=== PATIENT | male | born 1970 | race Caucasian/White ===

== ENCOUNTER 2023-04-04 11:04 | Outpatient (OUT) | payer MEDICARE, MEDICAID, SELFPAY ==
--- NOTE | 2023-04-04 11:05 | VEIN_ITS ---
Patient: SAVANNAH HOWE Exam Date: 04/04/2023 : 1970 Gender:M Ordering : DR MONIKA HOUSER M.D. Admission #: [id number] Family : Order #: [id number] CLICK HERE TO VIEW EXAM RADIOLOGY REPORT PROCEDURE: [facility] - OFFICE VISIT FOLLOW UP COMPARISON: None. PROGRESS NOTES: The patient reports no new issues, and slight improvement in leg symptoms. There has been interval reduction in varicosities. The patient has followed our recommendations to walk 20-30 minutes once or twice per day since the procedure. Physical exam demonstrates slight decrease in varicosities of the left leg. Persistent varicosities are identified along the legs bilaterally. Review of the ultrasound performed the same day demonstrates occlusive thrombus extending throughout the treated vein, see separate report, consistent with a successful ablation. No thrombus extending into or beyond the saphenofemoral junction. The patient expressed a desire to proceed with treatment of remaining incompetent varicosities. The patient was informed that treatment was a process and would require several procedures/sessions. IMPRESSION: 1. Successful ablation of the left great saphenous vein 2. Persistent varicose veins and bilateral lower extremity symptoms PLAN: 1. Endovenous laser ablation of right small saphenous vein. Nurse notes, history and physical were reviewed and confirmed, see attached forms. The nurse was present throughout the physical exam and consultation Dictated by: Geo Cavanaugh M.D. on 04/05/2023 at 08:47 Approved by: Geo Cavanaugh M.D. on 04/05/2023 at 08:51
--- NOTE | 2023-04-04 11:06 | VEIN_ITS ---
Patient: SAVANNAH HWOE Exam Date: 04/04/2023 : 1970 Gender:M Ordering : DR MONIKA HOUSER M.D. Admission #: [id number] Family : Order #: [id number] CLICK HERE TO VIEW EXAM RADIOLOGY REPORT PROCEDURE: VC EXT VENOUS LT LIMITED COMPARISON: None. INDICATIONS: Phlebitis of superficial veins of lt lower extremity I80.02 TECHNIQUE: Lower extremity cantu scale and Duplex Doppler evaluation of the deep venous system from the inguinal ligament through the calf veins. FINDINGS: REGION: Left lower extremity. THROMBI: Negative for DVT. Heat induced thrombus visualized 3.0 cm from the SFJ. The heat induced thrombus extends from groin to mid thigh, is patent at distal thigh, and is thrombosed again from prox calf to distal calf. COMPRESSIBILITY: Non-compressible segments. FLOW: Areas of no flow. OTHER: CONCLUSION: 1. Successful post ablation occlusion of left great saphenous vein. Dictated by: Geo Cavanaugh M.D. on 04/05/2023 at 08:27 Approved by: Geo Cavanaugh M.D. on 04/05/2023 at 08:47
== END 2023-04-04 11:05 ==
LOC: VC 11:04
PROVIDERS: PCP Radiology Diagnostic Radiology; Visit Provider Radiology Diagnostic Radiology
DX: I80.02 Phlebitis and thrombophlebitis of superficial vessels of left lower extremity (principal); I83.93 Asymptomatic varicose veins of bilateral lower extremities
CPT/HCPCS: 93971; G0463

== ENCOUNTER 2023-04-16 09:45 | Outpatient (OUT) | payer MEDICARE, MEDICAID, SELFPAY ==
--- NOTE | 2023-04-16 10:36 | VEIN_ITS ---
[address] [address] Patient Name: SAVANNAH HOWE MRN: [id number] date: 1970 Sex: M Assigned Patient Location: Current Patient Location: Accession/Order Number: [id number] Exam Date: 04/16/2023 09:50 Report Date: 04/16/2023 11:03 At the request of: MONIKA HOUSER Procedure: VC Endovenous Ablation 1VeinRT EXAMINATION: VC Endovenous Ablation 1VeinRT HISTORY: Pain due to varicose veins of bilateral legs I83.813 The risks and benefits of the procedure had been previously discussed, and were rediscussed at length. Informed written consent was obtained. Sukh Adams RN and Helen Beatty RDMS, RVT assisted. Time out procedure was performed. The right lower extremity was prepared and draped in the usual sterile fashion to allow knee flexion in the sterile field. Duplex ultrasound probe was draped in a sterile cover, sterile transmission gel was used. Venous mapping was performed with the areas of dilation and large tributaries marked. The total length was 43 cm from the entry at level of popliteal fossa to 3-6 cm below the saphenofemoral junction for closure of thigh extension. The diameter of the greater saphenous vein ranged from 11 mm. A 30 gauge needle and 1% buffered lidocaine was used to anesthetize the entry site. A 4 mm incision was made with a scalpel and the saphenous vein was entered percutaneously under direct ultrasound guidance with a micropuncture set, a single stick was successful in gaining access. A micro-guide wire was inserted and the needle removed. A micro-set including a dilator was inserted over the microwire and the needle and dilator were removed. A guide wire was inserted through the micro-set and guided through the saphenous vein to the saphenofemoral junction. The dilator was removed and an introducer sheath was inserted over the wire until the end of the sheath entered the saphenofemoral junction. The dilator and wire were removed and the 600 micron fiber was introduced and placed and positioned so that it extended beyond the sheath and was 3 cm distal to the saphenofemoral femoral junction. Final position of the fiber was determined by ultrasound guidance and duplex imaging. Tumescent anesthetic was delivered by ultrasound guidance. 150 cc of fluid was delivered along the entire course of the saphenous vein. The solution consisted of 1000 cc of normal saline with 40 mL of 1% lidocaine and 20 mL of sodium bicarbonate. A final positioning check was made. The energy source was turned on by means of the foot pedal and the fiber and sheath were withdrawn. The total number of Joules delivered was 1693. The laser was active for 212seconds under continuous pulse, average laser use of 8 J. Laser start time 10:40 AM, 04/16/2023. Laser stop time 10:44 AM, 04/16/2023. A duplex ultrasound revealed compressibility and flow at the saphenofemoral junction immediately after the procedure. Hemostasis at the access site was achieved. The skin incision of the saphenous vein was closed with a 4 x 4. A compression stocking was applied. Postop instructions were given. A follow up appointment was recommended and scheduled. The patient tolerated the procedure well. Electronically authenticated by: SALONI CARDENAS Date: 04/16/2023 11:03
== END 2023-04-16 09:46 ==
LOC: VC 09:45
PROVIDERS: PCP Radiology Diagnostic Radiology; Visit Provider Radiology Diagnostic Radiology
DX: I83.813 Varicose veins of bilateral lower extremities with pain (principal)
CPT/HCPCS: 36478

== ENCOUNTER 2023-04-24 10:33 | Outpatient (OUT) | payer MEDICARE, MEDICAID, SELFPAY ==
--- NOTE | 2023-04-24 | VEIN_ITS ---
Patient: SAVANNAH HOWE Exam Date: 04/24/2023 : 1970 Gender:M Ordering : DR MONIKA HOUSER M.D. Admission #: [id number] Family : Order #: [id number] CLICK HERE TO VIEW EXAM RADIOLOGY REPORT PROCEDURE: VC EXT VENOUS RT LMTD COMPARISON: None. INDICATIONS: Phlebitis of superficial veins of rt lower extremity I80.01 TECHNIQUE: Lower extremity cantu scale and Duplex Doppler evaluation of the deep and superficial venous system from the inguinal ligament through the calf veins. FINDINGS: REGION: Right lower extremity. THROMBI: Positive for DVT. Partial chronic thrombus in FV, pop vein, and gastroc vein. Heat induced thrombus in SSV thigh extension 6 cm from groin and extends to distal lower leg. COMPRESSIBILITY: Non-compressible segments. FLOW: Areas of no flow. OTHER: CONCLUSION: 1. Successful post ablation occlusion of right small saphenous vein. 2. 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 Dictated by: Geo Cavanaugh M.D. on 04/24/2023 at 11:49 Approved by: Geo Cavanaugh M.D. on 04/24/2023 at 11:54
--- NOTE | 2023-04-24 | VEIN_ITS ---
Patient: SAVANNAH HOWE Exam Date: 04/24/2023 : 1970 Gender:M Ordering : DR MONIKA HOUSER M.D. Admission #: [id number] Family : Order #: [id number] CLICK HERE TO VIEW EXAM RADIOLOGY REPORT PROCEDURE: [facility] EST [facility] VEIN CENTER - OFFICE VISIT FOLLOW UP COMPARISON: [facility], 04/04/2023. PROGRESS NOTES: The patient reports mild tenderness within posterior right thigh, but overall improvement in right leg symptoms. There has been interval reduction in varicosities. The patient has followed our recommendations to walk 20-30 minutes once or twice per day since the procedure. Physical exam demonstrates decrease in varicosities of the right leg. Mild postprocedural bruising as expected. Persistent varicosities are identified along the right leg. Review of the ultrasound performed the same day demonstrates occlusive thrombus extending throughout the treated vein, see separate report, consistent with a successful ablation. No thrombus extending into or beyond the saphenofemoral junction. Areas of chronic deep vein thrombus are again noted and do not appear to have changed. The patient expressed a desire to proceed with treatment of remaining incompetent veins. The patient was informed that treatment was a process and would require several procedures/sessions. VEIN/[facility] EST TD IMPRESSION: 1. Successful ablation of the right small saphenous vein 2. Persistent incompetent superficial veins and bilateral lower extremity symptoms PLAN: 1. Endovenous laser ablation of left small saphenous vein. 2. 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 3. Microfoam chemical ablation of incompetent branch saphenous varicosities bilaterally. Nurse notes, history and physical were reviewed and confirmed, see attached forms. The nurse was present throughout the physical exam and consultation Dictated by: Geo Cavanaugh M.D. on 04/24/2023 at 11:54 Approved by: Geo Cavanaugh M.D. on 04/24/2023 at 12:00
== END 2023-04-24 10:34 ==
LOC: VC 10:34
PROVIDERS: PCP Radiology Diagnostic Radiology; Visit Provider Radiology Diagnostic Radiology
DX: I80.01 Phlebitis and thrombophlebitis of superficial vessels of right lower extremity (principal)
CPT/HCPCS: 93971; G0463

== ENCOUNTER 2023-05-08 08:36 | Outpatient (OUT) | payer MEDICARE, MEDICAID, SELFPAY ==
--- NOTE | 2023-05-08 | VEIN_ITS ---
[address] [address] Patient Name: SAVANNAH HOWE MRN: [id number] date: 1970 Sex: M Assigned Patient Location: Current Patient Location: Accession/Order Number: [id number] Exam Date: 05/08/2023 08:35 Report Date: 05/08/2023 13:38 At the request of: MONIKA HOUSER Procedure: VC Endovenous Ablation 1VeinLT EXAMINATION: VC Endovenous Ablation 1VeinLT HISTORY: Pain due to varicose veins of bilateral legs I83.813 The risks and benefits of the procedure had been previously discussed, and were rediscussed at length. Informed written consent was obtained. Cleo Treviño RN and Leanna Sánchez RDMS assisted. Time out procedure was performed. The left lower extremity was prepared and draped in the usual sterile fashion to allow knee flexion in the sterile field. Duplex ultrasound probe was draped in a sterile cover, sterile transmission gel was used. Venous mapping was performed with the areas of dilation and large tributaries marked. The total length was 45 cm from the entry 3 cm above the medial malleolus to 3 cm below the saphenofemoral popliteal junction. The diameter of the greater saphenous vein ranged from 5.4 mm. A 30 gauge needle and 1% buffered lidocaine was used to anesthetize the entry site. A 4 mm incision was made with a scalpel and the saphenous vein was entered percutaneously under direct ultrasound guidance with a micropuncture set, a single stick was successful in gaining access. A micro-guide wire was inserted and the needle removed. A micro-set including a dilator was inserted over the microwire and the needle and dilator were removed. A guide wire was inserted through the micro-set and guided through the saphenous vein to the saphenofemoral junction. The dilator was removed and an introducer sheath was inserted over the wire until the end of the sheath entered the saphenofemoral junction. The dilator and wire were removed and the 600 micron fiber was introduced and placed and positioned so that it extended beyond the sheath and was 3 cm distal to the saphenofemoral femoral junction. Final position of the fiber was determined by ultrasound guidance and duplex imaging. Tumescent anesthetic was delivered by ultrasound guidance. 150 cc of fluid was delivered along the entire course of the saphenous vein. The solution consisted of 1000 cc of normal saline with 40 mL of 1% lidocaine and 20 mL of sodium bicarbonate. A final positioning check was made. The energy source was turned on by means of the foot pedal and the fiber and sheath were withdrawn. The total number of Joules delivered was 2478. The laser was active for 310seconds under continuous pulse, average laser use of 8 J. Laser start time 9:33 AM, 05/08/2023. Laser stop time 9:39 AM, 05/08/2023. A duplex ultrasound revealed compressibility and flow at the saphenofemoral junction immediately after the procedure. Hemostasis at the access site was achieved. The skin incision of the saphenous vein was closed with a 4 x 4. A compression stocking was applied. Postop instructions were given. A follow up appointment was recommended and scheduled. The patient tolerated the procedure well. Electronically authenticated by: SALONI CARDENAS Date: 05/08/2023 13:38
[2023-05-08] MEDS: LIDOCAINE HCL 10 ML, SODIUM BICARBONATE 1 MEQ INJ (10:10)
[2023-05-08] MEDS: 0.9 % SODIUM CHLORIDE 500 ML, LIDOCAINE HCL 20 ML, SODIUM BICARBONATE 10 MEQ INJ (10:10)
== END 2023-05-08 08:37 | disposition home or self-care (01) ==
LOC: VC 08:36
PROVIDERS: PCP Radiology Diagnostic Radiology; Visit Provider Radiology Diagnostic Radiology
DX: I83.813 Varicose veins of bilateral lower extremities with pain (principal); I80.02 Phlebitis and thrombophlebitis of superficial vessels of left lower extremity
CPT/HCPCS: 36478

== ENCOUNTER 2023-05-14 09:12 | Outpatient (OUT) | payer MEDICARE, MEDICAID, SELFPAY ==
--- NOTE | 2023-05-14 | VEIN_ITS ---
Patient: SAVANNAH HOWE Exam Date: 05/14/2023 : 1970 Gender:M Ordering : DR MONIKA HOUSER M.D. Admission #: [id number] Family : Order #: [id number] CLICK HERE TO VIEW EXAM RADIOLOGY REPORT PROCEDURE: [facility] EST [facility]IN C[facility] - OFFICE VISIT FOLLOW UP [facility] PROGRESS NOTES: The patient reports improvement in leg symptoms. There has been interval reduction in varicosities. The patient has followed our recommendations to walk 20-30 minutes once or twice per day since the procedure. Physical exam demonstrates decrease in varicosities of the left leg. Persistent varicosities, edema, and wounds are identified along the left leg. Review of the ultrasound performed the same day demonstrates occlusive thrombus extending throughout the treated vein, see separate report, consistent with a successful ablation. No thrombus extending into or beyond the saphenofemoral junction. The patient expressed a desire to proceed with treatment of right lower extremity instrumentation specialist veins followed by microfoam chemical ablation of incompetent branch saphenous varicosities. The patient was informed that treatment was a process and would require several procedures/sessions. VEIN/[facility] EST LMTD IMPRESSION: 1. Successful ablation of the left small saphenous vein 2. Persistent incompetent varicose veins, right lower extremity instrumentation specialist veins and bilateral lower extremity symptoms PLAN: Endovenous laser ablation of right calf instrumentation specialist veins. Nurse notes, history and physical were reviewed and confirmed, see attached forms. The nurse was present throughout the physical exam and consultation Dictated by: Geo Cavanaugh M.D. on 05/14/2023 at 10:28 Approved by: Geo Cavanaugh M.D. on 05/14/2023 at 10:31
--- NOTE | 2023-05-14 | VEIN_ITS ---
Patient: SAVANNAH HOWE Exam Date: 05/14/2023 : 1970 Gender:M Ordering : DR MONIKA HOUSER M.D. Admission #: [id number] Family : Order #: [id number] CLICK HERE TO VIEW EXAM RADIOLOGY REPORT PROCEDURE: VC EXT VENOUS LT LIMITED COMPARISON: VC EXT VENOUS LT LIMITED, 04/04/2023. INDICATIONS: Phlebitis of superficial vein of the lt lower extremity I80.02 TECHNIQUE: Lower extremity cantu scale and Duplex Doppler evaluation of the deep venous system from the inguinal ligament through the calf veins. FINDINGS: REGION: Left lower extremity. THROMBI: Negative for DVT. Heat induced thrombus visualized in thigh extension SSV. Thrombus arises at mid SSV and extends through distal calf. COMPRESSIBILITY: Non-compressible segments. FLOW: Areas of no flow. OTHER: CONCLUSION: 1. Successful post ablation occlusion of left small saphenous vein. Dictated by: Geo Cavanaugh M.D. on 05/14/2023 at 10:27 Approved by: Geo Cavanaugh M.D. on 05/14/2023 at 10:28
== END 2023-05-14 09:13 | disposition home or self-care (01) ==
LOC: VC 09:12
PROVIDERS: PCP Radiology Diagnostic Radiology; Visit Provider Radiology Diagnostic Radiology
DX: I80.02 Phlebitis and thrombophlebitis of superficial vessels of left lower extremity (principal)
CPT/HCPCS: 93971; G0463

== ENCOUNTER 2023-05-24 10:00 | Outpatient (OUT) | payer MEDICARE, MEDICAID, SELFPAY ==
--- NOTE | 2023-05-24 10:02 | VEIN_ITS ---
[address] [address] Patient Name: SAVANNAH HOWE MRN: [id number] date: 1970 Sex: M Assigned Patient Location: Current Patient Location: Accession/Order Number: [id number] Exam Date: 05/24/2023 10:10 Report Date: 05/24/2023 11:08 At the request of: MONIKA HOUSER Procedure: VC Endovenous Perf Ablation RT EXAMINATION: VC Endovenous Perf Ablation RT COMPARISON: INDICATIONS: Pain due to varicose veins of bilateral legs I83.813 OPERATIVE REPORT: Diagnosis: Superficial venous reflux, incompetent perforating veins Procedure: Endovenous laser ablation of the right studio manager(s) Procedure: The patient was positioned supine on the table and the leg was prepped and draped to allow for visualization during venous access. A sterile cover was draped over a 16 mhz ultrasound probe. Venous mapping was performed prior to the procedure noting location and size of vessel(s). Attending Urologist vein 1: Distal medial right lower leg, 5 cm above the medial malleolus. The diameter of the vein ranged from 9 mm's below the muscular fascia to 10 mm's at the entry point. Using a 30 gauge needle the entry site was anesthetized with 1 cc of 1% buffered lidocaine. Access was gained percutaneously, with a 21-gauge needle, into the studio manager vein under ultrasound guidance. The needle was advanced into the desired position and the pre-measured 400-micron fiber was then inserted into the needle and locked in place. The position of the fiber was imaged with ultrasound guidance. The fiber tip was visualized to be 25 mm from the deep vessel. An anesthetic solution of 7 cc 1% buffered lidocaine was delivered along the course of the vein under ultrasound guidance using a syringe. A final positioning check of the laser fiber tip was performed. The laser was activated by means of a foot-pedal and the fiber and needle were withdrawn together in accordance to the desired joules per treatment area/spot weld. 5 areas/spot welds were performed, and the total number of joules delivered was 313. The total time of energy delivery was 39 seconds. A duplex ultrasound revealed compressibility and flow of the deep system immediately after the procedure. Hemostasis of the access site was achieved and dressed. Attending Urologist vein 2: Medial mid to distal right lower leg. The diameter of the vein ranged from 5 mm's below the muscular fascia to 6 mm's at the entry point. Using a 30 gauge needle the entry site was anesthetized with 1 cc of 1% buffered lidocaine. Access was gained percutaneously, with a 21-gauge needle, into the studio manager vein under ultrasound guidance. The needle was advanced into the desired position and the pre-measured 400-micron fiber was then inserted into the needle and locked in place. The position of the fiber was imaged with ultrasound guidance. The fiber tip was visualized to be 20 mm from the deep vessel. An anesthetic solution of 8cc 1% buffered lidocaine was delivered along the course of the vein under ultrasound guidance using a syringe. A final positioning check of the laser fiber tip was performed. The laser was activated by means of a foot-pedal and the fiber and needle were withdrawn together in accordance to the desired joules per treatment area/spot weld. 3 areas/spot welds were performed, and the total number of joules delivered was 192. The total time of energy delivery was 8 seconds. A duplex ultrasound revealed compressibility and flow of the deep system immediately after the procedure. Hemostasis of the access site was achieved and dressed. A 20-30 mm compression stocking over coban was placed on the treated leg. Post-Op instructions were given, and a follow-up appointment was made. CONCLUSION: 1. Technically successful endovenous laser ablation of 2 separate right leg incompetent studio manager veins Electronically authenticated by: MONIKA HOUSER Date: 05/24/2023 11:08
[2023-05-24] MEDS: LIDOCAINE HCL 20 ML, SODIUM BICARBONATE 2 MEQ INJ (10:30)
== END 2023-05-24 10:01 | disposition home or self-care (01) ==
LOC: VC 10:01
PROVIDERS: PCP Radiology Diagnostic Radiology; Visit Provider Radiology Diagnostic Radiology
DX: I83.813 Varicose veins of bilateral lower extremities with pain (principal)
CPT/HCPCS: 36478

== ENCOUNTER 2023-06-12 09:17 | Outpatient (OUT) | payer MEDICARE, MEDICAID, SELFPAY ==
--- NOTE | 2023-06-12 | VEIN_ITS ---
Patient: SAVANNAH HOWE Exam Date: 06/12/2023 : 1970 Gender:M Ordering : DR MONIKA HOUSER M.D. Admission #: [id number] Family : Order #: [id number] CLICK HERE TO VIEW EXAM RADIOLOGY REPORT PROCEDURE: [facility] EST LMTD VEIN CENTER - OFFICE VISIT FOLLOW UP COMPARISON: [facility], 05/14/2023. PROGRESS NOTES: The patient reports improvement in leg symptoms. There has been interval reduction in varicosities. The patient has followed our recommendations to walk 20-30 minutes once or twice per day since the procedure. Physical exam demonstrates decrease in varicosities of the leg. Persistent varicosities are identified along the legs bilaterally. Review of the ultrasound performed the same day demonstrates occlusive thrombus extending throughout the treated vein(s), see separate report, consistent with a successful ablation. No thrombus extending into or beyond the saphenofemoral junction. The patient expressed a desire to proceed with treatment of dilated and incompetent branch saphenous varicosities. The patient was informed that treatment was a process and would require several procedures[facility]sessions[facility]: 1. Successful ablation of the treated lower right leg human services supervisor vein(s). 2. Persistent branch saphenous varicosities and mild bilateral lower extremity symptoms. PLAN: Microfoam chemical ablation of incompetent branch saphenous varicosities starting with left leg. Nurse notes, history and physical were reviewed and confirmed, see attached forms. The nurse was present throughout the physical exam and consultation Dictated by: Geo Cavanaugh M.D. on 06/12/2023 at 10:26 Approved by: Geo Cavanaugh M.D. on 06/12/2023 at 10:28
--- NOTE | 2023-06-12 | VEIN_ITS ---
Patient: SAVANNAH HOWE Exam Date: 06/12/2023 : 1970 Gender:M Ordering : DR MONIKA HOUSER M.D. Admission #: [id number] Family : Order #: [id number] CLICK HERE TO VIEW EXAM RADIOLOGY REPORT PROCEDURE: VC EXT VENOUS RT LMTD COMPARISON: [facility] EXT VENOUS RT LMTD, 04/24/2023. INDICATIONS: Phlebitis of superficial veins of rt lower extremity I80.01 TECHNIQUE: Lower extremity cantu scale and Duplex Doppler evaluation of the deep venous system from the inguinal ligament through the calf veins. FINDINGS: REGION: Right lower extremity. THROMBI: Positive for DVT. Chronic partial thrombus in popliteal fossa. Heat induced partial thrombus in two distal medial perforators 9.0 mm form PTV. COMPRESSIBILITY: Non-compressible & partially compressible segments. FLOW: Areas of no flow. OTHER: CONCLUSION: 1. Partial/near complete occlusion of treated distal right lower extremity hair or beauty salon manager veins. Dictated by: Geo Cavanaugh M.D. on 06/12/2023 at 10:15 Approved by: Geo Cavanaugh M.D. on 06/12/2023 at 10:26
== END 2023-06-12 09:18 | disposition home or self-care (01) ==
LOC: VC 09:17
PROVIDERS: PCP Radiology Diagnostic Radiology; Visit Provider Radiology Diagnostic Radiology
DX: I80.01 Phlebitis and thrombophlebitis of superficial vessels of right lower extremity (principal); I83.813 Varicose veins of bilateral lower extremities with pain
CPT/HCPCS: 93971; G0463

== ENCOUNTER 2023-06-20 08:15 | Outpatient (OUT) | payer MEDICARE, MEDICAID, SELFPAY ==
--- NOTE | 2023-06-20 08:17 | VEIN_ITS ---
[address] [address] Patient Name: SAVANNAH HOWE MRN: [id number] date: 1970 Sex: M Assigned Patient Location: Current Patient Location: Accession/Order Number: [id number] Exam Date: 06/20/2023 08:25 Report Date: 06/20/2023 09:59 At the request of: MONIKA HOUSER Procedure: VC INJ Foam Sclerosant WUS CHECKER IN PROCEDURE: VC INJ Foam Sclerosant WUS CHECKER IN HISTORY: Pain due to varicose veins of bilateral legs I83.813 Pre-operative Diagnosis: CEAP class [C6 venous insufficiency with pain, tenderness, edema and incompetent branch saphenous vein(s), chronic venous insufficiency left leg secondary to venous incompetence Post-operative Diagnosis: CEAP class C6 venous insufficiency with pain, tenderness, edema and incompetent branch saphenous vein(s), chronic venous insufficiency left leg secondary to venous incompetence Procedure Performed: 1. Ultrasound-guided microfoam chemical ablation with Varithenaregistered 2. Intraoperative ultrasound guidance Physician: Geo Cavanaugh M.D. Anesthesia: None Indications for Procedure: 52 year old male. Symptoms including lower extremity dilated bulging veins, throbbing, heaviness, itching for many years despite conservative medical therapy including medical compression stockings, exercise and analgesics. Prior procedures include endovenous laser ablation. Multiple incompetent varicosities of the left leg. Duplex scan showed reflux and enlarged diameters up to 6 mm. The patient underwent informed consent including management options where the complications of infection, bleeding, pain, and skin injury were discussed. Particular attention was spent discussing thrombus extension and deep vein thrombosis as well as the possibility of pulmonary embolus and treatment with oral or injectable blood thinners. Procedure: The patient walked to the procedure room. All applicable staff donned appropriate apparel. A procedure timeout was performed to confirm correct patient, correct extremity, correct procedure, and correct room set-up including presence of all applicable supplies, devices, and drugs. A duplex ultrasound, performed by myself confirmed the location and incompetence of branch saphenous varicosities and their course was marked on the skin together with the dilated tributaries. The extent of treatment of the vein and the associated varicosities was determined through ultrasound mapping. The skin was prepped and then punctured with a butterfly needle and advanced under ultrasound guidance. The Varithenaregistered canister was activated and the canister was primed and purged as required in the instructions for use. Varithenaregistered was drawn into a sterile syringe. Varithenaregistered was slowly administered at 0.5-1.0 cc/second with close observation by ultrasound of its course in the vessels. Total volume utilized was: 15 mL (8 mL within an incompetent 6 mm varicosity of the distal medial lower leg; 7 mL within an incompetent 5 mm varicosity of the posterior distal lower leg). Following administration of Varithenaregistered the leg was elevated and the patient was asked to repeatedly dorsiflex the ankle to limit flow of Varithenaregistered into perforating veins. Once appropriate spasm had been confirmed in the treated veins, the vascular catheter was removed from the leg and light pressure was applied over the puncture site for hemostasis. The common femoral and deep superficial veins were then evaluated for flow and compressibility prior to dressing placement. The lower extremity was kept elevated at 45 degrees above the horizontal and cording material was applied over the saphenous segments and tributaries to allow for eccentric compression over the target vessels including the targeted saphenous vein(s). A multilayer dressing was applied consisting of foam pads, coban and thigh-high 20-30 mm Hg compression elastic support hose were placed on the patient. The leg was lowered only after compression had been applied and the patient was immediately ambulatory. The patient ambulated 10 minutes under supervision and was without apparent concerns at time of release. Post-care instructions include advising patient to keep post-treatment bandages in place and dry for 48 hours, avoid extended periods of inactivity, avoid heavy exercise for one week, wear compression stockings on the treated leg continuously for two weeks, to walk daily for 10 minutes over the next month. The patient was instructed to take an anti-inflammatory medicine as needed and to follow up for color duplex scan of the Saphenous veins, the treated branch saphenous varicosities, the adjacent deep veins, and additional treatment within 7 days. PERSONNEL: Sukh Adams RN Electronically authenticated by: GEO CAVANAUGH Date: 06/20/2023 09:59
== END 2023-06-20 08:16 | disposition home or self-care (01) ==
LOC: VC 08:15
PROVIDERS: PCP Radiology Diagnostic Radiology; Visit Provider Radiology Diagnostic Radiology
DX: I83.813 Varicose veins of bilateral lower extremities with pain (principal)
CPT/HCPCS: 36466

== ENCOUNTER 2023-06-27 08:06 | Outpatient (OUT) | payer MEDICARE, MEDICAID, SELFPAY ==
--- NOTE | 2023-06-27 08:07 | VEIN_ITS ---
Patient: SAVANNAH HOWE Exam Date: 06/27/2023 : 1970 Gender:M Ordering : DR MONIKA HOUSER M.D. Admission #: [id number] Family : Order #: [id number] CLICK HERE TO VIEW EXAM RADIOLOGY REPORT PROCEDURE: [facility] - OFFICE VISIT FOLLOW UP COMPARISON: [facility], 06/12/2023. PROGRESS NOTES: The patient reports improvement in leg symptoms. There has been interval reduction in varicosities. The patient has followed our recommendations to walk 20-30 minutes once or twice per day since the procedure. Physical exam demonstrates decrease in varicosities of the leg. Persistent varicosities are identified along the legs bilaterally. Review of the ultrasound performed the same day demonstrates occlusive thrombus extending throughout the treated vein(s), see separate report, consistent with a successful ablation. No thrombus extending into or beyond the saphenofemoral junction. The patient expressed a desire to proceed with treatment of remaining incompetent varicosities. The patient was informed that treatment was a process and would require several procedures/sessions. [facility]: 1. Successful ablation of the left leg incompetent branch saphenous vein(s). 2. Persistent incompetent varicose veins and lower extremity symptoms. PLAN: 1. Microfoam chemical ablation of right leg dilated branch saphenous varicosities. Nurse notes, history and physical were reviewed and confirmed, see attached forms. The nurse was present throughout the physical exam and consultation Dictated by: Geo Cavanaugh M.D. on 06/27/2023 at 11:12 Approved by: Geo Cavanaugh M.D. on 06/27/2023 at 11:14
--- NOTE | 2023-06-27 08:08 | VEIN_ITS ---
Patient: SAVANNAH HOWE Exam Date: 06/27/2023 : 1970 Gender:M Ordering : DR MONIKA HOUSER M.D. Admission #: [id number] Family : Order #: [id number] CLICK HERE TO VIEW EXAM RADIOLOGY REPORT PROCEDURE: VC EXT VENOUS LT LIMITED COMPARISON: VC EXT VENOUS LT LIMITED, 05/14/2023. INDICATIONS: I80.02 Phlebitis of superficial veins of lt lower extremity TECHNIQUE: Lower extremity cantu scale and Duplex Doppler evaluation of the deep venous system from the inguinal ligament through the calf veins. FINDINGS: REGION: Left lower extremity. THROMBI: Negative for DVT. Varithena induced thrombus visualized at dist/med calf and dist/post calf. COMPRESSIBILITY: Non-compressible segments. FLOW: Areas of no flow. OTHER: Multiple varicose veins remain CONCLUSION: 1. Successful post ablation occlusion of left leg treated branch saphenous varicosities. Dictated by: Geo Cavanaugh M.D. on 06/27/2023 at 11:10 Approved by: Geo Cavanaugh M.D. on 06/27/2023 at 11:11
== END 2023-06-27 08:07 | disposition home or self-care (01) ==
LOC: VC 08:06
PROVIDERS: PCP Radiology Diagnostic Radiology; Visit Provider Radiology Diagnostic Radiology
DX: I80.02 Phlebitis and thrombophlebitis of superficial vessels of left lower extremity (principal)
CPT/HCPCS: 93971; G0463

== ENCOUNTER 2023-07-04 10:15 | Outpatient (OUT) | payer MEDICARE, MEDICAID, SELFPAY ==
--- NOTE | 2023-07-04 | VEIN_ITS ---
[address] [address] Patient Name: SAVANNAH HOWE MRN: [id number] date: 1970 Sex: M Assigned Patient Location: Current Patient Location: Accession/Order Number: [id number] Exam Date: 07/04/2023 10:50 Report Date: 07/04/2023 12:01 At the request of: MONIKA HOUSER Procedure: VC INJ Foam Sclerosant WUS TRUCK DRIVING PROCEDURE: VC INJ Foam Sclerosant WUS TRUCK DRIVING HISTORY: Pain due to varicose veins of bilateral legs I83.813 Pre-operative Diagnosis: CEAP class C6 venous insufficiency with pain, tenderness, edema and incompetent branch saphenous vein(s), chronic venous insufficiency right leg secondary to venous incompetence Post-operative Diagnosis: CEAP class C6 venous insufficiency with pain, tenderness, edema and incompetent branch saphenous vein(s), chronic venous insufficiency right leg secondary to venous incompetence Procedure Performed: 1. Ultrasound-guided microfoam chemical ablation with Varithenaregistered 2. Intraoperative ultrasound guidance Physician: Geo Cavanaugh M.D. Anesthesia: None Indications for Procedure: 52 year old male. Symptoms including lower extremity pain, swelling, cramping, dilated bulging veins, reoccurring wounds for many years despite conservative medical therapy including medical compression stockings, exercise and analgesics. Prior procedures include endovenous laser ablation and Microfoam chemical ablation. Multiple incompetent varicosities of the right leg. Duplex scan showed reflux and enlarged diameters up to 8 mm. The patient underwent informed consent including management options where the complications of infection, bleeding, pain, and skin injury were discussed. Particular attention was spent discussing thrombus extension and deep vein thrombosis as well as the possibility of pulmonary embolus and treatment with oral or injectable blood thinners. Procedure: The patient walked to the procedure room. All applicable staff donned appropriate apparel. A procedure timeout was performed to confirm correct patient, correct extremity, correct procedure, and correct room set-up including presence of all applicable supplies, devices, and drugs. A duplex ultrasound, performed by myself confirmed the location and incompetence of branch saphenous varicosities and their course was marked on the skin together with the dilated tributaries. The extent of treatment of the vein and the associated varicosities was determined through ultrasound mapping. The skin was prepped and then punctured with a butterfly needle and advanced under ultrasound guidance. The Varithenaregistered canister was activated and the canister was primed and purged as required in the instructions for use. Varithenaregistered was drawn into a sterile syringe. Varithenaregistered was slowly administered at 0.5-1.0 cc/second with close observation by ultrasound of its course in the vessels. Total volume utilized was: 15 mL (10 mL into an 8 mm incompetent varicosity within the medial lower leg; 5 mL into a 4 mm varicosity of the mid lateral lower right leg). Following administration of Varithenaregistered the leg was elevated and the patient was asked to repeatedly dorsiflex the ankle to limit flow of Varithenaregistered into perforating veins. Once appropriate spasm had been confirmed in the treated veins, the vascular catheter was removed from the leg and light pressure was applied over the puncture site for hemostasis. The common femoral and deep superficial veins were then evaluated for flow and compressibility prior to dressing placement. The lower extremity was kept elevated at 45 degrees above the horizontal and cording material was applied over the saphenous segments and tributaries to allow for eccentric compression over the target vessels including the targeted saphenous vein(s). A multilayer dressing was applied consisting of foam pads, coban and thigh-high 20-30 mm Hg compression elastic support hose were placed on the patient. The leg was lowered only after compression had been applied and the patient was immediately ambulatory. The patient ambulated 10 minutes under supervision and was without apparent concerns at time of release. Post-care instructions include advising patient to keep post-treatment bandages in place and dry for 48 hours, avoid extended periods of inactivity, avoid heavy exercise for one week, wear compression stockings on the treated leg continuously for two weeks, to walk daily for 10 minutes over the next month. The patient was instructed to take an anti-inflammatory medicine as needed and to follow up for color duplex scan of the Saphenous veins, the treated branch saphenous varicosities, the adjacent deep veins, and additional treatment within 7 days. PERSONNEL: Sukh Adams RN Electronically authenticated by: GEO CAVANAUGH Date: 07/04/2023 12:01
== END 2023-07-04 10:16 | disposition home or self-care (01) ==
LOC: VC 10:15
PROVIDERS: PCP Radiology Diagnostic Radiology; Visit Provider Radiology Diagnostic Radiology
DX: I83.813 Varicose veins of bilateral lower extremities with pain (principal)
CPT/HCPCS: 36466

== ENCOUNTER 2023-07-17 10:59 | Outpatient (OUT) | payer MEDICARE, MEDICAID, SELFPAY ==
--- NOTE | 2023-07-17 | VEIN_ITS ---
Patient: SAVANNAH HOWE Exam Date: 07/17/2023 : 1970 Gender:M Ordering : DR CHRIS LY M.D. Admission #: [id number] Family : Order #: [id number] CLICK HERE TO VIEW EXAM RADIOLOGY REPORT PROCEDURE: [facility] - OFFICE VISIT FOLLOW UP COMPARISON: [facility], 06/27/2023. [facility], 06/12/2023. PROGRESS NOTES: The patient reports no problems following micro foam chemical ablation of right leg incompetent varicose veins. The patient did not require oral analgesics. The patient did wear his compression stockings. Physical exam demonstrates scattered thrombosed varicose veins. Multiple patent varicose veins remain on both legs. There is significant decrease in subcutaneous swelling of the right leg with continued healing of an active venous stasis or ulceration on the right medial ankle. Review of the ultrasound performed the same day demonstrates nonocclusive thrombus extending throughout the treated right leg varicose veins. No deep vein thrombus. The patient expressed a desire to proceed with treatment of incompetent varicose veins foam chemical ablation. VEIN/ [facility] IMPRESSION: 1. Partial occlusion of treated right leg varicose veins. 2. Persistent extensive incompetent right leg varicose veins. PLAN: Micro foam chemical ablation right leg incompetent dilated varicose veins Nurse notes, history and physical were reviewed and confirmed, see attached forms. The nurse was present throughout the physical exam and consultation Dictated by: Chris Ly MD on 07/17/2023 at 12:01 Approved by: Chris Ly MD on 07/17/2023 at 12:05
--- NOTE | 2023-07-17 | VEIN_ITS ---
Patient: SAVANNAH HOWE Exam Date: 07/17/2023 : 1970 Gender:M Ordering : DR CHRIS LY M.D. Admission #: [id number] Family : Order #: [id number] CLICK HERE TO VIEW EXAM RADIOLOGY REPORT PROCEDURE: VC EXT VENOUS RT LMTD COMPARISON: VC EXT VENOUS RT [facility], 06/12/2023. VC EXT VENOUS RT [facility], 04/24/2023. INDICATIONS: Phlebitis of superficial veins of rt lower extremity I80.01 TECHNIQUE: Lower extremity cantu scale and Duplex Doppler evaluation of the deep venous system from the inguinal ligament through the calf veins. FINDINGS: REGION: Right lower extremity. THROMBI: Positive for DVT. Chronic partial thrombus in CFV, FV, and popliteal veins. Chemically induced partial thrombus in varicosity distal medial lower leg. COMPRESSIBILITY: Partial compressibility. FLOW: Decrease in flow OTHER: Multiple patent varicose veins remain. Lateral mid lower leg varicosity measures 4.8 mm. Distal medial lower leg varicose vein measures 7.4 mm. CONCLUSION: Partial nonocclusive thrombus in treated varicose veins. Incompetent varicose veins remain measuring up to 7.4 mm Dictated by: Chris Ly MD on 07/17/2023 at 11:39 Approved by: Chris Ly MD on 07/17/2023 at 11:41
== END 2023-07-17 11:00 | disposition home or self-care (01) ==
LOC: VC 10:59
PROVIDERS: PCP Radiology Diagnostic Radiology; Visit Provider Radiology Diagnostic Radiology
DX: I80.01 Phlebitis and thrombophlebitis of superficial vessels of right lower extremity (principal)
CPT/HCPCS: 93971; G0463

== ENCOUNTER 2023-07-25 10:42 | Outpatient (OUT) | payer MEDICARE, MEDICAID, SELFPAY ==
--- NOTE | 2023-07-25 10:55 | VEIN_ITS ---
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 Ultrasound-guided microfoam chemical ablation with Varithenaregistered 2. Intraoperative ultrasound guidance Physician: eGo Cavanaugh M.D. Anesthesia: None Indications for Procedure: 52 year old male. Symptoms including lower extremity pain, dilated veins, and extensive skin staining and lower extremity wounds for many years despite conservative medical therapy including medical compression stockings, exercise and analgesics. Prior procedures include endovenous laser ablation and microfoam chemical ablation. Multiple incompetent varicosities of the right leg. Duplex scan showed reflux and enlarged diameters up to 8 mm. The patient underwent informed consent including management options where the complications of infection, bleeding, pain, and skin injury were discussed. Particular attention was spent discussing thrombus extension and deep vein thrombosis as well as the possibility of pulmonary embolus and treatment with oral or injectable blood thinners. Procedure: The patient walked to the procedure room. All applicable staff donned appropriate apparel. A procedure timeout was performed to confirm correct patient, correct extremity, correct procedure, and correct room set-up including presence of all applicable supplies, devices, and drugs. A duplex ultrasound, performed by myself confirmed the location and incompetence of branch saphenous varicosities and their course was marked on the skin together with the dilated tributaries. The extent of treatment of the vein and the associated varicosities was determined through ultrasound mapping. The skin was prepped and then punctured with a butterfly needle and advanced under ultrasound guidance. The Varithenaregistered canister was activated and the canister was primed and purged as required in the instructions for use. Varithenaregistered was drawn into a sterile syringe. Varithenaregistered was slowly administered at 0.5-1.0 cc/second with close observation by ultrasound of its course in the vessels. Total volume utilized was: 15 mL into an 8 mm branch saphenous varicosity within the distal medial lower right leg. Following administration of Varithenaregistered the leg was elevated and the patient was asked to repeatedly dorsiflex the ankle to limit flow of Varithenaregistered into perforating veins. Once appropriate spasm had been confirmed in the treated veins, the vascular catheter was removed from the leg and light pressure was applied over the puncture site for hemostasis. The common femoral and deep superficial veins were then evaluated for flow and compressibility prior to dressing placement. The lower extremity was kept elevated at 45 degrees above the horizontal and cording material was applied over the saphenous segments and tributaries to allow for eccentric compression over the target vessels including the targeted saphenous vein(s). A multilayer dressing was applied consisting of foam pads, coban and thigh-high 20-30 mm Hg compression elastic support hose were placed on the patient. The leg was lowered only after compression had been applied and the patient was immediately ambulatory. The patient ambulated 10 minutes under supervision and was without apparent concerns at time of release. Post-care instructions include advising patient to keep post-treatment bandages in place and dry for 48 hours, avoid extended periods of inactivity, avoid heavy exercise for one week, wear compression stockings on the treated leg continuously for two weeks, to walk daily for 10 minutes over the next month. The patient was instructed to take an anti-inflammatory medicine as needed and to follow up for color duplex scan of the Saphenous veins, the treated branch saphenous varicosities, the adjacent deep veins, and additional treatment within 7 days. PERSONNEL: Cleo Treviño RN Electronically authenticated by: GEO CAVANAUGH Date: 07/25/2023 12:04
== END 2023-07-25 10:43 | disposition home or self-care (01) ==
LOC: VC 10:42
PROVIDERS: PCP Radiology Diagnostic Radiology; Visit Provider Radiology Diagnostic Radiology
DX: I83.813 Varicose veins of bilateral lower extremities with pain (principal)
CPT/HCPCS: 36466

== ENCOUNTER 2023-07-31 14:21 | Outpatient (OUT) | payer MEDICARE, MEDICAID, SELFPAY ==
--- NOTE | 2023-07-31 14:26 | VEIN_ITS ---
Patient: SAVANNAH HOWE Exam Date: 07/31/2023 : 1970 Gender:M Ordering : DR CHRIS LY M.D. Admission #: [id number] Family : Order #: [id number] CLICK HERE TO VIEW EXAM RADIOLOGY REPORT PROCEDURE: VC EXT VENOUS RT LMTD COMPARISON: VC EXT VENOUS RT [facility], 07/17/2023. VC EXT VENOUS RT [facility], 06/12/2023. INDICATIONS: I80.01 Phlebitis of superficial veins of rt lower extremity TECHNIQUE: Lower extremity cantu scale and Duplex Doppler evaluation of the deep venous system from the inguinal ligament through the calf veins. FINDINGS: REGION: Right lower extremity. THROMBI: Positive for DVT. Chronic partial thrombus in CFV, FV, and Popliteal vein. Chemically induced thrombus in segment of varicose vein from mid to distal lower leg. COMPRESSIBILITY: Non-compressible segments. FLOW: Absent flow corresponding to thrombus OTHER: Multiple varicose veins remain measuring up to 7 mm. CONCLUSION: Post ablation occlusion of treated right leg incompetent varicose veins with multiple residual incompetent varicose veins remaining up to 7 mm in diameter Dictated by: Chris yL MD on 07/31/2023 at 14:47 Approved by: Chris Ly MD on 07/31/2023 at 14:49
--- NOTE | 2023-07-31 14:26 | VEIN_ITS ---
Patient: SAVANNAH HOWE Exam Date: 07/31/2023 : 1970 Gender:M Ordering : DR CHRIS LY M.D. Admission #: [id number] Family : Order #: [id number] CLICK HERE TO VIEW EXAM RADIOLOGY REPORT PROCEDURE: [facility] - OFFICE VISIT FOLLOW UP COMPARISON: [facility], 07/17/2023. [facility], 06/27/2023. PROGRESS NOTES: The patient reports marked decrease in his initial presenting symptoms. No problems following micro foam chemical ablation of right leg incompetent varicose veins. The patient has worn his compression stockings. There has been interval reduction in varicosities. The patient has followed our recommendations to walk 20-30 minutes once or twice per day since the procedure. Physical exam demonstrates multiple thrombosed varicose veins on palpation. There is marked decrease in subcutaneous edema and skin thickening of the left leg below the knee. Near complete resolution of the active venous stasis ulceration along the medial right ankle. No new active ulceration. Review of the ultrasound performed the same day demonstrates occlusive thrombus extending throughout the treated right leg incompetent varicose veins. No deep vein thrombus. The patient expressed a desire to proceed with treatment of incompetent left leg varicose veins. VEIN/ [facility] IMPRESSION: 1. Successful ablation of treated incompetent right leg varicose veins 2. Persistent bilateral incompetent varicose veins. PLAN: Micro foam chemical ablation left leg incompetent varicose veins Nurse notes, history and physical were reviewed and confirmed, see attached forms. The nurse was present throughout the physical exam and consultation Dictated by: Chris Ly MD on 07/31/2023 at 14:53 Approved by: Chris Ly MD on 07/31/2023 at 14:55
== END 2023-07-31 14:22 | disposition home or self-care (01) ==
LOC: VC 14:21
PROVIDERS: PCP Radiology Diagnostic Radiology; Visit Provider Radiology Diagnostic Radiology
DX: I80.01 Phlebitis and thrombophlebitis of superficial vessels of right lower extremity (principal)
CPT/HCPCS: 93971; G0463

== ENCOUNTER 2023-08-16 12:38 | Outpatient (OUT) | payer MEDICARE, MEDICAID, SELFPAY ==
--- NOTE | 2023-08-16 12:39 | VEIN_ITS ---
[address] [address] Patient Name: SAVANNAH HOWE MRN: [id number] date: 1970 Sex: M Assigned Patient Location: Current Patient Location: Accession/Order Number: [id number] Exam Date: 08/16/2023 12:41 Report Date: 08/16/2023 13:43 At the request of: MONIKA HOUSER Procedure: VC INJ Foam Sclerosant WUS LANDSCAPE MANAGEMENT TECHNICIAN PROCEDURE: VC INJ Foam Sclerosant WUS LANDSCAPE MANAGEMENT TECHNICIAN HISTORY: Pain due to varicose veins of bilateral legs I83.813 Pre-operative Diagnosis: CEAP class C6 venous insufficiency with pain, tenderness, edema and incompetent branch saphenous vein(s), chronic venous insufficiency left leg secondary to venous incompetence Post-operative Diagnosis: CEAP class C6 venous insufficiency with pain, tenderness, edema and incompetent branch saphenous vein(s), chronic venous insufficiency left leg secondary to venous incompetence Procedure Performed: 1. Ultrasound-guided microfoam chemical ablation with Varithenaregistered 2. Intraoperative ultrasound guidance Physician: Geo Cavanaugh M.D. Anesthesia: None Indications for Procedure: 52 year old male. Symptoms including bilateral lower extremity pain, swelling, wounds, skin discoloration, bulging veins for many years despite conservative medical therapy including medical compression stockings, exercise and analgesics. Prior procedures include endovenous laser ablation and Microfoam chemical ablation. Multiple incompetent varicosities of the left leg. Duplex scan showed reflux and enlarged diameters up to 4 mm. The patient underwent informed consent including management options where the complications of infection, bleeding, pain, and skin injury were discussed. Particular attention was spent discussing thrombus extension and deep vein thrombosis as well as the possibility of pulmonary embolus and treatment with oral or injectable blood thinners. Procedure: The patient walked to the procedure room. All applicable staff donned appropriate apparel. A procedure timeout was performed to confirm correct patient, correct extremity, correct procedure, and correct room set-up including presence of all applicable supplies, devices, and drugs. A duplex ultrasound, performed by myself confirmed the location and incompetence of branch saphenous varicosities and their course was marked on the skin together with the dilated tributaries. The extent of treatment of the vein and the associated varicosities was determined through ultrasound mapping. The skin was prepped and then punctured with a butterfly needle and advanced under ultrasound guidance. The Varithenaregistered canister was activated and the canister was primed and purged as required in the instructions for use. Varithenaregistered was drawn into a sterile syringe. Varithenaregistered was slowly administered at 0.5-1.0 cc/second with close observation by ultrasound of its course in the vessels. Total volume utilized was: 15 mL (7 mL into a 4 mm varicosity of the anterior mid lower leg; 8 mL intravenous 4 mm varicosity of the anterior proximal lower leg). Following administration of Varithenaregistered the leg was elevated and the patient was asked to repeatedly dorsiflex the ankle to limit flow of Varithenaregistered into perforating veins. Once appropriate spasm had been confirmed in the treated veins, the vascular catheter was removed from the leg and light pressure was applied over the puncture site for hemostasis. The common femoral and deep superficial veins were then evaluated for flow and compressibility prior to dressing placement. The lower extremity was kept elevated at 45 degrees above the horizontal and cording material was applied over the saphenous segments and tributaries to allow for eccentric compression over the target vessels including the targeted saphenous vein(s). A multilayer dressing was applied consisting of foam pads, coban and thigh-high 20-30 mm Hg compression elastic support hose were placed on the patient. The leg was lowered only after compression had been applied and the patient was immediately ambulatory. The patient ambulated 10 minutes under supervision and was without apparent concerns at time of release. Post-care instructions include advising patient to keep post-treatment bandages in place and dry for 48 hours, avoid extended periods of inactivity, avoid heavy exercise for one week, wear compression stockings on the treated leg continuously for two weeks, to walk daily for 10 minutes over the next month. The patient was instructed to take an anti-inflammatory medicine as needed and to follow up for color duplex scan of the Saphenous veins, the treated branch saphenous varicosities, the adjacent deep veins, and additional treatment within 7 days. PERSONNEL: Sukh Adams RN Electronically authenticated by: GEO CAVANAUGH Date: 08/16/2023 13:43
== END 2023-08-16 12:39 | disposition home or self-care (01) ==
LOC: VC 12:38
PROVIDERS: PCP Radiology Diagnostic Radiology; Visit Provider Radiology Diagnostic Radiology
DX: I83.813 Varicose veins of bilateral lower extremities with pain (principal)
CPT/HCPCS: 36466

== ENCOUNTER 2023-08-23 08:58 | Outpatient (OUT) | payer MEDICARE, MEDICAID, SELFPAY ==
--- NOTE | 2023-08-23 09:00 | VEIN_ITS ---
Patient: SAVANNAH HOWE Exam Date: 08/23/2023 : 1970 Gender:M Ordering : DR CHRIS LY M.D. Admission #: [id number] Family : Order #: [id number] CLICK HERE TO VIEW EXAM RADIOLOGY REPORT PROCEDURE: [facility] EST [facility] - OFFICE VISIT FOLLOW UP COMPARISON: FACILITY EST [facility], 07/31/2023. FACILITY EST [facility]D, 07/17/2023. PROGRESS NOTES: The patient reports no significant problems following micro foam chemical ablation of left leg incompetent varicose veins. The patient has worn his compression stocking. The patient did not require oral analgesics. The patient has tried to exercise. Physical exam demonstrates multiple thrombosed varicose veins. Significant improvement from his initial presenting symptoms with mild persistent skin thickening subcutaneous edema and additional patent varicose veins. No areas of erythema or warmth to suggest cellulitis or thrombophlebitis. No active ulceration Review of the ultrasound performed the same day demonstrates occlusive thrombus extending throughout the treated left leg incompetent varicose veins. Multiple bilateral incompetent varicose veins remain. A 5 mm incompetent perforating vein is observed, we will attempt very thin a closure of associated varicose veins, if unsuccessful, we will consider intravenous laser ablation of the perforating vein The patient expressed a desire to proceed with treatment of right leg incompetent varicose veins. VEIN/ Facility EST LMTD IMPRESSION: 1. Successful ablation of left leg incompetent varicose veins 2. Persistent incompetent left leg 5 mm perforating vein and bilateral incompetent varicose veins. PLAN: Micro foam chemical ablation right leg incompetent varicose veins Nurse notes, history and physical were reviewed and confirmed, see attached forms. The nurse was present throughout the physical exam and consultation Dictated by: Chris Ly MD on 08/23/2023 at 09:24 Approved by: Chris Ly MD on 08/23/2023 at 09:26
--- NOTE | 2023-08-23 09:00 | VEIN_ITS ---
Patient: SAVANNAH HOWE Exam Date: 08/23/2023 : 1970 Gender:M Ordering : DR CHRIS LY M.D. Admission #: [id number] Family : Order #: [id number] CLICK HERE TO VIEW EXAM RADIOLOGY REPORT PROCEDURE: VC EXT VENOUS LT LIMITED COMPARISON: VC EXT VENOUS LT LIMITED, 06/27/2023. VC EXT VENOUS LT LIMITED, 05/14/2023. INDICATIONS: Phlebitis and thrombophlebitis of left lower [id number] TECHNIQUE: Lower extremity cantu scale and Duplex Doppler evaluation of the deep venous system from the inguinal ligament through the calf veins. FINDINGS: REGION: Left lower extremity. THROMBI: Negative for DVT. Thrombus identified in treated varicose veins COMPRESSIBILITY: Noncompressible segments corresponding to thrombus FLOW: Absent flow corresponding to thrombus OTHER: Patent varicose vein visualized on the mid medial lower leg measures 7.7 mm with 0.7s of reflux. Patent varicose vein visualized mid lateral lower leg measures 3.4 mm with 1.0s of reflux. CONCLUSION: Post ablation occlusion of treated varicose veins. Residual patent incompetent varicose veins measuring up to 7.7 mm and incompetent perforating vein measuring 5 mm Dictated by: Chris Ly MD on 08/23/2023 at 09:26 Approved by: Chris Ly MD on 08/23/2023 at 09:27
== END 2023-08-23 08:59 | disposition home or self-care (01) ==
LOC: VC 08:58
PROVIDERS: PCP Radiology Diagnostic Radiology; Visit Provider Radiology Diagnostic Radiology
DX: I80.02 Phlebitis and thrombophlebitis of superficial vessels of left lower extremity (principal)
CPT/HCPCS: 93971; G0463

== ENCOUNTER 2023-09-17 08:18 | Outpatient (OUT) | payer MEDICARE, MEDICAID, SELFPAY ==
--- NOTE | 2023-09-17 08:19 | VEIN_ITS ---
[address] [address] Patient Name: SAVANNAH HOWE MRN: [id number] date: 1970 Sex: M Assigned Patient Location: Current Patient Location: Accession/Order Number: [id number] Exam Date: 09/17/2023 08:19 Report Date: 09/17/2023 09:23 At the request of: MONIKA HOUSER Procedure: VC INJ Foam Sclerosant WUS VISION CARE ASSOCIATE PROCEDURE: VC INJ Foam Sclerosant WUS VISION CARE ASSOCIATE HISTORY: I83.813 Painful varicose veins of bilat lower extremities Pre-operative Diagnosis: CEAP class C6 venous insufficiency with pain, tenderness, edema and incompetent branch saphenous vein(s), chronic venous insufficiency right leg secondary to venous incompetence Post-operative Diagnosis: CEAP class C6 venous insufficiency with pain, tenderness, edema and incompetent branch saphenous vein(s), chronic venous insufficiency right leg secondary to venous incompetence Procedure Performed: 1. Ultrasound-guided microfoam chemical ablation with Varithenaregistered 2. Intraoperative ultrasound guidance Physician: Geo Cavanaugh M.D. Anesthesia: None Indications for Procedure: 52 year old male. Symptoms including lower extremity pain, swelling, dilated bulging veins, and ulcers for many years despite conservative medical therapy including medical compression stockings, exercise and analgesics. Prior procedures include endovenous laser ablation and microfoam chemical ablation. Multiple incompetent varicosities of the right leg. Duplex scan showed reflux and enlarged diameters up to 6 mm. The patient underwent informed consent including management options where the complications of infection, bleeding, pain, and skin injury were discussed. Particular attention was spent discussing thrombus extension and deep vein thrombosis as well as the possibility of pulmonary embolus and treatment with oral or injectable blood thinners. Procedure: The patient walked to the procedure room. All applicable staff donned appropriate apparel. A procedure timeout was performed to confirm correct patient, correct extremity, correct procedure, and correct room set-up including presence of all applicable supplies, devices, and drugs. A duplex ultrasound, performed by myself confirmed the location and incompetence of branch saphenous varicosities and their course was marked on the skin together with the dilated tributaries. The extent of treatment of the vein and the associated varicosities was determined through ultrasound mapping. The skin was prepped and then punctured with a butterfly needle and advanced under ultrasound guidance. The Varithenaregistered canister was activated and the canister was primed and purged as required in the instructions for use. Varithenaregistered was drawn into a sterile syringe. Varithenaregistered was slowly administered at 0.5-1.0 cc/second with close observation by ultrasound of its course in the vessels. Total volume utilized was: 15 mL (5 mL intravenous 5 mm varicosity of the distal medial lower leg; 10 mL intravenous 6 mm varicosity anterior distal lower leg). Following administration of Varithenaregistered the leg was elevated and the patient was asked to repeatedly dorsiflex the ankle to limit flow of Varithenaregistered into perforating veins. Once appropriate spasm had been confirmed in the treated veins, the vascular catheter was removed from the leg and light pressure was applied over the puncture site for hemostasis. The common femoral and deep superficial veins were then evaluated for flow and compressibility prior to dressing placement. The lower extremity was kept elevated at 45 degrees above the horizontal and cording material was applied over the saphenous segments and tributaries to allow for eccentric compression over the target vessels including the targeted saphenous vein(s). A multilayer dressing was applied consisting of foam pads, coban and thigh-high 20-30 mm Hg compression elastic support hose were placed on the patient. The leg was lowered only after compression had been applied and the patient was immediately ambulatory. The patient ambulated 10 minutes under supervision and was without apparent concerns at time of release. Post-care instructions include advising patient to keep post-treatment bandages in place and dry for 48 hours, avoid extended periods of inactivity, avoid heavy exercise for one week, wear compression stockings on the treated leg continuously for two weeks, to walk daily for 10 minutes over the next month. The patient was instructed to take an anti-inflammatory medicine as needed and to follow up for color duplex scan of the Saphenous veins, the treated branch saphenous varicosities, the adjacent deep veins, and additional treatment within 7 days. PERSONNEL: Sukh Adams RN Electronically authenticated by: GEO CAVANAUGH Date: 09/17/2023 09:23
== END 2023-09-17 08:19 | disposition home or self-care (01) ==
LOC: VC 08:18
PROVIDERS: PCP Radiology Diagnostic Radiology; Visit Provider Radiology Diagnostic Radiology
DX: I83.813 Varicose veins of bilateral lower extremities with pain (principal)
CPT/HCPCS: 36466

== ENCOUNTER 2023-09-25 10:03 | Outpatient (OUT) | payer MEDICARE, MEDICAID, SELFPAY ==
--- NOTE | 2023-09-25 10:19 | VEIN_ITS ---
Patient Name: SAVANNAH HOWE MR#: [id number] : 1970 Exam Date: 09/25/2023 Ordering Doctor: DR MONIKA HOUSER M.D. RADIOLOGY REPORT PROCEDURE: [facility] - [facility] PROGRESS NOTES: The patient reports improvement in leg symptoms. There has been interval reduction in varicosities. The patient has followed our recommendations to walk 20-30 minutes once or twice per day since the procedure. Physical exam demonstrates decrease in varicosities of the leg. Persistent varicosities are identified along the legs bilaterally. Review of the ultrasound performed the same day demonstrates occlusive thrombus extending throughout the treated vein(s), see separate report, consistent with a successful ablation. No thrombus extending into or beyond the saphenofemoral junction. The patient expressed a desire to proceed with treatment of remaining bilateral lower extremity varicosities. The patient was informed that treatment was a process and would require several procedures/sessions. VEIN/[facility] EST TD IMPRESSION: 1. Successful ablation of the right leg treated branch saphenous vein(s). 2. Persistent bilateral lower extremity varicose veins and lower extremity symptoms. PLAN: Microfoam chemical ablation of right leg branch saphenous varicosities. Nurse notes, history and physical were reviewed and confirmed, see attached forms. The nurse was present throughout the physical exam and consultation Dictated by: Geo Cavanaugh M.D. on 09/25/2023 at 11:03 Approved by: Geo Cavanaugh M.D. on 09/25/2023 at 11:04
--- NOTE | 2023-09-25 10:19 | VEIN_ITS ---
Patient Name: SAVANNAH HOWE MR#: [id number] : 1970 Exam Date: 09/25/2023 Ordering Doctor: DR MONIKA HOUSER M.D. RADIOLOGY REPORT PROCEDURE: VC EXT VENOUS RT LMTD COMPARISON: VC EXT VENOUS RT LMTD, 07/31/2023. INDICATIONS: I80.01 Phlebitis of superficial veins of rt lower extremity TECHNIQUE: Lower extremity cantu scale and Duplex Doppler evaluation of the deep venous system from the inguinal ligament through the calf veins. FINDINGS: REGION: Right lower extremity. THROMBI: Negative for DVT. Varithena induced thrombus visualized at dist/med calf and dist/ant calf. COMPRESSIBILITY: Non-compressible segments corresponding to thrombus FLOW: Areas of no flow corresponding to thrombus OTHER: CONCLUSION: 1. Successful post ablation occlusion of treated right leg branch saphenous varicosities. Dictated by: Geo Cavanaugh M.D. on 09/25/2023 at 11:02 Approved by: Geo Cavanaugh M.D. on 09/25/2023 at 11:03
== END 2023-09-25 10:04 | disposition home or self-care (01) ==
LOC: VC 10:03
PROVIDERS: PCP Radiology Diagnostic Radiology; Visit Provider Radiology Diagnostic Radiology
DX: I80.01 Phlebitis and thrombophlebitis of superficial vessels of right lower extremity (principal)
CPT/HCPCS: 93971; G0463

== ENCOUNTER 2023-10-09 09:48 | Outpatient (OUT) | payer MEDICARE, MEDICAID, SELFPAY ==
--- NOTE | 2023-10-09 09:51 | VEIN_ITS ---
[address] [address] Patient Name: SAVANNAH HOWE MRN: [id number] date: 1970 Sex: M Assigned Patient Location: Current Patient Location: Accession/Order Number: [id number] Exam Date: 10/09/2023 09:51 Report Date: 10/09/2023 12:54 At the request of: MONIKA HOUSER Procedure: VC INJ Foam Sclerosant WUS SPORTS THERAPIST PROCEDURE: VC INJ Foam Sclerosant WUS SPORTS THERAPIST COMPARISON: None. HISTORY: Pain due to varicose veins of bilateral legs I83.813 Pre-operative Diagnosis: CEAP class C6 venous insufficiency with pain, tenderness, edema and incompetent left varicose and saphenous vein(s), chronic venous insufficiency left leg secondary to venous incompetence Post-operative Diagnosis: CEAP class C6 venous insufficiency with pain, tenderness, edema and incompetent left varicose and saphenous vein(s), chronic venous insufficiency left leg secondary to venous incompetenceProcedure Performed: 1. Ultrasound-guided microfoam chemical ablation with Varithenaregistered 2. Intraoperative ultrasound guidance Anesthesia: None Indications for Procedure: 52-year-old male who presents with a long history of lower extremity pain swelling, resulting in multiple venous stasis ulcerations. The patient failed conservative medical therapy including medical compression stockings, exercise and analgesics. Prior procedures include . Multiple incompetent varicosities of the left leg. Duplex scan showed reflux and enlarged diameters up to 5 mm. The patient underwent informed consent including management options where the complications of infection, bleeding, pain, and skin injury were discussed. Particular attention was spent discussing thrombus extension and deep vein thrombosis as well as the possibility of pulmonary embolus and treatment with oral or injectable blood thinners. Procedure: The patient walked to the procedure room. All applicable staff donned appropriate apparel. A procedure timeout was performed to confirm correct patient, correct extremity, correct procedure, and correct room set-up including presence of all applicable supplies, devices, and drugs. A duplex ultrasound, performed by myself confirmed the location and incompetence of branch saphenous varicosities and their course was marked on the skin together with the dilated tributaries. The extent of treatment of the vein and the associated varicosities was determined through ultrasound mapping. The skin was prepped and then punctured with a butterfly needle and advanced under ultrasound guidance. The Varithenaregistered canister was activated and the canister was primed and purged as required in the instructions for use. Varithenaregistered was drawn into a sterile syringe. The following injections were made: 5 cc injected into a 5 mm varicose vein left proximal medial lower leg 2 cc injected into a 3 mm varicose vein left lateral ankle 2 cc injected into a 3 mm varicose vein left medial ankle 6 cc injected into a 5 mm varicose vein mid lateral left lower leg Varithenaregistered was slowly administered at 0.5-1.0 cc/second with close observation by ultrasound of its course in the vessels. Total volume utilized was: 15 cc. Following administration of Varithenaregistered the leg was elevated and the patient was asked to repeatedly dorsiflex the ankle to limit flow of Varithenaregistered into perforating veins. Once appropriate spasm had been confirmed in the treated veins, the vascular catheter was removed from the leg and light pressure was applied over the puncture site for hemostasis. The common femoral and deep superficial veins were then evaluated for flow and compressibility prior to dressing placement. The lower extremity was kept elevated at 45 degrees above the horizontal and cording material was applied over the saphenous segments and tributaries to allow for eccentric compression over the target vessels including the targeted saphenous vein(s). A multilayer dressing was applied consisting of foam pads, coban and thigh-high 20-30 mm Hg compression elastic support hose were placed on the patient. The leg was lowered only after compression had been applied and the patient was immediately ambulatory. The patient ambulated 10 minutes under supervision and was without apparent concerns at time of release. Post-care instructions include advising patient to keep post-treatment bandages in place and dry for 48 hours, avoid extended periods of inactivity, avoid heavy exercise for one week, wear compression stockings on the treated leg continuously for two weeks, to walk daily for 10 minutes over the next month. The patient was instructed to take an anti-inflammatory medicine as needed and to follow up for color duplex scan of the Saphenous veins, the treated branch saphenous varicosities, the adjacent deep veins, and additional treatment within 7 days. PERSONNEL: Sukh Adams RN Electronically authenticated by: MONIKA HOUSER Date: 10/09/2023 12:54
== END 2023-10-09 09:49 | disposition home or self-care (01) ==
LOC: VC 09:49
PROVIDERS: PCP Radiology Diagnostic Radiology; Visit Provider Radiology Diagnostic Radiology
DX: I83.813 Varicose veins of bilateral lower extremities with pain (principal)
CPT/HCPCS: 36466

== ENCOUNTER 2023-10-16 08:12 | Outpatient (OUT) | payer MEDICARE, MEDICAID, SELFPAY ==
--- NOTE | 2023-10-16 08:14 | VEIN_ITS ---
Patient Name: SAVANNAH HOWE MR#: [id number] : 1970 Exam Date: 10/16/2023 Ordering Doctor: DR MONIKA HOUSER M.D. RADIOLOGY REPORT PROCEDURE: [facility] - [facility] VISIT FOLLOW [facility] PROGRESS NOTES: The patient reports improvement in leg symptoms. There has been interval reduction in varicosities. The patient has followed our recommendations to walk 20-30 minutes once or twice per day since the procedure. Physical exam demonstrates decrease in varicosities of the leg. No remaining varicosities within the left leg. Review of the ultrasound performed the same day demonstrates occlusive thrombus extending throughout the treated vein(s), see separate report, consistent with a successful ablation. No thrombus extending into or beyond the saphenofemoral junction. The patient expressed a desire to proceed with treatment of remaining incompetent branch saphenous varicosities of the right leg. The patient was informed that treatment was a process and would require several procedures[facility]sessions[facility]: 1. Successful ablation of the remaining left leg branch saphenous vein(s). 2. Persistent right leg varicose veins and lower extremity symptoms. PLAN: Microfoam chemical ablation of right leg branch saphenous varicosities. Nurse notes, history and physical were reviewed and confirmed, see attached forms. The nurse was present throughout the physical exam and consultation Dictated by: Geo Cavanaugh M.D. on 10/16/2023 at 10:18 Approved by: Geo Cavanaugh M.D. on 10/16/2023 at 10:19
--- NOTE | 2023-10-16 08:14 | VEIN_ITS ---
Patient Name: SAVANNAH HOWE MR#: [id number] : 1970 Exam Date: 10/16/2023 Ordering Doctor: DR MONIKA HOUSER M.D. RADIOLOGY REPORT PROCEDURE: VC EXT VENOUS LT LIMITED COMPARISON: VC EXT VENOUS LT LIMITED, 08/23/2023. INDICATIONS: Phlebitis of superficial veins of lt lower extremity I80.02 TECHNIQUE: Lower extremity cantu scale and Duplex Doppler evaluation of the deep venous system from the inguinal ligament through the calf veins. FINDINGS: REGION: Left lower extremity. THROMBI: Negative for DVT. Varithena induced thrombus visualized at medial ankle, lateral ankle, prox/med calf, and mid/lat calf. COMPRESSIBILITY: Non-compressible segments corresponding to thrombus FLOW: Areas of no flow corresponding to thrombus OTHER: No patent varicose veins remain. CONCLUSION: 1. Successful post ablation occlusion of treated left leg branch saphenous varicosities. Dictated by: Geo Cavanaugh M.D. on 10/16/2023 at 10:17 Approved by: Geo Cavanaugh M.D. on 10/16/2023 at 10:18
== END 2023-10-16 08:13 | disposition home or self-care (01) ==
LOC: VC 08:12
PROVIDERS: PCP Radiology Diagnostic Radiology; Visit Provider Radiology Diagnostic Radiology
DX: I80.02 Phlebitis and thrombophlebitis of superficial vessels of left lower extremity (principal)
CPT/HCPCS: 93971; G0463

== ENCOUNTER 2023-11-08 12:15 | Outpatient (OUT) | payer MEDICARE, MEDICAID, SELFPAY ==
--- OUTSIDE RECORDS SUMMARY | 2023-11-08 12:18 | XMS_ITS | CCD ---
Demographics Address [address] [place], [place] [id number] Preferred Language en Marital Status Episcopal Affiliation Unknown Race White Ethnic Group Not or Lati no Author Name Unknown Address [address] [place] [address] [facility] Care Team Providers Care Computer Hardware Technician Name Role Phone VILMA CARABALLO Unavailable Unavailable DAMON YOST Unavailable Unavailable VILMA CARABALLO Unavailable Unavailable FRANK WARD Unavailable Unavailable VILMA CARABALLO Unavailable Unavailable FRANK WARD Unavailable Unavailable AURA HERNANDEZ Unavailable UnavailAura Crawford Primary Care Physician Meghan Alarcon Unavailable Unavailable Serenity Lakhani Unavailable Unavailable CORRINA, DR MONIKA Rodriguez Consulting Unavailable CORRINA, DR MONIKA Rodriguez Admitting Unavailable CORRINA, DR MONIKA Rodriguez Attending Unavailable DEEP DE SOUZA Attending Unavailable DEEP DE SOUZA Admitting Unavailable CORRINA, DR MONIKA Rodriguez Consulting Unavailable RONALD, DR SALONI Chavira Consulting Unavailable DEEP DE SOUZA Consulting Unavailable Ernie Daly Attending Unavailable Wilber Sinclair Attending Unavailable Meghan Hernández Referring Unavailable Meghan Hernández Attending Unavailable Meghan Hernández Admitting Unavailable Aura Hernandez Referring Unavailable Aura Hernandez Attending Unavailable Aura Hernandez Admitting Unavailable Aura Hernandez Attending Unavailable Aura Hernandez Admitting Unavailable Medications Current Medications Medication Drug Class(es) Dates Sig (Normalized) Sig (Original) acetaminophen 325 mg / oxyCODONE hydrochloride 5 mg oral tablet (1 source) Opioid Agonist Start: 03-05-2022 End: 03-08-2022 Percocet 325 mg-5 mg Tab 1 tab(s), Oral, q6hr as needed for pain for 3 day(s), 12 tab(s), Refill(s) 0, [id number], 198, cm, 03/05/22 8:56:00 EDT, Height/Length Dosing, 136, kg, 03/05/22 8:56:00 EDT, Weight Dosing Start Date: 03/05/22 Stop Date: 03/08/22 Status: Ordered allopurinol 300 mg oral tablet (13 sources) Xanthine Oxidase Inhibitor Start: 01-02-2019 take 1 tablet by mouth once daily allopurinol 300 mg Tab 300 mg = 1 tab(s), Oral, Daily, Refills(s) 0, Gout pain Start Date: 01/02/19 Status: Ordered carvedilol 25 mg oral tablet (13 sources) alpha-Adrenergic Cosme, beta-Adrenergic Cosme Start: 01-29-2018 take 1 tablet by mouth twice daily carvedilol 25 mg Tab 25 mg = 1 tab(s), Oral, BID, # 180 tab(s), Refills(s) 0, High blood pressure Start Date: 01/29/18 Status: Ordered cephalexin 500 mg oral capsule (2 sources) Cephalosporin Antibacterial Start: 02-17-2023 End: 02-24-2023 take 1 capsule by mouth four times daily cephalexin 500 mg Cap 500 mg = 1 cap(s), Oral, QID, X 7 day(s), # 28 cap(s), Refills(s) 0, Pharmacy: [facility] #[id number], 198, cm, 02/17/23 7:52:00 EDT, Height/Length Dosing, 136, kg, 02/17/23 7:52:00 EDT, Weight Dosing Start Date: 02/17/23 Stop Date: 02/24/23 Status: Ordered Start: 02-17-2023 End: 02-24-2023 take 1 capsule by mouth every six hours Keflex 500 mg Cap 500 mg = 1 cap(s), Oral, q6hr, X 7 day(s), # 28 cap(s), Refills(s) 0, Pharmacy: [facility] #[id number], 198, cm, 02/17/23 7:52:00 EDT, Height/Length Dosing, 136, kg, 02/17/23 7:52:00 EDT, Weight Dosing Start Date: 02/17/23 Stop Date: 02/24/23 Status: Ordered colchicine 0.6 mg oral tablet (13 sources) Start: 01-02-2019 take 1 tablet by mouth once daily colchicine 0.6 mg Tab 0.6 mg = 1 tab(s), Oral, Daily, Refills(s) 0, Gout pain Start Date: 01/02/19 Status: Ordered diclofenac sodium 0.01 mg/mg topical gel (6 sources) Nonsteroidal Anti-inflammatory Drug Start: 08-12-2022 Voltaren Gel 1% Gel 1 nacho, Topical, QID for pain, 100 gram, Refill(s) 0, [facility] #[id number], 198, cm, 08/12/22 9:37:00 EDT, Height/Length Dosing, 140, kg, 08/12/22 9:37:00 EDT, Weight Dosing Start Date: 08/12/22 Status: Ordered furosemide 40 mg oral tablet (13 sources) Loop Diuretic Start: 01-02-2019 take 1 tablet by mouth once daily furosemide 40 mg Tab 40 mg = 1 tab(s), Oral, Daily, Refills(s) 0, diuretic/water pill Start Date: 01/02/19 Status: Ordered gabapentin 300 mg oral capsule (13 sources) Anti-epileptic Agent Start: 01-02-2019 take 1 capsule by mouth twice daily gabapentin 300 mg Cap 300 mg = 1 cap(s), Oral, BID, Refills(s) 0, Pain Start Date: 01/02/19 Status: Ordered lidocaine 0.05 mg/mg medicated patch (6 sources) Antiarrhythmic, Amide Local Anesthetic Start: 08-12-2022 lidocaine Top 5% film Patch 1 patch(es), Topical, Daily, 7 patch(es), Refill(s) 0, apply 12 hours on and 12 hours off daily, [facility] #[id number], 198, cm, 08/12/22 9:37:00 EDT, Height/Length Dosing, 140, kg, 08/12/22 9:37:00 EDT, Weight Dosing Start Date: 08/12/22 Status: Ordered methocarbamol 500 mg oral tablet (2 sources) Muscle Relaxant Start: 06-03-2023 End: 06-13-2023 take 2 tablets by mouth four times daily Robaxin 500 mg Tab 1,000 mg = 2 tab(s), Oral, QID, X 10 day(s), # 80 tab(s), Refills(s) 0, Pharmacy: [facility]/pharmacy #[id number], 198, , 02/17/23 7:52:00 EDT, Height/Length Dosing, 136.5, kg, 06/03/23 13:31:00 EDT, Weight Dosing Start Date: 06/03/23 Stop Date: 06/13/23 Status: Ordered Mupirocin (2 sources) RNA Synthetase Inhibitor Antibacterial Start: 08-01-2020 mupirocin Top 2% Oint 1 nacho, Topical, TID, 15 gram, Refill(s) 0 Start Date: 08/01/20 Status: Ordered traMADol hydrochloride 50 mg oral tablet (1 source) Opioid Agonist Start: 06-03-2023 End: 06-06-2023 take 1 tablet by mouth every six hours as needed for pain traMADOL 50 mg Tab 50 mg = 1 tab(s), Oral, q6hr, PRN for pain, X 3 day(s), # 18 tab(s), Refills(s) 0, Pharmacy: [facility]/pharmacy #[id number], 198, , 02/17/23 7:52:00 EDT, Height/Length Dosing, 136.5, kg, 06/03/23 13:31:00 EDT, Weight Dosing Start Date: 06/03/23 Stop Date: 06/06/23 Status: Ordered warfarin sodium 5 mg oral tablet (20 sources) Vitamin K Antagonist Start: 01-02-2019 warfarin 5 mg Tab 2.5 mg = 0.5 tab(s), Oral, MonWeFrSaSu, Refills(s) 0, Blood Thinner Start Date: 01/02/19 Status: Ordered Start: 08-04-2017 Coumadin 5 mg Tab 5 mg = 1 tab(s), Oral, TueThu, Refills(s) 0, Blood Thinner Start Date: 08/04/17 Status: Ordered Completed/Discontinued Medications Medication Drug Class(es) Dates Sig (Normalized) Sig (Original) potassium chloride 10 meq extended release oral capsule (13 sources) Start: 11-17-2019 take 1 capsule by mouth once daily potassium chloride 10 mEq Cap-ER 10 mEq = 1 cap(s), Oral, Daily, Refills(s) 0, Other (see comment) Start Date: 11/17/19 Status: Ordered Start: 11-17-2019 take 1 capsule by mo [facility] once daily potassium chloride 10 mEq Cap-ER 10 mEq = 1 cap(s), Oral, Daily, Refills(s) 0, Other (see comment) Start Date: 11/17/19 Status: Ordered Problems Active Problems Problem Classification Problem Date Documented Da te Episodic/Chronic Abdominal hernia (13 sources) Umbilical hernia 01-02-2019 Episodic Chronic ulcer of skin (2 sources) Chronic ulcer of skin of lower leg; Translations: [Non-pressure chronic ulcer of unspecified part of right lower leg with unspecified severity] Onset: 03-19-2022 Chronic Disorders of lipid metabolism (13 sources) Hyperlipidemia 08-13-2015 Chronic Essential hypertension (13 sources) Hypertensive disorder 08-13-2015 Chronic Gout and other crystal arthropathies (13 sources) Gout 07-14-2017 Chronic Other diseases of veins and lymphatics (13 sources) Venous insufficiency of leg 10-31-2020 Episodic Other non-traumatic joint disorders (13 sources) Toe joint rigid 11-17-2019 Episodic Paralysis (13 sources) Cerebral palsy 09-05-2020 Chronic Peripheral and visceral atherosclerosis (1 source) Pain at rest of right lower limb co-occurrent and due to atherosclerosis; Translations: [Atherosclerosis of [place] arteries of extremities with rest pain, right leg] Onset: 03-19-2022 Chronic Phlebitis; thrombophlebitis and thromboembolism (15 sources) Acute embolism and thrombosis of unspecified vein; Translations: [Deep venous thrombosis] Onset: 02-03-2018 08-13-2015 Episodic Spondylosis; intervertebral disc disorders; other back problems (2 sources) Low back pain; Translations: [Low back pain, unspecified] Onset: 08-12-2022 Episodic Unclassified (13 sources) Healed venous leg ulcer 10-31-2020 Varicose veins of lower extremity (6 sources) Varicose ulcer of lower extremity; Translations: [Varicose veins of right lower extremity with ulcer of unspecified site] Onset: 03-19-2022 Episodic Past or Other Problems Problem Classification Problem Date Documented Da te Episodic/Chronic Unclassified (2 sources) Exposure to 2019 novel coronavirus; Translations: [Contact with and (suspected) exposure to COVID19] Results Test Name Value Interpretation Reference Range Facility POCT PT/INRon 09-27-2023 POCT INR 4.0 High .7-1.2 [facility] Comment on above: Performed By: #### 2 [id number] #### [facility] [address] [place] [address] POCT PT 38.9 second(s) High 8.0-15.0 [facility] Comment on above: Performed By: #### 2 [id number] #### [facility] [address] [place] [address] POCT PT/INRon 09-17-2023 POCT INR 4.0 High .7-1.2 [facility] Comment on above: Performed By: #### 2 [id number] #### [facility] [address] [place] [address] POCT PT 41.8 second(s) High 8.0-15.0 [facility] Comment on above: Performed By: #### 2 [id number] #### [facility] [address] [place] [address] POCT PT/INRon 09-06-2023 POCT INR 1.5 High .7-1.2 [facility] Comment on above: Performed By: #### 2 [id number] #### [facility] [address] [place] [address] POCT PT 17.1 second(s) High 8.0-15.0 [facility] Comment on above: Performed By: #### 2 [id number] #### [facility] [address] [place] [address] POCT PT/INRon 08-16-2023 POCT INR 4.1 High .7-1.2 [facility] Comment on above: Performed By: #### 2 [id number] #### [facility] [address] [place] [address] POCT PT 42.9 second(s) High 8.0-15.0 [facility] Comment on above: Performed By: #### 2 [id number] #### [facility] [address] [place] [address] POCT PT/INRon 06-28-2023 POCT INR 2.5 High .7-1.2 [facility] Comment on above: Performed By: #### 2 [id number] #### [facility] [address] [place] [address] POCT PT 27.5 second(s) High 8.0-15.0 [facility] Comment on above: Performed By: #### 2 [id number] #### [facility] [address] [place] [address] POCT INR Error Invalid Interpretation Code .7-1.2 [facility] Comment on above: Performed By: #### 2 [id number] #### [facility] [address] [place] [address] POCT PT Strip Error Invalid Interpretation Code 8.0-15.0 [facility] Comment on above: Performed By: #### 2 [id number] #### [facility] [address] [place] [address] XR Pelvis 1 or 2 Viewson XR Pelvis 1 or 2 Views Exam Date/Time: 06/10/2023 08:34 EDT Reason for Exam: acute right-sided low back pain without sciatica M54.50 Report IMPRESSION: MILD HIP OSTEOARTHROSIS, MORE PROMINENTLY ON THE LEFT. EXAM: XR Pelvis 1 or 2 Views DATE: 06/10/2023 CLINICAL HISTORY: acute right-sided low back pain without sciatica M54.50. COMPARISON: CT abdomen and pelvis 02/20/2019. TECHNIQUE: An AP radiograph of the pelvis was obtained. FINDINGS: Mild osteoarthritic changes are present both hip joints, more prominently on the left. There is no displaced fracture, dislocation, pelvic diastases, evidence of avascular necrosis, or other findings of concern identified. Ordering Provider: Aura Hernandez FINAL REPORT Dictated: 06/11/2023 3:37 pm Mike Carlos MD Signed (Electronic Signature): 06/11/2023 3:37 pm Signed by: Mike Carlos MD Transcribed by: CARLA Technologist: DIAMOND FINISHING SUPERVISOR Technical Comments Radiation Dose: Ka,r in mGy = na DAP = na [facility] XR Spine Lumbosacral Minimum 4 Viewson 06-11-2023 XR Spine Lumbosacral Minimum 4 Views Exam Date/Time: 06/10/2023 08:33 EDT Reason for Exam: acute right-sided low back pain without sciatica M54.50 Report IMPRESSION: MILD LUMBAR SPONDYLOSIS, SIMILAR TO PRIOR STUDIES. EXAM: XR Spine Lumbosacral Minimum 4 Views DATE: 06/10/2023 CLINICAL HISTORY: acute right-sided low back pain without sciatica M54.50. COMPARISON: CT abdomen and pelvis 02/20/2019 and lumbosacral spine radiographs 10/02/2018. TECHNIQUE: AP, lateral, oblique, coned down AP and lateral views of the lumbar spine were obtained. FINDINGS: Mild to moderate hypertrophic facet changes are present, worsening inferiorly and more prominently on the right. There is no compression, fracture, significant disc space narrowing, subluxation, worrisome bone destruction, or other significant changes identified. The sacroiliac joints are unremarkable. Ordering Provider: Aura Hernandez FINAL REPORT Dictated: 06/11/2023 3:33 pm Mike Carlos MD Signed (Electronic Signature): 06/11/2023 3:33 pm Signed by: Mike Carlos MD Transcribed by: CARLA Technologist: DREW Technical Comments Radiation Dose: Ka,r in mGy = na DAP = na [facility] Consent for Treatmenton Consent for Treatment [id number]:127 [facility] Physician Orderon 06-10-2023 Physician Order [id number]#[id number]:127 [facility] Consent for Treatmenton 05-06 Consent for Treatment [id number]:127 [facility] Discharge Instructionson Discharge Instructions [id number]:127 Normal [facility] ED Clinical Summaryon 2022 ED Clinical Summary (Inserted Image. [place] ble to display) [address] [address] ED Clinical Summary Person Information Name: TAI CLARK [place] Age: 52 Years : 1970 Sex: Male Language: Somali PCP: Aura Hernandez MD Marital Status: Phone: [phone] MRN: Visit Id: Visit Reason: Back pain; LOWER RIGHT BACK PAIN Speciality: Acuity: 4 Enc Type: Emergency Med Service: Emergency Arrival: 06/03/2023 13:21:59 Discharge: 06/03/2023 13:52:33 LOS: 000 00:31 Checkin: 06/03/2023 13:21:59 Checkout: 06/03/2023 13:52:33 Dispo Type: Home (Routine DC) EVENTS: Event Name Event Status Request Date/Time Start Date/Time Complete Date/Time Arrive Complete 06/03/2023 13:21:59 06/03/2023 13:21:59 06/03/2023 13:21:59 Document Home Meds Request 06/03/2023 13:21:59 Triage Complete 06/03/2023 13:21:59 06/03/2023 13:31:34 06/03/2023 13:31:34 Bed Assign Complete 06/03/2023 13:28:20 06/03/2023 13:28:20 06/03/2023 13:28:20 Dr Exam Complete 06/03/2023 13:28:20 06/03/2023 13:31:39 06/03/2023 13:31:39 RN Exam Complete 06/03/2023 13:28:20 06/03/2023 13:52:05 06/03/2023 13:52:05 Registration Complete 06/03/2023 13:31:39 06/03/2023 13:36:56 06/03/2023 13:36:56 Dr Exam Complete 06/03/2023 13:34:23 06/03/2023 13:34:23 06/03/2023 13:34:23 Reg Complete Request 06/03/2023 13:36:56 Discharge Complete 06/03/2023 13:45:11 06/03/2023 13:52:38 06/03/2023 13:52:38 Transfer Complete 06/03/2023 13:52:38 06/03/2023 13:52:38 06/03/2023 13:52:38 ADDRESS: [address] [facility] [id number] PHYS DOC NOTES: MEDICAL INFORMATION: Prescriptions Given: New Medications [id number], [address] [place], [place] [id number], [phone] methocarbamol (Robaxin 500 mg Tab) 2 Tablets By Mouth 4 times a day for 10 Days. Refills: 0. tramadol (traMADOL 50 mg Tab) 1 Tablets By Mouth every 6 hours as needed for pain for 3 Days. Refills: 0. Medications to Continue with No Changes Other Medications allopurinol (allopurinol 300 mg Tab) 1 Tablets By Mouth every day. carvedilol (carvedilol 25 mg Tab) 1 Tablets By Mouth 2 times a day. colchicine (colchicine 0.6 mg Tab) 1 Tablets By Mouth every day. diclofenac topical (Voltaren Gel 1% Gel) 1 Application Topical 4 times a day as needed for pain. Refills: 0. furosemide (furosemide 40 mg Tab) 1 Tablets By Mouth every day. gabapentin (gabapentin 300 mg Cap) 1 Capsules By Mouth 2 times a day. lidocaine topical (lidocaine Top 5% film Patch) 1 Patches Topical every day. apply 12 hours on and 12 hours off daily. Refills: 0. potassium chloride (potassium chloride 10 mEq Cap-ER) 1 Capsules By Mouth every day. warfarin (Coumadin 5 mg Tab) 1 Tablets By Mouth Saturday & . warfarin (warfarin 5 mg Tab) 0.5 Tablets By Mouth Saturday & Saturday. PATIENT EDUCATION INFORMATION: Instructions: Acute Pain, Adult; Back Exercises, [id number]-[id number]; Sciatica Rehab-SportsMed Follow up: With: Address: When: Aura Hernandez [address] [place] [address] Business (1) In 3 days 06/06/2023 Comments: Follow-up with your primary care provider in 3 to 5 days. If symptoms worsen, do not improve, or new symptoms arise please report back to emergency department for further evaluation. DIAGNOSIS: Low back pain with right-sided sciatica Normal [facility] ED Note-Physicianon 06-03-20 ED Note-Physician Basic Information Time Seen: Omar Infante PA-C 06/03/2023 13:31 Chief Complaint right lower back pain x1 month History of Present Illness 52-year-old male reports to the emergency department with chief complaint of lower right back pain. States has been going on for about a month now. Denies any injury or trauma to this area, but wanted to get checked out. Reports that it does radiate down into his right leg at times. Denies any bowel or bladder problems. States otherwise has been doing good. Denies any stretching. Reports he is on his feet all day for work, so cannot really get any relief from it. Denies any bowel or bladder defects. Review of Systems A 10 point review of systems is negative except as noted above. Medical and Surgical History: Reviewed and noted Social history: Lives at home Family History: Reviewed. Tobacco: Denies Physical Exam General: The patient appears well and in no apparent distress. Patient is resting comfortably in chair. Afebrile Skin: Warm, dry, no pallor noted. Head: Normocephalic, atraumatic Neck: No JVD Eye: PERRLA, EOMI ENT: Moist mucus membranes Cardiovascular: Regular rate normal peripheral perfusion. Pedal pulses +2 bilaterally Respiratory: No respiratory distress no accessory muscle use no obvious audible wheezing Chest Wall: no deformity Musculoskeletal: normal ROM, no deformity, no swelling. Patient has no midline spinal tenderness on exam. Positive right-sided SI joint tenderness, does reach a great patient symptoms. GI: No obvious distention soft nontender nondistended no guarding rebounding or rigidity Neurological: A&O moves all extremities equal strength and symmetry. Full sensations Psychiatric: Cooperative and appropriate Medical Decision Making MEDICAL DECISION MAKING Number and Complexity of Problems Differential Diagnosis: [] [facility] Data External documents reviewed: [] My EKG interpretation: [] My CT interpretation: [] My X-ray interpretation: [] My Ultrasound interpretation: [] Decision rules/scores evaluated: [] Discussed with: [] Treatment and Disposition ED Course: 52-year-old male reports emergency department with chief complaint of lower right back pain. States has been going on for about a month. Reports has been taking Tylenol without any relief. States that he has no bowel or bladder defects. Denies any injury with this. Denies any saddle anesthesias. No warning signs for cauda equina syndrome. Based on patient's symptoms, as well as reproducible lower right-sided SI joint tenderness, this does sound like low back pain with right-sided sciatica. I discussed that based on his symptoms we will give him some tramadol for breakthrough pain, as well as muscle racks to help with symptoms. I discussed back exercises to perform at home. Discussed follow-up with PCP. Follow-up with your primary care provider in 3 to 5 days. If symptoms worsen, do not improve, or new symptoms arise please report back to emergency department for further evaluation. The patient was understanding and agreeable to plan moving forward. Shared decision making: [] Code status: [] Assessment/Plan Low back pain with right-sided sciatica (M54.41: Lumbago with sciatica, right side) Orders: methocarbamol, 1,000 mg = 2 tab(s), Oral, QID, X 10 day(s), # 80 tab(s), Refills(s) 0, Pharmacy: [facility]/pharmacy #[id number], 198, cm, 02/17/23 7:52:00 EDT, Height/Length Dosing, 136.5, kg, 06/03/23 13:31:00 EDT, Weight Dosing tramadol, 50 mg = 1 tab(s), Oral, q6hr, PRN for pain, X 3 day(s), # 18 tab(s), Refills(s) 0, Pharmacy: [facility]/pharmacy #[id number], 198, cm, 02/17/23 7:52:00 EDT, Height/Length Dosing, 136.5, kg, 06/03/23 13:31:00 EDT, Weight Dosing Disposition Plan Patient Discharge Condition Stable Discharge Disposition To home Discharge Prescription List Prescriptions Robaxin 500 mg Tab, 1000 mg= 2 tab(s), Oral, QID traMADOL 50 mg Tab, 50 mg= 1 tab(s), Oral, q6hr, PRN Follow-up With When Contact Information Aura Hernandez In 3 days 06/06/2023 EDT [address] [place] [address] Business (1) Additional Instructions: Follow-up with your primary care provider in 3 to 5 days. If symptoms worsen, do not improve, or new symptoms arise please report back to emergency department for further evaluation. Patient Education Acute Pain, Adult Back Exercises, Gnbl-yk-Mrhc Sciatica Rehab-SportsMed Attestation Patient seen and evaluated by the physician medical practice assistant. Attending physician was present in the emergency department and supervised care. This visit was performed by both the physician and an APC. I performed all aspects of the MDM as documented. This report was transcribed using voice recognition software. Every effort was made to ensure accuracy, however, inadvertently computerized lining brusher mistakes may be present. Appropriate healthcare PPE was used in evaluating this patient. The patient was placed in a mask. The heal (more content not included)... Normal [facility] Comment on above: Result Comment: Elec tronically Signed By: Omar Infante PA-C\.br\Date and Time Signed: 06/03/23 14:08 EDT\.br\Electronically Co-Signed By: Wilber Sinclair M.D.\.br\Date and Time Co-Signed: 06/03/23 16:24 EDT ED Patient Education Noteon 06-03-2023 ED Patient Education Note Orthopedics Acute Pain, Adult Acute pain is a type of sudden pain that may last for just a few days or for as long as six months. It is often related to an illness, injury, or medical procedure. Acute pain may be mild, moderate, or severe. Pain can make it hard for you to do your normal, daily activities. It can cause anxiety and lead to other problems if it is left untreated. Treatment depends on the cause and severity of your pain. Acute pain usually goes away once your injury has healed or you are no longer ill. Follow these instructions at home: Medicines ? Take lmqs-ssh-hxqifjs and prescription medicines only as told by your health care provider. ? Take the lowest dose of medicine for the shortest amount of time needed to relieve the pain. ? If you are taking prescription pain medicine: ? Do not stop taking the medicine suddenly. Talk to your health care provider about how and when to discontinue prescription medicine. ? Do not take more pills than told by your health care provider even if your pain is severe. ? Do not take other urry-ino-elzemzw pain medicines in addition to prescription pain medicine unless told by your health care provider. ? Ask your health care provider if the medicine requires you to avoid driving or using heavy machinery. ? Ask your health care provider if the medicine can cause constipation. You may need to take these actions to prevent or treat constipation: ? Drink enough fluid to keep your urine pale yellow. ? Eat foods that are high in fiber, such as beans, whole grains, and fresh fruits and vegetables. ? Take tcnb-ycr-wsrkwli or prescription medicines. ? Limit foods that are high in fat and processed sugars, such as fried or sweet foods. Managing pain, stiffness, and swelling If directed, put ice on the affected area. To do this: ? Put ice in a plastic bag. ? Place a towel between your skin and the bag. ? Leave the ice on for 20 minutes, 2?3 times a day. If directed, apply heat to the affected area as often as told by your health care provider. Use the heat source that your health care provider recommends, such as a moist heat pack or a heating pad. ? Place a towel between your skin and the heat source. ? Leave the heat on for 20?30 minutes. ? Remove the heat if your skin turns bright red. This is especially important if you are unable to feel pain, heat, or cold. You may have a greater risk of getting burned. Activity ? Rest as told by your health care provider. ? Return to your normal activities as told by your health care provider. Ask your health care provider what activities are safe for you. General instructions ? Check your pain level as told by your health care provider. ? Ask your health care provider if other strategies such as distraction, relaxation, or physical therapies can help your pain. ? Keep all follow-up visits as told by your health care provider. This is important. Contact a health care provider if: ? Your pain is not controlled by medicine. ? Your pain does not improve or gets worse. ? You have side effects from pain medicines, such as vomiting or confusion. Get help right away if you: ? Have severe pain. ? Have trouble breathing. ? Lose consciousness. ? Have chest pain or pressure that lasts for more than a few minutes, or if you have other symptoms along with chest pain, including if you: ? Have pain or discomfort in one or both arms, your back, neck, jaw, or stomach. ? Have shortness of breath. ? Break out in a cold sweat. ? Feel nauseous. ? Become light-headed. These symptoms may represent a serious problem that is an emergency. Do not wait to see if the symptoms will go away. Get medical help right away. Call your local emergency services (911 in the [place] Do not drive yourself to the hospital. Summary ? Acute pain may be mild, moderate, or severe. It usually goes away once your injury has healed or you are no longer ill. ? Take zvqd-jgs-lgluxdb and prescription medicines only as told by your health care provider. ? Ask your health care provider if the medicine prescribed to you can cause constipation. ? Contact a health care provider if your pain is not controlled by medicine. This information is not intended to replace advice given to you by your health care provider. Make sure you discuss any questions you have with your health care provider. Document Revised: 03/07/2020 Document Reviewed: 03/07/2020 [employer] Patient Education ? 2022 [place]. Back Exercises These exercises help to make your trunk and back strong. They also help to keep the lower back flexible. Doing these exercises can help to prevent or lessen pain in your lower back. ? If you have back pain, try to do these exercises 2?3 times each day or as told by your doctor. ? As you get better, do the exercises once each day. Repeat the exercises more (more content not included)... Normal [facility] ED Patient Summaryon 023 ED Patient Summary (Inserted Image. Ju[place] ble to display) [address] [address] Patient Discharge Instructions Person Information Name: TAI CLARK Age: 52 Years Arrival Date: 06/03/2023 13:21:59 Discharge Diagnosis: Low back pain with right-sided sciatica Primary Care Physician: Aura Hernandez MD Provider Information Primary Provider: Wilber Sinclair M.D. Advanced Hedge Fund Manager:None The exam and treatment you received in the Emergency Department were for an urgent problem and are not intended as complete care. It is important that you follow up with a doctor, nurse practitioner, or physician?s medical practice assistant for ongoing care. If your symptoms become worse or you do not improve as expected and you are unable to reach your usual health care provider, you should return to the Emergency Department. We are available 24 hours a day. TAI CLARK has been given the following list of patient education materials, prescriptions and follow-up instructions: Follow-up Instructions: With: Address: When: Aura Hernandez [address] [place] [id number] [employer] In 3 days 06/06/2023 Comments: Follow-up with your primary care provider in 3 to 5 days. If symptoms worsen, do not improve, or new symptoms arise please report back to emergency department for further evaluation. In the event that this physician does not participate in your insurance network, please consult with your insurance company to find a nearby participating provider. Patient Education Materials: Acute Pain, Adult; Back Exercises, Olyc-ml-Fnzv; Sciatica Rehab-SportsMed A MESSAGE TO ALL PATIENTS REGARDING OPIOIDS PRESCRIPTION OPIOIDS: WHAT YOU NEED TO KNOW Prescription opioids can be used to help relieve zfvaybne-na-vqonav pain and are often prescribed following a surgery or injury, or for certain health conditions. These medications can be an important part of the treatment but also come with serious risks. It is important to work with your healthcare provider to make sure you are getting the safest, most effective care. WHAT ARE THE RISKS AND SIDE EFFECTS OF OPIOID USE? Prescription opioids carry serious risks of addiction and overdose, especially with prolonged use. An opioid overdose, often marked by slowed breathing, can cause sudden . The use of prescription opioids can have a number of side effects as well, even when taken as directed: ? Tolerance?meaning you might need to take more of the medication for the same pain relief ? Physical dependence?meaning you have symptoms of withdrawal when a medication is stopped ? Increased sensitivity to pain ? Constipation ? Nausea, vomiting, and dry mouth ? Sleepiness and dizziness ? Confusion ? Depression ? Low levels of testosterone that can result in lower sex drive, energy, and strength ? Itching and sweating RISKS ARE GREATER WITH: ? History of drug misuse, substance use disorder, or overdose ? Mental health conditions (such as depression or anxiety) ? Sleep apnea ? Older age (65 years and older) ? Avoid alcohol while taking prescription opioids. Also, unless specifically advised by your health care provider, medications to avoid include: ? Benzodiazepines (such as Xanax or Valium) ? Muscle relaxants (such as Soma or Flexeril) ? Hypnotics (such as Ambien or Lunesta) ? Other prescription opioids KNOW YOUR OPTIONS Talk to your health care provider about ways to manage your pain that don?t involve prescription opioids. Some of these options may actually work better and have fewer risks and side effects. Options may include: ? Pain relievers such as acetaminophen, ibuprofen, and naproxen ? Some medication that are also used for depression or seizures ? Physical therapy and exercise ? Cognitive behavioral therapy, a psychological, goal-directed approach, in which patients learn how to modify physical, behavioral, and emotional triggers of pain and stress. IF YOU ARE PRESCRIBED OPIOIDS FOR PAIN: ? Never take opioids in greater amounts or more often than prescribed. ? Follow up with your primary health care provider. o Work together to create a plan on how to manage your pain. o Talk about ways to help manage your pain that don?t involve prescription opioids. o Talk about any and all concerns and side effects. ? Help prevent misuse and abuse o Never sell or share prescription opioids. o Never use another person?s prescription opioids. ? Store prescription opioids in a secure place and out of reach of others (this may include visitors, children, friends, and family). ? Safely dispose of unused prescription opioids: Find your community drug take-back program or your pharmacy mail-back program, or flush them down the toilet, following guidance from the Food and Drug Administration (www.fda.gov/Drugs/Resource sForYou). ? Visit www.cdc.gov/drugover (more content not included)... Normal [facility] POCT PT/INRon 05-17-2023 POCT INR 2.9 High .7-1.2 [facility] Comment on above: Performed By: #### 2 [id number] ####[facility] [address] [place] [address] POCT PT 31.4 second(s) High 8.0-15.0 [facility] Comment on above: Performed By: #### 2 [id number] ####[facility] [address] [place] [address] POCT PT/INRon 04-19-2023 POCT INR 2.7 High .7-1.2 [facility] Comment on above: Performed By: #### 2 [id number] #### [facility] [address] [place] [address] POCT PT 29.2 second(s) High 8.0-15.0 [facility] Comment on above: Performed By: #### 2 [id number] #### [facility] [address] [place] [address] VC ENDOVENOUS ABL 1ST V LTon 03-29-2023 VC ENDOVENOUS ABL 1ST V LT Patient: TAI CLARK Exam Date: 03/29/2023 : 1970 Gender:M Ordering : DR MONIKA HOUSER M.D. Admission #: [id number] Family : Order #: [id number] CLICK HERE TO VIEW EXAM RADIOLOGY REPORT PROCEDURE: VEIN CENTER ENDOVENOUS ABLATION FIRST VEIN LEFT GREAT SAPHENOUS VEIN COMPARISON: None. INDICATIONS: Pain co-occurrent and due to varicose veins of bilateral legs OPERATIVE REPORT: The risks and benefits of the procedure had been previously discussed, and were rediscussed at length. Informed written consent was obtained by me and Sukh Adams assisted. Time out procedure was performed. The left lower extremity was prepared and draped in the usual sterile fashion to allow knee flexion in the sterile field. Duplex ultrasound probe was draped in a sterile cover, sterile transmission gel was used. Venous mapping was performed with the areas of dilation and large tributaries marked. The wire could not be advanced beyond the level the knee, and the vein was treated in 2 separate segments: Segment 1: The total length was 15 cm from the entry distal calf to just below the level of the knee. The diameter of the greater saphenous vein ranged from 5-8 mm. A 30 gauge needle and 1% buffered lidocaine was used to anesthetize the entry site. A 4 mm incision was made with a scalpel and the saphenous vein was entered percutaneously under direct ultrasound guidance with a micropuncture set, a single stick was successful in gaining access. A micro-guide wire was inserted and the needle removed. A micro-set including a dilator was inserted over the microwire and the needle and dilator were removed. A 0.018 guide wire was inserted through the micro-set and threaded through the saphenous vein. The dilator was removed and an introducer sheath was inserted over the wire. The dilator and wire were removed and the 600 micron fiber was introduced and placed and positioned so that it extended beyond the sheath. Final position of the fiber was determined by ultrasound guidance and duplex imaging. Tumescent anesthetic was delivered by ultrasound guidance. 150 cc of fluid was delivered along the entire course of the saphenous vein. The solution consisted of 500 cc of normal saline with 20mL of 1% lidocaine and 10 mL of sodium bicarbonate. A final positioning check was made. The energy source was turned on by means of the foot pedal and the fiber and sheath were withdrawn. The total number of Joules delivered was 1172. The laser was active for 146 seconds under continuous pulse, average laser use of 8 J. Additional energy was deposited due to large incompetent perforating veins as well as the patient being on anticoagulation. Laser start time 9:13 a.m. March 29, 2023. Laser stop time 9:15 a.m. March 29, 2023. Segment 2: The total length was 19 cm from the entry distal calf to just below the level of the knee. The diameter of the greater saphenous vein ranged from 6-12 mm. A 30 gauge needle and 1% buffered lidocaine was used to anesthetize the entry site. A 4 mm incision was made with a scalpel and the saphenous vein was entered percutaneously under direct ultrasound guidance with a micropuncture set, a single stick was successful in gaining access. A micro-guide wire was inserted and the needle removed. A micro-set including a dilator was inserted over the microwire and the needle and dilator were removed. A 0.018 guide wire was inserted through the micro-set and threaded through the saphenous vein to the saphenofemoral junction. The dilator was removed and an introducer sheath was inserted over the wire until the end of the sheath entered the saphenofemoral junction. The dilator and wire were removed and the 600 micron fiber was introduced and placed and positioned so that it extended beyond the sheath and was 3 cm peripheral to the saphenofemoral femoral junction. Final position of the fiber was determined by ultrasound guidance and duplex imaging. Tumescent anesthetic was delivered by ultrasound guidance. 175 cc of fluid was delivered along the entire course of the saphenous vein. The solution consisted of 500 cc of normal saline with 20mL of 1% lidocaine and 10 mL of sodium bicarbonate. A final positioning check was made. The energy source was turned on by means of the foot pedal and the fiber and sheath were withdrawn. The total number of Joules delivered was 1483. The laser was active for 186 seconds under continuous pulse, average laser use of 8 J. Additional energy was deposited secondary to the patient being on anticoagulation Laser start time 9:30 a.m. March 29, 2023. Laser stop time 9:33 a.m. March 29, 2023. A duplex ultrasound revealed compressibility and flow at the saphenofemoral junction immediately after the procedure. Hemostasis at the access sites was achieved. The skin incision of the saphenous vein was closed with a 4 x 4. A com (more content not included)... Normal [facility] POCT PT/INRon 03-26-2023 POCT INR 1.8 High .7-1.2 [facility] Comment on above: Performed By: #### 2 [id number] #### [facility] [address] [place] [address] POCT PT 20.1 second(s) High 8.0-15.0 [facility] Comment on above: Performed By: #### 2 [id number] #### [facility] [address] [place] [address] Progress Note-Physicianon Progress Note-Physician Patient: TAI CLARK Age: 52 years Sex: Male : 1970 Associated Diagnoses: None Author: Meghan Yang Patient is seen today for their interval coumadin assessment in the Coumadin Clinic. He is on Coumadin for DVT. He has a pmhx of DVT, gout, HTN, HPL,Cerebral palsy, right leg venous ulcer now status post right small saphenous vein EVLT His pcp is Dr. Hernandez. Tolerating Coumadin well, no change in diet or medications. Denies any melena, hematochezia, hematuria, gingival bleeding, hematoma's or prolonged epistaxis. We discussed the patient's coumadin therapy today. --Indication: dvt --Current coumadin pill being used: as above --Current dose of coumadin: as above --Side effects / complications of coumadin: Denies any problems with the use of coumadin -- denies any gum bleeds, nose bleeds, easy bruising, or other sequelae of coumadin toxicity. --Medication changes since last visit: none --OTC meds / herbal meds used since the last visit: none --Any change in diet since last visits, including vitamin-K rich foods: none --Compliance: no missed doses We also reviewed the patient's risk factors for bleeding using the Outpatient Bleeding Risk Index: 1. 65yo or older: no 2. Hx of GI tract bleeding: no 3. Hx of stroke: no 4. Serious co-morbid conditions (recent OR, anemia with Hct <30%, CRI with SCr > 1.5, DM): no Score = 0 /4 Risk (low = 0, mod = 1-2, high = 3-4): Health Status Allergies: Allergic Reactions (Selected) No Known Allergies, Allergies (1) Active Reaction No Known Allergies None Documented Current medications: (Selected) Prescriptions Prescribed Voltaren Gel 1% Gel: 1 nacho, Topical, QID for pain, 100 gram, Refill(s) 0, [employer] #[id number], 198, cm, 08/12/22 9:37:00 EDT, Height/Length Dosing, 140, kg, 08/12/22 9:37:00 EDT, Weight Dosing lidocaine Top 5% film Patch: 1 patch(es), Topical, Daily, 7 patch(es), Refill(s) 0, apply 12 hours on and 12 hours off daily, [employer] #[id number], 198, cm, 08/12/22 9:37:00 EDT, Height/Length Dosing, 140, kg, 08/12/22 9:37:00 EDT, Weight Dosing Documented Medications Documented Coumadin 5 mg Tab: 5 mg = 1 tab(s), Oral, TueThu, Refills(s) 0, Blood Thinner allopurinol 300 mg Tab: 300 mg = 1 tab(s), Oral, Daily, Refills(s) 0, Gout pain carvedilol 25 mg Tab: 25 mg = 1 tab(s), Oral, BID, # 180 tab(s), Refills(s) 0, High blood pressure colchicine 0.6 mg Tab: 0.6 mg = 1 tab(s), Oral, Daily, Refills(s) 0, Gout pain furosemide 40 mg Tab: 40 mg = 1 tab(s), Oral, Daily, Refills(s) 0, diuretic/water pill gabapentin 300 mg Cap: 300 mg = 1 cap(s), Oral, BID, Refills(s) 0, Pain potassium chloride 10 mEq Cap-ER: 10 mEq = 1 cap(s), Oral, Daily, Refills(s) 0, Other (see comment) warfarin 5 mg Tab: 2.5 mg = 0.5 tab(s), Oral, MonWeFrSaSu, Refills(s) 0, Blood Thinner, Home Medications (10) Active allopurinol 300 mg Tab 300 mg = 1 tab(s), Oral, Daily carvedilol 25 mg Tab 25 mg = 1 tab(s), Oral, BID colchicine 0.6 mg Tab 0.6 mg = 1 tab(s), Oral, Daily Coumadin 5 mg Tab 5 mg = 1 tab(s), Oral, TueThu furosemide 40 mg Tab 40 mg = 1 tab(s), Oral, Daily gabapentin 300 mg Cap 300 mg = 1 cap(s), Oral, BID lidocaine Top 5% film Patch 1 patch(es), Topical, Daily potassium chloride 10 mEq Cap-ER 10 mEq = 1 cap(s), Oral, Daily Voltaren Gel 1% Gel 1 nacho, PRN, Topical, QID warfarin 5 mg Tab 2.5 mg = 0.5 tab(s), Oral, MonWeFrSaSu , No qualifying data available Problem list: All Problems Cerebral palsy / SNOMED CT [id number] / Confirmed Healed venous ulcer of lower extremity / SNOMED CT 0826822859 / Confirmed Hallux rigidus of right foot / SNOMED CT 321127196 / Confirmed Umbilical hernia / SNOMED CT 0705457149 / Confirmed Venous insufficiency of right leg / SNOMED CT 618089437 / Confirmed Resolved: DVT - Deep vein thrombosis / SNOMED CT 6509506186 Resolved: Gout / SNOMED CT 484383376 Resolved: HTN (hypertension) / SNOMED CT [id number] Resolved: Hyperlipidemia / SNOMED CT 14233772, Active Problems (5) Cerebral palsy Hallux rigidus of right foot Healed venous ulcer of lower extremity Umbilical hernia Venous insufficiency of right leg Objective No qualifying data available General: Alert and oriented, No acute distress. Eye: Pupils are equal, round and reactive to light. HENT: Normocephalic. Respiratory: Lungs are clear to auscultation. Cardiovascular: Normal rate, Regular rhythm. Gastrointestinal: Soft, Non-tender, Non-distended, Normal bowel sounds. Musculoskeletal Normal range of motion. Normal strength. Integumentary: Warm, Dry. Neurologic: Alert, Oriented, Normal sensory, Normal motor function. Psychiatric: Cooperative, Appropriate mood & affect. Impression and Plan Patient is seen today for their interval coumadin assessment in the Coumadin Clinic. He is on Coumadin for DVT. He has a pmhx of (more content not included)... Normal [facility] Comment on above: Result Comment: Elec tronically Signed By: Meghan Yang\.mina\Date and Time Signed: 03/26/23 10:24 EDT VC COMP CONSULTATIONon 03-18 VC COMP CONSULTATION Patient: DANUTA CLARK [facility] Exam Date: 03/18/2023 : 1970 Gender:M Ordering : DR DEEP DE SOUZA D.P.M. Admission #: [id number] Family : [facility] Order #: [id number] CLICK HERE TO VIEW EXAM RADIOLOGY REPORT PROCEDURE: VC VEIN CENTER CONSULTATION VEIN CENTER - OFFICE VISIT INITIAL COMPARISON: None. PROGRESS NOTES: [age] year old male who presents with a 30 year history of dilated bulging veins, discolored veins, leg pain, swelling, cramping, lower extremity edema and discoloration, skin ulcers. The patient's right leg symptoms are worse than the left. There has been a progression of symptoms over time. This increases with prolonged standing. The patient describes an improvement with rest and elevation. The patient denies any signs and symptoms to suggest arterial ischemia. The patient describes a family history of varicose veins on paternal side. The patient has drinking and smoking history of : Occasional alcohol consumption. No tobacco use. Patient has a past medical history significant for prior deep vein thrombosis (several times). See separate history and physical for medication list. Prior venous ablation of right great saphenous vein. Current use of compression stockings. After review of nurse notes, history and physical exam I discussed at length the pathophysiology of venous hypertension and possible treatments, therapies and strategies available. We discussed at length the importance of elevating the lower extremities above the level of the heart, increased physical activity and compression stocking use. Ultrasound venous reflux study performed today was discussed at length with the patient. The report demonstrates dilated, incompetent left great saphenous vein, bilateral small saphenous veins, numerous dilated and incompetent branch saphenous varicosities, and dilated incompetent dispatch machine runner veins within the distal lower extremity bilaterally deep to patient's active skin ulcers. PHYSICAL EXAM: The right leg demonstrates multiple varicosities, a few scattered spider veins, distal lower extremity/ankle ulceration, moderate edema, marked skin discoloration. The left leg demonstrates numerous prominent varicosities, a few scattered spider veins, distal lower extremity/ankle ulceration, moderate edema, marked skin discoloration. Both thighs, legs and feet were symmetrically warm to the touch. Good posterior tibial and dorsalis pedis pulses were present bilaterally. IMPRESSION: 1. Prominent bilateral lower extremity venous insufficiency with bilateral lower extremity ulceration and marked skin staining. 2. Bilateral lower extremity varicose veins 3. Moderate bilateral lower extremity subcutaneous edema 4. No flow significant arterial disease 5. CEAP: C6, EC, AP, MN PLAN: 1. Continued use of compression stockings 2. Elevated legs and increased physical activity symptomatic relief 3. Endovenous laser ablation of left great saphenous vein, right small saphenous, and left small saphenous vein. Bilateral lower extremity microfoam chemical ablation. Nurse notes, history and physical were reviewed and confirmed, see attached forms. The nurse was present throughout the physical exam and consultation Dictated by: Saloni Cavanaugh M.D. on 03/18/2023 at 11:54 Approved by: Saloni Cavanaugh M.D. on 03/18/2023 at 12:04 Normal [facility] VC VENOUS REFLUX ABRAN LMTon 0 03-18-2023 VC VENOUS REFLUX ABRAN LMT Patient: TAI CLARK Exam Date: 03/18/2023 : 1970 Gender:M Ordering : DR DEEP DE SOUZA D.P.M. Admission #: [id number] Family : [facility] C Order #: [id number] CLICK HERE TO VIEW EXAM RADIOLOGY REPORT PROCEDURE: VEIN CENTER ULTRASOUND VENOUS REFLUX BILATERAL LIMTED COMPARISON: None. INDICATIONS: Pain co-occurrent and due to varicose veins of bilateral legs I83.813 TECHNIQUE: Duplex imaging of the lower extremity to assess the deep and superficial venous system for the presence of deep or superficial venous incompetence and to document the location and severity of disease. The study includes evaluation of the great saphenous vein (GSV), anterior accessory saphenous vein (AASV) and small saphenous vein (SSV). Patient scanned in reverse Trendelenburg and standing. FINDINGS: RIGHT LOWER EXTREMITY: Saphenofemoral Junction Reflux: Yes 8.4mm sec GSV: Diam (mm) Reflux/ Time (sec) Proximal Thigh N/A Mid Thigh N/A Distal Thigh N/A Prox Calf N/A Mid Calf N/A Saphenopopliteal Junction Reflux: 5.5mm Yes 1.2 SSV: Proximal Calf 5.4 Yes 0.9 Mid Calf 5.0 Yes 0.6 AASV: Proximal Thigh 5.1 No Mid Thigh 3.6 Yes 0.5 Distal Thigh Thrombi: Chronic thrombus visualized in the pop vein Compressibility: Partial compression of Pop V, with chronic DVT thrombus visualized within. Otherwise normal. Flow: Normal Preforator: Area of wound dist/med calf 4.6mm with 1.7s reflux. Dist/med calf 3.0mm with 0s reflux. Mid/med calf 3.4mm with 0s reflux. Prox calf 4.2mm with 0s. Tech Note: Incompetent SPJ and SSV. GSV has had a previous ablation and measures 2.2 cm from the SFJ. SSV is tortuous immeadiately off of SPJ. Patent varicose dist/med calf 9.5mm with 1.1s reflux. Patent varicose vein mid/med calf 5.4mm with 1.3s reflux. Patent varicose vein prox/med calf 5.1mm with 0.9s reflux. LEFT LOWER EXTREMITY: Saphenofemoral Junction Reflux: Yes 11.5 mm 1.2 sec GSV: Diam (mm) Reflux/Time (sec) Proximal Thigh 7.9 Yes 1.2 Mid Thigh 7.8 Yes 1.0 Distal Thigh 6.3 Yes 1.6 Prox Calf 8.5 Yes 2.0 Mid Calf 6.0 Yes 0.6 Saphenopopliteal Junction Relux: 3.4 mm Yes 1.5 SSV: Proximal Calf 6.8 Yes 1.7 Mid Calf 6.1 Yes 0.8 AASV: Proximal Thigh 4.6 No Mid Thigh 4.7 Yes 1.6 Distal Thigh Thrombi: No acute or chronic thrombus visualized Compressibility: Normal Flow: Normal Set Designer: Dist/med calf 4.6mm with 1.3s reflux. Dist/med calf 2.8mm with 0s reflux. 0.6s reflux. Mid/med calf 4.1mm with 1.2s reflux. Tech Note: Incompetent SFJ, GSV, SPJ, and SSV. Patent varicose vein mid/med calf 4.8mm with 1.0s reflux. Patent varicose vein prox/med calf 4.0mm with 0.9s reflux. Patent varicose vein mid/post calf 5.1mm with 1.2s reflux. CONCLUSION: 1. Dilated, incompetent right small saphenous vein, left great and small saphenous veins. 2. Prior ablation of right great saphenous vein. 3. Bilateral, incompetent dispatch machine runner veins within the distal calf. 4. 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 5. Consultation for endovenous ablation is recommended. Dictated by: Saloni Cavanaugh M.D. on 03/18/2023 at 10:55 Approved by: Saloni Cavanaugh M.D. on 03/18/2023 at 11:54 Normal [facility] Coding Summary.on 02-19-2023 Coding Summary. CD:[id number] Ww+PGhl YWQ+CL0OXCQyN62zqZHepM9gS0S MTElOSywgQVBQTElOSyIgbmFtZT 1kaXNjZXJu IC8+YJ9hSOTyJbeegDFhb0W3jOF 5B79zee6eVGzixQO6PJAeBgCxws xun8adsEw0JVwxCbfwAoVr MNPzqX09ZDX7pT30Rg01bCBikGZ nh3ifwDu7GsBvTEAlENR9fAemEU qce8CgJHGcB31bvIPju3N6 NPHkzYtlmLKbHjZasLN1aL1qROj nhkgzm0ddfqupCav8rp32cLSam6 X4qKF6P7AhteZ5BYGakQLl HaxlcMDTiC4jpdjee4pvlpxvEoI jTSTrIQx4CTv7LCFprWmjCgGbHP 87VUC5MLEpoyZgJ7OgLYSa yLlmOaX3x4J9Tl5DC8SEPscdV0R NTUFSWTwvdGQ+RL62yu55K2FrRm jxElm4OSGdOQR4vSW7sH8o ZSJjCOzub6M7pFZ6I6HucdMujf1 ul9xjOCDdUJqfU26syXDej3T3LN EmtQL3IITlqMgcKzKkcB69 Oyc+ICAfgHppb1JgRspyj8dke6k skBz2EjkeEHIhwdCueLkpHWF6e8 BcRn0lIILorHY6yOG8yT6b VqDaFrR4VGwyX992IgDwgTZpIou dQ80tC9WmyOZ+DOZiUxg1EPBllG bbAJ3kT1ShWPUzrroloMIj qNrzKW6yZHDipdmrFALaiX7lQXD rY4q3QsQhWsI6MJopU1PdMJBnin btPu67kK8sKvObRtP9TPjg H3PzffA3SXEctMOfLBkbWMQ2X85 wo8W6WEWzTGVuMBY7yKG9gH7zbW lnbjogbGVmdDsgdmVydGlj EXkfLJflE399FMUncQwtItJqNBw uZyBEYXRlOiAgMDQvMTgvMjAyMz wvdGQ+ICBsPMA7fJlgOKVj hYFbYChdVn9hwVnqgArsBM2pIRA ypfztFVHhsO0tBTEmhIFgtVhtZV 2tQMZgmlnqa623MhIuFXR2 QNQceZGdV0DisM0jPbAmTOYeZIF pQ2AeiCSgEMipF638QBejEaB9FY YvuhDzF3VyTNHfkCaiYtL7 h7Q5Lv3Uu5UgqpozB3ZacIOsJjI hVmugALb1V7ZvSzunmUE+PC90YW RrIW20ZTv9DNX2qZalSBwr PGYsR7AsnD8jHxDwFHUhWCYyYug +PHRhYmxlIHdpZHRoPScxMDAlJy DrvTyzWC5sYj2uTOIpQQHq dXgqjUIiGlLcm7ksMSYbYQsjCI7 smVlqI4LbrGT6ZTEig1z4Re84R6 9mF0WawFT+AOPhwBC2rJO7 lC1vImRvWjG3VNviM484JbImeFH vIlmik3wvs6gdmZq6NcV7ZLPbvk OxpWuaRIT1v4PsXt49I20t IHdpZHRoPSIxNSUiIHZhbGlnbj0 yeV6vZc4+LQGtmUC0vSO6kG5xUv VeUkJ7ZUpyZ567AxYiiNDg Fkqzi3naq2bldWc7IiByVJTavlA biIbiLKT1v7ShJk49T0IshPlgk0 TcXad0nl03qRTqe9K0tCV7 W9VmHWBouofjvUTduQnrXX9pERL ilfkbBVHhdW8yRTZbC3d3EiYiOy T4MJpjV0RguvH5BQZwmUMk KGZycUWYkL2kufedp0dtgwxaWhH aMDCqHEd3PPg3FIAamKunClBhZV T0QwL6JAG1xZHdsB0jjWyk egdznL4iPim+SFX5dFDthGINDA5 lOjwvdGQ+BPUlCNJ4lUpzUVxaAZ TgqR5vGCVzP0z8CeXcUzM8 OEkdK9RkteK2LOZrpUFuXAVcvYD VsV2cdkyjt2hqviktTyJrKGGyBK m2FYq4JZJaxIjmUxVwCYT9 RtK4GCZ8mTXbrY9cxBflwyjusQ2 wOyc+XopcyQzcTRJ7DKn8H0ZgVw n1KSJslXtmGF4mdHMbTWep Ee2yqIxhhWrkDI0lIQAggkihn54 5SfQub1liAUBoqRRsZCooANK9Z0 6yu6W2MOSmCRUhAMR3wXN7 vT1kvNzybhoxpHZdsSwilaNmpYi bSYmvBNykR070SIBsmGmaCfPfEY l5Q0SiWxa3VEMllDjhKG5j nRCsKKmkKu5qhRdhyMrjGV0lUJK gjjjxx607QcUbj3peLENsiSXtVP huMKM2C86oa2Q8AGCeZFWt CGA9sQF2eW0zwZaznormuPEupRs lmsKvaZmyCLpyIWreA358DUZzwQ bsMlJgpFd1L3JxVhx2GGAw xYqbPR2djEVsHPhlXq6ksVtutMr lIF2xALTviozgm569RsCaj7scAP YpbAMjFYkqEVX7D29xe0Z3 NBChSABlXYS2yBF7jF7duWkxhxf gbGVmdDsgdmVydGljYWwtYWxpZ2 46IHRvcDsnPlBhdGllbnQg ZSirHPs2D8GfFpeiuNG+FT10WZL oES21nGTqbJMvi4jrwDu4CyXoYI AcJEB4oVmkCMrni0UvDRFw D46zyRKfd6U9ZHDpoCyyhSHdEeK bkXY0hB7sLKxdsbled9vwjmyyRr dan6eviq32dX49E15oYDri HAFrXYSwVZKjNINsyPebvf4efW5 wIi8+CFNotTG9iOZ2hZ0mRHQyMx L9MPzsQ918FfRroVFnThgq q6wgp7cfqDz4AhE3MCOtmtOxzXz nUSC7i2MwUl79S23kQVuiUJKmII VaCGSfKTTyiFesan8sqR8n Ii8+DBLbnFQ2mQQ8hX9wDfLqIkM 1OLfzD684PaWwpYZgGiysV15hU9 JvdXA+GRPxNni4VMLbdVji BX0uhOEfVJnnJl5aWRE0HlQsBnK fVOetA8FmUUFqllnccmwhlST4DO BvERBeqK02Ap9mpQgkFQDx hBWOuQ5uwwrti0pcyhwkEqAaTUF hEBd2FZm0UHHruVdoSvWeLPQ3Zx Z7FTJ3nKWngY3hdBrfdfks yO9wI5JfXEBhhwanOg86sK1vEoJ bEeI0SKzoOfa+D8VMD0NlESvZT4 NWUEITOD13VH82xPJcy8K1 zBL3I9ZbWGVeuhedmsjboFZ2MAY aKMAqzJ77xQHeRSadGd7zk8W4d3 59LMXjBKZofH69Ce3nuIyr ZNQruVNMyC2qaoxka7dgnacvMaC hIPWwMSu4EMy4APRujFvkRxSoMG O2VjL8CVM0cVNalC2tkOfb yldcfZ3pLnd+CKKaHLymFXx5Tyz vdGQ+KKWqORK8tCsuABumULRyjS 4tHEBmF2n8LxMbPuN2CMdm Y8YdROEsuppnTx77cZ8mKzXnDhY 6XEwvB6YnhpJ3NNMxfZAmDSiuXO U5F91cb3V1KKJmGVArFGN6 mAB2nG2ogXflndjwrUKihIubmcZ swBwcWGyhHLqfF827FGVrcIeyTn YoRFfaDGHhCR44HM42qWTy o7S9lBV2X1OzGOJbouvlbjhcdDC 7MBZiFCYfdY82zHXeGWktRq4ju7 D9b899XOAsVCHxcB49Ub0n uElaDMZguYEDlX2smwjdz1mhodi uXuYuSIAtFDt1UOj6HKVnfGofRy PdJQJ2WmC4WBO7bRXlnB1f iBxvdhhnvK6mNfr+TWFsZTwvdGQ +SMLyDTI3pQjzZGsuNUWerU7vLC GaM9w9QvBvMdY6BNwvL1Fs CVQyckwrWb73lV5pAfWbNxA3QRa vT0TzinF5NSHinHHlUZhkIJE5U8 0xr4Y6VXXvKRQxOZY0oTU3 tI6bfNoheaeivSAsaUwbuwAblCq sFPctSTytD392GZNrmUnrZoChEE UvCC3ejPhvqAO+AC33bt20 U2PhHdpgChp9ZFQoTXW5wAU9cO3 uGLCpKFnoo3V3rHS2A3StemOqwb 4vn0vfAXIpBRseQ11foSEb v6P8TPMxgWD7HNNbkIdyLvAxjH8 3Oyc+HJAjaHidf1CbRegcu2tbs6 hclMz0HcKkFIGrmiFjnLah DZG9z2HyPq11C35jUJyhKZWjTFT yCAPdPGEwmXhjtx7ucC0fLu3+PG IioEM4lWA7eB9oJmYxTiL9 MKvxO664OtGzuJWtVtoet4yyw9d mtGu8XgTwICNhnnSimAvsQUU4z9 FwId70C1IpdVtgp5IzSwl1 bo27xPHva0J4uEO6P5NuMYJomcd kvHUjiMnlUY6aLHYycurjPQGdhZ 5hJEAsR5s4LyQkJdQ0CZrw G1TdqsP0ZGVfpMTdGIMmjWZBfS9 rqfeod1dkdzwfUjSkMJJeTRv9RY d7CHEmeCwfJnHtVAH2SzS7 GED8mIYkeA9bkYhmngjzlE2cQmz +TZd8f6uxpJZbBO1glUR8BV91YV 81jJImc5W4zSC9W8FkGFTj myvahqubtWY5ZQSyYTHcjT73Oe5 toExoPf8aTRLaBYB1TNXpbYApR6 NvtD5xKbToSFEtFXKbU5Rq aHJxQVftG723HFhuEnH4TSBockR dS6WpGYBkiBxbTpD8g2L5Qy3DQG 40GR99WT46oVRke3F6oIA5 T6ZxWOIjibkoedxfmCC1FJKpSFL ebE33Gk4klHltOz7jPQLlABY3KD LblBPyF4MlhD7tFoLdABDi WKUtI7JbdMFaRJitX863JJpgZfS 7MCWtlaIoQ6ElYKElrHqlTqS6u2 Z2Lo0IPd72TR42WV32gLZm p0A9hZV6Z2HdRAOglrnycvzrfRD 6TNHmMHHceV71Jb1coNryTk1bVY KhJYC2CXIgsYKkN1OfoV9c YoHpYPPwYSBvM5XkzZZsYQsiC37 6JTmgKgL9YWOwzlUuW1ZpRDXwrR hjNoL1j7D2Xx6OXNdrjle9 B7RlDvhhbRC+SU60STKhOQ99nRL rpNSub0xksBv8WfCiDJPlEOA5xN ktWZzjn1FnZREoE60lpFHd v4I2LHNx (more content not included)... Normal [facility] Consent for Treatmenton 02-02 Consent for Treatment [id number]:127 Normal [facility] Discharge Instructionson Discharge Instructions [id number]:127 Normal [facility] ED Clinical Summaryon 2022 ED Clinical Summary (Inserted Image. Juana ble to display) [place] [id number] ED Clinical Summary Person Information Name: TAI CLARK Arabella/[facility] Age: 52 Years : 1970 Sex: Male Language: Somali PCP: David JONES, Aura Hernandez Marital Status: Phone: [phone] MRN: Visit Id: Visit Reason: Leg ulcer; ULCERS ON EACH LEG Speciality: Acuity: 3 Enc Type: Emergency Med Service: Emergency Arrival: 02/17/2023 07:43:14 Discharge: 02/17/2023 08:36:13 LOS: 000 00:53 Checkin: 02/17/2023 07:43:14 Checkout: 02/17/2023 08:36:13 Dispo Type: Home (Routine DC) EVENTS: Event Name Event Status Request Date/Time Start Date/Time Complete Date/Time Arrive Complete 02/17/2023 07:43:14 02/17/2023 07:43:14 02/17/2023 07:43:14 Document Home Meds Request 02/17/2023 07:43:14 Triage Complete 02/17/2023 07:43:14 02/17/2023 07:52:49 02/17/2023 07:52:49 Bed Assign Complete 02/17/2023 07:46:51 02/17/2023 07:46:51 02/17/2023 07:46:51 Dr Exam Complete 02/17/2023 07:46:51 02/17/2023 07:47:49 02/17/2023 07:47:49 RN Exam Complete 02/17/2023 07:46:51 02/17/2023 08:03:00 02/17/2023 08:03:00 Registration Complete 02/17/2023 07:47:49 02/17/2023 07:54:36 02/17/2023 07:54:36 Reg Complete Request 02/17/2023 07:54:36 Dr Exam Complete 02/17/2023 07:57:36 02/17/2023 07:57:36 02/17/2023 07:57:36 Registration Complete 02/17/2023 07:57:36 02/17/2023 08:22:21 02/17/2023 08:22:21 Discharge Complete 02/17/2023 08:19:16 02/17/2023 08:36:23 02/17/2023 08:36:23 Transfer Complete 02/17/2023 08:36:23 02/17/2023 08:36:23 02/17/2023 08:36:23 ADDRESS: [facility] [address] [facility] [id number] PHYS DOC NOTES: MEDICAL INFORMATION: Prescriptions Given: New Medications [facility] #[id number], [address] [place] [address], [place] [id number], [phone] cephalexin (Keflex 500 mg Cap) 1 Capsules By Mouth every 6 hours for 7 Days. Refills: 0. Medications to Continue with No Changes Other Medications allopurinol (allopurinol 300 mg Tab) 1 Tablets By Mouth every day. carvedilol (carvedilol 25 mg Tab) 1 Tablets By Mouth 2 times a day. colchicine (colchicine 0.6 mg Tab) 1 Tablets By Mouth every day. diclofenac topical (Voltaren Gel 1% Gel) 1 Application Topical 4 times a day as needed for pain. Refills: 0. furosemide (furosemide 40 mg Tab) 1 Tablets By Mouth every day. gabapentin (gabapentin 300 mg Cap) 1 Capsules By Mouth 2 times a day. lidocaine topical (lidocaine Top 5% film Patch) 1 Patches Topical every day. apply 12 hours on and 12 hours off daily. Refills: 0. potassium chloride (potassium chloride 10 mEq Cap-ER) 1 Capsules By Mouth every day. warfarin (Coumadin 5 mg Tab) 1 Tablets By Mouth Saturday & . warfarin (warfarin 5 mg Tab) 0.5 Tablets By Mouth Saturday & Saturday. PATIENT EDUCATION INFORMATION: Instructions: Venous Ulcer Follow up: With: Address: When: [facility]- [phone] In 3 days 02/20/2023 With: Address: When: Aura Hernandez [address] [place] [address] [employer] (1) In 3 days DIAGNOSIS: 1:Chronic venous hypertension (idiopathic) with ulcer of bilateral lower extremity Normal [facility] ED Note-Physicianon 02-18-20 ED Note-Physician Basic Information Time Seen: Ernie Daly DO 02/17/2023 07:47 Chief Complaint c/o open ulcers on B/L inner side of ankles for about 2 weeks. denies fever/chills History of Present Illness 52-year-old male with history of cerebral palsy presents to the ED with complaints of wounds to bilateral ankles. Patient states that he noticed the wounds a few days ago and is now having burning in bilateral feet and ankles. Patient reports history of venous stasis and has previously been seen in the wound clinic but not recently. He denies any fevers or chills. No injury or trauma. Patient has history of DVT and is currently on Coumadin and has his INR checked regularly. Review of Systems All organ systems are reviewed. Pertinent positive and negative findings as mentioned in the HPI. Physical Exam Vitals & Measurements T: 36.6 ?C(Oral) HR: 84(Peripheral) RR: 16 BP: 153/103 SpO2: 95% HT: 198 cm WT: 136 kg BMI: 34.69 GENERAL APPEARANCE: Well developed, well nourished, alert and cooperative, and appears to be in no acute distress. HEAD: normocephalic, atraumatic EYES: PERRL, EOMI. Vision is grossly intact. EARS: External auditory canals clear, hearing grossly intact. NOSE: No nasal discharge. THROAT: Oral cavity and pharynx normal. Oral mucosa moist. MUSCULOSKELETAL: ROM intact spine and extremities. No joint erythema or tenderness. Chronic appearing discoloration of bilateral medial ankles with superficial wounds over bilateral medial ankles. There is some mild erythema over the left medial malleolus which blanches, could be consistent with cellulitis. No purulence. Area is minimally tender. BACK: Examination of the spine reveals normal gait and posture NEUROLOGICAL: CN grossly intact. Strength and sensation symmetric and intact throughout. SKIN: Skin normal color, texture and turgor with no lesions or eruptions. Assessment/Plan 1. Venous stasis ulcer of ankle (I83.003: Varicose veins of unspecified lower extremity with ulcer of ankle) Non-pressure chronic ulcer of unspecified ankle with unspecified severity (L97.309: Non-pressure chronic ulcer of unspecified ankle with unspecified severity) Orders: cephalexin, 500 mg = 1 cap(s), Oral, q6hr, X 7 day(s), # 28 cap(s), Refills(s) 0, Pharmacy: [facility] #[id number], 198, cm, 02/17/23 7:52:00 EDT, Height/Length Dosing, 136, kg, 02/17/23 7:52:00 EDT, Weight Dosing cephalexin, 500 mg = 1 cap(s), Oral, QID, X 7 day(s), # 28 cap(s), Refills(s) 0, Pharmacy: [facility]/pharmacy #[id number], 198, cm, 02/17/23 7:52:00 EDT, Height/Length Dosing, 136, kg, 02/17/23 7:52:00 EDT, Weight Dosing Patient is afebrile vital signs are stable, no acute distress. Patient has chronic discoloration of bilateral lower extremities consistent with venous stasis. Patient does have wounds over bilateral medial ankles, there is a small amount of cellulitis to the left ankle which blanches, could be consistent with an early cellulitis. No fluctuance or induration. No purulence. Will treat with Keflex and discharged home with instructions to follow the wound clinic. Patient is to return to the ED with any new or worsening symptoms. Patient voices understanding and is agreeable to plan. Disposition Plan Patient Discharge Condition Improved, stable Discharge Disposition to home Discharge Prescription List Prescriptions cephalexin 500 mg Cap, 500 mg= 1 cap(s), Oral, QID Keflex 500 mg Cap, 500 mg= 1 cap(s), Oral, q6hr Follow-up With When Contact [facility]: [place]- [phone] In 3 days 02/20/2023 EDT Additional Instructions: Aura Zamarripaby In [address] [place] [address]- Business (1) Additional Instructions: Patient Education Venous Ulcer Attestation Patient was treated and evaluated by the Physician Car Unloader Helper. The attending physician was in the Emergency Department at all times and supervised care. The case was discussed with the attending physician and diagnostics were reviewed as needed. Problem List/Past Medical History Ongoing Cerebral palsy Healed venous ulcer of lower extremity Venous insufficiency of right leg Historical DVT - Deep vein thrombosis Gout HTN (hypertension) Hyperlipidemia Procedure/Surgical History Endovenous laser ablation of varicose vein of lower limb (09/26/2020), Cheilectomy (11/26/2019), Repair of umbilical hernia (01/13/2019), Endovenous laser ablation of varicose vein. Medications Inpatient No active inpatient medications Home allopurinol 300 mg Tab, 300 mg= 1 tab(s), Oral, Daily carvedilol 25 mg Tab, 25 mg= 1 tab(s), Oral, BID cephalexin 500 mg Cap, 500 mg= 1 cap(s), Oral, QID colchicine 0.6 mg Tab, 0.6 mg= 1 tab(s), Oral, Daily Coumadin 5 mg Tab, 5 mg= 1 tab(s), Oral, TueThu furosemide 40 mg Tab, 40 mg= 1 tab(s), Oral, Daily gabapentin 300 mg Cap, 300 mg= 1 cap(s), Oral, BID Keflex 500 mg Cap, 500 mg= 1 cap(s), Oral, q6hr lidocaine Top 5% film Patch, 1 patch(es), Topical, Daily (more content not included)... Normal [facility] Comment on above: Result Comment: Elec tronically Signed By: Jessica Cronin PA-C\.br\Date and Time Signed: 02/17/23 12:27 EDT\.br\Electronically Co-Signed By: Ernie Daly DO.br\Date and Time Co-Signed: 02/17/23 16:12 EDT ED Patient Education Noteon 02-17-2023 ED Patient Education Note Dermatology Venous Ulcer A venous ulcer is a shallow sore on your lower leg that is caused by poor circulation in your veins. This condition used to be called stasis ulcer. Venous ulcer is the most common type of lower leg ulcer. You may have venous ulcers on one leg or on both legs. The area where this condition most commonly develops is around the ankles. A venous ulcer may last for a long time (chronic ulcer) or it may return repeatedly (recurrent ulcer). What are the causes? A venous ulcer may be caused by any condition that causes poor blood flow in your legs. Veins have valves that help return blood to the heart. If these valves do not work properly: ? Blood can flow backward and pool in the lower legs. ? Blood can then leak out of your veins, which can irritate your skin. ? Irritation can cause a break in the skin, which becomes a venous ulcer. What increases the risk? You are more likely to develop this condition if you: ? Are 65 years of age or older. ? Are female. ? Are overweight. ? Are not active. ? Have had a leg ulcer in the past. ? Have varicose veins. ? Have clots in your lower leg veins (deep vein thrombosis). ? Have inflammation of your leg veins (phlebitis). ? Have recently had a . ? Use products that contain nicotine or tobacco. What are the signs or symptoms? The main symptom of this condition is an open sore near your ankle. Other symptoms may include: ? Swelling. ? Thickening of the skin. ? Fluid leaking from the ulcer. ? Bleeding. ? Itching. ? Pain and swelling that gets worse when you stand up and feels better when you raise your leg. ? Blotchy skin. ? Darkening of the skin. How is this diagnosed? Your health care provider may suspect a venous ulcer based on your medical history and your risk factors. He or she may: ? Do a physical exam. ? Do other tests, such as: ? Measuring blood pressure in your arms and legs. ? Using sound waves (ultrasound) to measure blood flow in your leg veins. How is this treated? This condition may be treated by: ? Keeping your leg raised (elevated). ? Wearing a type of bandage or stocking to compress the veins of your leg (compression therapy). ? Taking medicines to improve blood flow. ? Taking antibiotic medicines to treat infection. ? Cleaning your ulcer and removing any tissue from the wound (debridement). ? Placing various types of medicated bandages (dressings) or medicated wraps on your ulcer. ? Surgery to close the wound using a piece of skin taken from another area of your body (graft). This is only done for wounds that are deep or hard to heal. You may need to try several different types of treatment to get your venous ulcer to heal. Healing may take a long time. Follow these instructions at home: Medicines ? Take or apply zqmj-luq-uxmizaz and prescription medicines only as told by your health care provider. ? If you were prescribed an antibiotic medicine, take it as told by your health care provider. Do not stop using the antibiotic even if you start to feel better. ? Ask your health care provider if you should take aspirin before long trips. Wound care ? Follow instructions from your health care provider about how to take care of your wound. Make sure you: ? Wash your hands with soap and water before and after you change your bandage (dressing). If soap and water are not available, use hand compressor service technician. ? Change your dressing as told by your health care provider. ? If you had a skin graft, leave stitches (sutures) in place. These may need to stay in place for 2 weeks or longer. ? Ask when you should remove your dressing. If your dressing is dry and sticks to your leg when you try to remove it, moisten or wet the dressing with saline solution or water so that the dressing can be removed without harming your skin or wound tissue. ? When you are able to remove your dressing, check your wound every day for signs of infection. Have a caregiver do this for you if you are not able to do it yourself. Check for: ? More redness, swelling, or pain. ? More fluid or blood. ? Warmth. ? Pus or a bad smell. Activity ? Avoid sitting for a long time without moving. Get up to take short walks every 1?2 hours. This is important to improve blood flow in your legs. Ask for help if you feel weak or unsteady. ? Ask your health care provider what level of activity is safe for you. ? Rest with your legs raised (elevated) during the day. If possible, elevate your legs above the level of your heart for 30 minutes, 3?4 times a day, or as told by your health care provider. ? Do not sit with your legs crossed. General instructions ? Wear elastic stockings, compression stockings, or support hose as told by your health care provider. ? Raise the foot of your bed as told by your health care provider. ? Do not use any products that contain nicotine or t (more content not included)... Normal [facility] ED Patient Summaryon 023 ED Patient Summary (Inserted Image. Juana ble to display) [address] [address] Patient Discharge Instructions Person Information Name: TAI CLARK Age: 52 Years Arrival Date: 02/17/2023 07:43:14 Discharge Diagnosis: 1:Chronic venous hypertension (idiopathic) with ulcer of bilateral lower extremity Primary Care Physician: Aura Hernandez MD Provider Information Primary Provider: Ernie Daly DO Advanced Hedge Fund Manager:Jessica Cronin PA-C The exam and treatment you received in the Emergency Department were for an urgent problem and are not intended as complete care. It is important that you follow up with a doctor, nurse practitioner, or physician?s medical practice assistant for ongoing care. If your symptoms become worse or you do not improve as expected and you are unable to reach your usual health care provider, you should return to the Emergency Department. We are available 24 hours a day. TAI CLARK has been given the following list of patient education materials, prescriptions and follow-up instructions: Follow-up Instructions: With: Address: When: [facility]: [facility]- [phone] In 3 days 02/20/2023 With: Address: When: Aura Hernandez [address] [place] [address] [facility] (1) In 3 days In the event that this physician does not participate in your insurance network, please consult with your insurance company to find a nearby participating provider. Patient Education Materials: Venous Ulcer A MESSAGE TO ALL PATIENTS REGARDING OPIOIDS PRESCRIPTION OPIOIDS: WHAT YOU NEED TO KNOW Prescription opioids can be used to help relieve [id number] pain and are often prescribed following a surgery or injury, or for certain health conditions. These medications can be an important part of the treatment but also come with serious risks. It is important to work with your healthcare provider to make sure you are getting the safest, most effective care. WHAT ARE THE RISKS AND SIDE EFFECTS OF OPIOID USE? Prescription opioids carry serious risks of addiction and overdose, especially with prolonged use. An opioid overdose, often marked by slowed breathing, can cause sudden . The use of prescription opioids can have a number of side effects as well, even when taken as directed: ? Tolerance?meaning you might need to take more of the medication for the same pain relief ? Physical dependence?meaning you have symptoms of withdrawal when a medication is stopped ? Increased sensitivity to pain ? Constipation ? Nausea, vomiting, and dry mouth ? Sleepiness and dizziness ? Confusion ? Depression ? Low levels of testosterone that can result in lower sex drive, energy, and strength ? Itching and sweating RISKS ARE GREATER WITH: ? History of drug misuse, substance use disorder, or overdose ? Mental health conditions (such as depression or anxiety) ? Sleep apnea ? Older age (65 years and older) ? Avoid alcohol while taking prescription opioids. Also, unless specifically advised by your health care provider, medications to avoid include: ? Benzodiazepines (such as Xanax or Valium) ? Muscle relaxants (such as Soma or Flexeril) ? Hypnotics (such as Ambien or Lunesta) ? Other prescription opioids KNOW YOUR OPTIONS Talk to your health care provider about ways to manage your pain that don?t involve prescription opioids. Some of these options may actually work better and have fewer risks and side effects. Options may include: ? Pain relievers such as acetaminophen, ibuprofen, and naproxen ? Some medication that are also used for depression or seizures ? Physical therapy and exercise ? Cognitive behavioral therapy, a psychological, goal-directed approach, in which patients learn how to modify physical, behavioral, and emotional triggers of pain and stress. IF YOU ARE PRESCRIBED OPIOIDS FOR PAIN: ? Never take opioids in greater amounts or more often than prescribed. ? Follow up with your primary health care provider. o Work together to create a plan on how to manage your pain. o Talk about ways to help manage your pain that don?t involve prescription opioids. o Talk about any and all concerns and side effects. ? Help prevent misuse and abuse o Never sell or share prescription opioids. o Never use another person?s prescription opioids. ? Store prescription opioids in a secure place and out of reach of others (this may include visitors, children, friends, and family). ? Safely dispose of unused prescription opioids: Find your community drug take-back program or your pharmacy mail-back program, or flush them down the toilet, following guidance from the Food and Drug Administration (www.fda.gov/Drugs/Resource sForYou). ? Visit www.cdc.gov/drugoverdose to learn about the risks of opioids abuse and overdose. ? If you believe you may be struggling with addict (more content not included)... Normal [facility] Prescriptions/Work Noteson 0 02-17-2023 Prescriptions/Work Notes [id number]#[id number]:127 Normal [facility] POCT PT/INRon 01-18-2023 POCT INR 2.6 High .7-1.2 [facility] Comment on above: Performed By: #### 2 [id number] #### [facility] [address] [place] [address] POCT PT 28.3 second(s) High 8.0-15.0 [facility] Comment on above: Performed By: #### 2 [id number] #### [facility] [address] [place] [address] Coding Summary.on 01-01-2023 Coding Summary. CD:[id number] Gh0bWw+ PGhlYWQ+NN1ZUONpV20biPEsnJ1 XO2nQKS1QWCZJJSYWXJ5RDD5vmJ I0LIhdB5LefoKj XwcmdUXcLU49VYj0IZA1cNxnUHm jdS1eqCJgQ8z4AnOqSK05kY57YP usXBVhPsX1GvAqocubwEVn I5flWuMjbGNxXiq+PHRhYmxlIHd kVMObPTwuEYTrShPfpNynNH5pYi 9yZGVyLWNvbGxhcHNlOiBj q2umLBEaLBhxFV0wpKiiG9HpqHX 0ELZkc3t6Zq28jIS+SNRdDHZ2jQ zrLJobr808CeUrv2ibKNM4 wUKrZPfgYXH2G83nf5J9NFWwSPY vAMV6pAA3uC9lqYppjatbZ9AnwH ZmXrO1TRW6wRHqnP2ieJid dipuuX6eAvr+O35WKL9NIJKSRL2 VWvb6Q4AnPfvyeLT+QZ21SYSvER 89nOSbmCGij4awkVi8XhVk DXRaTHB6pFvdBYkua8TuFWXpY97 iqGNym0X4MPIgzZyjwOIxAoRvtL F4wZ1pHGwmezvxw8mxgjwh Tfssb9ngmm90kK59M61gSNyhWXO jFCC9TECcZVTppGdrph6ynA7pWd 8+ILbra7nry3ertRr7BmSu PRXiglCjrJhxTWY3v2OwJm48G5S mmZvme6XpWfh3to97pLEyl7D8bD Y4GJbdQKIkaK1jPPrlBkF5 YQCrBjPleX28aZRbKIiiRd8ksWx hsZocSQ4hXEPzxyuhVFWgsK4cCC ThxHOprBcwFU7jWDUwrcok d279OrAoVGG0NIUbiMDwW1MflD4 oCjYeZGAyKUVbU4TsoLBrEIefM5 65XNhgNyD8FRPoqpEpO0Tz ZIMhcVzpBiR9z7L5Fv3Eo8Muioe cUVX3GJysETFdQpW2ZcBqXfO3B5 BsHjx3MMFxlOtjGM6uY4Bq BKWwssyavwwysPR2MSItBFQkvP5 8kMSpCAfeDt7tb6X1d204JYLpBD WndK49Sh4whTefHDVruGEG sR5lloqni5nppkjaWmGjFTDwIEn 4IHs4HDUyxNnbJmQcPQT8IaN9SR V9fJFmeY2nnDtqsxjkdC7w Oyc+N73khT0tNVF3RLN4lztdKER qngWgVA69AO66S5UzFdollZVuvD U+WARzonKclYutKH7vXmCo s9rzn5IwKVyoW2SaRVBsEMpbAkx 0LPNjSEZ1fOP2sH1pXJKqIRolo5 D1cXP2Z3PtrmKxtn8vh0zg LQSyWFnnJ75bmUVpi4L9GKRkkSS 5LQZylQycWgJzrP34Myb+PGNvbG ibi8WiWvqhe2efm5tsgEh2 ZeIsJXTbleYvwEjdMXS1u4RaWe8 2M11fZZooZZJcCPJuGVMzDJMmvZ xkvu9auO0nPa2+PGNvbCB3 lUM1tC6sEAQeRlY4CRfsI223EuH roPTeLyoec8xzr3shkHk9KcNePU DqiuRtjDvdJOI9i1HlBq02 T26lHOdsSNDbQMUuANAlCCPmgCl ppx4piZ7kTj3+WF5gn0eomd30zO 48dHI+ZQStOSM5eObiMWns AGEvqB7wPGnfZiD3FEDrJeHcnN4 0tJNwXGjbCl6rsSgidTvnUM8eOT Ygoofrf758FgAuk2gzKHFf cCSsOJypUVR2C13ia4Y6NSDcEFO fNQX5sZJ7hC9yrRczruukhARedB khxdFoxPgwPImjZWptL163 IHRvcDsnPlBhdGllbnQgTmFtZTo 5D2WnNhv2PJKrtYctAE2abVHoHI pwMl5xfFsctWrmJO5lEHWi zrvwg394LkBgq4fpFZQirPPeRVx cNRB5D18dc5U6MALfYDBxWTP8uO C7zL3duExopteitTIhrWco eoDsoXjhIWnxCTftS222RYIciHn cDkOofoUlDLIcwEC3CL38KF57hV Ezr9V5lBK7Q7VeKSOxczzf ddbikTN6XDHvCNLmnN41Tq2clNu sSs4mPHDfKZZ9YZRyxGBtT4RhzQ 8aNlYmFTZoCMGtO0TuvQQp GGlbC059COrmGkV4MFVuobTsL7D rZPKspUpoEhJ1a2O9Tk6GT1E1IR 78SD53zQBvw4T9vOW9Q8Wj XPLdpqlandvrrPD5OUKxOLVjnF5 1Pb6sePosOx8aXGWlUGB9SNVhvB NuB2UziY6yHqFiUXSqYWNe A7ZawIXaPOtmE187DPifNhN8TIR feaJwX9BzIMMucKogFaZ7w8R0Mf 9LYCb7CX37FH72pVVdw0V8 wKL5X0XxATYhcuvelyclkDI5JOP xOAIbhU76Pl4ciCvdMa8eHWYaBS O7QYRjpKZdP6RngA3rGhYg NWAwOTLgH5WfrROuGWscA930MTt pKdX6WOQfjsEpT3RlYFKyoIgqUb N2e0S8Th9YEVZnYK18IYS7 aHS8RK67DH92N5GbZwcfpJClrOA +PHRhYmxlIHdpZHRoPScxMDAlJy LeoDkwGY1zJv2mUWUsNJXu pAjonFVpLuCkm1xtJCScCAcsNG3 fxXgwQ2CtiUD8WBBav6e9Ey04W5 2wP1DdhSN+OMSnwMN6dAA6 xR2hZsWfYxM4VGicL054MbAruNA lVredz2yoc1wfkPx0IdR5TTMtkk UekSwwFYV6l0NaLc27K55i IHdpZHRoPSIxNSUiIHZhbGlnbj0 ynG6gBx8+FXOkaFG8lJO9mO9hNm IhGbL1HSmcL455RjGcrDCb Gzvvu2wsz1vvwKp4JpPyWDBaotL vrDjzUPZ4c9EkDp53Z8JeeJjdw3 UsMpc9hs32pXKkq8I4fMF8 K8ZrIMWmhgyhhSLuwLapJL3sGLO gefagDKYduS0kURSaL6s4PuZwDz P8DXteZ6UoodF1EHZeuGUi JDddYOQ0L25bh0Z4XIZxGCPuPDH 9fJH3kB8beYtcgkiqgRPmtLlcvi BrpXnfWUtvOAdaT962RSJm pYsbGJJljT7vGIXcpKYyuOsbNL3 xTZKoxppsBhwOZWGTJJIWP9GOEU ggSjwvdGQ+AIKbVCD1eNlo UVjhHLRdoJ3bBWMwB3d1EwYtNvN 8NPthY4BiZXAekedkRz99rK2pIn BkOaE1NKcdN3NpvfQ1ZCCc eTHdYPyuCCA4B82at9P7MDSjYIH gOMA0uPK8iM4mePhgehdwnFGnbR jketSteLrfVIytZRfwK043 QYQnaPxzEeNwWlK2NvG7SnK5X2C oYor6WHZhrUovNL8ewMWqPQtjMm 5boQytcXdmGU8wZDQcrmyh OIOxjU1mREYqzADqaCceSE7wGAK ubjymy277UfOvSYF3AQXokGXnI7 ZrmK7vCzQoIZAhSWJaU5Wo qWMrSRuuS191XMpeWbO5WAFrfaR qK9TkTTEsuStlRkC4t0K4Sj70TP BZZWFyczwvdGQ+PHRkIHN0 aAfuPSvuFVRyjO0kJVXsF1p1NeW jDcU6EIkdV9GoDSJbkvrrZx99kW 7aOcXaEqV6PThgT5HoyeZ6 IOOyqDAdNMhuVWJ4Y40yj3F5SGU iKWEfIHF0bXN3uQ9koHanvqkpwF VmdDsgdmVydGljYWwtYWxp J913IGIzwYnkLu3onJS2O5DcDvz 1ABPxnBxnMW5zoYBeFUihOz4leJ iniAsfLE9aPZVfbcjbBDKw eD9aUGHurIGkqEopOL2lBXVzlvx uy588RrVuGIC6RMJdsFPeT3BmtJ 7bTzZhJPQlFOPmI8SrwHPs JQteV530EEteDxO3IQLhvrAoU0L uUPYmcWqtGyX6d8O0Er9WAMJ1rg Mskzw6K1ChVxirvJS+PC90 OJOlQF11aXXsiHGfu1npeBs1NcX eRPBgUAS4aJjyLLcwk4DrYBXmY2 2ahXVqc9A4KEOfbKcgxYQt AwHmcIQ7eZ9qEDkgfzaux8rvdpo iYscxw3qetx61hC94Z26kKHokRX JlTOJuXHClAYKibDypbt0m sK7yVr5+KTVvbAG0aNE3aX5yDdI cBqS4KLwvK277JhOvbVLjMgwiz6 lrg0aboDd1QaXxUNQjqzLt zTdjDPC3q4ObSz74R25nPEenORG cZIPwYNRyVFWcsIypfv8xoC2cUw 8+DR4ej5gdlg87nT41kST+ VYGdUKK6dVdjDKwkNDFfoS5jQJc kAwR0EGSmOmIgpU51bHTwHYdmGx 3eaTugnXfvEX5eYVEfkxsv l381DzYvi4siEINrjGGwVPybFUM 3H35cw6P4IUGbCZAiQOJ5sBC0pC 1hbGlnbjogbGVmdDsgdmVy mEvpDXpfBGfqJ589XUUsyRayTlI hhHYyZ1nuszCOSW4wWykqsLM+PH FjEWQ0vAoeUOpeXMDppR9b REKxB9p2XkVeUiR7MOedW1EznhY 9KQYnhWQiEXKokCZReO7grfhfu4 jstetbPaIySBXgBYc0QOh7 WOGzdPcqRhBcEYX9DeA2ETP6wHX rxI1jpXtrbvblaN2kAbk+RklOOj wvdGQ+KYMuLGN6tLmfRIom VHSigY8kMOTcS8b0CtBdEbY5JHd iU2HxudU6USResDCbTFZvoATOyI 7egrqlp1dpmlvuCkXmXUFh IPe9TKs1ILXmtLwmAeZdMQQ5UzD 7YJM5lYVnpL0llOioweocmZ4zJh c+TVJOOjwvdGQ+PHRkIHN0 jMdxQBdrTCWwpQ7kHTHvW8e4DwW uBhK1PLdkA5WfueS4XIXfkULyZP YkxSAKcI6fxoxvg6axbmfo AsKvFHZsRYc6EYo0ERQdwTsiNiW zXXI9XlM7APB4qYOrsX3wpOsfnm onaU6oYxz+VRS3OBC6PC02 NH19S1RiJzqjzGNmxWP+PHRhYmx lIHdpZHRoPScxMDAlJyBzdHlsZT 9qEr2xODDoJFQrdEghqLNt OiBj (more content not included)... Normal [facility] Consent for Treatmenton 12-06 Consent for Treatment [id number]#[id number]:127 Normal [facility] POCT PT/INRon 12-28-2022 POCT INR 1.9 High .7-1.2 [facility] Comment on above: Performed By: #### 2 [id number] #### [facility] [address] [place] [address] POCT PT 20.7 second(s) High 8.0-15.0 [facility] Comment on above: Performed By: #### 2 [id number] #### [facility] [address] [place] [address] Coding Summary.on 10-26-2022 Coding Summary. CD:[id number] Gh0bWw+ PGhlYWQ+KH5ZYHFoB53hsWUzoJ5 MR3hCJD0DKUVUOGUINM6BTM3xlJ O9WHvnT7NnvlXd MwhljNWtYP02BWq9MTO2zCuaWZi wwL1woPZbH7y6PaCiUG79bT32WL flWGNbRiW0XgCmdrddgVUv H3upYjTwjBIkObm+PHRhYmxlIHd xRXIySRgdUBFtQyKudHfcSI1qCh 9yZGVyLWNvbGxhcHNlOiBj s0usPTAkFFggNH9qhVfrJ4GxfUM 9YITjc8o9Md14hON+NRCcNXF8vY vqMZykd325YpNda1ntFOO5 fOZnMKmpXVP5P06ss0O0DYLsBOE nKWJ5cKK1iR8hdMnbkofxV8RsvQ YpXqO2ARU9nGUyrL9njAsr pvjbvE8bAml+C46KAN2PVLDVKQ5 VVjl2G6XjPucnsAV+TA94HDUpPF 05gSXovFLyp5homXq6IsYg YGCbDJS5gGlzMQovv6EnOVIcA03 vzAYex7G9ZCXjjAbolIFgWwKgpN Q4uV9hBIhxlpnzy0sznnih Mllmj6mxdo06vN21E16nLXhrHFN bYPA2LKZgIAXjlHgnuv9moW8cSc 8+BWuan1mdk7infYq8NnFj BGIjqyQxsFarDXR7d1FqZb35H4L djDebc8EgMrw3gy34fJUnq9X9xL N9TIjoZHWsnV2rYPjdTeA1 IYKtLgXrjM94pCGuPMlaXp1puPs yvNvgQQ9iHYYgmcwhEOHpzP8bBW DcpPPczQinUR2tUUVhwbqg k282MaYkUVK6NHDdeBNnL4JnpA1 gRoTkYFUhXAGsY4HzqRKrFQodA0 89NGyqVnP8LCQtmmXgD9Wr VJDwsEgbDiF2g5M1Oa2Pf9Wxyna lUUW7CGonFVMbJmYvNmFdLbY9Y9 VgGot2WCBzcYjoKT1xX6Zh OJNqgyduilyytSP5USIfUYIkqU8 5hCOhMNkxQs4eq8F2t291YXTtUL WcgM47Kc8dmLndPLXrwXNO uE6vfmjou0nubhjoIzTzPGVcBIp 6LGd2YFFnbYkjGvEySIR0ApM0MU U8pELaeH4xvJyksypyjK5r Oyc+I69jeV9dVMC2MVJ4jlwnTOQ tynOvSP69RG95Q9SiIurktYFiqH U+UEGjwfGdbYzqTI3lFqGz e0wqh5EaLPdsR1RkDHNuSQirEbp 4ARKgFGZ6eQN5sR5hNYJxOWabw9 E9cXH8Z0GblvMalb4pu1ge WOIqOPhwO94swDSug4G7JXJbgZB 2UUYevGjvHkXvvI50Ruq+PGNvbG kgi6InKvlxj2vss4fkeFy0 JoCaKNLlfrBxcLlvPUF1t1TaUg0 3O45uIDsfCDLfPJQbBNPoGVFuxL xhiv3mxB5aTh0+PGNvbCB3 lOD6uD0xWESvZkI3QImrN792AjQ cuVKdWkfod7oaz6rxqTc9BoIfLU HuwsBikYuxUUX7n4UePr35 D66yJEctNEVfLPBmDOUxQZFgaRz ehg1hdS2aGf9+YW0ur6ypcb94cT 48dHI+SQDzUDL7wIucVHus JNYlcR7oMSfcZuV2CISiWgZhqQ9 7gDMxNZxcHo3lkKeggJraTN2iYE Oahjghw492IjEer7gyZNRd uYJyYPyaVUE0T25ol7D6CPYwYJW dKBW4uOF1wX3baOqcrfityPRrtE vstdIveOxpADkoIUmgO015 IHRvcDsnPlBhdGllbnQgTmFtZTo 2Y4HkApv4IHEdiKxfUZ2cqQDhET hvXj8qeWkdcLbyLY5yQHIs zczkl183CnTid6llFYOafLShPJf tPCI6L82fj6Q7CCJqIDWuONF3dO L5vB1slZrdnuwodCYxkTlr fyIbxJquWAegMDdmT357AQMwxCz vPsYdtqTdJLFczIM9PC55WG06qW Fwt6Q0sTG5H5BgWBKbzvup evkszLZ6IHDxPMRmtR95Ay4wbJo kOa5zGAYmLIL5TKBfnKSjP1IclK 9nNcDkNTHhZQWeO2OtvLDk WLbhA952OYdlKzW0NRTgilBeK1X xZVDmaMxwAyR5n2D4Pp1AU0Z9UW 75YT84dZFwn8C3xEC3K8Lx NLFixqhwdsvwjGM9PWPyBQJnqD2 0Se2wpUwxLj1jGORjODW4GYGnpO RxW4EltU5hFzBaVHJmPTLp Y9RffNCtBKtxB677YGwhMbH2EDL vkvSwS7MpUQBstXyzSvM4k2V5Az 0LZUc9CK91PL94mMQir5I2 pSA4U7WrQUEtgrpntutzvRI9LOK iVLZaxZ86Yf0doUvyGi1bVGDkUR I4BUUmnUTeU9QkcW0jLjOw FQDhMFYmV5BkpMHbIXxbR398TFx zYwW0EFDcpcJyA9ApJSOdgKzvUm H7x7F6Uy1XVPRwYW92XUQ9 yKA0BV20LG72U0DxJcaeeMWijYW +PHRhYmxlIHdpZHRoPScxMDAlJy JwcBevOJ6aSq8uBZPtYISx fDhpxQCgJoUbd9ttPJOjYDjpAZ5 jzVjaI8DbxMC5QCObi4s3Gz18W7 2aS2ZngRD+IUGggTB4iMM6 iR5eNrLvOeU7KDhxJ203EtYjlNW iMttto2cbc2gdySo6KsS7GCJtxh FjbVutDLK8z9FrLp35Z27a IHdpZHRoPSIxNSUiIHZhbGlnbj0 grT8bIh6+ELIloYQ6vCI9tQ7uYi YdVcJ9ROvdC293NzGqbZEq Enfyr1zfg0gmmFu5JfKhKMHdorP ymCxjUQP5n1LjFh59Q3LyzBzid2 UbJfl4zc91sPOun1D0hQJ4 S3PcRAVesgmvlNQppYguDQ4vUPR usdmaVVUgwG1yWNAdR6u1SyLtYe R7EKsxE2XvgpZ5OXGbgASu JYrzYZX0A79yi2Z9EURgAACpPFS 6bHZ2dX4kiZlfzbjuuBHsnQpzqz CvxXniPLmyCHukF804DSFa zRqsANRwgR3vHYQelMBgbFoaQT3 sTJXjcrxxEwnTJPJJDUTHB4ESRY ggSjwvdGQ+FKChZPK2wVsz EUnxTDBauB0lWTQpS3q2ZcNsFpC 0POtzG5McWLLyzndvMj01iS4jTb XwHaW7LPuqK8UnfpI1HMKy aMVwDYfqSEM8P84fm0R4HZAyQRG gRGC1tZG2uN6hrUzeqekpfSTjnP wehjWlhDjfJDbmMRjaB674 QUWmpRkbTeZmEhB8VnH4PrO3E7M sWni5WLJzkMayZM6dcVYdEKgyOb 1ttJrgjWciCK3jJZFjbvdr TWJooY5vRKNsiIKqnYioAO3sBZF jggxdu652UrHvWVO1XEGsgGOhC4 TwrZ6uVnDmJEExUVNcC3Cu oSHqLPqwZ322BUfiWlM2LYQoenV kY2VzOQTpuZzcKoO6n3W2Yc53RC BZZWFyczwvdGQ+PHRkIHN0 fDctCVbjKCMxiK5wDTBwB2p2JhD vJdO3XHxsF9BaTWAaeulpMb55aR 9aXuLrUeQ1XIfqT6GxgyY5 CAKheDXyUGqqBXG3P44tw6W1BIB bQIKlFJY8mLQ8zO7cgImlgmkebO VmdDsgdmVydGljYWwtYWxp Y155LPHjvItjZc9tfTD4T2HaAqk 5ZTHmrNyyTA9hwLKsTRcxRa8wmT tjtVjxKQ9bUUJhbvgpEVYj rX1sEWAocFKfgCkxKP1vQUDndkq in931XeIaNVZ8DCEegAQfR1VdwR 0zLsDxSAFaIXXcQ2TgqZRy XUptN033LCsvUaP8JEPscyOgX0H rOQWjxSmiFpG9v0V6Kb7SoPMmUK DpGY86MS82ND77T8MaJrec dGFibGU+PHRhYmxlIHdpZHRoPSc aIUUcYeHeyPczBF3zBm9wXTEvHY FwsRvkfPMfLrZvb3caGRUp EYakKS6vxYnlM8XxqEU4TZKjn5s 6Ce17E87cF5LygLE+QYEowRM0uF W5mJ5xJfZuQdX0IUmqJ205 AdJxeALdMnfui4anf6vxfXz1LiU hCLFnrrTktAniOZQ8t2JiPs01W4 9sIHdpZHRoPSIyMCUiIHZh gPofew9pdW2nBb7+TVBlkHX3gTD 0tV6xYgRkVuQ8SRpkD946TuUrvU TxErsoR06kD3KggIV+PHRy Iev6LMVavFgvHD2mzNLkCVmaEh4 mMOA4XoPbBcAlGIbtR6QvDRPdnd tectdtcIV9WJLbBCSfdC38 Bq9rvUvuVv1kOJNlXWX5XSLauNT nS9SbrJ5dIoNkLTKiEUTaT4BalA IjCSsrG633QCxnGkY8QVRx ffMcV1GjDHKkkDofHfH3o6A9Xd9 XcNygaHYrIG6eBzYgTHu4A9GqLe m6MNEttAtmUB2rfCOcYFik Bq7khErzsPncXM7tLTGtdkqcn24 8UmBfl1pjYPIrxUJoCPcwCLZ1D7 0yc2H5WRGpJWTrWPT6wYL2 hC2hfVblmvenyRUkgKzjhvMoxNk wOCbfEEqmH306UKFhzWfwXiTIBk w0L3QjSuf1RDWnnFhlHK9k wLRaASlxPg4rqXsflEmyIE1zZHR yiggrq088XiEzu8kdUAEusSKqNB neJNT5T72lg6L6IJSnRGEv LKF9gLV6lB0uaLbwmtjiiCDdcOw zbqErsAzmSSieJBolX588WUJydH wsTb1XUli4K4DvRta0WQQn hVrrLW8seFUaAGqgTf6qsFsilBz bMR6yYFImbolwr431QpCzy9fbQG JljKLoNRnmSHH0Q22jw7U8 YLPbEMYxNWF8oDK1qU1xkFfmaxd gbGVmdDsgdmVydGljYWwtYWxpZ2 46IHRvcDsnPlBheWVyOjwv dGQ+YG27dp92Z3VeZptxCpx2DBU rHMZ6pQT4jM1mHAUbDFjfg6C7eG M9X9ZyxiByiw3ue6qoQCFd ZTog (more content not included)... Normal [facility] US LE Venous Duplex Righton 10-25-2022 US LE Venous Duplex Right Exam Date/Time: 10/23/2022 19:17 EST Reason for Exam: M79.89, I87.2 Report IMPRESSION: NONOCCLUSIVE DEEP VEIN THROMBOSIS, RIGHT COMMON FEMORAL, PROFUNDA FEMORAL, RIGHT SUPERFICIAL FEMORAL, AND POPLITEAL VEINS. NONOCCLUSIVE SUPERFICIAL VEIN THROMBOSIS, GREATER SAPHENOUS VEIN AT LEVEL OF KNEE. CLINICAL HISTORY: M79.89, I87.2 Findings: Partial compression, right common femoral vein, profunda femoral vein, and proximal right superficial femoral vein, popliteal vein with color flow identified. Noncompression, greater saphenous vein, at level of knee. Right peroneal vein not visualized. Compression demonstrated right posterior tibial vein. Contralateral left common femoral vein patent with color flow and Doppler. FINAL REPORT Dictated: 10/25/2022 11:01 am tSorm Stewart MD Signed (Electronic Signature): 10/25/2022 11:01 am Signed by: Storm Stewart MD Transcribed by: CARLA Technologist: EFRAIN [facility] Consent for Treatmenton 10-05 Consent for Treatment [id number]#1.00CD:127 [facility] Physician Orderon 10-23-2022 Physician Order [id number]#1.00CD:127 [facility] Physician Order [id number]#1.00CD:127 Normal [facility] COAGULATIONOrdered By: Patricio Hickey on 07-25-2022 Fibrin D-dimer FEU (PPP) [Mass/Vol] ng/mL FEU Low 215 - 500 ng/mL FEU [facility] Auto Coag Referrals Officeon 2 Referrals Office [id number]#1.00CD:127 Normal [facility] MICRO OTHER TESTSOrdered By: Patricio Hickey on 03-23-2022 Rapid COV Int NEG Ctl Pass (03/23/22 2:50 PM) Normal [facility] Man Sero Rapid COV Int POS Ctl Pass (03/23/22 2:50 PM) Normal [facility] Man Sero SARS-CoV+SARS-CoV-2 (COVID-19) Ag IA.rapid Ql (Resp) Not Detected (03/23/22 2:50 PM) Normal Not Detected [facility] Man Sero COAGULATIONOrdered By: Miri Jin on 03-05-2022 aPTT Coag (PPP) [Time] 61.4 s High 25.1 - 36.5 second(s) [facility] Auto Coag INR Coag (PPP) [Relative time] 3.2 {INR} Invalid Interpretation Code [facility] Auto Coag PT Coag (PPP) [Time] 38.1 s High 10.2 - 12.9 second(s) [facility] Auto Coag Reference Laboratory Testing Ordered By: [facility] [employer] on 11-18-2021 SARS-CoV-2 (COVID-19) RNA BILL+probe Ql (Resp) Not detected Invalid Interpretation Code Not Detected [facility] SendOutsSS Comment on above: Result Comment: This nucleic acid amplification test was developed and its performance characteristics determined by [employer]. Nucleic acid amplification tests include RT-PCR and TMA. This test has not been FDA cleared or approved. This test has been authorized by FDA under an Emergency Use Authorization (EUA). This test is only authorized for the duration of time the declaration that circumstances exist justifying the authorization of the emergency use of in vitro diagnostic tests for detection of SARS-CoV-2 virus and/or diagnosis of COVID-19 infection under section 564(b)(1) of the Act, 21 U.S.C. 360bbb-3(b) (1), unless the authorization is terminated or revoked sooner. When diagnostic testing is negative, the possibility of a false negative result should be considered in the context of a patient's recent exposures and the presence of clinical signs and symptoms consistent with COVID-19. An individual without symptoms of COVID-19 and who is not shedding SARS-CoV-2 virus would expect to have a negative (not detected) result in this assay. Performed at: [address] [id number] PhD Anjum Porter 02-10-2018 CNOV Office Visit (VASSFT) -------TAI CLARK ([id number]) 1970 [facility] Department02/10/18 3:00 PM FRANK WARD During your visit today, we recorded the following information about you: Pulse Respiration Blood pressure 89/minute 16/minute 151/96Dapiero Ward MD 02/11/2018 10:39 AM [facility] Department of Cardiovascular MedicineOUTPATIENT VISIT DATE February 10, 2018OUTPATIENT VISIT TYPEESTABLALLEGHANY HEALTHPRIMARY CARE PHYSICIAN:MARY JANE Yoo [place] [address]Pioxg: [phone]: [phone] PHYSICIANPeMARY JANE Long [place] [address]RQWWT COMPLAINT:No chief complaint on file.HISTORY OF PRESENT ILLNESS:Tai Clark was referred for consultation by Dr. Caraballo. Opinions andrecommendations in this consultation will be transmitted back to the referringphysician by Epic notes or via mail.Mr. Clark is a 47 year old male PMH multiple lower extremity venous thromboticevents, who is seen today for follow up evaluation of right leg venous ulcer,stasis changes of the legs and chronic edema of the legs.He states the right leg ulcer has healed with compression therapy.Underwent DUS, this was positive for thrombus within the bilateral femoral,popliteal veins and partial thrombus in the greater saphenous veins. Thebilateral saphenous veins measured up to 10mm with over 2 sec of reflux. TheSSV were over 6mm with over 1 sec of reflux.He has had upto 6 separate venous thrombotic events, first over twenty yearsago. He states the highest these have gone are upto the level of the groins. Heremains on coumadin, with plans to remain on it indefinitely.Recent ulceration on the right leg has been present for over the past month.Being managed with unaboot compression. Had been wearing compression stockingfor the previous 6 months.Workup with hypercoagulable panel has been negative however he notes that hisgrandmother had venous thrombotic events. Denies history of pulmonary emboli.Nonsmoker.PAST MEDICAL HISTORYDiagnosis Date- Cerebral palsy (HCC)- DVT (deep venous thrombosis) (HCC)- Gout- Hypertension- Phlebitis and thrombophlebitis of unspecified site- VENOUS STASIS OF LOWER EXTRMITIES 03/23/2009No past surgical history on file.SOCIAL HISTORYSocial HistorySubstance Use Topics- Smoking status: Never Smoker- Smokeless tobacco: Never Used- Alcohol use NoNo family history on file.ALLERGIES:ALLERGIESNo Known AllergiesMEDICATIONS:carved ilol (COREG) 25 mg tablet Take 25 mg by mouth twice daily.warfarin (COUMADIN) 5 mg tablet Take 1 tablet by mouth once daily.allopurinol (ZYLOPRIM) 100 mg tablet TK 1 T PO DREVIEW OF SYSTEMS:GENERAL: no acute distressAll other ROS: negativeI personally interviewed, confirmed and edited the above information asobtained by others.PHYSICAL EXAMINATION:BP 151/96 (BP Site: Right Arm, BP Position: Sitting, BP Cuff Size: Large Adult) Pulse 89 Resp 16 SpO2 95%General appearance: well nourished, alert and cooperative individual, in noacute distress.Neck: no JVDLower Extremities: wearing compressionCARDIOVASCULAR MEDICINE TESTING:I have personally reviewed the DUS .IMPRESSION/PLAN:Mr. Clark is a 47 year old male with history of multiple thrombotic events,post thrombotic syndrome, venous ulceration, venous insufficiency.Risks and benefits of EVLT to treat superficial venous insufficiency discussedwith risks including but not limited to risk of superficial nerve injury anddeep vein thrombosis.He wished to discuss further with his significant other and call back on how hewould like to proceed.Prescribed compression stockings in interim.Flavio Wilson Provider: AURA HERNANDEZ [[id number]]Allergies As of Date: 02/10/2018(No Known Allergies)Date Reviewed: 02/10/2018Reviewed by: Frank Ward - Fully AssessedPrimary Visit Diagnosis: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] Other Visit Diagnoses:Personal history of DVT (deep vein thrombosis) [Z86.718] Venous (peripheral) insufficiency [I87.2] Varicose veins of right lower extremity with other complications [I83.891]Prescriptions as of 02/10/2018 Sig: CARVEDILOL 25 MG TABLET Take 25 mg by mouth twice omkar* WARFARIN 5 MG TABLET Take 1 tablet by mouth once d* ALLOPURINOL 100 MG TABLET TK 1 T PO DProblem List As Of Date 02/10/2018 Noted Resolved VENOUS STASIS OF LOWER EXTRMITIES [I87.2] INVALID FOR* Embolism and thrombosis (HCC) [I74.9] INVALID FOR* ELEV BL PRES W/O HYPERTN [R03.0] INVALID FOR* Recurrent deep vein thrombosis (DVT) (HCC) [I82*INVALID FOR*Disposition: Return if symptoms worsen or fail to improve.Follow-up and Disposition History RecordedEncounter Number: [id number] Status:Closed by FRANK WARD MD on 02/11/18 Normal [facility] PROGRESSon 02-10-2018 PROGRESS HNO ID: [id number] thor: Frank Yepez: (none)Author Type: PhysicianType: Progress NotesFiled: 02/11/2018 10:39 AMNote Text:[facility] InstituteRobj[facility] Department of Cardiovascular MedicineOUTPATIENT VISIT DATE February 10, 2018OUTPATIENT VISIT TYPEESTABLISHEDPRIMARY CARE PHYSICIAN:Aura Hernandez MD[address] [place] [address]Gdfah: [phone]: [phone] PHYSICIANPeLong MD[address] [place] [address]GBICM COMPLAINT:No chief complaint on file.HISTORY OF PRESENT ILLNESS:Tai Clark was referred for consultation by Dr. Caraballo. Opinionsand recommendations in this consultation will be transmitted back to thereferring physician by [facility] notes or via mail.Mr. Clark is a 47 year old male PMH multiple lower extremity venousthrombotic events, who is seen today for follow up evaluation of right legvenous ulcer, stasis changes of the legs and chronic edema of the legs.He states the right leg ulcer has healed with compression therapy.Underwent DUS, this was positive for thrombus within the bilateralfemoral, popliteal veins and partial thrombus in the greater saphenousveins. The bilateral saphenous veins measured up to 10mm with over 2 secof reflux. The SSV were over 6mm with over 1 sec of reflux.He has had upto 6 separate venous thrombotic events, first over twentyyears ago. He states the highest these have gone are upto the level of thegroins. He remains on coumadin, with plans to remain on it indefinitely.Recent ulceration on the right leg has been present for over the pastmonth. Being managed with unaboot compression. Had been wearingcompression stocking for the previous 6 months.Workup with hypercoagulable panel has been negative however he notes thathis grandmother had venous thrombotic events. Denies history of pulmonaryemboli.Nonsmoker.P AST MEDICAL HISTORYDiagnosis Date- Cerebral palsy (HCC)- DVT (deep venous thrombosis) (HCC)- Gout- Hypertension- Phlebitis and thrombophlebitis of unspecified site- VENOUS STASIS OF LOWER EXTRMITIES 03/23/2009No past surgical history on file.SOCIAL HISTORYSocial HistorySubstance Use Topics- Smoking status: Never Smoker- Smokeless tobacco: Never Used- Alcohol use NoNo family history on file.ALLERGIES:ALLERGIESNo Known AllergiesMEDICATIONS:carved ilol (COREG) 25 mg tablet Take 25 mg by mouth twice daily.warfarin (COUMADIN) 5 mg tablet Take 1 tablet by mouth once daily.allopurinol (ZYLOPRIM) 100 mg tablet TK 1 T PO DREVIEW OF SYSTEMS:GENERAL: no acute distressAll other ROS: negativeI personally interviewed, confirmed and edited the above information asobtained by others.PHYSICAL EXAMINATION:BP 151/96 (BP Site: Right Arm, BP Position: Sitting, BP Cuff Size: LargeAdult) Pulse 89 Resp 16 SpO2 95%General appearance: well nourished, alert and cooperative individual, inno acute distress.Neck: no JVDLower Extremities: wearing compressionCARDIOVASCULAR MEDICINE TESTING:I have personally reviewed the DUS .IMPRESSION/PLAN:Mr. Clark is a 47 year old male with history of multiple thromboticevents, post thrombotic syndrome, venous ulceration, venous insufficiency.Risks and benefits of EVLT to treat superficial venous insufficiencydiscussed with risks including but not limited to risk of superficialnerve injury and deep vein thrombosis.He wished to discuss further with his significant other and call back onhow he would like to proceed.Prescribed compression stockings in interim.Frank Ward MD Normal [facility] US-US LE Venous Duplex Insuf ficiency Bilat IMPORTon 02-05-2018 US-US LE Venous Duplex Insufficiency Bilat IMPORT Images were obtained outside of [facility] [id number] Normal [facility] CNOVon 02-03-2018 CNOV Office Visit (VASSFT) -------AMBERTAI ([id number]) 1970 MDate Time Provider Department02/03/18 2:30 PM FRANK WARD During your visit today, we recorded the following information about you: Pulse Respiration Blood pressure Weight 85/minute 16/minute 160/106 147.4 kgFrank Ward MD 02/03/2018 3:12 PM [facility] Department of Cardiovascular MedicineOUTPATIENT VISIT DATE February 03, 2018OUTPATIENT VISIT TYPENEWPRIMARY CARE PHYSICIAN:Aura Hernandez MD[address] [place] [address]Hwkdp: [phone]: [phone] PHYSICIANVilma Caraballo DO ([facility])[address] [place] [address]UUMDW COMPLAINT:No chief complaint on file.HISTORY OF PRESENT ILLNESS:Tai Clark was referred for consultation by Dr. Caraballo. Opinions andrecommendations in this consultation will be transmitted back to the referringphysician by Epic notes or via mail.Mr. Clark is a 47 year old male PMH multiple lower extremity venous thromboticevents, who is seen today for evaluation of right leg nonhealing venous ulcer,stasis changes of the legs and chronic edema of the legs.He has had upto 6 separate venous thrombotic events, first over twenty yearsago. He states the highest these have gone are upto the level of the groins. Heremains on coumadin, with plans to remain on it indefinitely.Recent ulceration on the right leg has been present for the past month. Beingmanaged with unaboot compression. Had been wearing compression stocking for theprevious 6 months.Workup with hypercoagulable panel has been negative however he notes that hisgrandmother had venous thrombotic events. Denies history of pulmonary emboli.Nonsmoker.PAST MEDICAL HISTORYDiagnosis Date- Cerebral palsy (HCC)- DVT (deep venous thrombosis) (HCC)- Gout- Hypertension- Phlebitis and thrombophlebitis of unspecified site- VENOUS STASIS OF LOWER EXTRMITIES 03/23/2009No past surgical history on file.SOCIAL HISTORYSocial HistorySubstance Use Topics- Smoking status: Never Smoker- Smokeless tobacco: Never Used- Alcohol use NoNo family history on file.ALLERGIES:ALLERGIESNo Known AllergiesMEDICATIONS:warfar in (COUMADIN) 5 mg tablet Take 1 tablet by mouth once daily.allopurinol (ZYLOPRIM) 100 mg tablet TK 1 T PO Dcarvedilol (COREG) 25 mg tablet Take 25 mg by mouth twice daily.REVIEW OF SYSTEMS:GENERAL: no acute distressAll other ROS: negativeI personally interviewed, confirmed and edited the above information asobtained by others.PHYSICAL EXAMINATION:BP 160/106 (BP Site: Right Arm, BP Position: Sitting, BP Cuff Size: LargeAdult) Pulse 85 Resp 16 Wt (!) 147.4 kg (325 lb) SpO2 96% BMI 37.8kg/n6Zzelexy appearance: well nourished, alert and cooperative individual, in noacute distress.Neck: no bruitsPulmonary: Lungs clear to auscultation bilaterally.Coronary: regular rate and regular rhythmAbdomen: obeseLower Extremities: doppler signals in bilateral PT, DPToes pink ANDlt;2 sec cap refillEdema in bilateral ankles; right leg wrapped with dressingLeft leg with chronic stasis changesScattered reticular veins in the bilateral legsCARDIOVASCULAR MEDICINE TESTING:There were no tests performed for review.IMPRESSION/PLAN:Mr. Clark is a 47 year old male with post thrombotic syndrome in setting ofmultiple lower extremity venous thrombotic events.DUS venous insufficiency. Continue compression therapy. Elevate legs when atrest. Coumadin.Follow up with test results.Flavio Wilson Provider: VILMA CARABALLO [[id number]]Allergies As of Date: 02/03/2018(No Known Allergies)Date Reviewed: 02/03/2018Reviewed by: Frank Ward - Fully AssessedPrimary Visit Diagnosis: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] Other Visit Diagnoses:Venous ulcer (HCC) [I83.009, L97.909] Edema leg [R60.0]Order(s):US VENOUS INCOMPETENCY [facility] [[id number]] Order #: [id number] FUTUREPrescriptions as of 02/03/2018 Sig: WARFARIN 5 MG TABLET Take 1 tablet by mouth once d* ALLOPURINOL 100 MG TABLET TK 1 T PO D CARVEDILOL 25 MG TABLET Take 25 mg by mouth twice omkar*Medication notes this encounter CARVEDILOL 25 MG TABLET >> Maryana Angulo RN 02/03/2018 2:36 PM >> MARYANA ANGULO RN SatFeb 03, 2018 2:36 PM Received from: External PharmacyProblem List As Of Date 02/03/2018 Noted Resolved VENOUS STASIS OF LOWER EXTRMITIES [I87.2] INVALID FOR* Embolism and thrombosis (HCC) [I74.9] INVALID FOR* ELEV BL PRES W/O HYPERTN [R03.0] INVALID FOR* Recurrent deep vein thrombosis (DVT) (HCC) [I82*INVALID FOR*Medications Discontinued During This Encounter atorvastatin (LIPITOR) 20 mg tablet 3 05/24/2017 02/03/2018 Class: Historical Med Sig: TK 1 T PO D Disc: Reason for discontinue is not on file. hydroCHLOROthiazide (HYDRODIURIL, ES* 3 07/11/2017 02/03/2018 Class: Historical Med Sig: TK 1 T PO QD Disc: Reason for discontinue is not on file. Lisinopril 30 mg tablet 3 07/11/2017 02/03/2018 Class: Historical Med Sig: TK 1 T PO QD Disc: Reason for discontinue is not on file. potassium chloride ER (K-DUR, KLOR-C* 5 05/24/2017 02/03/2018 Class: Historical Med Sig: TK 1 T PO D Disc: Reason for discontinue is not on file. XARELTO 20 mg tablet 3 05/24/2017 02/03/2018 Class: Historical Med Sig: TK 1 T PO QD WF Disc: Reason for discontinue is not on file.Disposition: Return in about 2 weeks (around 02/17/2018).Follow-up and Disposition History RecordedEncounter Number: [id number] Status:Closed by FRANK WARD MD on 02/03/18 [facility] PROGRESSon 02-03-2018 PROGRESS HNO ID: [id number] thor: Frank Yepez: (none)Author Type: PhysicianType: Progress NotesFiled: 02/03/2018 3:12 PMNote Text:[facility] InstituteWorth and [facility]formerly [facility] Department of Cardiovascular MedicineOUTPATIENT VISIT DATE February 03, 2018OUTPATIENT VISIT TYPENEWPRIMARY CARE PHYSICIAN:Aura Hernandez MD[address] [place] [address]Tzsng: [phone]: [phone] PHYSICIANVilma Caraballo DO (Randy)[address] [place], [place] [address] [address]IGERS COMPLAINT:No chief complaint on file.HISTORY OF PRESENT ILLNESS:Tai Clark was referred for consultation by Dr. Caraballo. Opinionsand recommendations in this consultation will be transmitted back to thereferring physician by [facility] notes or via mail.Mr. Clark is a 47 year old male PMH multiple lower extremity venousthrombotic events, who is seen today for evaluation of right legnonhealing venous ulcer, stasis changes of the legs and chronic edema ofthe legs.He has had upto 6 separate venous thrombotic events, first over twentyyears ago. He states the highest these have gone are upto the level of thegroins. He remains on coumadin, with plans to remain on it indefinitely.Recent ulceration on the right leg has been present for the past month.Being managed with unaboot compression. Had been wearing compressionstocking for the previous 6 months.Workup with hypercoagulable panel has been negative however he notes thathis grandmother had venous thrombotic events. Denies history of pulmonaryemboli.Nonsmoker.P AST MEDICAL HISTORYDiagnosis Date- Cerebral palsy (HCC)- DVT (deep venous thrombosis) (HCC)- Gout- Hypertension- Phlebitis and thrombophlebitis of unspecified site- VENOUS STASIS OF LOWER EXTRMITIES 03/23/2009No past surgical history on file.SOCIAL HISTORYSocial HistorySubstance Use Topics- Smoking status: Never Smoker- Smokeless tobacco: Never Used- Alcohol use NoNo family history on file.ALLERGIES:ALLERGIESNo Known AllergiesMEDICATIONS:warfar in (COUMADIN) 5 mg tablet Take 1 tablet by mouth once daily.allopurinol (ZYLOPRIM) 100 mg tablet TK 1 T PO Dcarvedilol (COREG) 25 mg tablet Take 25 mg by mouth twice daily.REVIEW OF SYSTEMS:GENERAL: no acute distressAll other ROS: negativeI personally interviewed, confirmed and edited the above information asobtained by others.PHYSICAL EXAMINATION:BP 160/106 (BP Site: Right Arm, BP Position: Sitting, BP Cuff Size: LargeAdult) Pulse 85 Resp 16 Wt (!) 147.4 kg (325 lb) SpO2 96% BMI37.8 kg/h2Qiynjiv appearance: well nourished, alert and cooperative individual, inno acute distress.Neck: no bruitsPulmonary: Lungs clear to auscultation bilaterally.Coronary: regular rate and regular rhythmAbdomen: obeseLower Extremities: doppler signals in bilateral PT, DPToes pink <2 sec cap refillEdema in bilateral ankles; right leg wrapped with dressingLeft leg with chronic stasis changesScattered reticular veins in the bilateral legsCARDIOVASCULAR MEDICINE TESTING:There were no tests performed for review.IMPRESSION/PLAN:Mr. Clark is a 47 year old male with post thrombotic syndrome in settingof multiple lower extremity venous thrombotic events.DUS venous insufficiency. Continue compression therapy. Elevate legs whenat rest. Coumadin.Follow up with test results.Frank Ward MD Normal [facility] Antithrombin Assayon 017 Antithrombin Assay 114 % Normal 84-138 [facility] Comment on above: Performed By: #### P RCFUN, AT3ASY, HOMCYS, B2GPGM, CARDIO ####[facility]CDor[address] [place] [phone] B2 GPI IgG and IgMon 017 Beta2 Glycoprot IgG <9 Normal <20 [facility] Comment on above: Result Comment: < 20 SGU Thojkqps39-37 SGU Low Positive> 80 SGU High PositiveThese results were obtained with the Applitools QUANTA Lite B2 GPI IgG JOVITA. B2 GPI IgG values obtained with different manufacturers' assay methods may not be used interchangeably. The magnitude of the reported IgG levels cannot be correlated to an endpoint titer. Performed By: #### P RCFUN, AT3ASY, HOMCYS, B2GPGM, CARDIO ####[facility] [place] [phone] Performed By: #### L UPUSP ####[place] [address] [address] [phone] Beta2 Glycoprot IgM <9 Normal <20 [facility] Comment on above: Result Comment: < 20 SMU Hbyykbkg78-03 SMU Low Positive> 80 SMU High PositiveThese results were obtained with the UUSEEva QUANTA Lite B2 GPI IgM JOVITA. B2 GPI IgM values obtained with different manufacturers' assay methods may not be used interchangeably. The magnitude of the reported IgM levels cannot be correlated to an endpoint titer. Performed By: #### P RCFUN, AT3ASY, HOMCYS, B2GPGM, CARDIO ####[facility] AveCDubois, [place] [phone] Performed By: #### L UPUSP ####[place] [address] [place] [phone] [facility] 07-25-2017 [facility] Letter TextToll Free : [phone] [facility] [address] [place], [place] [address]Djrxh: [phone]: [facility] [address] Thomsonis[place], [place] [address]Muvuo: [phone]: [facility] [place], [place] [address]Faugq: [phone]: Fidencio Bhandari M.D., Bridger Marley M.D.Troy Mcfadden M.D.Vilma Caraballo D.O..Sol Savage M.D. FACROSaju A. Rajan, M.D.Date: July 25, 2017Re: Tai Daniels WHOM IT MAY CONCERN:He was seen in our office today.Sincerely,Shoaib Garcia(signed electronically to expedite mailing) Normal [facility] CNOVSPon 07-25-2017 OVS Visit (SP) Office (HEMASA) -------TAI CLARK ([id number]) 1970 MDate Time Provider Department07/25/17 3:15 PM VILMA CARABALLO During your visit today, we recorded the following information about you: Temperature Pulse Respiration Blood pressure 97.9 degrees 102/minute 18/minute 141/91 Weight Height 137.5 kg 1.975 David Caraballo DO 07/26/2017 11:34 PM SignedPATIENT NAME: Tai Hubbard: [id number] PHYSICIAN: KEREN Jarquin [place]enn[place] [facility] [address]HQUGGJY CARE PHYSICIAN: VIRI Jarquin PHYSICIANS:CHIEF COMPLAINT: Embolism and thrombosis (hcc) (primary encounter diagnosis)Essential (primary) hypertensionRecurrent deep vein thrombosis (dvt) (hcc)ASSESSMENT/PLAN:(I74.9 ) Embolism and thrombosis (HCC) (primary encounter diagnosis)(I10) Essential (primary) hypertension(I82.409) Recurrent deep vein thrombosis (DVT) (HCC)Multiple recurrent DVT. Will require lifelong anticoagulation. There is moredata to support coumadin and patient has problems financially with xarelto.Change to coumadin and [place] cou[facility] clinic will follow.For chronic lower extremity pain, he will be referred to Dr. Sylvia Marroquin to see if any procedural approach to venous insufficiency is potential.Will also send hypercoag workup as below.Visit (SP) Office on 07/25/17-FACTOR V LEIDEN/PCR-LUPUS ANTICOAG PL-PROTEIN C FUNCT-PROTEIN C FUNCT-ANTITHROMBIN III-B 2 GPI IGG ANDamp; IGM-PROTHROMBIN GENE HEU-NZOA-WSBAZRYUBXI AB-HOMOCYSTEINE SERUM-CONSULT TO VASCULAR SURGERY-ANTICOAG/COUMADIN CLINIC PHARM-warfarin (COUMADIN) 5 mg tablet Return in about 6 months (around 01/22/2018), or change from xarelto tocoumadin. f/u in 6 months. labs today., for coumadin clinic referral.vascular surgery [facility] in [place] referral. page Dr. Yost. . HISTORY OF PRESENT ILLNESS: This is a 46 year old maleHistory of congenital left arm atrophyHypertension, gout, hypertension, cholesterolemia, venous thromboembolism.Medications include allopurinol atorvastatin hydrochlorothiazide potassiumlisinopril Xarelto. He is a nonsmoker.Presented to the emergency department on June 22 with a right lower extremityulcer with redness, he returned on 07/01/17 with increasing edema of the rightlower extremity.He has recurrent venous thromboembolism, total of 6 and his lifetime.First DVT at the age of 22. Clot was in his right groin. This was after a mildthigh injury. He was on coumadin for 6 months to a year.Second blood clot in 2004. In L leg. This was unprovoked. He was put oncoumadin again for a period.Third blood clot 2009. In groin unsure what side.4th in 2014 after refrigerator fell on his leg. He was on coumadin and thenchanged to xarelto, this stopped after he couldn't afford the medication anylonger. Stopped blood thinnner again in summer 2016, developed recurrent RLEDVT in June 2017.He has a history of cellulitis of the right lower extremity which occurredafter his DVT. He gets swelling after work only.He was told his grandmother from his fathers side had blood clots. His parentsdidn't have clots but young. No clots in aunts or uncles to the best ofhis knowledge.July 25, 2017He works [employer] at [place] on [address]. He stands all day. He wearsbilateral compression stockings now most of the time.Vitals: BP 141/91 Pulse 102 Temp (Src) 97.9 (Oral) Resp 18 Ht 6'5.75ANDquot;[verified by 2 MAs with shoes on[ (1.98m) Wt 303 lb 3.2 oz(137.5kg) BMI 35.26 kg/(m2). Body surface area is 2.75 meters squared. REVIEW OF SYSTEMS PHYSICAL EXAM ECOG PS: 0 NEGATIVES POSITIVES NEGATIVES POSITIVESGEN: fevers, sweats, chills. Overall feels well. GEN: Well appearing, alert,in no acute distress, appears stated ageSKIN: lesions, rash, itching. SKIN: Normal color, texture, turgor, no rashesor lesionsHEENT: significant headaches, changes in hearing, changes in vision, nosebleeds. ENT: No scleral icterus. NECK: Supple, no thyromegaly, no JVD.: dysuria, frequency or incontinence. LYMPH: No cervical, supraclavicular,axillary, inguinal adenopathy.RESP: dyspnea, cough, wheezing. LUNG: Clear to auscultation, no wheezing ralesor rhonchiCARD: chest pain, leg swelling, palpitations. HEART: Regular. No murmurs,gallop, or rubs. No ectopy.GI: abdominal pain, nausea, vomiting, diarrhea, constipation, melena,hematochezia. ABDM: Soft. Non-tender. Non-distended. Bowel sounds normal.No masses. No hepatosplenomegaly.HEME: prolonged bleeding, bruising, adenopathy. EXT: No clubbing, cyanosisSlight edema in BLLE, wearing cleopatra hose. Chronic venous stasis changes RLE.Mostly healed ulceration. No erythyema or drainage, Dry scab overlying 5cmarea.MUSC: joint pain or swelling. Born with LUE injury that has left contraction. Still with RLE pain after standing long time. MUSC: No joint swelling,deformity, or tenderness.NEURO: syncope, seizures, peripheral numbness or tingling. BACK: Notenderness to palpation. No flank tenderness.MEDICATIONS:allo purinol (ZYLOPRIM) 100 mg tablet TK 1 T PO Datorvastatin (LIPITOR) 20 mg tablet TK 1 T PO DhydroCHLOROthiazide (HYDRODIURIL, ESIDRIX) 25 mg tablet TK 1 T PO QDLisinopril 30 mg tablet TK 1 T PO QDpotassium chloride ER (K-DUR, KLOR-CON) 20 mEq tablet TK 1 T PO DXARELTO 20 mg tablet TK 1 T PO QD WFwarfarin (COUMADIN) 5 mg tablet Take 1 tablet by mouth once daily.ALLERGIES: ALLERGIESNo Known AllergiesPAST MEDICAL HISTORYDiagnosis Date- Cerebral palsy (HCC)- Gout- Hypertension- Phlebitis and thrombophlebitis of unspecified site- VENOUS STASIS OF LOWER EXTRMITIES 03/23/2009No past surgical history on file.No family history on file.SOCIAL HISTORY:Social HistorySubstance Use Topics- Smoking status: Never Smoker- Smokeless tobacco: Never Used- Alcohol use NoCOUNSELING:I discussed with Tai the natural history, treated course, and prognosis ofEmbolism and thrombosis (hcc) (primary encounter diagnosis)Essential (primary) hypertensionRecurrent deep vein thrombosis (dvt) (hcc); my impression as well as therationale, logistics, risks, benefits, and alternatives to the managementoptions noted above; and my recommendations listed below. The patient Danae verbalized understanding and agreed with these recommendations and plan.I answered all questions satisfactorily..Angelo Caraballo D.O.Medical OncologistSkagit Valley Hospital Cancer [place], [place]Referring Provider: DAMON YOST [[id number]]Allergies As of Date: 07/25/2017(No Known Allergies)Date Reviewed: 07/25/2017Reviewed by: Mayda Justin for Visit: Consult [173] Cmt: Dr blanco for DVTPrimary Visit Diagnosis:Embolism and thrombosis (HCC) [I74.9] Other Visit Diagnoses:Essential (primary) hypertension [I10] Recurrent deep vein thrombosis (DVT) (HCC) [I82.409]Order(s):CONSULT TO VASCULAR SURGERY [9042] Order #: [id number]: 1 FACTOR V LEIDEN/PCR [SQFVLEID] Order #: [id number] FUTURE LUPUS ANTICOAG PL [SQLUPUSP] Order #: [id number] FUTURE PROTEIN C FUNCT [SQPRCFUN] Order #: [id number] FUTURE PROTEIN C FUNCT [SQPRCFUN] Order #: [id number] FUTURE ANTITHROMBIN III [BTUB8LOD] Order #: [id number] FUTURE B 2 GPI IGG AND IGM [YPT0HACT] Order #: [id number] FUTURE PROTHROMBIN GENE PCR [SQPTGENE] Order #: [id number] FUTURE ANTI-CARDIOLIPIN AB [SQCARDIO] Order #: [id number] FUTURE HOMOCYSTEINE SERUM [SQHOMCYS] Order #: [id number] FUTURE warfarin (COUMADIN) 5 mg tabletTake 1 tablet by mouth once daily.Disp: 30 tabletRfl: 0 ANTICOAG/COUMADIN CLINIC PHARM [[id number]] Order #: [id number]: 1Disposition: Return in about 6 months (around 01/22/2018), or change from xarelto to coumadin. f/u in 6 months. labs today., for coumadin clinic referral. [facility] [place] [facility]. page Dr. Yost. .Follow-up and Disposition History RecordedPrescriptions as of 07/25/2017 Sig: ALLOPURINOL 100 MG TABLET TK 1 T PO D ATORVASTATIN 20 MG TABLET TK 1 T PO D HYDROCHLOROTHIAZIDE 25 MG TAB* TK 1 T PO QD LISINOPRIL 30 MG TABLET TK 1 T PO QD POTASSIUM CHLORIDE ER 20 MEQ * TK 1 T PO D XARELTO 20 MG TABLET TK 1 T PO QD WF WARFARIN 5 MG TABLET Take 1 tablet by mouth once d*Problem List As Of Date 07/25/2017 Noted Resolved VENOUS STASIS OF LOWER EXTRMITIES [I87.2] INVALID FOR* Embolism and thrombosis (HCC) [I74.9] INVALID FOR* ELEV BL PRES W/O HYPERTN [R03.0] INVALID FOR*Encounter Status:Closed by VILMA CARABALLO DO on 07/26/17 [facility] 07-25-2017 [facility] -------TAI CLARK ([id number]) 1970 [facility] Time Provider Department07/25/17 HEATHER (PHARMACIST)LEE During your visit today, we recorded the following information about you:SHERYL KRUGER 07/25/2017 3:31 PM SignedReferral for anticoagulation services does not seem to be filled out on usualform. Will route to LPNs to get correct referralSakina Santiago LPN, SPANNER OPERATOR 07/25/2017 3:48 [address]ignedDr[address] Caraballo,Please complete order # [id number] under outpatient orders. All 8 steps must becompleted with the F2 treviño.Once the order is completed in its entirety, when the encounter is closed- itwill route to our office for processing.Please call our office at [phone] with any questions.Thank you,Sakina Santiago LPN, Pharmacy Anticoagulation ClinicCharlogan Santiago LPN, SPANNER OPERATOR 07/25/2017 4:02 PM SignedPatient Update ? Vilma Shawn Caraballo ?You 7 minutes ago (3:54 PM)??? Please cancel. ?This was supposed to be referral for Coumadin clinic [facility]. ?My apologies. ?The orders and Epic are not ever veryclear for things like this. (Routing comment)Allergies As of Date: 07/25/2017(No Known Allergies)Date Reviewed: 07/25/2017Reviewed by: Mayda Monzon - Fully AssessedReason for Visit: Patient Update [1234]Prescriptions as of 07/25/2017 Sig: WARFARIN 5 MG TABLET Take 1 tablet by mouth once d* ALLOPURINOL 100 MG TABLET TK 1 T PO D ATORVASTATIN 20 MG TABLET TK 1 T PO D HYDROCHLOROTHIAZIDE 25 MG TAB* TK 1 T PO QD LISINOPRIL 30 MG TABLET TK 1 T PO QD POTASSIUM CHLORIDE ER 20 MEQ * TK 1 T PO D XARELTO 20 MG TABLET TK 1 T PO QD WFProblem List As Of Date 07/25/2017 Noted Resolved VENOUS STASIS OF LOWER EXTRMITIES [I87.2] INVALID FOR* Embolism and thrombosis (HCC) [I74.9] INVALID FOR* ELEV BL PRES W/O HYPERTN [R03.0] INVALID FOR* Status:Closed by HEATHER (PHARMACIST)LEE on 07/25/17 Normal [facility] Cardiolipin Antibodyon 07-25 IgG Cardiolipin Ab. <9 Normal 0-9 [facility] Comment on above: Result Comment: <10 GPL [id number] GPL Equivocal>40 GPL PositiveThe following results were obtained with the Applitools QUANTA Lite MARIO IgG III JOVITA. Cardiolipin IgG values obtained with the different manufacturers' assay methods may not be used interchangeably. The magnitude of the reported IgG levels cannot be correlated to an endpoint titer. Performed By: #### P RCFUN, AT3ASY, HOMCYS, B2GPGM, CARDIO ####[place] [address] [place], [place] [phone] Performed By: #### L UPUSP ####[address] [place] [phone] IgM Cardiolipin Ab. <9 Normal 0-11 [facility] Comment on above: Result Comment: <12 MPL Xfipnuav00-83 MPL Equivocal>40 MPL PositiveThe following results were obtained with the App[employer]ools QUANTA Lite MARIO IgM III JOVITA. Cardiolipin IgM values obtained with different manufacturers' assay methods may not be used interchangeably. The magnitude of the reported IgM levels cannot be correlated to an endpoint titer. Performed By: #### P RCFUN, AT3ASY, HOMCYS, B2GPGM, CARDIO ####[address] [phone] Performed By: #### L UPUSP ####[address] [phone] Factor V Leiden PCRon 2016 FV Leiden Report (NOTE) Normal [facility] Comment on above: Result Comment: Perf [facility] Pathologist: Hong Maldonado M.D.Interpretation:Factor V Leiden Mutation Result: NORMALInterpretation: The patient is negative for the Factor V Leiden, theArginine 506/Glutamine 506 genetic polymorphism. The Factor V Leidenassay may fail to detect less than 5% of individuals with activatedprotein C resistance who do not have the Arginine 506/Glutamine 506point mutation.This may be detected by ordering the functional assayfor Activated Protein C Resistance. Other causes of thromboembolicdisease are not ruled out by a normal Factor V Leiden result.Method: This assay was performed by polymerase chain reaction andfluorescence monitoring using hybridization probes. Performed By: #### F VLEI ####[place] [address] [place], [place] [phone] Homocysteine, Serumon 2016 Homocysteine, Serum 16.2 umol/L High 7.4-15.7 [facility] Comment on above: Performed By: #### P RCFUN, AT3ASY, HOMCYS, B2GPGM, CARDIO ####[address] [phone] Lupus Anticoag Panelon 07-25 aPTT 32.7 s High 23.0-32.4 [facility] Comment on above: Result Comment: Unfr actionated Heparin Therapeutic Ranges:Standard Heparin Nomogram: 53 to 78 seconds (anti-Xa level of 0.3 to 0.7 U/ml)Low Dose/ACS Nomogram: 49 to 67 seconds (anti-Xa level of 0.2 to 0.5 U/ml)Stroke Treatment Nomogram: 49 to 67 seconds (anti-Xa level of 0.2 to 0.5 U/ml)Note: The APTT therapeutic range has been determined for the current lot of laboratory APTT reagent in use throughout the [facility]. Performed By: #### L UPUSP ####[address] [phone] aPTT 43.6 s High 24.4-33.4 [facility] Comment on above: Performed By: #### L UPUSP ####[address] [phone] aPTT This test is credite d due to interference with anti Xa inhibitor drug. Normal <37.3 [facility] Comment on above: Performed By: #### L UPUSP ####[address] [phone] DRVVT 1:1 Mix This test is credite d due to interference with anti Xa inhibitor drug. Normal 32.7-46.7 [facility] Comment on above: Performed By: #### L UPUSP ####[address] [place], [place] [phone] DRVVT Confirm Ratio This test is credite d due to interference with anti Xa inhibitor drug. Normal <1.21 [facility] Comment on above: Performed By: #### L UPUSP ####[address] [phone] DRVVT Screen This test is credite d due to interference with anti Xa inhibitor drug. Normal 32.7-46.7 [facility] Comment on above: Performed By: #### L UPUSP ####[address] [phone] Hex Phase Confirm This test is credite d due to interference with anti Xa inhibitor drug. Normal 45.1-64.1 [facility] Comment on above: Performed By: #### L UPUSP ####[place] [phone] Hex Phase Delta This test is credite d due to interference with anti Xa inhibitor drug. Normal <9.0 [facility] Comment on above: Performed By: #### L UPUSP ####[address] [phone] Hex Phase Screen This test is credite d due to interference with anti Xa inhibitor drug. Normal 48.9-70.2 [facility] Comment on above: Performed By: #### L UPUSP ####[address] [phone] IgA Cardiolipin Ab. <9 Normal 0-11 [facility] Comment on above: Result Comment: <12 APL [id number] APL Equivocal>40 APL PositiveThe following results were obtained with an [employer] QUANTA Lite MARIO IgA III JOVITA. Cardiolipin IgA values obtained with different manufacturers' assay methods may not be used interchangeably. The magnitude of the reported IgA levels cannot be correclated to an endpoint titer. Performed By: #### L UPUSP ####[address] [phone] Performed By: #### P RCFUN, AT3ASY, HOMCYS, B2GPGM, CARDIO ####[address] [place], [place] [phone] INR Coag RelTime (Bld) 1.2 {INR} Normal 0.9-1.3 [facility] Comment on above: Result Comment: Ashley min K Antagonist (VKA) Therapeutic Range: INR 2 to 3 (Target INR of 2.5)Note: For patients treated with VKA drugs, such as warfarin, the [place] 2012 Guideline recommends a therapeutic INR range of 2 to 3 (target INR of 2.5). This recommendation includes high-risk patients with antiphospholipid syndrome with previous arterial or venous thromboembolism, current-generation mechanical or bioprosthetic aortic heart valve replacement.Note: Patients with mechanical aortic valve replacement and additional risk factors for thromboembolic events (atrial fibrillation, previous thromboembolism, LV dysfunction, hypercoagulable conditions) or an older generation mechanical AVR (i.e., ball in-Cage) or any mechanical MVR should have a INR therapeutic range of 2.5 to 3.5 (target INR of 3).Dirk GH, et al. Chest 2012, 141:7S-47SNishimura RA, et al. [facility] 2017, 70: 252-289 Performed By: #### L [facility] ####[facility] [place], [place] [phone] Interpretation (NOTE) Normal [facility] Comment on above: Result Comment: Perf orming Pathologist: Heather HarrisaInterpretation:Abnormal - see comment below.SIGNIFICANT FINDINGS:Anti-Xa drug effect Laboratory testing was performed to evaluate the presence of alupus anticoagulant and anti-phospholipid antibodies. The APTT valuewas prolonged with a normal PT/INR. A normal thrombin time (TT)makes a heparin and/or direct thrombin inhibitor effect unlikely.The anti-Xa level was >1.0 U/ml and cannot be neutralized.LUPUS ANTICOAGULANT STUDIES: The patient is currently receivingRivaroxaban. The factor Xa inhibitor drugs interfere with certainclotting-based tests in coagulation assays. Incubated APTT mixingstudy, STACLOT, DRVVT and platelet neutralization cannot be performedin this specimen. A lupus anticoagulant cannot be excluded at thistime. Suggest repeating the lupus anticoagulant evaluation when thepatient is no longer receiving a factor Xa inhibitor drug.ANTIPHOSPHOLIPID ANTIBODY STUDIES: The IgG, IgM and IgAanticardiolipin antibody titers were all negative. Both the IgG andIgM Beta-2 Glycoprotein I antibody titers were negative. The criteria for the diagnosis of a Lupus Anticoagulant, asdetailed by the Subcommittee on Lupus Anticoagulants andAnti-Phospholipid Antibodies of the Scientific and StandardizationCommittee of the International Society on Thrombosis and Haemostasis(ISTH), are the following: (1) A prolonged phospholipid-dependentclotting test (screening test); (2) Evidence for an inhibitor (1:1mix of patient:normal plasma); (3) Evidence that the inhibitor isphospholipid dependent and (4) Exclusion of specific inhibitors (ie,fVIII inhibitors, direct thrombin inhibitors, or heparin). Thromb.Haemost. 74:1185 (1994). Performed By: #### L UPUSP ####[facility] [address] [place], [place] [phone] PNP This test is credite d due to interference with anti Xa inhibitor drug. Critically abnormal Negative [facility] Comment on above: Performed By: #### L UPUSP ####[address] [phone] PT Sec 12.4 sec Normal 9.7-13.0 [facility] Comment on above: Performed By: #### L UPUSP ####[address] [place], [place] [phone] Thrombin Time 16.8 sec Normal <18.6 [facility] Comment on above: Performed By: #### L UPUSP ####[address] [phone] PROGRESSon 07-25-2017 PROGRESS HNO ID: [id number] thor: Vilam Lux: (none)Author Type: PhysicianType: Progress NotesFiled: 07/26/2017 11:34 PMNote Text:PATIENT NAME: Tai SrivastavaN: [id number] PHYSICIAN: KEREN Jarquin [facility] [address]PVNEHHK CARE PHYSICIAN: VIRI Jarquin PHYSICIANS:CHIEF COMPLAINT: Embolism and thrombosis (hcc) (primary encounterdiagnosis)Essentia l (primary) hypertensionRecurrent deep vein thrombosis (dvt) (hcc)ASSESSMENT/PLAN:(I74.9 ) Embolism and thrombosis (HCC) (primary encounter diagnosis)(I10) Essential (primary) hypertension(I82.409) Recurrent deep vein thrombosis (DVT) (HCC)Multiple recurrent DVT. Will require lifelong anticoagulation. There ismore data to support coumadin and patient has problems financially withxarelto. Change to coumadin and [place] [facility] will follow.For chronic lower extremity pain, he will be referred to Dr. Sylvia Marroquin to see if any procedural approach to venous insufficiency ispotential.Will also send hypercoag workup as below.Visit (SP) Office on 07/25/17-FACTOR V LEIDEN/PCR-LUPUS ANTICOAG PL-PROTEIN C FUNCT-PROTEIN C FUNCT-ANTITHROMBIN III-B 2 GPI IGG AND IGM-PROTHROMBIN GENE [id number] AB-HOMOCYSTEINE SERUM-CONSULT TO VASCULAR SURGERY-ANTICOAG/COUMADIN CLINIC PHARM-warfarin (COUMADIN) 5 mg tablet Return in about 6 months (around 01/22/2018), or change from xarelto tocoumadin. f/u in 6 months. labs today., for coumadin clinic referral.vascular surgery sylvia in [place] referral. page Dr. Yost. . HISTORY OF PRESENT ILLNESS: This is a 46 year old maleHistory of congenital left arm atrophyHypertension, gout, hypertension, cholesterolemia, venous thromboembolism.Medications include allopurinol atorvastatin hydrochlorothiazide potassiumlisinopril Xarelto. He is a nonsmoker.Presented to the emergency department on June 22 with a right lowerextremity ulcer with redness, he returned on 07/01/17 with increasing edemaof the right lower extremity.He has recurrent venous thromboembolism, total of 6 and his lifetime.First DVT at the age of 22. Clot was in his right groin. This was after amild thigh injury. He was on coumadin for 6 months to a year.Second blood clot in 2004. In L leg. This was unprovoked. He was put oncoumadin again for a period.Third blood clot 2009. In groin unsure what side.4th in 2014 after refrigerator fell on his leg. He was on coumadin andthen changed to xarelto, this stopped after he couldn't afford themedication any longer. Stopped blood thinnner again in summer 2016,developed recurrent RLE DVT in June 2017.He has a history of cellulitis of the right lower extremity which occurredafter his DVT. He gets swelling after work only.He was told his grandmother from his fathers side had blood clots. Hisparents didn't have clots but young. No clots in aunts or uncles tothe best of his knowledge.July 25, 2017He works [employer] at [place] on [address]. He stands all day. He wearsbilateral compression stockings now most of the time.Vitals: BP 141/91 Pulse 102 Temp (Src) 97.9 (Oral) Resp 18 Ht 6'5.75 [verified by 2 MAs with shoes on[ (1.98m) Wt 303 lb 3.2 oz(137.5kg) BMI 35.26 kg/(m2). Body surface area is 2.75 meters squared. REVIEW OF SYSTEMS PHYSICAL EXAM ECOG PS: 0 NEGATIVES POSITIVES NEGATIVES POSITIVESGEN: fevers, sweats, chills. Overall feels well. GEN: Well appearing,alert, in no acute distress, appears stated ageSKIN: lesions, rash, itching. SKIN: Normal color, texture, turgor, norashes or lesionsHEENT: significant headaches, changes in hearing, changes in vision, nosebleeds. ENT: No scleral icterus. NECK: Supple, no thyromegaly, no JVD.: dysuria, frequency or incontinence. LYMPH: No cervical,supraclavicular, axillary, inguinal adenopathy.RESP: dyspnea, cough, wheezing. LUNG: Clear to auscultation, no wheezingrales or rhonchiCARD: chest pain, leg swelling, palpitations. HEART: Regular. Nomurmurs, gallop, or rubs. No ectopy.GI: abdominal pain, nausea, vomiting, diarrhea, constipation, melena,hematochezia. ABDM: Soft. Non-tender. Non-distended. Bowel soundsnormal. No masses. No hepatosplenomegaly.HEME: prolonged bleeding, bruising, adenopathy. EXT: No clubbing,cyanosis Slight edema in BLLE, wearing cleopatra hose. Chronic venous stasischanges RLE. Mostly healed ulceration. No erythyema or drainage, Dryscab overlying 5cm area.MUSC: joint pain or swelling. Born with LUE injury that has leftcontraction. Still with RLE pain after standing long time. MUSC: Nojoint swelling, deformity, or tenderness.NEURO: syncope, seizures, peripheral numbness or tingling. BACK: Notenderness to palpation. No flank tenderness.MEDICATIONS:allo purinol (ZYLOPRIM) 100 mg tablet TK 1 T PO Datorvastatin (LIPITOR) 20 mg tablet TK 1 T PO DhydroCHLOROthiazide (HYDRODIURIL, ESIDRIX) 25 mg tablet TK 1 T PO QDLisinopril 30 mg tablet TK 1 T PO QDpotassium chloride ER (K-DUR, KLOR-CON) 20 mEq tablet TK 1 T PO DXARELTO 20 mg tablet TK 1 T PO QD WFwarfarin (COUMADIN) 5 mg tablet Take 1 tablet by mouth once daily.ALLERGIES: ALLERGIESNo Known AllergiesPAST MEDICAL HISTORYDiagnosis Date- Cerebral palsy (HCC)- Gout- Hypertension- Phlebitis and thrombophlebitis of unspecified site- VENOUS STASIS OF LOWER EXTRMITIES 03/23/2009No past surgical history on file.No family history on file.SOCIAL HISTORY:Social HistorySubstance Use Topics- Smoking status: Never Smoker- Smokeless tobacco: Never Used- Alcohol use NoCOUNSELING:I discussed with Tai the natural history, treated course, and prognosisof Embolism and thrombosis (hcc) (primary encounter diagnosis)Essential (primary) hypertensionRecurrent deep vein thrombosis (dvt) (hcc); my impression as well as therationale, logistics, risks, benefits, and alternatives to the managementoptions noted above; and my recommendations listed below. The patientJosemark Amber verbalized understanding and agreed with theserecommendations and plan. I answered all questions satisfactorily..Angelo Caraballo D.O.Medical OncologistDepartment of [facility] Affairs [facility] Protein C Functionalon 07-25 Protein C Functional 146 % Normal 76-[address] Comment on above: Performed By: #### P RCFUN, AT3ASY, HOMCYS, B2GPGM, CARDIO ####[facility] [place], [place] [phone] Prothrombin Gene PCRon 07-25 PT Gene Report (NOTE) Normal [facility] Comment on above: Result Comment: [facility] Pathologist: Heather HarrisaInterpretation:PT Gene Mutation Result: NORMALPT Gene Mutation Interpretation: The DNA sample is negative for [id number] point mutation in the 3' untranslated region of theprothrombin gene.This is not associated with an increased risk ofvenous thrombosis.Venous thrombosis is a multifactorial disorder, andother causes of venous thrombosis are not excluded.PT Gene Mutation Method: This assay was performed by polymerase chainreaction and fluorescence monitoring using hybridization probes. Performed By: #### P TGEN ####[facility] [place], [place] [phone] Vital Signs Date Time Vital Sign Value Performing Clinician Cary beavers 06-03-2023 13:29-0400 Body temperature 98.06 [degF] [facility] 06-03-2023 13:29-0400 Diastolic blood pressure 87 mm[Hg] [facility] 06-03-2023 13:29-0400 Heart rate 74 /min [facility] 06-03-2023 13:29-0400 Respiratory rate 20 /min [facility] 06-03-2023 13:29-0400 SaO2% (BldA) [Mass fraction] 96 % [facility] 06-03-2023 13:29-0400 Systolic blood pressure 152 mm[Hg] [facility] 02-17-2023 07:47-0400 Body temperature 97.88 [degF] Ernie Daly [facility] 02-17-2023 07:47-0400 Diastolic blood pressure 103 mm[Hg] Ernie Addy [facility] 02-17-2023 07:47-0400 Heart rate 84 /min Ernie Addy [facility] 02-17-2023 07:47-0400 Respiratory rate 16 /min Ernie Addy [facility] 02-17-2023 07:47-0400 SaO2% (BldA) [Mass fraction] 95 % Ernie Addy [facility] 02-17-2023 07:47-0400 Systolic blood pressure 153 mm[Hg] Ernie Addy [facility] 08-12-2022 09:27-0400 Body temperature 98.78 [degF] Ernie Addy [facility] 08-12-2022 09:27-0400 Diastolic blood pressure 101 mm[Hg] Ernie Addy [facility] 08-12-2022 09:27-0400 Heart rate 81 /min Ernie Addy [facility] 08-12-2022 09:27-0400 Respiratory rate 18 /min Ernie Addy [facility] 08-12-2022 09:27-0400 SaO2% (BldA) [Mass fraction] 95 % Ernie Addy [facility] 08-12-2022 09:27-0400 Systolic blood pressure 179 mm[Hg] Ernie Addy [facility] 03-19-2022 09:03-0400 Blood Pressure Location Teena Cervantes [facility] 03-19-2022 09:03-0400 Diastolic blood pressure 79 mm[Hg] Teena Cervantes [facility] 03-19-2022 09:03-0400 Heart rate 73 /min Teena Cervantes [facility] 03-19-2022 09:03-0400 Respiratory rate 16 /min Teena Cervantes [facility] 03-19-2022 09:03-0400 SaO2% (BldA) [Mass fraction] 95 % Teena Cervantes [facility] 03-19-2022 09:03-0400 Systolic blood pressure 122 mm[Hg] Teena Cervantes [facility] 03-05-2022 08:52-0400 Body temperature 98.06 [degF] Aashish Moe [facility] 03-05-2022 08:52-0400 Diastolic blood pressure 96 mm[Hg] Aashish Moe [facility] 03-05-2022 08:52-0400 Heart rate 81 /min Aashish Moe [facility] 03-05-2022 08:52-0400 Respiratory rate 18 /min Aashish Moe [facility] 03-05-2022 08:52-0400 SaO2% (BldA) [Mass fraction] 96 % Aashish Moe [facility] 03-05-2022 08:52-0400 Systolic blood pressure 182 mm[Hg] Aashish Moe [facility] Encounters Encounter Date Encounter Type Care Provider Facility Start: 06-10-2023 End: 06-11-2023 ambulatory Aura Hernandez Facility:[facility] Start: 06-10-2023 End: 06-10-2023 Patient encounter procedure Aura Hernandez [facility] Start: 06-03-2023 End: 06-03-2023 Emergency department patient visit Wilber Sinclair Facility:[facility] Start: 06-03-2023 End: 06-03-2023 [facility] Start: 03-29-2023 End: 03-30-[address] MONIKA HOUSER Facility: Start: 03-18-2023 End: 03-19-2023 ambulatory DEEP DE SOUZA Facility: Start: 02-17-2023 End: 02-17-2023 Emergency department patient visit Ernie Daly Facility:[facility] Start: 02-17-2023 End: 02-17-2023 Emergency department patient visit Ernie Daly [facility] Start: 11-16-2022 ambulatory Meghan Hernández Facility: [facility] Start: 10-23-2022 End: 10-24-2022 ambulatory Aura Hernandez Facility:[facility] Start: 10-23-2022 End: 10-23-2022 Patient encounter procedure Aura Hernandez [facility] Start: 08-22-2022 End: 08-22-2022 Patient encounter procedure Deep De Souza [facility] Start: 08-22-2022 ambulatory Facility:1 [id number] Start: 08-12-2022 End: 08-12-2022 Emergency department patient visit Ernie Daly [facility] Start: 07-25-2022 End: 07-25-2022 Patient encounter procedure Aura Hernandez [facility] Start: 06-25-2022 End: 06-25-2022 Lab Drop off Deep [facility] Start: 03-30-2022 End: 05-15-2022 Pre-admission assessment Teena Cervantes [facility] Start: 03-23-2022 End: 06-21-2022 Recurring RICHARD J RICKIE [facility] Start: 03-19-2022 End: 03-19-2022 Patient encounter procedure Teena Cervantes [facility] Start: 03-05-2022 End: 03-05-2022 Emergency department patient visit Aashish Moe [facility] Start: 11-17-2021 End: 02-16-2022 Patient encounter procedure Aura Hernandez [facility] Start: 02-10-2018 End: 02-12-2018 Ambulatory FRANK ALEKSANDRACANDELARIA [facility] Start: 02-03-2018 End: 02-06-2018 Ambulatory FRANK ALEKSANDRACANDELARIA [facility] Start: 07-25-2017 End: 07-29-2017 Ambulatory VILMA CARABALLO [facility] Procedures Date Procedure Procedure Detail Performing Clinician Start: 09-26-2020 Endovenous laser abl ation of varicose vein of lower limb Aura Hernandez Comment on above: Right Lower leg with sclerotherapy Right Lower leg with sclerotherapy Start: 11-26-2019 Cheilectomy Aura bustamante Comment on above: Cheilectomy, right g reat toe Removal of gouty tophaceous deposits, right great toe Cheilectomy, right g reat toe Removal of gouty tophaceous deposits, right great toe Start: 01-26-2019 Anesthesia consultation Start: 01-13-2019 Repair of umbilical hernia Aura Hernandez Endovenous laser abl ation of varicose vein Aura Hernandez Payers Date Payer Category Payer Unknown [id number] [id number] 1972 Unknown [id number] 2.16.84 [id number] 1972 Unknown [id number] 2.16.84 [id number] 1972 Unknown [id number] 2.16.8 [id number] 1972 Unknown [id number] 2.16.8 [id number] 1972 Unknown [id number] 2.16.8 [id number] 1972 Unknown [id number] 2.16.8 [id number] 1972 Unknown [id number] 2.16.8 [id number] 1957 Medicaid [id number] 1957 Medicare [id number] Medicaid Social History Date Type Detail Facility Start: 10-31-2020 Tobacco smoking status Never s moked tobacco (finding) [facility] Sex Assigned At Male [facility] Functional Status Date Assessment Result Facility 06-03-2023 Functional Status N/A [facility] 02-17-2023 Functional Status N/A [facility] 08-12-2022 Functional Status N/A [facility] Clinical Notes 11-18-2021 to 06-03-2023 Note Date & Type Note Facility 06-03-2023 Hospital Discharg e instructions Patient Education 06/03/2023 13:52:39 Acute Pain, Adult Acute Pain, Adult Acute pain is a type of sudden pain that may last for just a few days or for as long as six months. It is often related to an illness, injury, or medical procedure. Acute pain may be mild, moderate, or severe. Pain can make it hard for you to do your normal, daily activities. It can cause anxiety and lead to other problems if it is left untreated. Treatment depends on the cause and severity of your pain. Acute pain usually goes away once your injury has healed or you are no longer ill. Follow these instructions at home: Medicines Take bfzl-fog-xvcvapk and prescription medicines only as told by your health care provider. Take the lowest dose of medicine for the shortest amount of time needed to relieve the pain. If you are taking prescription pain medicine: ?Do not stop taking the medicine suddenly. Talk to your health care provider about how and when to discontinue prescription medicine. ?Do not take more pills than told by your health care provider even if your pain is severe. ?Do not take other plnn-nsv-alfxkot pain medicines in addition to prescription pain medicine unless told by your health care provider. ?Ask your health care provider if the medicine requires you to avoid driving or using heavy machinery. ?Ask your health care provider if the medicine can cause constipation. You may need to take these actions to prevent or treat constipation: ?Drink enough fluid to keep your urine pale yellow. ?Eat foods that are high in fiber, such as beans, whole grains, and fresh fruits and vegetables. ?Take uprr-rmc-amesyag or prescription medicines. ?Limit foods that are high in fat and processed sugars, such as fried or sweet foods. Managing pain, stiffness, and swelling If directed, put ice on the affected area. To do this: Put ice in a plastic bag. Place a towel between your skin and the bag. Leave the ice on for 20 minutes, 2 3 times a day. If directed, apply heat to the affected area as often as told by your health care provider. Use the heat source that your health care provider recommends, such as a moist heat pack or a heating pad. Place a towel between your skin and the heat source. Leave the heat on for 20 30 minutes. Remove the heat if your skin turns bright red. This is especially important if you are unable to feel pain, heat, or cold. You may have a greater risk of getting burned. Activity Rest as told by your health care provider. Return to your normal activities as told by your health care provider. Ask your health care provider what activities are safe for you. General instructions Check your pain level as told by your health care provider. Ask your health care provider if other strategies such as distraction, relaxation, or physical therapies can help your pain. Keep all follow-up visits as told by your health care provider. This is important. Contact a health care provider if: Your pain is not controlled by medicine. Your pain does not improve or gets worse. You have side effects from pain medicines, such as vomiting or confusion. Get help right away if you: Have severe pain. Have trouble breathing. Lose consciousness. Have chest pain or pressure that lasts for more than a few minutes, or if you have other symptoms along with chest pain, including if you: ?Have pain or discomfort in one or both arms, your back, neck, jaw, or stomach. ?Have shortness of breath. ?Break out in a cold sweat. ?Feel nauseous. ?Become light-headed. These symptoms may represent a serious problem that is an emergency. Do not wait to see if the symptoms will go away. Get medical help right away. Call your local emergency services (911 in the [place] Do not drive yourself to the hospital. Summary Acute pain may be mild, moderate, or severe. It usually goes away once your injury has healed or you are no longer ill. Take zcrp-uhf-ikqtgkl and prescription medicines only as told by your health care provider. Ask your health care provider if the medicine prescribed to you can cause constipation. Contact a health care provider if your pain is not controlled by medicine. This information is not intended to replace advice given to you by your health care provider. Make sure you discuss any questions you have with your health care provider. Document Revised: 03/07/2020 Document Reviewed: 03/07/2020 [employer] Patient Education 2022 [employer]. 06/03/2023 13:52:39 Back Exercises, Tvyq-jo-Xpkv Back Exercises These exercises help to make your trunk and back strong. They also help to keep the lower back flexible. Doing these exercises can help to prevent or lessen pain in your lower back. If you have back pain, try to do these exercises 2 3 times each day or as told by your doctor. As you get better, do the exercises once each day. Repeat the exercises more often as told by your doctor. To stop back pain from coming back, do the exercises once each day, or as told by your doctor. Do exercises exactly as told by your doctor. Stop right away if you feel sudden pain or your pain gets worse. Exercises Single knee to chest Do these steps 3 5 times in a row for each le.Lie on your back on a firm bed or the floor with your legs stretched out. 2.Bring one knee to your chest. 3.Grab your knee or thigh with both hands and hold it in place. 4.Pull on your knee until you feel a gentle stretch in your lower back or butt. 5.Keep doing the stretch for 10 30 seconds. 6.Slowly let go of your leg and straighten it. Pelvic tilt Do these steps 5 10 times in a row: 1.Lie on your back on a firm bed or the floor with your legs stretched out. 2.Bend your knees so they point up to the ceiling. Your feet should be flat on the floor. 3.Tighten your lower belly (abdomen) muscles to press your lower back against the floor. This will make your tailbone point up to the ceiling instead of pointing down to your feet or the floor. 4.Stay in this position for 5 10 seconds while you gently tighten your muscles and breathe evenly. Cat cow Do these steps until your lower back bends more easily: 1.Get on your hands and knees on a firm bed or the floor. Keep your hands under your shoulders, and keep your knees under your hips. You may put padding under your knees. 2.Let your head hang down toward your chest. Tighten (contract) the muscles in your belly. Point your tailbone toward the floor so your lower back becomes rounded like the back of a cat. 3.Stay in this position for 5 seconds. 4.Slowly lift your head. Let the muscles of your belly relax. Point your tailbone up toward the ceiling so your back forms a sagging arch like the back of a cow. 5.Stay in this position for 5 seconds. Press-ups Do these steps 5 10 times in a row: 1.Lie on your belly (face-down) on a firm bed or the floor. 2.Place your hands near your head, about shoulder-width apart. 3.While you keep your back relaxed and keep your hips on the floor, slowly straighten your arms to raise the top half of your body and lift your shoulders. Do not use your back muscles. You may change where you place your hands to make yourself more comfortable. 4.Stay in this position for 5 seconds. Keep your back relaxed. 5.Slowly return to lying flat on the floor. Bridges Do these steps 10 times in a row: 1.Lie on your back on a firm bed or the floor. 2.Bend your knees so they point up to the ceiling. Your feet should be flat on the floor. Your arms should be flat at your sides, next to your body. 3.Tighten your butt muscles and lift your butt off the floor until your waist is almost as high as your knees. If you do not feel the muscles working in your butt and the back of your thighs, slide your feet 1 2 inches (2.5 5 cm) farther away from your butt. 4.Stay in this position for 3 5 seconds. 5.Slowly lower your butt to the floor, and let your butt muscles relax. If this exercise is too easy, try doing it with your arms crossed over your chest. Belly crunches Do these steps 5 10 times in a row: 1.Lie on your back on a firm bed or the floor with your legs stretched out. 2.Bend your knees so they point up to the ceiling. Your feet should be flat on the floor. 3.Cross your arms over your chest. 4.Tip your chin a little bit toward your chest, but do not bend your neck. 5.Tighten your belly muscles and slowly raise your chest just enough to lift your shoulder blades a tiny bit off the floor. Avoid raising your body higher than that because it can put too much stress on your lower back. 6.Slowly lower your chest and your head to the floor. Back lifts Do these steps 5 10 times in a row: 1.Lie on your belly (face-down) with your arms at your sides, and rest your forehead on the floor. 2.Tighten the muscles in your legs and your butt. 3.Slowly lift your chest off the floor while you keep your hips on the floor. Keep the back of your head in line with the curve in your back. Look at the floor while you do this. 4.Stay in this position for 3 5 seconds. 5.Slowly lower your chest and your face to the floor. Contact a doctor if: Your back pain gets a lot worse when you do an exercise. Your back pain does not get better within 2 hours after you exercise. If you have any of these problems, stop doing the exercises. Do not do them again unless your doctor says it is okay. Get help right away if: You have sudden, very bad back pain. If this happens, stop doing the exercises. Do not do them again unless your doctor says it is okay. This information is not intended to replace advice given to you by your health care provider. Make sure you discuss any questions you have with your health care provider. Document Revised: 01/03/2022 Document Reviewed: 01/03/2022 [employer] Patient Education 2022 [employer]. 06/03/2023 13:52:39 Sciatica Rehab-SportsMed Sciatica Rehab Ask your health care provider which exercises are safe for you. Do exercises exactly as told by your health care provider and adjust them as directed. It is normal to feel mild stretching, pulling, tightness, or discomfort as you do these exercises. Stop right away if you feel sudden pain or your pain gets worse. Do not begin these exercises until told by your health care provider. Stretching and csfmu-pi-jzeohx exercises These exercises warm up your muscles and joints and improve the movement and flexibility of your hips and back. These exercises also help to relieve pain, numbness, and tingling. Sciatic nerve glide 1.Sit in a chair with your head facing down toward your chest. Place your hands behind your back. Let your shoulders slump forward. 2.Slowly straighten one of your legs while you tilt your head back as if you are looking toward the ceiling. Only straighten your leg as far as you can without making your symptoms worse. 3.Hold this position for seconds. 4.Slowly return to the starting position. 5.Repeat with your other leg. Repeat times. Complete this exercise times a day. Knee to chest with hip adduction and internal rotation 1.Lie on your back on a firm surface with both legs straight. 2.Bend one of your knees and move it up toward your chest until you feel a gentle stretch in your lower back and buttock. Then, move your knee toward the shoulder that is on the opposite side from your leg. This is hip adduction and internal rotation. Hold your leg in this position by holding on to the front of your knee. 3.Hold this position for seconds. 4.Slowly return to the starting position. 5.Repeat with your other leg. Repeat times. Complete this exercise times a day. Prone extension on elbows 1.Lie on your abdomen on a firm surface. A bed may be too soft for this exercise. 2.Prop yourself up on your elbows. 3.Use your arms to help lift your chest up until you feel a gentle stretch in your abdomen and your lower back. This will place some of your body weight on your elbows. If this is uncomfortable, try stacking pillows under your chest. Your hips should stay down, against the surface that you are lying on. Keep your hip and back muscles relaxed. 4.Hold this position for seconds. 5.Slowly relax your upper body and return to the starting position. Repeat times. Complete this exercise times a day. Strengthening exercises These exercises build strength and endurance in your back. Endurance is the ability to use your muscles for a long time, even after they get tired. Pelvic tilt This exercise strengthens the muscles that lie deep in the abdomen. 1.Lie on your back on a firm surface. Bend your knees and keep your feet flat on the floor. 2.Tense your abdominal muscles. Tip your pelvis up toward the ceiling and flatten your lower back into the floor. To help with this exercise, you may place a small towel under your lower back and try to push your back into the towel. 3.Hold this position for seconds. 4.Let your muscles relax completely before you repeat this exercise. Repeat times. Complete this exercise times a day. Alternating arm and leg raises 1.Get on your hands and knees on a firm surface. If you are on a hard floor, you may want to use padding, such as an exercise mat, to cushion your knees. 2.Line up your arms and legs. Your hands should be directly below your shoulders, and your knees should be directly below your hips. 3.Lift your left leg behind you. At the same time, raise your right arm and straighten it in front of you. Do not lift your leg higher than your hip. Do not lift your arm higher than your shoulder. Keep your abdominal and back muscles tight. Keep your hips facing the ground. Do not arch your back. Keep your balance carefully, and do not hold your breath. 4.Hold this position for seconds. 5.Slowly return to the starting position. 6.Repeat with your right leg and your left arm. Repeat times. Complete this exercise times a day. Posture and body mechanics Good posture and healthy body mechanics can help to relieve stress in your body's tissues and joints. Body mechanics refers to the movements and positions of your body while you do your daily activities. Posture is part of body mechanics. Good posture means: Your spine is in its natural S-curve position (neutral). Your shoulders are pulled back slightly. Your head is not tipped forward. Follow these guidelines to improve your posture and body mechanics in your everyday activities. Standing When standing, keep your spine neutral and your feet about hip width apart. Keep a slight bend in your knees. Your ears, shoulders, and hips should line up. When you do a task in which you sales inspector one place for a long time, place one foot up on a stable object that is 2 4 inches (5 10 cm) high, such as a footstool. This helps keep your spine neutral. Sitting When sitting, keep your spine neutral and keep your feet flat on the floor. Use a footrest, if necessary, and keep your thighs parallel to the floor. Avoid rounding your shoulders, and avoid tilting your head forward. When working at a desk or a computer, keep your desk at a height where your hands are slightly lower than your elbows. Slide your chair under your desk so you are close enough to maintain good posture. When working at a computer, place your monitor at a height where you are looking straight ahead and you do not have to tilt your head forward or downward to look at the screen. Resting When lying down and resting, avoid positions that are most painful for you. If you have pain with activities such as sitting, bending, stooping, or squatting, lie in a position in which your body does not bend very much. For example, avoid curling up on your side with your arms and knees near your chest ( position). If you have pain with activities such as standing for a long time or reaching with your arms, lie with your spine in a neutral position and bend your knees slightly. Try the following positions: ?Lying on your side with a pillow between your knees. ?Lying on your back with a pillow under your knees. Lifting When lifting objects, keep your feet at least shoulder width apart and tighten your abdominal muscles. Bend your knees and hips and keep your spine neutral. It is important to lift using the strength of your legs, not your back. Do not lock your knees straight out. Always ask for help to lift heavy or awkward objects. This information is not intended to replace advice given to you by your health care provider. Make sure you discuss any questions you have with your health care provider. Document Revised: 02/12/2020 Document Reviewed: 11/12/2019 [employer] Patient Education 2022 [employer]. Follow Up Care 06/03/2023 13:24:29 With:Aura Hernandez Address: [address] [place], [place] [id number] Business (1) When:06/06/2023 13:45:03 Comments:Follow-up with your primary care provider in 3 to 5 days. If symptoms worsen, do not improve, or new symptoms arise please report back to emergency department for further evaluation. [facility] 06-03-2023 Evaluation + Plan note Extrac cleopatra from: Title:ED Note Author:Omar Infante PA-C te:06/03/23 Low back pain with right-marcelo ed sciatica (M54.41: Lumbago with sciatica, right side) Orders: methocarbamol, 1,000 mg = 2 tab(s), Oral, QID, X 10 day(s), # 80 tab(s), Refills(s) 0, Pharmacy: [facility]/pharmacy #[id number], 198, cm, 02/17/23 7:52:00 EDT, Height/Length Dosing, 136.5, kg, 06/03/23 13:31:00 EDT, Weight Dosing tramadol, 50 mg = 1 tab(s), Oral, q6hr, PRN for pain, X 3 day(s), # 18 tab(s), Refills(s) 0, [id number], 198, cm, 02/17/23 7:52:00 EDT, Height/Length Dosing, 136.5, kg, 06/03/23 13:31:00 EDT, Weight Dosing Future Appointments Appointment Date:06/28/2023 09:30:00 AM Scheduled Provider: Location:[facility].CARDIO Appointment Type:Anticoagulation Follow Up 15 (FT) [facility]04-16-2023 Evaluation + Plan noteExtracted from: Title:ED Note Author:Jessica Cronin PA-C Juan Diego e:02/17/23 1. 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 Patient has chronic discoloration of bilateral lower extremities consistent with venous stasis. Patient does have wounds over bilateral medial ankles, there is a small amount of cellulitis to the left ankle which blanches, could be consistent with an early cellulitis. No fluctuance or induration. No purulence. Will treat with Keflex and discharged home with instructions to follow the wound clinic. Patient is to return to the ED with any new or worsening symptoms. Patient voices understanding and is agreeable to plan. Future Appointments Appointment Date:02/22/2023 09:15:00 AM Scheduled Provider: Location:[facility].CARDIO Appointment Type:Anticoagulation Follow Up 15 (FT) [facility]04-16-2023 Hospital Discharge instructions Patient Education 02/17/2023 08:36:24 Venous Ulcer Venous Ulcer A venous ulcer is a shallow sore on your lower leg that is caused by poor circulation in your veins. This condition used to be called stasis ulcer. Venous ulcer is the most common type of lower leg ulcer. You may have venous ulcers on one leg or on both legs. The area where this condition most commonly develops is around the ankles. A venous ulcer may last for a long time (chronic ulcer) or it may return repeatedly (recurrent ulcer). What are the causes? A venous ulcer may be caused by any condition that causes poor blood flow in your legs. Veins have valves that help return blood to the heart. If these valves do not work properly: Blood can flow backward and pool in the lower legs. Blood can then leak out of your veins, which can irritate your skin. Irritation can cause a break in the skin, which becomes a venous ulcer. What increases the risk? You are more likely to develop this condition if you: Are 65 years of age or older. Are female. Are overweight. Are not active. Have had a leg ulcer in the past. Have varicose veins. Have clots in your lower leg veins (deep vein thrombosis). Have inflammation of your leg veins (phlebitis). Have recently had a . Use products that contain nicotine or tobacco. What are the signs or symptoms? The main symptom of this condition is an open sore near your ankle. Other symptoms may include: Swelling. Thickening of the skin. Fluid leaking from the ulcer. Bleeding. Itching. Pain and swelling that gets worse when you stand up and feels better when you raise your leg. Blotchy skin. Darkening of the skin. How is this diagnosed? Your health care provider may suspect a venous ulcer based on your medical history and your risk factors. He or she may: Do a physical exam. Do other tests, such as: ?Measuring blood pressure in your arms and legs. ?Using sound waves (ultrasound) to measure blood flow in your leg veins. How is this treated? This condition may be treated by: Keeping your leg raised (elevated). Wearing a type of bandage or stocking to compress the veins of your leg (compression therapy). Taking medicines to improve blood flow. Taking antibiotic medicines to treat infection. Cleaning your ulcer and removing any tissue from the wound (debridement). Placing various types of medicated bandages (dressings) or medicated wraps on your ulcer. Surgery to close the wound using a piece of skin taken from another area of your body (graft). Thisis only done for wounds that are deep or hard to heal. You may need to try several different types of treatment to get your venous ulcer to heal. Healing may take a long time. Follow these instructions at home: Medicines Take or apply sccr-qwk-lapmfkh and prescription medicines only as told by your health care provider. If you were prescribed an antibiotic medicine, take it as told by your health care provider. Do notstop using the antibiotic even if you start to feel better. Ask your health care provider if you should take aspirin before long trips. Wound care Follow instructions from your health care provider about how to take care of your wound. Make sure you: ?Wash your hands with soap and water before and after you change your bandage (dressing). If soap and water are not available, use hand compressor service technician. ?Change your dressing as told by your health care provider. ?If you had a skin graft, leave stitches (sutures) in place. These may need to stay in place for 2 weeks or longer. ?Ask when you should remove your dressing. If your dressing is dry and sticks to your leg when you try to remove it, moisten or wet the dressing with saline solution or water so that the dressing canbe removed without harming your skin or wound tissue. When you are able to remove your dressing, check your wound every day for signs of infection. Have a caregiver do this for you if you are not able to do it yourself. Check for: ?More redness, swelling, or pain. ?More fluid or blood. ?Warmth. ?Pus or a bad smell. Activity Avoid sitting for a long time without moving. Get up to take short walks every 1 2 hours. This is important to improve blood flow in your legs. Ask for help if you feel weak or unsteady. Ask your health care provider what level of activity is safe for you. Rest with your legs raised (elevated) during the day. If possible, elevate your legs above the level of your heart for 30 minutes, 3 4 times a day, or as told by your health care provider. Do not sit with your legs crossed. General instructions Wear elastic stockings, compression stockings, or support hose as told by your health care provider. Raise the foot of your bed as told by your health care provider. Do not use any products that contain nicotine or tobacco, such as cigarettes, e- cigarettes, and chewing tobacco. If you need help quitting, ask your health care provider. Keep all follow-up visits as told by your health care provider. This is important. Contact a health care provider if: Your ulcer is getting larger or is not healing. Your pain gets worse. Get help right away if you have: More redness, swelling, or pain around your ulcer. More fluid or blood coming from your ulcer. Warmth in the area around your ulcer. Pus or a bad smell coming from your ulcer. A fever. Summary A venous ulcer is a shallow sore on your lower leg that is caused by poor circulation in your veins. Follow instructions from your health care provider about how to take care of your wound. Check your wound every day for signs of infection. Take vqqp-yda-alateov and prescription medicines only as told by your health care provider. Keep all follow-up visits as told by your health care provider. This is important. This information is not intended to replace advice given to you by your health care provider. Make sure you discuss any questions you have with your health care provider. Document Released: 07/16/2002 Document Revised: 06/18/2019 Document Reviewed: 06/18/2019 [employer] Patient Education 2020 [employer]. Follow Up Care 02/17/2023 07:44:15 With:[facility]- [phone] Address:Unknown When:02/20/2023 08:19:13 With:Aura Hernandez Address: [address] [place] [id number] Business (1) When:Within 3 Day(s) [facility]10-09-2022 Evaluation + Plan noteExtracted from: Title:ED Note Author:Omar Infante PA-C te:08/12/22 Right-sided low back pain wi thout sciatica (M54.50: Low back pain, unspecified) Orders: diclofenac topical, 1 nacho, Topical, QID for pain, 100 gram, Refill(s) 0, [facility] #[id number], 198, cm, 08/12/22 9:37:00 EDT, Height/Length Dosing, 140, kg, 08/12/22 9:37:00 EDT, Weight Dosing lidocaine topical, 1 patch(es), Topical, Daily, 7 patch(es), Refill(s) 0, apply 12 hours on and 12 hours off daily, [facility] #[id number], 198, cm, 08/12/22 9:37:00 EDT, Height/Length Dosing, 140, kg, 08/12/22 9:37:00 EDT, Weight Dosing Future Scheduled Tests Laboratory* COVID-19 ([facility]) 11/18/21 [facility]10-09-2022 Hospital Discharge instructions Patient Education 08/12/2022 10:15:52 Sciatica Sciatica Sciatica is pain, numbness, weakness, or tingling along the path of the sciatic nerve. The sciatic nerve starts in the lower back and runs down the back of each leg. The nerve controls the muscles inthe lower leg and in the back of the knee. It also provides feeling (sensation) to the back of the thigh, the lower leg, and the sole of the foot. Sciatica is a symptom of another medical condition that pinches or puts pressure on the sciatic nerve. Sciatica most often only affects one side of the body. Sciatica usually goes away on its own or with treatment. In some cases, sciatica may come back (recur). What are the causes? This condition is caused by pressure on the sciatic nerve or pinching of the nerve. This may be theresult of: A disk in between the bones of the spine bulging out too far (herniated disk). Age-related changes in the spinal disks. A pain disorder that affects a muscle in the buttock. Extra bone growth near the sciatic nerve. A break (fracture) of the pelvis. . Tumor. This is rare. What increases the risk? The following factors may make you more likely to develop this condition: Playing sports that place pressure or stress on the spine. Having poor strength and flexibility. A history of back injury or surgery. Sitting for long periods of time. Doing activities that involve repetitive bending or lifting. Obesity. What are the signs or symptoms? Symptoms can vary from mild to very severe, and they may include: Any of these problems in the lower back, leg, hip, or buttock: ?Mild tingling, numbness, or dull aches. ?Burning sensations. ?Sharp pains. Numbness in the back of the calf or the sole of the foot. Leg weakness. Severe back pain that makes movement difficult. Symptoms may get worse when you cough, sneeze, or laugh, or when you sit or stand for long periods of time. How is this diagnosed? This condition may be diagnosed based on: Your symptoms and medical history. A physical exam. Blood tests. Imaging tests, such as: ?X-rays. ?MRI. ?CT scan. How is this treated? In many cases, this condition improves on its own without treatment. However, treatment may include: Reducing or modifying physical activity. Exercising and stretching. Icing and applying heat to the affected area. Medicines that help to: ?Relieve pain and swelling. ?Relax your muscles. Injections of medicines that help to relieve pain, irritation, and inflammation around the sciatic nerve (steroids). Surgery. Follow these instructions at home: Medicines Take elni-pln-jkstjtu and prescription medicines only as told by your health care provider. Ask your health care provider if the medicine prescribed to you: ?Requires you to avoid driving or using heavy machinery. ?Can cause constipation. You may need to take these actions to prevent or treat constipation: ?Drink enough fluid to keep your urine pale yellow. ?Take hjpu-svf-nkxbtpg or prescription medicines. ?Eat foods that are high in fiber, such as beans, whole grains, and fresh fruits and vegetables. ?Limit foods that are high in fat and processed sugars, such as fried or sweet foods. Managing pain If directed, put ice on the affected area. ?Put ice in a plastic bag. ?Place a towel between your skin and the bag. ?Leave the ice on for 20 minutes, 2 3 times a day. If directed, apply heat to the affected area. Use the heat source that your health care provider recommends, such as a moist heat pack or a heating pad. ?Place a towel between your skin and the heat source. ?Leave the heat on for 20 30 minutes. ?Remove the heat if your skin turns bright red. This is especially important if you are unable to feel pain, heat, or cold. You may have a greater risk of getting burned. Activity Return to your normal activities as told by your health care provider. Ask your health care provider what activities are safe for you. Avoid activities that make your symptoms worse. Take brief periods of rest throughout the day. ?When you rest for longer periods, mix in some mild activity or stretching between periods of rest.This will help to prevent stiffness and pain. ?Avoid sitting for long periods of time without moving. Get up and move around at least one time each hour. Exercise and stretch regularly, as told by your health care provider. Do not lift anything that is heavier than 10 lb (4.5 kg) while you have symptoms of sciatica. When you do not have symptoms, you should still avoid heavy lifting, especially repetitive heavy lifting. When you lift objects, always use proper lifting technique, which includes: ?Bending your knees. ?Keeping the load close to your body. ?Avoiding twisting. General instructions Maintain a healthy weight. Excess weight puts extra stress on your back. Wear supportive, comfortable shoes. Avoid wearing high heels. Avoid sleeping on a mattress that is too soft or too hard. A mattress that is firm enough to support your back when you sleep may help to reduce your pain. Keep all follow-up visits as told by your health care provider. This is important. Contact a health care provider if: You have pain that: ?Wakes you up when you are sleeping. ?Gets worse when you lie down. ?Is worse than you have experienced in the past. ?Lasts longer than 4 weeks. You have an unexplained weight loss. Get help right away if: You are not able to control when you urinate or have bowel movements (incontinence). You have: ?Weakness in your lower back, pelvis, buttocks, or legs that gets worse. ?Redness or swelling of your back. ?A burning sensation when you urinate. Summary Sciatica is pain, numbness, weakness, or tingling along the path of the sciatic nerve. This condition is caused by pressure on the sciatic nerve or pinching of the nerve. Sciatica can cause pain, numbness, or tingling in the lower back, legs, hips, and buttocks. Treatment often includes rest, exercise, medicines, and applying ice or heat. This information is not intended to replace advice given to you by your health care provider. Make sure you discuss any questions you have with your health care provider. Document Released: 10/15/2002 Document Revised: 11/09/2019 Document Reviewed: 11/09/2019 [employer] Patient Education 2020 [employer]. 08/12/2022 10:15:52 Back Exercises Back Exercises The following exercises strengthen the muscles that help to support the trunk and back. They also help to keep the lower back flexible. Doing these exercises can help to prevent back pain or lessen existing pain. If you have back pain or discomfort, try doing these exercises 2 3 times each day or as told by your health care provider. As your pain improves, do them once each day, but increase the number of times that you repeat the steps for each exercise (do more repetitions). To prevent the recurrence of back pain, continue to do these exercises once each day or as told by your health care provider. Do exercises exactly as told by your health care provider and adjust them as directed. It is normalto feel mild stretching, pulling, tightness, or discomfort as you do these exercises, but you should stop right away if you feel sudden pain or your pain gets worse. Exercises Single knee to chest Repeat these steps 3 5 times for each le.Lie on your back on a firm bed or the floor with your legs extended. 2.Bring one knee to your chest. Your other leg should stay extended and in contact with the floor. 3.Hold your knee in place by grabbing your knee or thigh with both hands and hold. 4.Pull on your knee until you feel a gentle stretch in your lower back or buttocks. 5.Hold the stretch for 10 30 seconds. 6.Slowly release and straighten your leg. Pelvic tilt Repeat these steps 5 10 times: 1.Lie on your back on a firm bed or the floor with your legs extended. 2.Bend your knees so they are pointing toward the ceiling and your feet are flat on the floor. 3.Tighten your lower abdominal muscles to press your lower back against the floor. This motion willtilt your pelvis so your tailbone points up toward the ceiling instead of pointing to your feet or the floor. 4.With gentle tension and even breathing, hold this position for 5 10 seconds. Cat-cow Repeat these steps until your lower back becomes more flexible: 1.Get into a qmyrl-snq-tvjev position on a firm surface. Keep your hands under your shoulders, and keep your knees under your hips. You may place padding under your knees for comfort. 2.Let your head hang down toward your chest. Contract your abdominal muscles and point your tailbone toward the floor so your lower back becomes rounded like the back of a cat. 3.Hold this position for 5 seconds. 4.Slowly lift your head, let your abdominal muscles relax and point your tailbone up toward the ceiling so your back forms a sagging arch like the back of a cow. 5.Hold this position for 5 seconds. Press-ups Repeat these steps 5 10 times: 1.Lie on your abdomen (face-down) on the floor. 2.Place your palms near your head, about shoulder-width apart. 3.Keeping your back as relaxed as possible and keeping your hips on the floor, slowly straighten your arms to raise the top half of your body and lift your shoulders. Do not use your back muscles to raise your upper torso. You may adjust the placement of your hands to make yourself more comfortable. 4.Hold this position for 5 seconds while you keep your back relaxed. 5.Slowly return to lying flat on the floor. Bridges Repeat these steps 10 times: 1.Lie on your back on a firm surface. 2.Bend your knees so they are pointing toward the ceiling and your feet are flat on the floor. Yourarms should be flat at your sides, next to your body. 3.Tighten your buttocks muscles and lift your buttocks off the floor until your waist is at almost the same height as your knees. You should feel the muscles working in your buttocks and the back of your thighs. If you do not feel these muscles, slide your feet 1 2 inches farther away from your buttocks. 4.Hold this position for 3 5 seconds. 5.Slowly lower your hips to the starting position, and allow your buttocks muscles to relax completely. If this exercise is too easy, try doing it with your arms crossed over your chest. Abdominal crunches Repeat these steps 5 10 times: 1.Lie on your back on a firm bed or the floor with your legs extended. 2.Bend your knees so they are pointing toward the ceiling and your feet are flat on the floor. 3.Cross your arms over your chest. 4.Tip your chin slightly toward your chest without bending your neck. 5.Tighten your abdominal muscles and slowly raise your trunk (torso) high enough to lift your shoulder blades a tiny bit off the floor. Avoid raising your torso higher than that because it can put too much stress on your low back and does not help to strengthen your abdominal muscles. 6.Slowly return to your starting position. Back lifts Repeat these steps 5 10 times: 1.Lie on your abdomen (face-down) with your arms at your sides, and rest your forehead on the floor. 2.Tighten the muscles in your legs and your buttocks. 3.Slowly lift your chest off the floor while you keep your hips pressed to the floor. Keep the backof your head in line with the curve in your back. Your eyes should be looking at the floor. 4.Hold this position for 3 5 seconds. 5.Slowly return to your starting position. Contact a health care provider if: Your back pain or discomfort gets much worse when you do an exercise. Your worsening back pain or discomfort does not lessen within 2 hours after you exercise. If you have any of these problems, stop doing these exercises right away. Do not do them again unless your health care provider says that you can. Get help right away if: You develop sudden, severe back pain. If this happens, stop doing the exercises right away. Do not do them again unless your health care provider says that you can. This information is not intended to replace advice given to you by your health care provider. Make sure you discuss any questions you have with your health care provider. Document Released: 11/28/2005 Document Revised: 02/25/2020 Document Reviewed: 07/23/2019 [employer] Patient Education 2020 [employer] Follow Up Care 08/12/2022 09:24:19 With:Aura Hernandez Address: [address] [place] [id number] [facility] (1) When:08/15/2022 09:59:56 Comments:Follow-up with your primary care provider in 3 to 5 days. If symptoms worsen, do not improve, or new symptoms arise please report back to emergency department for further evaluation. [facility]05-16-2022 Hospital Discharge instructions Follow Up Care 03/19/2022 08:03:09 With:Brock Mercer Custodial: [phone] Address:Unknown When: Unknown [facility]05-02-2022 Hospital Discharge instructions Patient Education 03/05/2022 10:08:57 Deep Vein Thrombosis Deep Vein Thrombosis Deep vein thrombosis (DVT) is a condition in which a blood clot forms in a deep vein, such as a lower leg, thigh, or arm vein. A clot is blood that has thickened into a gel or solid. This condition is dangerous. It can lead to serious and even life-threatening complications if the clot travels to the lungs and causes a blockage (pulmonary embolism). It can also damage veins in the leg. This can result in leg pain, swelling, discoloration, and sores (post- thrombotic syndrome). What are the causes? This condition may be caused by: A slowdown of blood flow. Damage to a vein. A condition that causes blood to clot more easily, such as an inherited clotting disorder. What increases the risk? The following factors may make you more likely to develop this condition: Being overweight. Being older, especially over age 60. Sitting or lying down for more than four hours. Being in the hospital. Lack of physical activity (sedentary lifestyle). , being in childbirth, or having recently given . Taking medicines that contain estrogen, such as medicines to prevent . Smoking. A history of any of the following: ?Blood clots or a blood clotting disease. ?Peripheral vascular disease. ?Inflammatory bowel disease. ?Cancer. ?Heart disease. ?Genetic conditions that affect how your blood clots, such as Factor V Leiden mutation. ?Neurological diseases that affect your legs (leg paresis). ?A recent injury, such as a car accident. ?Major or lengthy surgery. ?A central line placed inside a large vein. What are the signs or symptoms? Symptoms of this condition include: Swelling, pain, or tenderness in an arm or leg. Warmth, redness, or discoloration in an arm or leg. If the clot is in your leg, symptoms may be more noticeable or worse when you stand or walk. Some people may not develop any symptoms. How is this diagnosed? This condition is diagnosed with: A medical history and physical exam. Tests, such as: ?Blood tests. These are done to check how well your blood clots. ?Ultrasound. This is done to check for clots. ?Venogram. For this test, contrast dye is injected into a vein and X-rays are taken to check for any clots. How is this treated? Treatment for this condition depends on: The cause of your DVT. Your risk for bleeding or developing more clots. Any other medical conditions that you have. Treatment may include: Taking a blood thinner (anticoagulant). This type of medicine prevents clots from forming. It may be taken by mouth, injected under the skin, or injected through an IV (catheter). Injecting clot-dissolving medicines into the affected vein (catheter-directed thrombolysis). Having surgery. Surgery may be done to: ?Remove the clot. ?Place a filter in a large vein to catch blood clots before they reach the lungs. Some treatments may be continued for up to six months. Follow these instructions at home: If you are taking blood thinners: Take the medicine exactly as told by your health care provider. Some blood thinners need to be taken at the same time every day. Do not skip a dose. Talk with your health care provider before you take any medicines that contain aspirin or NSAIDs. These medicines increase your risk for dangerous bleeding. Ask your health care provider about foods and drugs that could change the way the medicine works (may interact). Avoid those things if your health care provider tells you to do so. Blood thinners can cause easy bruising and may make it difficult to stop bleeding. Because of this: ?Be very careful when using knives, scissors, or other sharp objects. ?Use an electric razor instead of a blade. ?Avoid activities that could cause injury or bruising, and follow instructions about how to preventfalls. Wear a medical alert bracelet or carry a card that lists what medicines you take. General instructions Take exdf-bnm-csntmyx and prescription medicines only as told by your health care provider. Return to your normal activities as told by your health care provider. Ask your health care provider what activities are safe for you. Wear compression stockings if recommended by your health care provider. Keep all follow-up visits as told by your health care provider. This is important. How is this prevented? To lower your risk of developing this condition again: For 30 or more minutes every day, do an activity that: ?Involves moving your arms and legs. ?Increases your heart rate. When traveling for longer than four hours: ?Exercise your arms and legs every hour. ?Drink plenty of water. ?Avoid drinking alcohol. Avoid sitting or lying for a long time without moving your legs. If you have surgery or you are hospitalized, ask about ways to prevent blood clots. These may include taking frequent walks or using anticoagulants. Stay at a healthy weight. If you are a woman who is older than age 35, avoid unnecessary use of medicines that contain estrogen, such as some control pills. Do not use any products that contain nicotine or tobacco, such as cigarettes and e-cigarettes. Thisis especially important if you take estrogen medicines. If you need help quitting, ask your health care provider. Contact a health care provider if: You miss a dose of your blood thinner. Your menstrual period is heavier than usual. You have unusual bruising. Get help right away if: You have: ?New or increased pain, swelling, or redness in an arm or leg. ?Numbness or tingling in an arm or leg. ?Shortness of breath. ?Chest pain. ?A rapid or irregular heartbeat. ?A severe headache or confusion. ?A cut that will not stop bleeding. There is blood in your vomit, stool, or urine. You have a serious fall or accident, or you hit your head. You feel light-headed or dizzy. You cough up blood. These symptoms may represent a serious problem that is an emergency. Do not wait to see if the symptoms will go away. Get medical help right away. Call your local emergency services (911 in the [place] Do not drive yourself to the hospital. Summary Deep vein thrombosis (DVT) is a condition in which a blood clot forms in a deep vein, such as a lower leg, thigh, or arm vein. Symptoms can include swelling, warmth, pain, and redness in your leg or arm. This condition may be treated with a blood thinner (anticoagulant medicine), medicine that is injected to dissolve blood clots,compression stockings, or surgery. If you are prescribed blood thinners, take them exactly as told. This information is not intended to replace advice given to you by your health care provider. Make sure you discuss any questions you have with your health care provider. Document Released: 10/21/2006 Document Revised: 10/03/2018 Document Reviewed: 03/21/2018 [employer] Patient Education 2020 [employer] Follow Up Care 03/05/2022 08:50:19 With:Teena Cervantes Address: [address] [place] [address]- Business (1) When:03/08/2022 10:03:09 With:Deep De Souza Address: [facility] [address] [place] [address]- 0 Business (1) When:03/08/2022 10:03:06 [facility]01-15-2022 Evaluation + Plan note Future Scheduled Tests Laboratory* COVID- ([facility]ments Appointment Date:03/09/2022 09:00:00 AM Scheduled Provider: Location:.CARDIO Appointment Type:Anticoagulation Follow Up 15 (FT) Future Scheduled Tests Laboratory* COVID- ([facility]) [facility]ments Appointment Date:03/30/2022 08:00:00 AM Scheduled Provider: Location:FT.CARDIO Appointment Type:Anticoagulation Follow Up 15 (FT) Future Scheduled Tests Laboratory* COVID-19 ([facility]) 11/18/21 Radiology* US LE Venous Duplex Insufficiency Right 03/19/22 * US PVR Lower EXT Complete Bilat [facility] App[facility]ments Appointment Date:05/18/2022 08:00:00 AM Scheduled Provider: Location:FT.CARDIO Appointment Type:Anticoagulation Follow Up 15 (FT) Future Scheduled Tests Laboratory* COVID-19 ([facility]) [facility]ments Appointment Date:07/10/2022 08:45:00 AM Scheduled Provider: Location:FT.CARDIO Appointment Type:Anticoagulation Follow Up 15 (FT) Future Scheduled Tests Laboratory* COVID-19 ([facility]) [facility] App[facility]ments Appointment Date:08/03/2022 07:45:00 AM Scheduled Provider: Location:FT.CARDIO Appointment Type:Anticoagulation Follow Up 15 (FT) Future Scheduled Tests Laboratory* COVID-19 ([facility]) [facility] Appointments Appointment Date:11/16/2022 03:30:00 PM Scheduled Provider: Location:FT.CARDIO Appointment Type:Anticoagulation Follow Up 15 (FT) Future Scheduled Tests Laboratory* COVID-19 ([facility]) [facility]18[facility] App[facility]ments Appointment Date:06/28/2023 09:30:00 AM Scheduled Provider: Location:FT.CARDIO Appointment Type:Anticoagulation Follow Up 15 (FT) [facility] N[facility] No data available for this section [facility] No data available for this section [facility] No data available for this section [facility] Summary Purpose Family History No Family History Records FoundNo Family History Records FoundNo Family History Records FoundNo Family History Records FoundNo Family History Records FoundNo Family History Records Found Advance Directives No Advanced Directives Records FoundNo Advanced Directives Records FoundNo Advanced Directives Records FoundNo Advanced Directives Records FoundNo Advanced Directives Records FoundNo Advanced Directives Records Found Additional Source Comments (unrecognized sect ion and content) No Status Records FoundNo Status Records FoundNo Status Records FoundNo Status Records FoundNo Status Records FoundNo Status Records Found INFORMATION SOURCE (unrecogn ized section and content) DATE CREATED AUTHOR 04/24/2018 [facility] DATE CREATED AUTHOR AUTHOR'S ORGANIZ ATION 01/27/2019 [facility] DATE CREATED AUTHOR AUTHOR'S ORGANIZ ATION 05/03/2022 [facility] DATE CREATED AUTHOR AUTHOR'S ORGANIZ ATION 11/13/2022 [facility] DATE CREATED AUTHOR AUTHOR'S ORGANIZ ATION 04/12/2023 [facility] DATE CREATED AUTHOR AUTHOR'S ORGANIZ ATION 09/28/2023 [facility] Care Team (unrecognized sect ion and content) Personnel Name: Aura Hernandez MD Address: [address] [place] [address] Name: Meghan Alarcon MA Name: Serenity Lakhani Personnel Name: Aura Hernandez MD Address: [address] [place] [address] Name: Meghan Aalrcon MA S Name: Serenity Lakhani Personnel Name: Aura Hernandez MD Address: [address] [place] [address] Name: Meghan Alarcon MA S Name: KarSerenity M Personnel Name: Aura Hernandez MD Address: [address] [place] [address] Name: Meghan Alarcon MA S Name: Serenity Lakhani Personnel Name: Aura Hernandez MD Address: Address: [address] [place] [address] Name: Kadie Alarcon MAy S Name: Serenity Lakhani Personnel Name: Aura Hernandez MD Address: Address: [address] [place] [address] Name: Kadie Alarcon MAy S Name: Serenity Lakhani Personnel Name: Aura Hernandez MD Address: Address: [address] [place] [address] Name: Meghan Alarcon MA S Name: Serenity Lakhani Personnel Name: Aura Hernandez MD Address: Address: [address] [place] [address] Name: Haileterrance Kadie RODRIGUEZy S Name: Serenity Lakhani Personnel Name: Aura Hernandez MD Address: Address: [address] [place] [address] Name: Kadie Alarcon MAy S Name: Serenity Lakhani Personnel Name: Aura Hernandez MD Address: Address: [address] [place] [address] Name: Kadie Alarcon MAy S Name: Serenity Lakhani FOR RECORDS PERTAINING TO PATIENTS WHO ARE OR HAVE BEEN ENROLLED IN A CHEMICAL DEPENDENCY/SUBSTANCEABUSE PROGRAM, SOME INFORMATION MAY BE OMITTED. This clinical summary was aggregated from multiple sources. Caution should be exercised in using it in the provision of clinical care. This summary normalizes information from multiple sources, and as a consequence, information in this document may materially change the coding, format and clinical context of patient data. In addition, data may be omitted in some cases. CLINICAL DECISIONS SHOULD BE BASED ON THE PRIMARY CLINICAL RECORDS. [facility]. provides no warranty or guarantee of the accuracy or completeness of information in this document.
--- NOTE | 2023-11-08 12:36 | VEIN_ITS ---
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 HISTORY: Pain due to varicose veins of bilateral legs I83.813 Pre-operative Diagnosis: CEAP class C6 venous insufficiency with pain, tenderness, edema and incompetent right saphenous and varicose vein(s), chronic venous insufficiency right leg secondary to venous incompetence Post-operative Diagnosis: CEAP class C6 venous insufficiency with pain, tenderness, edema and incompetent right saphenous and varicose vein(s), chronic venous insufficiency right leg secondary to venous incompetence Procedure Performed: 1. Ultrasound-guided microfoam chemical ablation with Varithenaregistered 2. Intraoperative ultrasound guidance Anesthesia: None Indications for Procedure: 53-year-old male who presents with a long history of lower extremity pain swelling and extensive hemosiderin staining resulting in multiple nonhealing venous stasis ulcerations. The patient failed conservative medical therapy including medical compression stockings, exercise and analgesics. Prior procedures include . Multiple incompetent varicosities of the right leg. Duplex scan showed reflux and enlarged diameters up to 7 mm. The patient underwent informed consent including management options where the complications of infection, bleeding, pain, and skin injury were discussed. Particular attention was spent discussing thrombus extension and deep vein thrombosis as well as the possibility of pulmonary embolus and treatment with oral or injectable blood thinners. Procedure: The patient walked to the procedure room. All applicable staff donned appropriate apparel. A procedure timeout was performed to confirm correct patient, correct extremity, correct procedure, and correct room set-up including presence of all applicable supplies, devices, and drugs. A duplex ultrasound, performed by myself confirmed the location and incompetence of branch saphenous varicosities and their course was marked on the skin together with the dilated tributaries. The extent of treatment of the vein and the associated varicosities was determined through ultrasound mapping. The skin was prepped and then punctured with a butterfly needle and advanced under ultrasound guidance. The Varithenaregistered canister was activated and the canister was primed and purged as required in the instructions for use. Varithenaregistered was drawn into a sterile syringe. The following injections were made: 8 cc injected into a right distal medial lower leg varicose vein measuring 7 mm 7 cc injected into a right distal anterior lower leg varicose vein measuring 6 mm Varithenaregistered was slowly administered at 0.5-1.0 cc/second with close observation by ultrasound of its course in the vessels. Total volume utilized was: . Following administration of Varithenaregistered the leg was elevated and the patient was asked to repeatedly dorsiflex the ankle to limit flow of Varithenaregistered into perforating veins. Once appropriate spasm had been confirmed in the treated veins, the vascular catheter was removed from the leg and light pressure was applied over the puncture site for hemostasis. The common femoral and deep superficial veins were then evaluated for flow and compressibility prior to dressing placement. The lower extremity was kept elevated at 45 degrees above the horizontal and cording material was applied over the saphenous segments and tributaries to allow for eccentric compression over the target vessels including the targeted saphenous vein(s). A multilayer dressing was applied consisting of foam pads, coban and thigh-high 20-30 mm Hg compression elastic support hose were placed on the patient. The leg was lowered only after compression had been applied and the patient was immediately ambulatory. The patient ambulated 10 minutes under supervision and was without apparent concerns at time of release. Post-care instructions include advising patient to keep post-treatment bandages in place and dry for 48 hours, avoid extended periods of inactivity, avoid heavy exercise for one week, wear compression stockings on the treated leg continuously for two weeks, to walk daily for 10 minutes over the next month. The patient was instructed to take an anti-inflammatory medicine as needed and to follow up for color duplex scan of the Saphenous veins, the treated branch saphenous varicosities, the adjacent deep veins, and additional treatment within 7 days. PERSONNEL: Sukh Adams Electronically authenticated by: MONIKA HOUSER Date: 11/08/2023 13:50
== END 2023-11-08 12:16 | disposition home or self-care (01) ==
LOC: VC 12:15
PROVIDERS: PCP Radiology Diagnostic Radiology; Visit Provider Radiology Diagnostic Radiology
DX: I83.813 Varicose veins of bilateral lower extremities with pain (principal)
CPT/HCPCS: 36466

== ENCOUNTER 2023-11-15 08:06 | Outpatient (OUT) | payer MEDICARE, MEDICAID, SELFPAY ==
--- NOTE | 2023-11-15 08:08 | VEIN_ITS ---
Patient Name: SAVANNAH HOWE MR#: [id number] : 1970 Exam Date: 11/15/2023 Ordering Doctor: DR CHRIS LY M.D. RADIOLOGY REPORT PROCEDURE: FACILITY EST [facility] - OFFICE VISIT FOLLOW UP COMPARISON: [facility] EST [facility], 10/16/2023. [facility] EST [facility], 09/25/2023. PROGRESS NOTES: The patient reports no significant problems following micro foam chemical ablation of the right leg. The patient did not require oral analgesics. The patient reports marked improvement in his initial presenting symptoms with resolution of the venous stasis ulcerations. The patient has tried to walk the best of his ability. The patient has worn his compression stocking Physical exam demonstrates marked reduction in right leg swelling erythema and skin thickening. No active ulceration is observed. No erythema or warmth to suggest cellulitis or thrombophlebitis Review of the ultrasound performed the same day demonstrates occlusive thrombus extending throughout the treated right leg varicose veins. No deep vein thrombus. Residual incompetent varicose veins measuring up to 5.1 mm. The patient expressed a desire to proceed with treatment of incompetent right leg varicose veins with micro foam chemical ablation. VEIN/ Facility EST LMTD IMPRESSION: 1. Successful ablation of treated right leg incompetent varicose veins 2. Persistent incompetent right leg varicose veins. PLAN: Micro foam chemical ablation right leg Nurse notes, history and physical were reviewed and confirmed, see attached forms. The nurse was present throughout the physical exam and consultation Dictated by: Chris Ly MD on 11/15/2023 at 08:36 Approved by: Chris Ly MD on 11/15/2023 at 08:37
--- NOTE | 2023-11-15 08:08 | VEIN_ITS ---
Patient Name: SAVANNAH HOWE MR#: [id number] : 1970 Exam Date: 11/15/2023 Ordering Doctor: DR CHRIS LY M.D. RADIOLOGY REPORT PROCEDURE: VC EXT VENOUS RT LMTD COMPARISON: VC EXT VENOUS RT LMTD, 09/25/2023. VC EXT VENOUS RT LMTD, 07/31/2023. INDICATIONS: I80.01 Phlebitis of superficial veins of rt lower extremity TECHNIQUE: Lower extremity cantu scale and Duplex Doppler evaluation of the deep venous system from the inguinal ligament through the calf veins. FINDINGS: REGION: Right lower extremity. THROMBI: Negative for DVT. Varithena induced thrombus visualized at dist/med calf and dist/ant calf. COMPRESSIBILITY: Non-compressible segments corresponding to thrombus FLOW: Areas of no flow corresponding to thrombus OTHER: Multiple patent varicose veins remain. Largest measures 5.1mm with 0.7s reflux. CONCLUSION: Post ablation occlusion of treated right leg varicose veins with no deep vein thrombus. Residual patent varicose veins measuring up to 5.1 mm. Dictated by: Chris Ly MD on 11/15/2023 at 08:30 Approved by: Chirs Ly MD on 11/15/2023 at 08:32
--- OUTSIDE RECORDS SUMMARY | 2023-11-15 08:08 | XMS_ITS | CCD ---
Demographics Address [address] [place] [address] Preferred Language en Marital Status Scientologist Affiliation Unknown Race White Ethnic Group Not or Lati no Author Name Unknown Address [address] [place] [address] Organization [facility] Care Team Providers Care Direct Support Worker Name Role Phone VILMA CARABALLO Unavailable Unavailable [...] Consulting Unavailable DEEP DE SOUZA Consulting Unavailable Aura Hernandez Admitting Unavailable Aura Hernandez Attending Unavailable Ernie Daly Attending Unavailable Wilber Sinclair Attending Unavailable Meghan Hernández Attending Unavailable Meghan Hernández Referring Unavailable Meghan Hernández Admitting Unavailable Meghan Hernández Admitting Unavailable Meghan Hernández Attending Unavailable Meghan Hernández Referring Unavailable Medications Current Medications Medication Drug Class(es) Dates Sig (Normalized) Sig (Original) acetaminophen 325 mg / oxyCODONE hydrochloride 5 mg oral tablet (1 source) Opioid Agonist Start: 03-05-2022 End: 03-08-2022 Percocet 325 mg-5 mg Tab 1 tab(s), Oral, q6hr as needed for pain for 3 day(s), 12 tab(s), Refill(s) 0, [facility] #[id number], 198, cm, 03/05/22 8:56:00 EDT, Height/Length Dosing, [...] day(s), # 28 cap(s), Refills(s) 0, Pharmacy: [facility]/pharmacy #[id number], 198, cm, 02/17/23 7:52:00 EDT, Height/Length Dosing, 136, kg, 02/17/23 7:52:00 EDT, Weight Dosing Start Date: 02/17/23 Stop Date: 02/24/23 Status: Ordered Start: 02-17-2023 End: 02-24-2023 take 1 capsule by mouth every six hours Keflex 500 mg Cap 500 mg = 1 cap(s), Oral, q6hr, X 7 day(s), # 28 cap(s), Refills(s) 0, Pharmacy: [facility] #[id number], 198, cm, 02/17/23 7:52:00 EDT, Height/Length Dosing, [...] QID for pain, 100 gram, Refill(s) 0, [facility] #[id number], 198, cm, 08/12/22 9:37:00 EDT, Height/Length Dosing, [...] hours on and 12 hours off daily, [facility] #[id number], 198, cm, 08/12/22 9:37:00 EDT, Height/Length Dosing, 140, kg, 08/12/22 9:37:00 EDT, Weight Dosing Start Date: 08/12/22 Status: Ordered methocarbamol 500 mg oral tablet (2 sources) Muscle Relaxant Start: 06-03-2023 End: 06-13-2023 take 2 tablets by mouth four times daily Robaxin 500 mg Tab 1,000 mg = 2 tab(s), Oral, QID, X 10 day(s), # 80 tab(s), Refills(s) 0, Pharmacy: [facility]/pharmacy #[id number], 198, , 02/17/23 7:52:00 EDT, Height/Length [...] day(s), # 18 tab(s), Refills(s) 0, Pharmacy: [facility]/pharmacy #[id number], 198, , 02/17/23 7:52:00 EDT, Height/Length [...] Start: 11-17-2019 take 1 capsule by mo [facility] once daily potassium chloride 10 mEq Cap-ER [...] and due to atherosclerosis; Translations: [Atherosclerosis of inaja arteries of extremities with rest pain, right [...] Test Name Value Interpretation Reference Range Facility Consent for Treatmenton Consent for Treatment [id number]#[id number] Normal [facility] POCT PT/INRon 11-08-2023 POCT INR 1.4 High .7-1.2 [facility] Comment on above: Performed By: #### 2 [id number] #### [facility] [address] [place] [address] POCT PT 15.7 second(s) High 8.0-15.0 [facility] Comment on above: Performed By: #### 2 [id number] #### [facility] [address] [place] [address] POCT PT/INRon 09-27-2023 POCT INR 4.0 High .7-1.2 [facility] Comment on above: Performed By: #### 2 [id number] #### [facility] [address] [place] [address] POCT PT 38.9 second(s) High 8.0-15.0 [facility] Comment on above: Performed By: #### 2 [id number] #### [facility] [address] [place] [address] POCT PT/INRon 09-17-2023 POCT INR 4.0 High .7-1.2 [facility] Comment on above: Performed By: #### 2 [id number] #### [facility] [address] [place] [address] POCT PT 41.8 second(s) High 8.0-15.0 [facility] Comment on above: Performed By: #### 2 [id number] #### [facility] [address] [place] [address] POCT PT/INRon 09-06-2023 POCT INR 1.5 High .7-1.2 [facility] Comment on above: Performed By: #### 2 [id number] #### [facility] [address] [place] [address] POCT PT 17.1 second(s) High 8.0-15.0 [facility] Comment on above: Performed By: #### 2 [id number] #### [facility] [address] [facility] [place] [facility] [place] [address] POCT PT/INRon 08-16-2023 POCT INR 4.1 High .7-1.2 [facility] Comment on above: Performed By: #### 2 [id number] #### [facility] [address] [facility] [place] [facility] [place] [address] POCT PT 42.9 second(s) High 8.0-15.0 [facility] Comment on above: Performed By: #### 2 [id number] #### [facility] [address] [place] [address] POCT PT/INRon 06-28-2023 POCT INR 2.5 High .7-1.2 [facility] Comment on above: Performed By: #### 2 [id number] ####[facility] [address] [facility] [place] [address] POCT PT 27.5 second(s) High 8.0-15.0 [facility] Comment on above: Performed By: #### 2 [id number] ####[facility] [address] [place] [address] POCT INR Error Invalid Interpretation Code .7-1.2 [facility] Comment on above: Performed By: #### 2 [id number] #### [facility] [address] [place] [address] POCT PT Strip Error Invalid Interpretation Code 8.0-15.0 [facility] Comment on above: Performed By: #### 2 [id number] #### [facility] [address] [facility] [place] [address] XR Pelvis 1 or 2 Viewson XR [...] in mGy = na DAP = na Normal [facility] XR Spine Lumbosacral Minimum 4 Viewson [...] in mGy = na DAP = na [facility] Consent for Treatmenton 08-0 Consent for Treatment [id number]:127 [facility] Physician Orderon 06-10-2023 Physician Order [id number]#1.00CD:127 [facility] Consent for Treatmenton 05-06 Consent for Treatment [id number]:127 [facility] Discharge Instructionson Discharge Instructions [id number]#[id number]:127 [facility] ED Clinical Summaryon 2022 ED Clinical Summary (Inserted Image. Juana ble to display) [place] [id number] ED Clinical Summary Person Information Name: TAI CLARK [facility] Age: 52 Years : 1970 Sex: Male Language: Wallisian PCP: Aura Hernandez MD Marital Status: Phone: [phone] Visit Id: Visit Reason: Back pain; LOWER [...] 06/03/2023 13:52:38 06/03/2023 13:52:38 06/03/2023 13:52:38 ADDRESS: [facility] [address] [facility] [id number] PHYS DOC NOTES: MEDICAL INFORMATION: Prescriptions Given: New Medications [facility]/pharmacy #[id number], [address] [place], [place] [id number], [phone] methocarbamol (Robaxin 500 mg Tab) 2 Tablets [...] INFORMATION: Instructions: Acute Pain, Adult; Back Exercises, Llxc-qo-Jpel; Sciatica Rehab-SportsMed Follow up: With: Address: When: Aura Hernandez [address] [place] [address] [employer] (1[employer] In 3 days 06/06/2023 Comments: Follow-up with your primary care provider in 3 to 5 days. If symptoms worsen, do not improve, or new symptoms arise please report back to emergency department for further evaluation. DIAGNOSIS: Low back pain with right-sided sciatica Normal [facility] ED Note-Physicianon 06-03-20 ED Note-Physician Basic Information Time Seen: aNresh SETH, Omar Escobar. 06/03/2023 13:31 Chief Complaint right lower back [...] and Complexity of Problems Differential Diagnosis: [] [facility] Data External documents reviewed: [] My EKG [...] day(s), # 80 tab(s), Refills(s) 0, Pharmacy: [id number], 198, cm, 02/17/23 7:52:00 EDT, Height/Length Dosing, 136.5, kg, 06/03/23 13:31:00 EDT, Weight Dosing tramadol, 50 mg = 1 tab(s), Oral, q6hr, PRN for pain, X 3 day(s), # 18 tab(s), Refills(s) 0, Pharmacy: [id number], 198, cm, 02/17/23 7:52:00 EDT, Height/Length Dosing, 136.5, kg, 06/03/23 13:31:00 EDT, Weight Dosing Disposition Plan Patient Discharge Condition Stable Discharge Disposition To home Discharge Prescription List Prescriptions Robaxin 500 mg Tab, 1000 mg= 2 tab(s), Oral, QID traMADOL 50 mg Tab, 50 mg= 1 tab(s), Oral, q6hr, PRN Follow-up With When Contact Information Aura Hernandez In 3 days 06/06/2023 EDT [address] [place] [address] Business (1) Additional Instructions: Follow-up with your primary care provider in 3 to 5 days. If symptoms worsen, do not improve, or new symptoms arise please report back to emergency department for further evaluation. Patient Education Acute Pain, Adult Back Exercises, Jjwy-ec-Almi Sciatica Rehab-SportsMed Attestation Patient seen and evaluated by the physician cashier assistant. Attending physician was present in the emergency department and supervised care. This visit was performed by both the physician and an APC. I performed all aspects of the MDM as documented. This report was transcribed using voice recognition software. Every effort was made to ensure accuracy, however, inadvertently computerized personal property assessor mistakes may be present. Appropriate healthcare PPE was used in evaluating this patient. The patient was placed in a mask. The heal (more content not included)... Normal [facility] Comment on above: Result Comment: Elec tronically Signed By: Omar Infante PA-C\.br\Date and Time Signed: 06/03/23 14:08 EDT\.br\Electronically Co-Signed By: Wilber Sinclair M.D..br\Date and Time Co-Signed: 06/03/23 16:24 EDT ED [...] these instructions at home: Medicines ? Take khol-npj-lqvomav and prescription medicines only as told by [...] is severe. ? Do not take other hqml-olv-doljmwh pain medicines in addition to prescription pain [...] and fresh fruits and vegetables. ? Take oxnt-huj-drngfmg or prescription medicines. ? Limit foods that [...] you are no longer ill. ? Take nmdc-nix-rciydmc and prescription medicines only as told by [...] provider. Document Revised: 03/07/2020 Document Reviewed: 03/07/2020 [employer] Patient Education ? 2022 [employer] Back Exercises These exercises help to make [...] exercises more (more content not included)... Normal [facility] ED Patient Summaryon 023 ED Patient Summary (Inserted Image. Juana ble to display) [address] [address] Patient Discharge Instructions Person Information Name: TAI CLARK Age: 52 Years Arrival Date: 06/03/2023 13:21:59 Discharge Diagnosis: Low back pain with right-sided sciatica Primary Care Physician: David JONES, Aura Hernandez Provider Information Primary Provider: Wilber Sinclair M.D. Advanced Special Officer:None The exam and treatment you received in the Emergency Department were for an urgent problem and are not intended as complete care. It is important that you follow up with a doctor, nurse practitioner, or physician?s cashier assistant for ongoing care. If your symptoms [...] Follow-up Instructions: With: Address: When: [place] [address] Business (1) In 3 days 06/06/2023 Comments: [...] Education Materials: Acute Pain, Adult; Back Exercises, Ryqm-zj-Krbe; Sciatica Rehab-SportsMed A MESSAGE TO ALL PATIENTS REGARDING OPIOIDS PRESCRIPTION OPIOIDS: WHAT YOU NEED TO KNOW Prescription opioids can be used to help relieve cvrqoetu-se-krswyo pain and are often prescribed following a [...] Visit www.cdc.gov/drugover (more content not included)... Normal [facility] POCT PT/INRon 05-17-2023 POCT INR 2.9 High .7-1.2 [facility] Comment on above: Performed By: #### 2 [id number] ####[facility] [address] [place] [address] POCT PT 31.4 second(s) High 8.0-15.0 [facility] Comment on above: Performed By: #### 2 [id number] ####[facility] [address] [place] [address] POCT PT/INRon 04-19-2023 POCT INR 2.7 High .7-1.2 [facility] Comment on above: Performed By: #### 2 [id number] #### [facility] [address] [place] [address] POCT PT 29.2 second(s) High 8.0-15.0 [facility] Comment on above: Performed By: #### 2 [id number] #### [facility] [address] [place] [address] VC ENDOVENOUS ABL 1ST V LTon 03-29-2023 VC ENDOVENOUS ABL 1ST V LT Patient: TAI CLARK Exam Date: 03/29/2023 : 1970 Gender:M Ordering : DR MONIKA HOUSER M.D. Admission #: [id number] Family : Order #: [id number] CLICK HERE TO VIEW EXAM RADIOLOGY REPORT PROCEDURE: VEIN CENTER ENDOVENOUS ABLATION FIRST VEIN LEFT GREAT SAPHENOUS VEIN COMPARISON: None. INDICATIONS: Pain co-occurrent and due to varicose veins of bilateral legs OPERATIVE REPORT: The risks and benefits of the procedure had been previously discussed, and were rediscussed at length. Informed written consent was obtained by and Sukh bowers. Time out procedure was performed. The left [...] com (more content not included)... Normal [facility] POCT PT/INRon 03-26-2023 POCT INR 1.8 High .7-1.2 [facility] Comment on above: Performed By: #### 2 [id number] #### [facility] [address] [place] [address] POCT PT 20.1 second(s) High 8.0-15.0 [facility] Comment on above: Performed By: #### 2 [id number] #### [facility] [address] [place] [address] Progress Note-Physicianon Progress Note-Physician Patient: TAI CLARK [...] stroke: no 4. Serious co-morbid conditions (recent NV, anemia with Hct <30%, CRI with SCr > 1.5, DM): no Score = 0 /4 Risk (low = 0, mod = 1-2, high = 3-4): Health Status Allergies: Allergic Reactions (Selected) No Known Allergies, Allergies (1) Active Reaction No Known Allergies None Documented Current medications: (Selected) Prescriptions Prescribed Voltaren Gel 1% Gel: 1 nacho, Topical, QID for pain, 100 gram, Refill(s) 0, [facility] #[id number], 198, cm, 08/12/22 9:37:00 EDT, Height/Length Dosing, 140, kg, 08/12/22 9:37:00 EDT, Weight Dosing lidocaine Top 5% film Patch: 1 patch(es), Topical, Daily, 7 patch(es), Refill(s) 0, apply 12 hours on and 12 hours off daily, [facility] #[id number], 198, cm, 08/12/22 9:37:00 EDT, Height/Length Dosing, [...] All Problems Cerebral palsy / SNOMED CT [id number] / Confirmed Healed venous ulcer of lower extremity / SNOMED CT 0943689783 / Confirmed Hallux rigidus of right foot / SNOMED CT 932076415 / Confirmed Umbilical hernia / SNOMED CT 0722996966 / Confirmed Venous insufficiency of right leg / SNOMED CT 484057381 / Confirmed Resolved: DVT - Deep vein thrombosis / SNOMED CT 2975530751 Resolved: Gout / SNOMED CT 128926719 Resolved: HTN (hypertension) / SNOMED CT [id number]-[id number] Resolved: Hyperlipidemia / SNOMED CT 78901694, Active Problems (5) Cerebral palsy Hallux rigidus [...] pmhx of (more content not included)... Normal [facility] Comment on above: Result Comment: Elec tronically Signed By: Meghan Yang\.br\Date and Time Signed: 03/26/23 10:24 EDT VC COMP CONSULTATIONon 03-18 VC COMP CONSULTATION Patient: DANUTA CLARK Exam Date: 03/18/2023 : 1970 Gender:M Ordering : DR DEEP DE SOUZA D.P.M. Admission #: [id number] Family : ARAM SALEH WOUND C Order #: [id number] CLICK HERE TO VIEW EXAM RADIOLOGY REPORT [...] incompetent branch saphenous varicosities, and dilated incompetent cook box filler veins within the distal lower extremity bilaterally [...] arterial disease 5. CEAP: C6, EC, AP, AR PLAN: 1. Continued use of compression stockings [...] Cavanaugh M.D. on 03/18/2023 at 12:04 Normal [facility] VC VENOUS REFLUX ABRAN LMTon 0 03-18-2023 VC VENOUS REFLUX ABRAN LMT Patient: TAI CLARK Exam Date: 03/18/2023 : 1970 Gender:M Ordering : DR DEEP IbarraPKaren Admission #: [id number] Family : JIMÉNEZ ANGELO WOUND C Order #: [id number] CLICK HERE TO VIEW EXAM RADIOLOGY REPORT [...] chronic thrombus visualized Compressibility: Normal Flow: Normal Quality Control Tester: Dist/med calf 4.6mm with 1.3s reflux. Dist/med [...] right great saphenous vein. 3. Bilateral, incompetent cook box filler veins within the distal calf. 4. 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 5. Consultation for endovenous ablation is recommended. Dictated by: Saloni Cavanaugh M.D. on 03/18/2023 at 10:55 Approved by: Saloni Cavanaugh M.D. on 03/18/2023 at 11:54 Normal [facility] Coding Summary.on 02-19-2023 Coding Summary. CD:[id number] Ww+PGhl YWQ+CO6HAWRgO27imBFloL6iO4A MTElOSywgQVBQTElOSyIgbmFtZT 1kaXNjZXJu IC8+OF3dGMSrFlbqdJPuu7S7wTZ 4D76aia9bTPggxGE4PIAxLxXhxc yrp9tglXv4OZvpOvqdGpIc XIOomC55IAR0oK02Nw52vZPiiEZ jq0ehxJx5FxNhSRPyKTD5tIrnGA lmd4YrDCGkW29qoVJir0J0 QJCkyTufoIImKwBkiBT9wT9eGCa jfzmqp3wmvhjvVmg1am88nGBrx2 E1sWS6V2FgjtC8LQFuqUCy GdnydMYWyP3ohyqnv6agyzjhFyU gRYPoOGq7AQp9LDYopPijWjPbIV 35CEH2FIWrkiPaT1FhKTKf rDtyRqK6x5T7Hj9GB4EIGfkoH8S NTUFSWTwvdGQ+OO74ul27Q4ImJk jtOfs6IJLvZFA2fJI3kD3d IGTaWXpaz5W8vQX9W3TftsKsiw4 tv5keJPPqMPhzI84ayIQrr7B8IE RudEP0NZQllRjjUbUalC71 Oyc+YVMbmQvtv1BaOgtrk7svt6c ypJj5LrpxUBPbzvLyiXhgVFY6c9 KbIt3rFEMtmAP3yQP3hO8y PlZtLuB0IDqtS809BbDphDBaNwp vQ35aN9KlbUT+QSOgKhj1SWKdqK csPP6pH9FmBBKkzlcmrAWn lNrlAV9dGNDlulunURTowU4vOWZ aN3t0LtIrArZ0VXcxB5QpOWEqnp hwUp07qD3iZaFuCoJ5AIup M3KxfmA0OOSrvHHzWGdgLVT2K14 js1I3FESqOVTeDDQ0kOZ8kO5voC lnbjogbGVmdDsgdmVydGlj CAokPRgrZ500WKKmfAliDmUlLZj uZyBEYXRlOiAgMDQvMTgvMjAyMz wvdGQ+HKWtMRA3mTqzKAAr qULrNMiiPd5awPhwcKccAM2nCZQ hspxdXXFygI4gVAHvyWAleRkyCR 0iJPCldtonn557OsQcOFY6 SXTrzSRhW8RbvY3tEwBeEDTqRQA lL3BirKRiXTfbK273KDaiWtD1LT YjmyZbY8XdCJJuvWbtEpL3 c5H8Lf0Yh1MhjetoG4JikCSmIcB sJhgpZLc4R7MfBsbioLO+PC90YW KcCH70RRt0KNA7sBvzOOst OIHyX2BdyX6aLvNuPEMsOZWjOqz +PHRhYmxlIHdpZHRoPScxMDAlJy GcrLjvLW2qAz8pXUUfMLWl eZiwvCLrTdZuy6jsWZLuAGznXA3 xlCgbK7WrmKE3KCPku7m6Wd03E8 5gA2BppSB+LNQnzDL9nEY8 sP1kNoXcLfD9EWdpT442SxNxgIB qLykdv8lxn3azfAt0DxT9JKHnuk ZznAycUTP6e3BpWh02Z82u IHdpZHRoPSIxNSUiIHZhbGlnbj0 wsE2sSb9+XWKdiHP4lKE5xD7sUz FlAmZ7FGzeS810KnUvgHFw Nluug1lkm5wyqVn0FnDrVILrpbR mmMjtNCF5e0UgWr28E9FcuSrlm4 BdBez5nh70sXGdx8Q7eLO5 I3UpCWPylcmkpFUrmZeeVO1xRRQ hrchaKERzwT5kXKNuX0p5JoOhFc A0PRazV4EjreD2UOAzkBAf RUHiuAHPqY7mbtizk7yvwthkXqH zHZTmCQy2PHh2PYVebJzxCiAuRU K1SzQ2USV5bRNmgR3egSwb wgieeP9vJum+NQQ1oNZytKEFYL3 lOjwvdGQ+HEEbMVU4nRtmUHfvWU WxiN7aTCPtT1y3InEtOeW0 BOwmP1LyloR4HKJvpFNqKIXnjME ZdH7fcviuc3bnobhaIeNrSYHoUH c6NZm4OTSxySkhIcEhVHC4 BsX1AHV3mJBvlJ7qqAqzsfhpkD0 wOyc+VqqyxGdkAXM6AMv2M0SrEb p2OBJxhTpaPD3kjJVoXHxv Le7etCeruAhtOF3uZMRzaivkd81 3BlTbp7uoOPCedUNjNMplELS9Y9 7ym8H7CJXrQNJjWFG9uCL6 hK2nyEeynxfyxLItwJprptWhdUc tZYyfLNdrS380VPOknEexBnIdAU k4L3JpTzc2HEGyzCehHU8u yLYfGKujCe8lmNfkoJbhKD2qZNT cpzscm837MmKsj8xyITLcaPSuEM eoMPC6W88iv4D4TUCeWFYc CSC4iFV5cN4ceWveszkkmRAngSl ybaKbfKlnTHcmVXjgE869DPKpzC skRyQcwEb6X5WrZld4XHMd fSjoCD4qiHQnOWjbEf5rdAvsrKs wQX9mIEFryrjjl968TnFis9hcUH TswCFgOKaaDXH4V56qy7C8 RAAeLYAqEDV5kIM2cK0fhBkhdjn gbGVmdDsgdmVydGljYWwtYWxpZ2 46IHRvcDsnPlBhdGllbnQg TSrkKFs3W4EhXftgsSI+BR71DCL mHO36zFXehKDqg8zoyZg3HgNyMK NqBKX8gNmwQMumb8FuALOy G85wqWHxe7K4YRXpwWdccBGlPjN veTY0uS8qRPuapdekc5rqavyyZj mix9skhr53bB39S80dNPrb VXYhAMYbYCUmNJVqjPxrxk6keG8 wIi8+SMVpvGL7wMC8rW0wPEQfFp C7GZqwE851RdWtbYDaUmss g8gjm5xddVy3EbI6MQLsizTihJl vAYD5w0UiOz12G08oVQksDBFiTK DmINRkQYSqqMbatm9geG9e Ii8+JUMysFP4nJD1pD6xRkTrUvX 8WEkhQ657AxYncSPoRsxuE48hA1 JvdXA+VNAgGvj2EEDdmOfj OP6pdTHgVSfnGl9aFUT7QxPaKkK zFVgwA5EiCNKsfuckadijhGN2VD GuLWXtrE85Rv3wtJsyLJAw gHSAeM2lwympy9upbrzxCnYbTVJ pPZm5HXm6EWLseXqrJiQeDBO1Ea M6IUB1mNOdjU7vzDozagfz dD3fG2TxXIPwnrkiMs24yD1iZeO lSqY3HPfaAsh+I4RBX8GcUGyKZ8 NZXCYRBQ21MF34jGRxh3I1 yUE9H5SfFSOueesazfgzpFR3KTE zSDFfrF45zZZsMBirCx1cd7P0w5 57LTJnIGEtiW13Sl3gqIfg JYTtbTZLxO2amgeht2jgsmmzDfY aPBIgIJq5WCw3MNXspQscCwIdFX G9UtX2ICM5yUErrK4wbLvq qjsfhB3mGyr+XZPyFWoeMMl2Ufu vdGQ+AOVgPWO0hYwoAGjsSXDpaF 1nABKkA9d1OkXcLdG4SSec M2GyVFKctpniOo26uL8xYtIbMtJ 6NFscA0FbqqV3DSUukZKaYTduVS S1F55yc1U6IUTeMPHdIKS0 cSD7rI2tvIoccenhxUExwMrfpcW dhOwvZMjaCYskY741AEEucEfgLr XzRFfjQCDoBA40CK11hBIu k1R5aCE0P7XiCAIbmcshcbnxsAR 8BPGpUIEqrC30eBQeCNbfYv3gc4 Y0f447EYEuBNLqvD51Ov3i fQsjFHByqPSNaC3jrypzo7niqwr uXnUlORWuUQa7LRb3HTHnqWyoHx KsTLD4EiD4CID8tTPyiH2t kZwnrmgxrT4iTvs+TWFsZTwvdGQ +HCZgWAV3hLbaWLmzDKYmjC1bVZ JyV5w8RdUpDhS0ZBwjA2Yl CHDccweeIm65gV6yIwHqNsD5DNb cT4AtqbF4MMSoeXTcPDydSPI2C8 1pf0V3GXUjTPHdMWO2iXI5 wX8mkXfxobygqOYbtYhjdxTwuLe aKAmoUGejR250QZPmjEmwWlYtDC LtAH6ywCbbbBY+EV28lu80 P6KvHuktWpx1MNBpLOS1bIJ5nN6 wALFlJEhfh8Y1wIP7D2LchdVblf 0ki6jdQVUlOFcrX42snORv m3J7QWMwrUW0WALsxOkjHcQhaO3 3Oyc+FVRjxBooq9KjJflln1zst6 vnxDc8ScCvLAVbnbLwnOdl EOR2p9LxEk98D66hUBfpGBXsIMS wPWZyVELkvXnaze6nhS5sYj6+PG BkwYV6lHQ3uD5qVqSfBjM9 QDwyK688AhYxmTUpIdmsb9ypw3m cuAe5QcDjELSvsqPblZkfEBO0u7 PwQm98G1EkyFgdx0RqGsz9 by85zUBry1G9oDZ9H9UgJPXygyv zsBEduQcrXU3oHNLnuipoJCYreN 7qUHWpD3a6NhWdAcY1NBet O1UsshE3BKDjaULiBQZwaSVYyS6 teqtov7ehagfrWwVnEJGcFHp4GM t5GQRjwCjgZbOhOBZ2FjX9 QTW3wOAjjI5jcYldsdjqbZ1iPcm +VDj4t5kxuYByTW1mxMP6QQ29TK 23kXRfk0D5fOG4S3MmKXWz zcntpveskVP8YSYwEDIbvV79Bx6 iiUtzGb9xLLRfXGS1KGCzlDGqF2 MkgP2xTlQqOFMvJCRbN3Fx zQOyDRvlD761CCddJpP7LKRsrxZ zV7YyZTNioAbdMpQ5w8F1Vd1JSE 34AB50VN41sNOdp1U2cGS5 P5ZtGRRzgatnepvndPS7TCXyUOJ frJ08Gw6cgEqrCu9uUTSmFTK9HV QckRZhX4LhnN3bDzJuCSOl BLDvT3RckQVmNPlrB105IBorDqH 7ENDjqiPlQ7VrLYMzlIlmFdD0x1 E1Yl9UEg87QR81EG75uPDx o6D1rXA3A0RsHARjxiwkdhooqOI 2QSYaOHKzbD58Rf3njThkFd3tZX OrZEW3TJWncAGcC6ErpS4j DkCvARFhQZDvO8SulLGfNLcnG63 5ECslOvB1LFPmwlDyQ9FlPHEqoS urGpP4l5Z8Ge6GGQvcnxt1 Z3KyEhgmrHO+KP08TOXeAU43gNP ymDLzj9jcqUl7IgXvVVEeXST9kZ zbSRqwg4WrQQGaG07okQNb v8O2QBVq (more content not included)... Normal [facility] Consent for Treatmenton 02-02 Consent for Treatment [id number]:127 Normal [facility] Discharge Instructionson Discharge Instructions [id number] Normal [facility] ED Clinical Summaryon 2022 ED Clinical Summary (Inserted Image. [place] to display) [place] [id number] ED Clinical Summary Person Information Name: TAI CLARK Arabella/[facility] Age: 52 Years : 1970 Sex: Male Language: Wallisian PCP: Aura Hernandez MD Marital Status: Phone: [phone] Visit Id: Visit Reason: Leg ulcer; ULCERS [...] 02/17/2023 08:36:23 02/17/2023 08:36:23 02/17/2023 08:36:23 ADDRESS: [address] [facility] [id number] PHYS DOC NOTES: MEDICAL INFORMATION: Prescriptions Given: New Medications [id number], [address] [place], [place] [id number], [phone] cephalexin (Keflex 500 mg Cap) 1 Capsules [...] With: Address: When: [facility] [phone] In 3 days 02/20/2023 With: Address: When: Aura Hernandez [place] [id number] [employer] ([employer] In 3 days DIAGNOSIS: 1:Chronic venous hypertension (idiopathic) with ulcer of bilateral lower extremity Normal [facility] ED Note-Physicianon 02-18-20 ED Note-Physician Basic [...] day(s), # 28 cap(s), Refills(s) 0, Pharmacy: [facility] #[id number], 198, cm, 02/17/23 7:52:00 EDT, Height/Length Dosing, 136, kg, 02/17/23 7:52:00 EDT, Weight Dosing cephalexin, 500 mg = 1 cap(s), Oral, QID, X 7 day(s), # 28 cap(s), Refills(s) 0, Pharmacy: [facility]/pharmacy #[id number], 198, cm, 02/17/23 7:52:00 EDT, Height/Length [...] cap(s), Oral, q6hr Follow-up With When Contact [facility]: JiménezTalishaAngelo [phone] In 3 days 02/20/2023 EDT Additional Instructions: Aura Hernandez In 3 days [address] [place] [address]- [facility] (1) Additional Instructions: Patient Education Venous Ulcer Attestation Patient was treated and evaluated by the Physician Commercial Real Estate Sales Manager. The attending physician was in the Emergency [...] Topical, Daily (more content not included)... Normal [facility] Comment on above: Result Comment: Elec tronically Signed By: Jessica Cronin PA-C\.br\Date and Time Signed: 02/17/23 12:27 EDT\.br\Electronically Co-Signed By: Ernie Daly DO\.br\Date and Time Co-Signed: 02/17/23 16:12 EDT ED [...] at home: Medicines ? Take or apply spqa-dvn-xucozkb and prescription medicines only as told by [...] and water are not available, use hand sales ambassador. ? Change your dressing as told by [...] or t (more content not included)... Normal [facility] ED Patient Summaryon 023 ED Patient Summary (Inserted Image. Juana ble to display) [place] [address] Patient Discharge Instructions Person Information Name: TAI CLARK Age: 52 Years Arrival Date: 02/17/2023 07:43:14 Discharge Diagnosis: 1:Chronic venous hypertension (idiopathic) with ulcer of bilateral lower extremity Primary Care Physician: Aura Hernandez MD Provider Information Primary Provider: Ernie Daly DO Advanced Special Officer:Jessica Cronin PA-C The exam and treatment you received in the Emergency Department were for an urgent problem and are not intended as complete care. It is important that you follow up with a doctor, nurse practitioner, or physician?s cashier assistant for ongoing care. If your symptoms become worse or you do not improve as expected and you are unable to reach your usual health care provider, you should return to the Emergency Department. We are available 24 hours a day. TAI CLARK has been given the following list of patient education materials, prescriptions and follow-up instructions: Follow-up Instructions: With: Address: When: [facility]: Tarun- [phone] In 3 days 02/20/2023 With: Address: When: Aura Hernandez [address] [place] [id number] [facility] (1Jiahe In 3 days In the event that this physician does not participate in your insurance network, please consult with your insurance company to find a nearby participating provider. Patient Education Materials: Venous Ulcer A MESSAGE TO ALL PATIENTS REGARDING OPIOIDS PRESCRIPTION OPIOIDS: WHAT YOU NEED TO KNOW Prescription opioids can be used to help relieve ixkzimol-hj-qfetby pain and are often prescribed following a [...] with addict (more content not included)... Normal [facility] Prescriptions/Work Noteson 0 02-17-2023 Prescriptions/Work Notes [id number]#1.00CD:127 Normal [facility] POCT PT/INRon 01-18-2023 POCT INR 2.6 High .7-1.2 [facility] Comment on above: Performed By: #### 2 [id number] ####[facility] [address] [place] [address] POCT PT 28.3 second(s) High 8.0-15.0 [facility] Comment on above: Performed By: #### 2 [id number] ####[place] [address] [place] [address] Coding Summary.on 01-01-2023 Coding Summary. CD:[id number] Gh0bWw+ PGhlYWQ+CE4LWGYgK07faCIfcA6 XR8rGNP5EJQHLGXXNWT9QCW5tfK Y5BKwoT0HpvtTz EfcllKSaOW34NTq0RDK8vVsxDRs klD4mnQVeV0k5MfOqNX85dK20MI jiMWLzYxO1QpKmwszjgNVh Z9usSnKytGFcNvb+PHRhYmxlIHd sMPXdRYbwFXMaToFukSaxUF0cZa 9yZGVyLWNvbGxhcHNlOiBj h4tpFMZzROfkVD8yhBzyX9MerGB 5SDWbh6k4Dp63aWE+PITvLSM5kG syGWhkt786QyTac8fgZBJ3 tUQqCDpyCQI1L91hk5B9YYWcBBE tUQE3gAP0lY8klVoqiizlS6VqpK DyKqI1LXR1pMJktO3qySea rdqvqQ2fCuv+Z76EFA6IPURMGC6 NOra9D3CrOkdtoGY+KC72SQYxYB 36zNIiiQAwt7tkyHf5UtTq AURqAQX6vUoqOUhxi6OfVXPuC81 atUOhe7F6SSCgmTewjWJaByGywM B3iR7vCFxrigcht7kxjaox Khuxh1iswx80cS83D38eJQqmIBC kJEX0FSGoJYVpeLrphm0axY6hCz 8+KKjco6dml4pwbTw9UyXx ZPGinrRidPpdVJQ7t4BvYg39W2M joIvom9OzSvf0zl81gJTxq2V6yY O9IVcyLNPcyI4wWZckLeK2 SVTrKkZypT66xVEiMFjbZv4jkXb gvYaiKT2jLSGsolalVWZoeE0gRF GktZIaxWjfRS8rOIHnwsbd r360QgYgFZL4IDQfzACtO3SzsR3 eYmRlDFIjKQMiD1AzkNGvJPccD1 03WHrkBaD8PQHbltPvO8Gw CVXtwHnwAgP7t1Z8Ne1If4Cunqr hFOD3DJmkSWViCqT3WgRzAmP3E4 UbNts2UJBtcUfmNV5lK8Zy SSZmnsftzbbdtIC9KOJiIDFyiZ8 9nTFyTWqmJx0gh4I6k474TYJlCR BevW22Zd9drOeeSQFnqZOR rR8gooryb8mtelupMaTkIFZtAOl 5FHf9WGNesZibUuAdSTL0YlX0JV X7jEQubQ2xeZuqosnmoR4e Oyc+H56bsI1oRGA1KFJ2dppxPPT yqfOkSZ19JZ12X6NbKjbimJQiaY U+FKCprpHrfGgzOR5dCvFc e4qad7LyRZgjZ2SnCRMkGQppBcr 1DXFrYQT5hZM3dF3xHPGlXGzxj2 P8lOB7J2HejiTime2pm4ol QGDuZHpsC97hoDVur5A3UFQwoOV 5OAIwgNccAoZogR56Rni+PGNvbG kkq0GcFndkj6yla7vobXd6 VoWbZKOoriLqpVbaHTC3w9KqHe4 8G37mADudPNNyXPCzXFRzXCKgrZ rhtf2tyC4aSd5+PGNvbCB3 aPO3yI6uOVPhFtF3UWumT942EiK vtEAxSzeim4rqv8wcgEu5HpJfQL XcwuLvzSqxVJO0e2FmGm09 J41dDEgkQLPvQMNgWOCaLLZcxJn wpx6weB1bIt4+IO8dx0wgrc88fD 48dHI+RKKbVAS5cFzhBOsi HMUfsV1rILybDdF3XPKtVrLdkI0 8jEAyBSquUu2xmQwqnRkmUD5iMX Unproki814ZeLtp7lsBSYd hHUhAAjpIFF8X85ak4A0FVCoPKE oNVV0hWQ6fA4mdBskkgpgxLNxvH uhqzNkiKbmEBrfKTfpF302 IHRvcDsnPlBhdGllbnQgTmFtZTo 8C4IgQuf7LGYvyZflXU6vzVZiXP clVl0fnWfhpQckRB6lZZMi tlvbv134LxAfk8cuHWBrkCQcYXt bYGJ7V20vs0S5BBFeTCXeGGC9aN W1iD5bmPgxgmrecKSoxXpo ujNgoVryYJbgPOguV564LTSieVx oXmFjjhXuVTWakGI6WE86BT41vK Hgt8O7rKS0O8MlZTFxcewx byishBT7CPVvNOLjnC23Vr2omId bPj5sVIExGZE7WTYswSOgI8UzuW 1bMkYnOGOtZGWlN1UstOEr GItdS384YSqlQeI1COOxtdCgL2L iQXDooPywYeX7m7C6Zx2PD0O7LH 45LU50sVSws0Y2yFR9X3Fw VGGedeaunwxixQA0YKHaJDAyrS1 2Cy7uyDllYe8qDEQzPTJ1CPRkmV VsO1JviX2lZwBnBZLwTQGz O9NeoNXbWXxcC873OObdYxT1GHU addVwN0YyAMUaeLqyCgM5u4W7Fs 9LGSq7RM86WN13rGRnj8N3 zGV3P3DiSACbfbhkkxhefRT4DFU jNEQceQ84Bv4nnBawBs6qIYThTU D5NAArtOZoS8GawP7bKvDx PXYlYOBsO1NnqOZbJWgmQ664OCb iCcN8IIXzxhUsE6DnYQVjzMxsKv M0l2P2Bw4NPQNhPZ16FWF8 jLY7WU35BY29K8BxUugjhLRxdMI +PHRhYmxlIHdpZHRoPScxMDAlJy YprMijUD5eLd5iLZXmUWOd yZuqpXZoOxFog8glYAKfZXolTW1 pqEhgM8NplBU0QXXyf3n0Pv77J8 0oU3QopWU+VDHkmWI3tTH1 vH2jRtEzEwY1HNbkK927TpAzvNM qGwsvk0qtn1jicCl7OjY2MCFhym WawYihUIF2f0SrCf66S50c IHdpZHRoPSIxNSUiIHZhbGlnbj0 chZ8vCc5+WZKmqQA0fFD9wM2lVo QiCbN0XXgwI978LmHrePXx Pxdpa8sal2ztpMa2AgSsFEYvghS ojSepQDX8o4IdSe86F1FrjBnvs1 NpQil5yr38aBHbj2O0dEF7 N4ZoUQBxkxchzTFeqPfrNQ0eWEJ dkjffXJFnjF8nNPKiF0a3YpFjFh Q3SXgtR1ZpfqU5VOKorIAr QVvgDQP4N96rl9G2MKFkBZBsPJS 3mSS8dJ3grTacboglvLHteGoigx NivBhlMBdbJLmcY930GTNh oQueQRNroT0wELNkqUQwuYkeWU4 jTKGuynnqHywECERDKJNDR4ZLJI ggSjwvdGQ+IFSjEWF9kPpd NFuqVQBseR3qVWUsX6c2KcKhPxS 4OUdjK6DtKSZgriqlOx62eW9gHp ZqAcK2NXohK6FulyF8CDZa lKMoANzjPKV3V73mm5F5EBRcOAO pWFG9hLI0mC8vpSlyhazqhMVpgX udohNayBraRVsoKBfpK125 UINxiOuwNcKqKzV1DcX7OeJ9T6H mErv1ASDjjUmqUQ4chPTgFEkeSm 0jcUnnqVpnFX2dRZQkufeq CRJwyU1pYODuvFJfpWnxJO7hDWZ szxsvc831SyWkZLB2FGNbsCZmQ7 SybB7dXuKaFEHoOBGzH5Zn qBAmSOjhR678MQaeQsD7VBJyhtF hO8IeJIWadWazRzG4u8C7Sq89LR BZZWFyczwvdGQ+PHRkIHN0 nZtdFKveYOCvsH4zNMUrO7v7ApW xQvP4BVewP5NzCGOvclobPv10fC 5iMdUdPpP8AOdyH3SjyfM9 UFDxjRFdOBshFXC1T81gv2C9KEY hEBFoBLS8kPM6hF9ssNxqrqynrH VmdDsgdmVydGljYWwtYWxp X593DPQqmEutHq3smFR2G7IoAtq 3FUKheKqdOG9ipQPdEWpeJf9apY lpoMcaQZ7sNYShqligLGPp vL4kYLBfkKNuwKtzFW7fNBWlfnd ya563GjWjLBW1GVHmsSYbM0HiaB 3jTfErKIOsGWKrE3FytZNj NQdfL424GDsbCcU9GJKdskNlJ4K cGFRcvDweYuI1h7G4Om4HEGO8th Awswk6E5KyHkfhhMW+PC90 UJJhHE93qVTpsSGdp9wwzYw7CoE jLKGcWVQ7aHceJOnrd0DlOLRqQ1 5kfOZjo1Q1IXEelXvdrDOe HhQeuUA7tK9bTMkdggrko2slnda lWmiqj1orwd76gZ22A57bLLglYB WbTEQdDBKxNKFaiSimtt9e eP2xJk7+VEPvcWZ4zXY9oJ5jHxW sBzS9GDpuG995AeIoeOUoNjgzv6 xhg0otzUe3WtOzLUOcvxLq sYlaSYH1l0VmFb93T30xQNusSDZ hTGEdEYIbEYRinMdaqx7anG7wNy 8+PA5na1bccj15wR57wRM+ OWPlCAR6dJbzLVcpGXXydM0hEDm vCoA1UYGuDjCshH16tNEcMGcwGv 8bbBlwzPceHB4yBGFvalqh w270TdRhv3grTJBiiHLbDTbiCZS 7R95uc2N9TVXePJYcWOD0xVL4xB 1hbGlnbjogbGVmdDsgdmVy nNgdGLiwRZybZ682KQVqpEebYdN xfTEjG9ggivVWQM2xLsmdcXE+PH KsJKP6zQqyGLwgYEPlwK3x DBSkN2s0LkYkPfM6DWudQ2SxlzO 1XYLjaHAtHTBerZXCoO7jdapvh2 woqusaMmWlWSWjHDd4IJq5 PNDqpUxpIbGuJST8HtG9EPX8gYN ycP4ncMdgunghfY0nQjs+RklOOj wvdGQ+WTGxOEB5jSqcZNag JAZfoI9pDCUoN6d1NrCaUvS0QDy jF9NfceA0WRHkzAHyLIRqqPKLgL 7odnfar8jinjoiUkLfILMo JSa4EHe9AFTswGaiIrGpJJS7FnG 9FSE9bQLddZ0zfEdzccrhgM4aIs c+TVJOOjwvdGQ+PHRkIHN0 jYrjFBrlGKDwdH3tQOSgQ8y3CkY iHgC9HWpeN4HoxjJ0ROOaqDVeLF SjyHSAcK6bgazek0ngpjre PnVdURCuGMv0KDs0WARghXbvJeI mGHV0ZzP9SYG2jUHawK0igKyrab idsN8zSmn+SNM3FUY7US08 CT21K8FcWuizaGCoiDM+PHRhYmx lIHdpZHRoPScxMDAlJyBzdHlsZT 4vMc2gSODaVISadAthvIKc OiBj (more content not included)... Normal [facility] Consent for Treatmenton 12-06 Consent for Treatment [id number]#1.00CD:127 Normal [facility] POCT PT/INRon 12-28-2022 POCT INR 1.9 High .7-1.2 [facility] Comment on above: Performed By: #### 2 [id number] #### [facility] [address] [place] [address] POCT PT 20.7 second(s) High 8.0-15.0 [facility] Comment on above: Performed By: #### 2 [id number] #### [facility] [address] [place] [address] COAGULATIONOrdered By: Patricio Hickey on 07-25-2022 Fibrin D-dimer FEU (PPP) [Mass/Vol] ng/mL FEU Low 215 - 500 ng/mL FEU [facility] Auto Coag Referrals Officeon 2 Referrals Office [id number]#1.00CD:127 Normal [facility] MICRO OTHER TESTSOrdered By: Patricio Hickey on 03-23-2022 Rapid COV Int NEG Ctl Pass (03/23/22 2:50 PM) Normal [facility] Sero Rapid COV Int POS Ctl Pass (03/23/22 2:50 PM) Normal [facility] SARS-CoV+SARS-CoV-2 (COVID-19) Ag IA.rapid Ql (Resp) Not Detected (03/23/22 2:50 PM) Normal Not Detected [facility] COAGULATIONOrdered By: Miri Jin on 03-05-2022 aPTT Coag (PPP) [Time] 61.4 s High 25.1 - 36.5 second(s) [facility] Auto Coag INR Coag (PPP) [Relative time] 3.2 {INR} Invalid Interpretation Code [facility] Auto Coag PT Coag (PPP) [Time] 38.1 s High 10.2 - 12.9 second(s) [facility] Auto Coag Reference Laboratory Testing Ordered By: Speedy DomainUser on 11-18-2021 SARS-CoV-2 (COVID-19) RNA BILL+probe Ql (Resp) Not detected Invalid Interpretation Code Not Detected [facility] [employer] Comment on above: Result Comment: This nucleic acid amplification test was developed and its performance characteristics determined by [employer]. Nucleic acid amplification tests include RT-PCR and [...] detected) result in this assay. Performed at: [address] [id number] PhD Anjum Porter 02-10-2018 SOLA Office Visit (LATESHA) -------TAI CLARK ([id number]) 1970 MDate Time Provider Department02/10/18 3:00 PM FRANK WARD During your visit today, we recorded the following information about you: Pulse Respiration Blood pressure 89/minute 16/minute 151/96Frank Ward MD 02/11/2018 10:39 AM [facility] Department of Cardiovascular MedicineOUTPATIENT VISIT DATE February 10, 2018OUTPATIENT VISIT TYPEESTABLCANNON MEMORIAL HOSPITALPRCAROLINAS CONTIN[facility] MOUNTAINRY CARE PHYSICIAN:Aura Hernandez MD[address] [place], [place] [address]Ztqoc: [phone]: [phone] PHYSICIANPeMARY JANE [address] [place] [address]AMZFW COMPLAINT:No chief complaint on file.HISTORY OF PRESENT [...] stockings in interim.Flavio Wilson Provider: AURA HERNANDEZ [[id number]]Allergies As of Date: 02/10/2018(No Known Allergies)Date Reviewed: [...] to improve.Follow-up and Disposition History RecordedEncounter Number: [id number] Status:Closed by FRANK WARD MD on 02/11/18 Normal [facility] PROGRESSon 02-10-2018 PROGRESS HNO ID: [id number] thor: Frank Yepez: (none)Author Type: PhysicianType: Progress NotesFiled: 02/11/2018 10:39 AMNote Text:[facility] InstituteRobinscription [facility] Department of Cardiovascular MedicineOUTPATIENT VISIT DATE February 10, 2018OUTPATIENT VISIT TYPEESTABLISHEDPRIMARY CARE PHYSICIAN:Aura Hernandez MD[address] [place] [address]Ymrle: [phone]: [phone] PHYSICIANPeMARY JANE [address] [place] [address]CJZYH COMPLAINT:No chief complaint on file.HISTORY OF PRESENT ILLNESS:Tai Clark was referred for consultation by Dr. Caraballo. Opinionsand recommendations in this consultation will be transmitted back to thereferring physician by [facility] notes or via mail.Mr. Clark is a [...] compression stockings in interim.Frank Ward MD Normal [facility] US-US LE Venous Duplex Insuf ficiency Bilat IMPORTon 02-05-2018 US-US LE Venous Duplex Insufficiency Bilat IMPORT Images were obtained outside of [facility] [id number] Normal [facility] CNOVon 02-03-2018 CNOV Office Visit (VASSFT) -------TAI CLARK ([id number]) 1970 MDate Time Provider Department02/03/18 2:30 PM FRANK WARD During your visit today, we recorded the following information about you: Pulse Respiration Blood pressure Weight 85/minute 16/minute 160/106 147.4 kgFrank Ward MD 02/03/2018 3:12 PM [facility] Department of Cardiovascular MedicineOUTPATIENT VISIT DATE February 03, 2018OUTPATIENT VISIT TYPENEWPRIMARY CARE PHYSICIAN:Aura Hernandez MD[address] [place] [address]Zcssb: [phone]: [phone] PHYSICIANVilma Caraballo DO ([facility])[address] [place] [address] COMPLAINT:No chief complaint on file.HISTORY OF PRESENT ILLNESS:aTi Clark was referred for consultation by Dr. [...] 147.4 kg (325 lb) SpO2 96% BMI 37.8kg/d6Elkhnfq appearance: well nourished, alert and cooperative individual, [...] legs when atrest. 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] Other Visit Diagnoses:Venous ulcer (HCC) [I83.009, L97.909] Edema leg [R60.0]Order(s):US VENOUS INCOMPETENCY [facility] [2101800] Order #: [id number] FUTUREPrescriptions as of 02/03/2018 Sig: WARFARIN 5 [...] (around 02/17/2018).Follow-up and Disposition History RecordedEncounter Number: [id number] Status:Closed by FRANK WARD MD on 02/03/18 Normal [facility] PROGRESSon 02-03-2018 PROGRESS HNO ID: [id number] thor: Frank Yepez: (none)Author Type: PhysicianType: Progress NotesFiled: 02/03/2018 3:12 PMNote Text:Heart and [facility] and [facility] Department of Cardiovascular MedicineOUTPATIENT VISIT DATE February 03, 2018OUTPATIENT VISIT TYPENEWPRIMARY CARE PHYSICIAN:Aura Hernandez MD[address] [place] [address]Fyupz: [phone]: [phone] PHYSICIANVilma Caraballo DO ([facility])[address] [place], [place] [address] [address]FCSBQ COMPLAINT:No chief complaint on file.HISTORY OF PRESENT ILLNESS:Tai Clark was referred for consultation by Dr. Caraballo. Opinionsand recommendations in this consultation will be transmitted back to thereferring physician by Epic notes or via mail.Mr. Clark [...] 147.4 kg (325 lb) SpO2 96% BMI37.8 kg/i8Riyrdad appearance: well nourished, alert and cooperative individual, [...] up with test results.Frank Ward MD Normal [facility] Antithrombin Assayon 017 Antithrombin Assay 114 % Normal 84-[address] [facility] Comment on above: Performed By: #### P RCFUN, AT3ASY, HOMCYS, B2GPGM, CARDIO ####[address] [phone] B2 GPI IgG and IgMon 017 Beta2 Glycoprot IgG <9 Normal <20 [facility] Comment on above: Result Comment: < 20 SGU Kxptkxek51-14 SGU Low Positive> 80 SGU High PositiveThese results were obtained with the [employer] QUANTA Lite B2 GPI IgG JOVITA. B2 GPI IgG values obtained with different manufacturers' assay methods may not be used interchangeably. The magnitude of the reported IgG levels cannot be correlated to an endpoint titer. Performed By: #### P RCFUN, AT3ASY, HOMCYS, B2GPGM, CARDIO ####[place] [id number] [place], [place] [phone] Performed By: #### L UPUSP ####[facility] [place], [place] [phone] Beta2 Glycoprot IgM <9 Normal <20 [facility] Comment on above: Result Comment: < 20 SMU Luzesjxs79-74 SMU Low Positive> 80 SMU High PositiveThese results were obtained with the [employer] QUANTA Lite B2 GPI IgM JOVITA. B2 GPI IgM values obtained with different manufacturers' assay methods may not be used interchangeably. The magnitude of the reported IgM levels cannot be correlated to an endpoint titer. Performed By: #### P RCFUN, AT3ASY, HOMCYS, B2GPGM, CARDIO ####[facility] [place], [place] [phone] Performed By: #### L UPUSP ####[place] [address] [place], [place] [phone] CNCOon 07-25-2017 CNCO Letter TextToll Free : [phone] [facility] - [address] [address]Siktx: [phone]: [address] [address]Bvlbg: [phone]: [address] [address]Oiqnd: [phone]: Fidencio Bhandari M.D., Bridger Marley M.D.Troy Mcfadden M.D.Vilma Caraballo D.O..Felix Burrows M.D.Gregory Orozco M.D. Tuan Bentley M.D.Date: July 25, 2017Re: Tai Daniels WHOM IT MAY CONCERN:He was seen in our office today.Sincerely,Shoaib Garcia(signed electronically to expedite mailing) Normal [facility]onOVSPon 07-25-2017 CNOVSP Visit (SP) Office (HEMASA) -------TAI CLARK ([id number]) 1970 MDate Time Provider Department07/25/17 3:15 PM VILMA CARABALLO During your visit today, we recorded the following information about you: Temperature Pulse Respiration Blood pressure 97.9 degrees 102/minute 18/minute 141/91 Weight Height 137.5 kg 1.975 David Caraballo DO 07/26/2017 11:34 PM SignedPATIENT NAME: Tai LeyvaCaro: [id number] PHYSICIAN: Damon Yost DO[address] [place] [address]JEMNSUR CARE PHYSICIAN: VIRI Jarquin PHYSICIANS:CHIEF COMPLAINT: Embolism and thrombosis (hcc) (primary encounter diagnosis)Essential (primary) hypertensionRecurrent deep vein thrombosis (dvt) (hcc)ASSESSMENT/PLAN:(I74.9 ) Embolism and thrombosis (HCC) (primary encounter diagnosis)(I10) Essential (primary) hypertension(I82.409) Recurrent deep vein thrombosis (DVT) (HCC)Multiple recurrent DVT. Will require lifelong anticoagulation. There is moredata to support coumadin and patient has problems financially with xarelto.Change to coumadin and [place] [facility] will follow.For chronic lower extremity pain, he will be referred to Dr. Sylvia Marroquin to see if any procedural approach to venous insufficiency is potential.Will also send hypercoag workup as below.Visit (SP) Office on 07/25/17-FACTOR V LEIDEN/PCR-LUPUS ANTICOAG PL-PROTEIN C FUNCT-PROTEIN C FUNCT-ANTITHROMBIN III-B 2 GPI IGG ANDamp; IGM-PROTHROMBIN GENE [id number] AB-HOMOCYSTEINE SERUM-CONSULT TO VASCULAR SURGERY-ANTICOAG/COUMADIN CLINIC PHARM-warfarin (COUMADIN) 5 mg tablet Return in about 6 months (around 01/22/2018), or change from xarelto tocoumadin. f/u in 6 months. labs today., for coumadin clinic referral.vascular surgery [facility] [place] referral. page Dr. Yost. . HISTORY OF [...] the best ofhis knowledge.July 25, 2017He works [employer] [place] [employer]. He stands all day. He wearsbilateral compression [...] plan.I answered all questions satisfactorily..Angelo Caraballo D.O.Medical OncologistFluvanna, [place]Referring Provider: DAMON YOST [[id number]]Allergies As of Date: 07/25/2017(No Known Allergies)Date Reviewed: 07/25/2017Reviewed by: Mayda Monzon - Fully AssessedReason for Visit: Consult [173] Cmt: Dr blanco for DVTPrimary Visit Diagnosis:Embolism and thrombosis (HCC) [I74.9] Other Visit Diagnoses:Essential (primary) hypertension [I10] Recurrent deep vein thrombosis (DVT) (HCC) [I82.409]Order(s):CONSULT TO VASCULAR SURGERY [9036] Order #: [id number]: 1 FACTOR V LEIDEN/PCR [SQFVLEID] Order #: [id number] FUTURE LUPUS ANTICOAG PL [SQLUPUSP] Order #: [id number] FUTURE PROTEIN C FUNCT [SQPRCFUN] Order #: [id number] FUTURE PROTEIN C FUNCT [SQPRCFUN] Order #: [id number] FUTURE ANTITHROMBIN III [ZENC5IDN] Order #: [id number] FUTURE B 2 GPI IGG AND IGM [PCM8XBIO] Order #: [id number] FUTURE PROTHROMBIN GENE PCR [SQPTGENE] Order #: [id number] FUTURE ANTI-CARDIOLIPIN AB [SQCARDIO] Order #: [id number] FUTURE HOMOCYSTEINE SERUM [SQHOMCYS] Order #: [id number] FUTURE warfarin (COUMADIN) 5 mg tabletTake 1 tablet by mouth once daily.Disp: 30 tabletRfl: 0 ANTICOAG/COUMADIN CLINIC PHARM [[id number]] Order #: [id number]: 1Disposition: Return in about 6 months (around 01/22/2018), or change from xarelto to coumadin. f/u in 6 months. labs today., for coumadin clinic referral. vascular surgery [facility] [place] referral. page Dr. Yost. .Follow-up and Disposition [...] Status:Closed by VILMA CARABALLO DO on 07/26/17 [facility] 07-25-2017 LORRAINEN Telephone ([facility]) -------AMBER,TAI ([id number]) 1970 MDate Time Provider Department07/25/17 HEATHER (PHARMACIST)LEE During your visit today, we recorded the following information about you:SHERYL KRUGER 07/25/2017 3:31 PM SignedReferral for anticoagulation services does not seem to be filled out on usualform. Will route to LPNs to get correct referralSakina Santiago LPN, KENAN 07/25/2017 3:[address]Dr[address] Caraballo,Please complete order # [id number] under outpatient orders. All 8 steps must becompleted with the F2 treviño.Once the order is completed in its entirety, when the encounter is closed- itwill route to our office for processing.Please call our office at [phone] with any questions.Thank you,Sakina Santiago LPN, Pharmacy Anticoagulation ClinicCharlogan Santiago LPN, KENAN 07/25/2017 4:02 PM SignedPatient Update ? Vilma Caraballo ?You 7 minutes ago (3:54 PM)??? Please cancel. ?This was supposed to be referral for Coumadin clinic [facility]. ?My apologies. ?The orders and Epic are [...] Status:Closed by HEATHER (PHARMACIST)LEE on 07/25/17 Normal [facility] Cardiolipin Antibodyon 07-25 IgG Cardiolipin Ab. <9 Normal 0-9 [facility] Comment on above: Result Comment: <10 GPL [id number] GPL Equivocal>40 GPL PositiveThe following results were obtained with the [employer] QUANTA Lite MARIO IgG III JOVITA. Cardiolipin IgG values obtained with the different manufacturers' assay methods may not be used interchangeably. The magnitude of the reported IgG levels cannot be correlated to an endpoint titer. Performed By: #### P RCFUN, AT3ASY, HOMCYS, B2GPGM, CARDIO ####[facility]CScott [place] [phone] Performed By: #### L UPUSP ####[address] [place] [phone] IgM Cardiolipin Ab. <9 Normal 0-11 [facility] Comment on above: Result Comment: <12 MPL [id number] MPL Equivocal>40 MPL PositiveThe following results were obtained with the [employer] QUANTA Lite MARIO IgM III JOVITA. Cardiolipin IgM values obtained with different manufacturers' assay methods may not be used interchangeably. The magnitude of the reported IgM levels cannot be correlated to an endpoint titer. Performed By: #### P RCFUN, AT3ASY, HOMCYS, B2GPGM, CARDIO ####[facility] [address]CCharles [place] [address] Performed By: #### L UPUSP ####[facility] [place] [phone] Factor V Leiden PCRon 2016 FV Leiden Report (NOTE) Normal [facility], [facility] Comment on above: Result Comment: [facility] Pathologist: Hong Maldonado M.D.Interpretation:Factor V Leiden Mutation [...] hybridization probes. Performed By: #### F VLEI ####[address] [phone] Homocysteine, Serumon 2016 Homocysteine, Serum 16.2 umol/L High 7.4-15.7 [facility] Comment on above: Performed By: #### P RCFUN, AT3ASY, HOMCYS, B2GPGM, CARDIO ####[address] [address] [place], [place] [phone] Lupus Anticoag Panelon 07-25 aPTT 32.7 s High 23.0-32.4 [facility] Comment on above: Result Comment: Unfr [...] laboratory APTT reagent in use throughout the [facility]. Performed By: #### L UPUSP ####[facility] [place], [place] [phone] aPTT 43.6 s High 24.4-33.4 [facility] Comment on above: Performed By: #### L UPUSP ####[facility] [place], [place] [phone] aPTT This test is credite d due to interference with anti Xa inhibitor drug. Normal <37.3 [facility] Comment on above: Performed By: #### L UPUSP ####[facility] [address] [place] [phone] DRVVT 1:1 Mix This test is credite d due to interference with anti Xa inhibitor drug. Normal 32.7-46.7 [facility] Comment on above: Performed By: #### L UPUSP ####[facility] [phone] DRVVT Confirm Ratio This test is credite d due to interference with anti Xa inhibitor drug. Normal <1.21 [facility] Comment on above: Performed By: #### L UPUSP ####[address] [phone] DRVVT Screen This test is credite d due to interference with anti Xa inhibitor drug. Normal 32.7-46.7 [facility] Comment on above: Performed By: #### L UPUSP ####[facility] [place] [phone] Hex Phase Confirm This test is credite d due to interference with anti Xa inhibitor drug. Normal 45.1-64.1 [facility] Comment on above: Performed By: #### L UPUSP ####[place] [address] [phone] Hex Phase Delta This test is credite d due to interference with anti Xa inhibitor drug. Normal <9.0 [facility] Comment on above: Performed By: #### L UPUSP ####[facility] [address] [phone] Hex Phase Screen This test is credite d due to interference with anti Xa inhibitor drug. Normal 48.9-70.2 [facility] Comment on above: Performed By: #### L UPUSP ####[facility] [phone] IgA Cardiolipin Ab. <9 Normal 0-11 [facility] Comment on above: Result Comment: <12 APL [id number] APL Equivocal>40 APL PositiveThe following results were obtained with an [employer] QUANTA Lite MARIO IgA III JOVITA. Cardiolipin IgA values obtained with different manufacturers' assay methods may not be used interchangeably. The magnitude of the reported IgA levels cannot be correclated to an endpoint titer. Performed By: #### L UPUSP ####[address] [place], [place] [phone] Performed By: #### P RCFUN, AT3ASY, HOMCYS, B2GPGM, CARDIO ####[address] [place], [place] [phone] INR Coag RelTime (Bld) 1.2 {INR} Normal 0.9-1.3 [facility] Comment on above: Result Comment: Ashley min K Antagonist (VKA) Therapeutic Range: INR 2 to 3 (Target INR of 2.5)Note: For patients treated with VKA drugs, such as warfarin, the [place] [employer] 2012 Guideline recommends [...] of 3).Dirk GH, et al. Chest 2012, 141:7S-47SNishimfrida RA, et al. [facility] 2017, 70: 252-289 Performed By: #### L UPUSP ####[address] [place], [place] [phone] Interpretation (NOTE) Normal [facility] Comment on above: Result Comment: Perf [...] 74:1185 (1994). Performed By: #### L UPUSP ####[facility] [address] [place], [place] [phone] PNP This test is credite d due to interference with anti Xa inhibitor drug. Critically abnormal Negative [facility] Comment on above: Performed By: #### L UPUSP ####[facility] [address] AveCMantua, [place] [phone] PT Sec 12.4 sec Normal 9.7-13.0 [facility] Comment on above: Performed By: #### L UPUSP ####[facility] [address] [place], [place] [phone] Thrombin Time 16.8 sec Normal <18.6 [facility] Comment on above: Performed By: #### L UPUSP ####[facility] [address] [place], [place] [phone] PROGRESSon 07-25-2017 PROGRESS HNO ID: [id number] thor: Vilma Escobar Maci: (none)Author Type: PhysicianType: Progress NotesFiled: 07/26/2017 11:34 PMNote Text:PATIENT NAME: Tai Hubbard: [id number] PHYSICIAN: Damon Yost DO[address] [facility] [address]IYPTNEJ CARE PHYSICIAN: Damon Yost DOOTHER PHYSICIANS:CHIEF COMPLAINT: Embolism and thrombosis (hcc) (primary encounterdiagnosis)[place]entia l (primary) hypertensionRecurrent deep vein thrombosis (dvt) (hcc)ASSESSMENT/PLAN:(I74.9 ) Embolism and thrombosis (HCC) (primary encounter diagnosis)(I10) Essential (primary) hypertension(I82.409) Recurrent deep vein thrombosis (DVT) (HCC)Multiple recurrent DVT. Will require lifelong anticoagulation. There ismore data to support coumadin and patient has problems financially withxarelto. Change to coumadin and [place] [facility] will follow.For chronic lower extremity pain, he will be referred to Dr. Sylvia Marroquin to see if any procedural approach to venous insufficiency ispotential.Will also send hypercoag workup as below.Visit (SP) Office on 07/25/17-FACTOR V LEIDEN/PCR-LUPUS ANTICOAG PL-PROTEIN C FUNCT-PROTEIN C FUNCT-ANTITHROMBIN III-B 2 GPI IGG AND IGM-PROTHROMBIN GENE EBS-ZYQL-VWZEYNAXMAE AB-HOMOCYSTEINE SERUM-CONSULT TO VASCULAR SURGERY-ANTICOAG/COUMADIN CLINIC PHARM-warfarin (COUMADIN) 5 mg tablet Return in about 6 months (around 01/22/2018), or change from xarelto tocoumadin. f/u in 6 months. labs today., for coumadin clinic referral.vascular surgery [place] in [place] referral. page Dr. Yost. . HISTORY OF [...] best of his knowledge.July 25, 2017He works [employer] at [employer]. He stands all day. He wearsbilateral compression [...] above; and my recommendations listed below. The patientJoseph Amber verbalized understanding and agreed with theserecommendations and plan. I answered all questions satisfactorily..Angelo Caraballo D.O.Medical OncologistFluvanna, [place] Normal [facility] Protein C Functionalon 07-25 Protein C Functional 146 % Normal 76-147 [facility] Comment on above: Performed By: #### P RCFUN, AT3ASY, HOMCYS, B2GPGM, CARDIO ####[address] [place], [place] [phone] Prothrombin Gene PCRon 07-25 PT Gene Report (NOTE) Normal [facility] Comment on above: Result Comment: [facility] Pathologist: Heather HarrisaInterpretation:PT Gene Mutation Result: NORMALPT Gene Mutation Interpretation: The DNA sample is negative for [id number] point mutation in the 3' untranslated region of theprothrombin gene.This is not associated with an increased risk ofvenous thrombosis.Venous thrombosis is a multifactorial disorder, andother causes of venous thrombosis are not excluded.PT Gene Mutation Method: This assay was performed by polymerase chainreaction and fluorescence monitoring using hybridization probes. Performed By: #### P TGEN ####[facility] [place], [place] [phone] Vital Signs Date Time Vital Sign Value Performing Clinician Cary beavers 06-03-2023 13:29-0400 Body temperature 98.06 [degF] [facility] 06-03-2023 13:29-0400 Diastolic blood pressure 87 mm[Hg] [facility] 06-03-2023 13:29-0400 Heart rate 74 /min [facility] 06-03-2023 13:29-0400 Respiratory rate 20 /min [facility] 06-03-2023 13:29-0400 SaO2% (BldA) [Mass fraction] 96 % [facility] 06-03-2023 13:29-0400 Systolic blood pressure 152 mm[Hg] [facility] 02-17-2023 07:47-0400 Body temperature 97.88 [degF] Ernie Daly [facility] 02-17-2023 07:47-0400 Diastolic blood pressure 103 mm[Hg] Ernie Daly [facility] 02-17-2023 07:47-0400 Heart rate 84 /min Ernie Daly [facility] 02-17-2023 07:47-0400 Respiratory rate 16 /min Ernie Daly [facility] 02-17-2023 07:47-0400 SaO2% (BldA) [Mass fraction] 95 % Ernie Daly [facility] 02-17-2023 07:47-0400 Systolic blood pressure 153 mm[Hg] Ernie Daly [facility] 08-12-2022 09:27-0400 Body temperature 98.78 [degF] Ernie Daly [facility] 08-12-2022 09:27-0400 Diastolic blood pressure 101 mm[Hg] Ernie Daly [facility] 08-12-2022 09:27-0400 Heart rate 81 /min Ernie Daly [facility] 08-12-2022 09:27-0400 Respiratory rate 18 /min Ernie Daly [facility] 08-12-2022 09:27-0400 SaO2% (BldA) [Mass fraction] 95 % Ernie Daly [facility] 08-12-2022 09:27-0400 Systolic blood pressure 179 mm[Hg] Ernie Daly [facility] 03-19-2022 09:03-0400 Blood Pressure Location Teena Cervantes [facility] 03-19-2022 09:03-0400 Diastolic blood pressure 79 mm[Hg] Teena Kayean [facility] 03-19-2022 09:03-0400 Heart rate 73 /min Teena Billy [facility] 03-19-2022 09:03-0400 Respiratory rate 16 /min Teena Billy [facility] 03-19-2022 09:03-0400 SaO2% (BldA) [Mass fraction] 95 % Teena Billy [facility] 03-19-2022 09:03-0400 Systolic blood pressure 122 mm[Hg] Teena Billy [facility] 03-05-2022 08:52-0400 Body temperature 98.06 [degF] Aashish Moe [facility] 03-05-2022 08:52-0400 Diastolic blood pressure 96 mm[Hg] Aashish Moe [facility] 03-05-2022 08:52-0400 Heart rate 81 /min Aashish Moe [facility] 03-05-2022 08:52-0400 Respiratory rate 18 /min Aashish Moe [facility] 03-05-2022 08:52-0400 SaO2% (BldA) [Mass fraction] 96 % Aashish Moe [facility] 03-05-2022 08:52-0400 Systolic blood pressure 182 mm[Hg] Aashish Moe [facility] Encounters Encounter Date Encounter Type Care Provider Facility Start: 11-08-2023 ambulatory Meghan Hernández [place] [facility] Start: 06-10-2023 End: 06-11-2023 ambulatory Aura Hernandez [place] Start: 06-10-2023 End: 06-10-2023 Patient encounter procedure Aura Hernandez [facility] Start: 06-03-2023 End: 06-03-2023 Emergency department patient visit Wilber Sudarshan Dottie [facility] Start: 06-03-2023 End: 06-03-2023 Emergency department patient visit [facility] Sudarshan Beaditi [facility] Start: 03-29-2023 End: 03-30-[address] MONIKA HOUSER Facility: Start: 03-18-2023 End: 03-19-2023 ambulatory DEEP DE SOUZA Facility: Start: 02-17-2023 End: 02-17-2023 Emergency department patient visit Ernie Daly [place] Start: 02-17-2023 End: 02-17-2023 Emergency department patient visit Ernie Daly [facility] Start: 11-16-2022 ambulatory Meghan Hernández [facility] [facility] Start: 10-23-2022 End: 10-23-2022 Patient encounter procedure Aura Hernandez [facility] Start: 08-22-2022 End: 08-22-2022 Patient encounter procedure Deep De Souza [facility] Start: 08-22-2022 ambulatory Facility:1 9637 Start: 08-12-2022 End: 08-12-2022 Emergency department patient visit Ernie Daly [facility] Start: 07-25-2022 End: 07-25-2022 Patient encounter procedure Aura Hernandez [facility] Start: 06-25-2022 End: 06-25-2022 Lab Drop off Deep De Souza [facility] Start: 03-30-2022 End: 05-15-2022 Pre-admission assessment Teena Cervantes [facility] Start: 03-23-2022 End: 06-21-2022 Recurring RICHARD DAMIAN [facility] Start: 03-19-2022 End: 03-19-2022 Patient encounter procedure Teena Cervantes [facility] Start: 03-05-2022 End: 03-05-2022 Emergency department patient visit Aashish Moe [facility] Start: 11-17-2021 End: 02-16-2022 Patient encounter procedure Aura Hernandez [facility] Start: 02-10-2018 End: 02-12-2018 Ambulatory FRANK WARD [facility] Start: 02-03-2018 End: 02-06-2018 Ambulatory FRANK WARD [facility] Start: 07-25-2017 End: 07-29-2017 Ambulatory VILMA Shawn CARABALLO [facility] Procedures Date Procedure Procedure Detail Performing [...] Hernandez Payers Date Payer Category Payer Unknown [id number] [id number] 1970 Unknown [id number] 2.16.84 [id number] 1972 Unknown [id number] 2.16.84 [id number] 1972 Unknown [id number] 2.16.8 [id number] 1972 Unknown [id number] 2.16.8 [id number] 1972 Unknown [id number] 2.16.8 [id number] 1972 Unknown [id number] 2.16.8 [id number] 1972 Unknown [id number] 2.16.8 [id number] 1957 Medicaid [id number] 1957 Medicare [id number] Medicaid Social History Date Type Detail Facility Start: 10-31-2020 Tobacco smoking status Never s moked tobacco (finding) [facility] Sex Assigned At Male [facility] Functional Status Date Assessment Result Facility 06-03-2023 Functional Status N/A [facility] 02-17-2023 Functional Status N/A [facility] 08-12-2022 Functional Status N/A [facility] Clinical Notes 11-18-2021 to 06-03-2023 Note Date [...] Follow these instructions at home: Medicines Take hjoz-dwh-yodikqh and prescription medicines only as told by [...] pain is severe. ?Do not take other tgtp-ytp-taefsak pain medicines in addition to prescription pain [...] grains, and fresh fruits and vegetables. ?Take gbis-pxj-zxgpkby or prescription medicines. ?Limit foods that are [...] or you are no longer ill. Take nudh-ibc-otwyelc and prescription medicines only as told by [...] provider. Document Revised: 03/07/2020 Document Reviewed: 03/07/2020 [employer] Patient Education 2022 [employer]. 06/03/2023 13:52:39 Back Exercises, Tzob-da-Aukk Back Exercises These exercises help to make [...] provider. Document Revised: 01/03/2022 Document Reviewed: 01/03/2022 [employer] Patient Education 2022 [employer]. 06/03/2023 13:52:39 Sciatica Rehab-SportsMed Sciatica Rehab Ask [...] by your health care provider. 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 Document Revised: 02/12/2020 Document Reviewed: 11/12/2019 [employer] Patient Education 2022 [employer] Follow Up Care 06/03/2023 13:24:29 With:Aura Hernandez Address: [address] [place] [address] Business (1) When:06/06/2023 13:45:03 Comments:Follow-up with your primary care provider in 3 to 5 days. If symptoms worsen, do not improve, or new symptoms arise please report back to emergency department for further evaluation. [facility] 06-03-2023 Evaluation + Plan note Extrac cleopatra from: Title:ED Note Author:Omar Infante PA-C te:06/03/23 Low back pain with right-marcelo ed sciatica (M54.41: Lumbago with sciatica, right side) Orders: methocarbamol, 1,000 mg = 2 tab(s), Oral, QID, X 10 day(s), # 80 tab(s), Refills(s) 0, Pharmacy: [facility] #[id number], 198, cm, 02/17/23 7:52:00 EDT, Height/Length Dosing, 136.5, kg, 06/03/23 13:31:00 EDT, Weight Dosing tramadol, 50 mg = 1 tab(s), Oral, q6hr, PRN for pain, X 3 day(s), # 18 tab(s), Refills(s) 0, Pharmacy: [facility] #[id number], 198, cm, 02/17/23 7:52:00 EDT, Height/Length Dosing, 136.5, kg, 06/03/23 13:31:00 EDT, Weight Dosing Future Appointments Appointment Date:06/28/2023 09:30:00 AM Scheduled Provider: Location:FT.CARDIO Appointment Type:Anticoagulation Follow Up 15 (FT) [facility]04-16-2023 Evaluation + Plan noteExtracted from: Title:ED Note [...] day(s), # 28 cap(s), Refills(s) 0, Pharmacy: [facility] #[id number], 198, cm, 02/17/23 7:52:00 EDT, Height/Length Dosing, 136, kg, 02/17/23 7:52:00 EDT, Weight Dosing cephalexin, 500 mg = 1 cap(s), Oral, QID, X 7 day(s), # 28 cap(s), Refills(s) 0, Pharmacy: [facility]/pharmacy #[id number], 198, cm, 02/17/23 7:52:00 EDT, Height/Length [...] Location:FT.CARDIO Appointment Type:Anticoagulation Follow Up 15 (FT) [facility]04-16-2023 Hospital Discharge instructions Patient Education 02/17/2023 08:36:24 [...] instructions at home: Medicines Take or apply hjil-pcv-lsdubxq and prescription medicines only as told by [...] and water are not available, use hand sales ambassador. ?Change your dressing as told by your [...] every day for signs of infection. Take dmde-mbf-zkumnux and prescription medicines only as told by your health care provider. Keep all follow-up visits as told by your health care provider. This is important. This information is not intended to replace advice given to you by your health care provider. Make sure you discuss any questions you have with your health care provider. Document Released: 07/16/2002 Document Revised: 06/18/2019 Document Reviewed: 06/18/2019 [employer] Patient Education 2020 [employer] Follow Up Care 02/17/2023 07:44:15 With:[facility]: [facility]- [phone] Address:Unknown When:02/20/2023 08:19:13 With:Aura Hernandez Address: [address] [place] [phone] [employer] (1) When:Within 3 Day(s) [facility]10-09-2022 Evaluation + Plan noteExtracted from: Title:ED Note Author:Naresh SETH, Omar Serrano te:08/12/22 Right-sided low back pain wi thout sciatica (M54.50: Low back pain, unspecified) Orders: diclofenac topical, 1 nacho, Topical, QID for pain, 100 gram, Refill(s) 0, [facility] #[id number], 198, cm, 08/12/22 9:37:00 EDT, Height/Length Dosing, 140, kg, 08/12/22 9:37:00 EDT, Weight Dosing lidocaine topical, 1 patch(es), Topical, Daily, 7 patch(es), Refill(s) 0, apply 12 hours on and 12 hours off daily, [facility] #[id number], 198, cm, 08/12/22 9:37:00 EDT, Height/Length Dosing, 140, kg, 08/12/22 9:37:00 EDT, Weight Dosing Future Scheduled Tests Laboratory* COVID-19 ([facility] 11/18/21 [facility]10-09-2022 Hospital Discharge instructions Patient Education 08/12/2022 10:15:52 [...] Follow these instructions at home: Medicines Take pnsa-fzq-nosjcpr and prescription medicines only as told by your health care provider. Ask your health care provider if the medicine prescribed to you: ?Requires you to avoid driving or using heavy machinery. ?Can cause constipation. You may need to take these actions to prevent or treat constipation: ?Drink enough fluid to keep your urine pale yellow. ?Take nhrj-klq-ujcurvj or prescription medicines. ?Eat foods that are [...] 10/15/2002 Document Revised: 11/09/2019 Document Reviewed: 11/09/2019 [employer] Patient Education 2020 [employer] 08/12/2022 10:15:52 Back Exercises Back Exercises The [...] back becomes more flexible: 1.Get into a nqqjm-ale-ezgwx position on a firm surface. Keep your [...] 11/28/2005 Document Revised: 02/25/2020 Document Reviewed: 07/23/2019 [employer] Patient Education 2019 [employer]. Follow Up Care 08/12/2022 09:24:19 With:Aura Hernandez Address: [address] [facility] [address] [employer] (1) When:08/15/2022 09:59:56 Comments:Follow-up with your primary care provider in 3 to 5 days. If symptoms worsen, do not improve, or new symptoms arise please report back to emergency department for further evaluation. [facility]05-16-2022 Hospital Discharge instructions Follow Up Care 03/19/2022 08:03:09 With:Brock Mercer Fpc: [phone] Address:Unknown When: Unknown [facility]05-02-2022 Hospital Discharge instructions Patient Education 03/05/2022 10:08:57 [...] what medicines you take. General instructions Take ylxl-jne-rdrpbst and prescription medicines only as told by [...] 10/21/2006 Document Revised: 10/03/2018 Document Reviewed: 03/21/2018 [employer] Patient Education 2020 [employer]. Follow Up Care 03/05/2022 08:50:19 With:Teena Cervantes Address: [address] [place] [address]- Business (1) When:03/08/2022 10:03:09 With:Deep De Souza Address: [facility] [address] [place] [address]- 0 Business (1) When:03/08/2022 10:03:06 [facility]01-15-2022 Evaluation + Plan note Future Scheduled Tests Laboratory* COVID- [place] [facility] Future Appointments Appointment Date:03/09/2022 09:00:00 AM Scheduled Provider: Location:FT.CARDIO Appointment Type:Anticoagulation Follow Up 15 (FT) Future Scheduled Tests Laboratory* COVID- ([facility]18[facility] Future Appointments Appointment Date:03/30/2022 08:00:00 AM Scheduled Provider: Location:FT.CARDIO Appointment Type:Anticoagulation Follow Up 15 (FT) Future Scheduled Tests Laboratory* COVID-19 ([facility] 11/18/21 Radiology* US LE Venous Duplex Insufficiency Right 03/19/22 * US PVR Lower EXT Complete Bilat 03/19/22 [facility] Future Appointments Appointment Date:05/18/2022 08:00:00 AM Scheduled Provider: Location:FT.CARDIO Appointment Type:Anticoagulation Follow Up 15 (FT) Future Scheduled Tests Laboratory* COVID-19 ([facility] [facility]18/21 [facility] Future Appointments Appointment Date:07/10/2022 08:45:00 AM Scheduled Provider: Location:FT.CARDIO Appointment Type:Anticoagulation Follow Up 15 (FT) Future Scheduled Tests Laboratory* COVID-19 [place] [facility]18/21 [facility] Future Appointments Appointment Date:08/03/2022 07:45:00 AM Scheduled Provider: Location:FT.CARDIO Appointment Type:Anticoagulation Follow Up 15 (FT) Future Scheduled Tests Laboratory* COVID-19 ([facility] 11[facility]18/21 [facility] Future Appointments Appointment Date:11/16/2022 03:30:00 PM Scheduled Provider: Location:FT.CARDIO Appointment Type:Anticoagulation Follow Up 15 (FT) Future Scheduled Tests Laboratory* COVID-19 ([facility] 11[facility]18/21 [facility] Future Appointments Appointment Date:06/28/2023 09:30:00 AM Scheduled Provider: Location:FT.CARDIO Appointment Type:Anticoagulation Follow Up 15 (FT) [facility] course Narrative No data available for this section [facility] Discharge instructions No data available for this section [facility] No data available for this section [facility] Summary Purpose Family History No Family History [...] section and content) DATE CREATED AUTHOR 04/24/2018 [facility] DATE CREATED AUTHOR AUTHOR'S ORGANIZ ATION 01/27/2019 [facility] DATE CREATED AUTHOR AUTHOR'S ORGANIZ ATION 05/03/2022 [facility] DATE CREATED AUTHOR AUTHOR'S ORGANIZ ATION 11/13/2022 [facility] DATE CREATED AUTHOR AUTHOR'S ORGANIZ ATION 04/12/2023 [facility] DATE CREATED AUTHOR AUTHOR'S ORGANIZ ATION 11/09/2023 [facility] Care Team (unrecognized sect ion and content) Personnel Name: Aura Hernandez MD Address: [address] [place] [address] Name: Meghan Alarcon MA Name: Serenity Lakhani Personnel Name: Aura Hernandez MD Address: [address] [place] [address] Name: Meghan Alarcon MA Name: Serenity Lakhani Personnel Name: Aura Hernandez MD Address: [address] [place] [address] Name: Meghan Alarcon MA Name: Serenity Lakhani Personnel Name: Aura Hernandez MD Address: [address] [place] [address] Name: Meghan Alarcon MA Name: Serenity Lakhani Personnel Name: Aura Hernandez MD Address: Address: [address] [place] [address] Name: Meghan Alarcon MA Name: Serenity [facility] Personnel Name: Aura Hernandez MD Address: Address: [address] [place] [address] Name: Meghan Alarcon MA Name: Serenity Lakhani Personnel Name: Aura Hernandez MD Address: Address: [address] [place] [address] Name: Meghan Alarcon MA Name: Serenity Lakhani Personnel Name: Aura Hernandez MD Address: Address: [address] [place] [address] Name: Meghan Alarcon MA Name: Serenity Lakhani Personnel Name: Aura Hernandez MD Address: Address: [address] [place] [address] Name: Meghan Alarcon MA Name: Serenity Lakhani Personnel Name: Aura Hernandez MD Address: Address: [address] [place] [address] Name: Meghan Alarcon MA Name: Serenity Lakhani FOR RECORDS PERTAINING TO [...] BE BASED ON THE PRIMARY CLINICAL RECORDS. [facility] [employer] [facility]. provides no warranty or guarantee of the accuracy or completeness of information in this document.
== END 2023-11-15 08:07 | disposition home or self-care (01) ==
LOC: VC 08:06
PROVIDERS: PCP Radiology Diagnostic Radiology; Visit Provider Radiology Diagnostic Radiology
DX: I80.01 Phlebitis and thrombophlebitis of superficial vessels of right lower extremity (principal)
CPT/HCPCS: 93971; G0463

== ENCOUNTER 2023-11-27 07:43 | Outpatient (OUT) | payer MEDICARE, MEDICAID, SELFPAY ==
--- OUTSIDE RECORDS SUMMARY | 2023-11-27 07:45 | XMS_ITS | CCD ---
Author Name Unknown Address [address] [place] [address] Organization [facility] Care Team Providers Care Card Checker Name Role Phone VILMA CARABALLO Unavailable Unavailable DAMON STARK Unavailable Unavailable VILMA CARABALLO Unavailable Unavailable FRANK CHAVEZ Unavailable Unavailable VILMA CARABALLO Unavailable Unavailable FRANK CHAVEZ Unavailable Unavailable AURA JOSEPH Unavailable Unavailivan e Aura Joseph Primary Care Physician [phone] Meghan Alarcon Unavailable Unavailable Serenity Lakhani Unavailable Unavailable CORRINA, DR MONIKA Rodriguez Consulting Unavailable CORRINA, DR MONIKA Rodriguez Admitting Unavailable CORRINA, DR MONIKA Rodriguez Attending Unavailable DEEP DE SOUZA Attending Unavailable DEEP DE SOUZA Admitting Unavailable CORRINA, DR MONIKA Rodriguez Consulting Unavailable RONALD, DR SALONI Chavira Consulting Unavailable DEEP DE SOUZA Consulting Unavailable Aura Joseph Admitting Unavailable Aura Joseph Attending Unavailable Ernie Daly Attending Unavailable Wilber Sinclair Attending Unavailable Meghan Hernández Attending Unavailable Meghan Hernández Referring Unavailable Meghan Hernández Admitting Unavailable Meghan Hernández Admitting Unavailable Meghan Hernández Attending Unavailable Meghan Hernández Referring Unavailable AURA JOSEPH Attending Unavailable Medications Current Medications Medication Drug Class(es) Dates Sig (Normalized) Sig (Original) acetaminophen 325 mg / oxyCODONE hydrochloride 5 mg oral tablet (1 source) Opioid Agonist Start: 03-05-2022 End: 03-08-2022 Percocet 325 mg-5 mg Tab 1 tab(s), Oral, q6hr as needed for pain for 3 day(s), 12 tab(s), Refill(s) 0, [facility] #[id number], 198, cm, 03/05/22 8:56:00 EDT, Height/Length Dosing, [...] day(s), # 28 cap(s), Refills(s) 0, Pharmacy: [facility]/pharmacy #[id number], 198, cm, 02/17/23 7:52:00 EDT, Height/Length Dosing, 136, kg, 02/17/23 7:52:00 EDT, Weight Dosing Start Date: 02/17/23 Stop Date: 02/24/23 Status: Ordered Start: 02-17-2023 End: 02-24-2023 take 1 capsule by mouth every six hours Keflex 500 mg Cap 500 mg = 1 cap(s), Oral, q6hr, X 7 day(s), # 28 cap(s), Refills(s) 0, Pharmacy: [facility] #[id number], 198, cm, 02/17/23 7:52:00 EDT, Height/Length Dosing, [...] QID for pain, 100 gram, Refill(s) 0, [facility] #[id number], 198, cm, 08/12/22 9:37:00 EDT, Height/Length Dosing, [...] hours on and 12 hours off daily, [facility] #[id number], 198, cm, 08/12/22 9:37:00 EDT, Height/Length Dosing, 140, kg, 08/12/22 9:37:00 EDT, Weight Dosing Start Date: 08/12/22 Status: Ordered methocarbamol 500 mg oral tablet (2 sources) Muscle Relaxant Start: 06-03-2023 End: 06-13-2023 take 2 tablets by mouth four times daily Robaxin 500 mg Tab 1,000 mg = 2 tab(s), Oral, QID, X 10 day(s), # 80 tab(s), Refills(s) 0, Pharmacy: [facility]/pharmacy #[id number], 198, , 02/17/23 7:52:00 EDT, Height/Length [...] day(s), # 18 tab(s), Refills(s) 0, Pharmacy: [facility]/pharmacy #[id number], 198, , 02/17/23 7:52:00 EDT, Height/Length [...] Start: 11-17-2019 take 1 capsule by mo [facility] once daily potassium chloride 10 mEq Cap-ER [...] and due to atherosclerosis; Translations: [Atherosclerosis of robinson arteries of extremities with rest pain, right [...] Facility Consent for Treatmenton Consent for Treatment [id number] Normal [facility] POCT PT/INRon 11-08-2023 POCT INR 1.4 High .7-1.2 [facility] Comment on above: Performed By: #### 2 [id number] #### [facility] [address] [place] [address] POCT PT 15.7 second(s) High 8.0-15.0 [facility] Comment on above: Performed By: #### 2 [id number] #### [facility] [address] [place] [address] POCT PT/INRon 09-27-2023 POCT INR 4.0 High .7-1.2 [facility] Comment on above: Performed By: #### 2 [id number] #### [facility] [address] [place] [address] POCT PT 38.9 second(s) High 8.0-15.0 [facility] Comment on above: Performed By: #### 2 [id number] #### [facility] [address] [place] [address] POCT PT/INRon 09-17-2023 POCT INR 4.0 High .7-1.2 [facility] Comment on above: Performed By: #### 2 [id number] #### [facility] [address] [place] [address] POCT PT 41.8 second(s) High 8.0-15.0 [facility] Comment on above: Performed By: #### 2 [id number] #### [facility] [address] [place] [address] POCT PT/INRon 09-06-2023 POCT INR 1.5 High .7-1.2 [facility] Comment on above: Performed By: #### 2 [id number] #### [facility] [address] [place] [address] POCT PT 17.1 second(s) High 8.0-15.0 [facility] Comment on above: Performed By: #### 2 [id number] #### [facility] [address] [place] [address] POCT PT/INRon 08-16-2023 POCT INR 4.1 High .7-1.2 [facility] Comment on above: Performed By: #### 2 [id number] #### [facility] [address] [facility] [place] [address] POCT PT 42.9 second(s) High 8.0-15.0 [facility] Comment on above: Performed By: #### 2 [id number] #### [facility] [address] [facility] [place] [address] POCT PT/INRon 06-28-2023 POCT INR 2.5 High .7-1.2 [facility] Comment on above: Performed By: #### 2 [id number] ####[facility] [address] [facility] [place] [address] POCT PT 27.5 second(s) High 8.0-15.0 [facility] Comment on above: Performed By: #### 2 [id number] ####[facility] [address] [facility] [place] [address] POCT INR Error Invalid Interpretation Code .7-1.2 [facility] Comment on above: Performed By: #### 2 [id number] #### [facility] [address] [facility] [place] [address] POCT PT Strip Error Invalid Interpretation Code 8.0-15.0 [facility] Comment on above: Performed By: #### 2 [id number] #### [facility] [address] [facility] [place] [address] XR Pelvis 1 or 2 Viewson XR [...] findings of concern identified. Ordering Provider: Aura Joseph FINAL REPORT Dictated: 06/11/2023 3:37 pm Mike Carlos MD Signed (Electronic Signature): 06/11/2023 3:37 pm Signed by: Mike Carlos MD Transcribed by: CARLA Technologist: DREW Technical Comments Radiation Dose: Ka,r in mGy = na DAP = na Normal [facility] XR Spine Lumbosacral Minimum 4 Viewson [...] sacroiliac joints are unremarkable. Ordering Provider: Aura Joseph FINAL REPORT Dictated: 06/11/2023 3:33 pm Mike Carlos MD Signed (Electronic Signature): 06/11/2023 3:33 pm Signed by: Mike Carlos MD Transcribed by: CARLA Technologist: DREW Technical Comments Radiation Dose: Ka,r in mGy = na DAP = na [facility] Consent for Treatmenton -0 Consent for Treatment [id number]:127 Normal [facility] Physician Orderon 06-10-2023 Physician Order [id number]#1.00CD:127 Normal [facility] Consent for Treatmenton 05-06 Consent for Treatment [id number]:127 [facility] Discharge Instructionson Discharge Instructions [id number]#[id number]:127 [facility] ED Clinical Summaryon 2022 ED Clinical Summary (Inserted Image. [place] ble to display) [place] [id number] ED Clinical Summary Person Information Name: TAI CLARK [facility] Age: 52 Years : 1970 Sex: Male Language: Mauritian PCP: Aura Joseph MD Marital Status: Phone: [phone] MRN: Visit Id: Visit Reason: Back pain; [...] ADDRESS: [address] [facility] [id number] PHYS DOC NOTES: MEDICAL INFORMATION: Prescriptions Given: New Medications [facility] #[id number], [address] [place], [place] [id number], [phone] methocarbamol (Robaxin 500 mg Tab) 2 Tablets [...] INFORMATION: Instructions: Acute Pain, Adult; Back Exercises, Rcdf-wc-Flls; Sciatica Rehab-SportsMed Follow up: With: Address: When: [place] [address] tydy (1cashcloud In 3 days 06/06/2023 Comments: Follow-up with your primary care provider in 3 to 5 days. If symptoms worsen, do not improve, or new symptoms arise please report back to emergency department for further evaluation. DIAGNOSIS: Low back pain with right-sided sciatica Normal [facility] ED Note-Physicianon 06-03-20 ED Note-Physician Basic Information Time Seen: Naresh SETH, Omar Escobar. 06/03/2023 13:31 Chief Complaint [...] and Complexity of Problems Differential Diagnosis: [] [facility] Data External documents reviewed: [] My EKG [...] # 80 tab(s), Refills(s) 0, Pharmacy: [id number], 198, cm, 02/17/23 7:52:00 EDT, Height/Length Dosing, 136.5, kg, 06/03/23 13:31:00 EDT, Weight Dosing tramadol, 50 mg = 1 tab(s), Oral, q6hr, PRN for pain, X 3 day(s), # 18 tab(s), Refills(s) 0, Pharmacy: [facility]/pharmacy #[id number], 198, cm, 02/17/23 7:52:00 EDT, Height/Length Dosing, 136.5, kg, 06/03/23 13:31:00 EDT, Weight Dosing Disposition Plan Patient Discharge Condition Stable Discharge Disposition To home Discharge Prescription List Prescriptions Robaxin 500 mg Tab, 1000 mg= 2 tab(s), Oral, QID traMADOL 50 mg Tab, 50 mg= 1 tab(s), Oral, q6hr, PRN Follow-up With When Contact Information Aura Joseph In 3 days 06/06/2023 EDT [address] [place] [address] [facility] (1) Additional Instructions: Follow-up with your primary care provider in 3 to 5 days. If symptoms worsen, do not improve, or new symptoms arise please report back to emergency department for further evaluation. Patient Education Acute Pain, Adult Back Exercises, Bwew-sf-Okuo Sciatica Rehab-SportsMed Attestation Patient seen and evaluated by the physician operational assistant. Attending physician was present in the emergency department and supervised care. This visit was performed by both the physician and an APC. I performed all aspects of the MDM as documented. This report was transcribed using voice recognition software. Every effort was made to ensure accuracy, however, inadvertently computerized animal assisted therapist mistakes may be present. Appropriate healthcare PPE was used in evaluating this patient. The patient was placed in a mask. The heal (more content not included)... Normal [facility] Comment on above: Result Comment: Elec [...] these instructions at home: Medicines ? Take mmqq-dzd-ymuoclh and prescription medicines only as told by [...] is severe. ? Do not take other edlk-rdp-rdzjohj pain medicines in addition to prescription pain [...] and fresh fruits and vegetables. ? Take agez-wzg-youxypz or prescription medicines. ? Limit foods that [...] you are no longer ill. ? Take bocn-khr-llwdbmt and prescription medicines only as told by [...] provider. Document Revised: 03/07/2020 Document Reviewed: 03/07/2020 [employer] Patient Education ? 2022 [employer] Back Exercises These exercises help to [...] exercises more (more content not included)... Normal [facility] ED Patient Summaryon 023 ED Patient Summary (Inserted Image. [place] ble to display) [address] [address] Patient Discharge Instructions Person Information Name: TAI CLARK Age: 52 Years Arrival Date: 06/03/2023 13:21:59 Discharge Diagnosis: Low back pain with right-sided sciatica Primary Care Physician: Aura Joseph MD Provider Information Primary Provider: Wilber Sinclair M.D. Advanced Creping Machine Operator:None The exam and treatment you received in the Emergency Department were for an urgent problem and are not intended as complete care. It is important that you follow up with a doctor, nurse practitioner, or physician?s operational assistant for ongoing care. If your symptoms become worse or you do not improve as expected and you are unable to reach your usual health care provider, you should return to the Emergency Department. We are available 24 hours a day. TAI CLARK has been given the following list of patient education materials, prescriptions and follow-up instructions: Follow-up Instructions: With: Address: When: [place] [address] [facility] (1) In 3 days 06/06/2023 Comments: Follow-up [...] Education Materials: Acute Pain, Adult; Back Exercises, Fhot-qw-Wxwz; Sciatica Rehab-SportsMed A MESSAGE TO ALL PATIENTS REGARDING OPIOIDS PRESCRIPTION OPIOIDS: WHAT YOU NEED TO KNOW Prescription opioids can be used to help relieve fvipabtd-gr-qlrste pain and are often prescribed following a [...] Visit www.cdc.gov/drugover (more content not included)... Normal [facility] POCT PT/INRon 05-17-2023 POCT INR 2.9 High .7-1.2 [facility] Comment on above: Performed By: #### 2 [id number] ####[facility] [address] [place] [address] POCT PT 31.4 second(s) High 8.0-15.0 [facility] Comment on above: Performed By: #### 2 [id number] ####[facility] [address] [place] [address] POCT PT/INRon 04-19-2023 POCT INR 2.7 High .7-1.2 [facility] Comment on above: Performed By: #### 2 [id number] #### [facility] [address] [place] [address] POCT PT 29.2 second(s) High 8.0-15.0 [facility] Comment on above: Performed By: #### 2 [id number] #### [facility] [address] [place] [address] VC ENDOVENOUS ABL 1ST V LTon 03-29-2023 VC ENDOVENOUS ABL 1ST V LT Patient: TAI CLARK Exam Date: 03/29/2023 : 1970 Gender:M Ordering : DR MONIKA HOUSER M.D. Admission #: [id number] Family : Order #: [id number] CLICK HERE TO VIEW EXAM RADIOLOGY REPORT [...] com (more content not included)... Normal [facility] POCT PT/INRon 03-26-2023 POCT INR 1.8 High .7-1.2 [facility] Comment on above: Performed By: #### 2 [id number] #### [facility] [address] [place] [address] POCT PT 20.1 second(s) High 8.0-15.0 [facility] Comment on above: Performed By: #### 2 [id number] #### [facility] [address] [place] [address] Progress Note-Physicianon Progress Note-Physician Patient: TAI CLARK [...] saphenous vein EVLT His pcp is Dr. Joseph. Tolerating Coumadin well, no change in diet [...] stroke: no 4. Serious co-morbid conditions (recent AL, anemia with Hct <30%, CRI with SCr > 1.5, DM): no Score = 0 /4 Risk (low = 0, mod = 1-2, high = 3-4): Health Status Allergies: Allergic Reactions (Selected) No Known Allergies, Allergies (1) Active Reaction No Known Allergies None Documented Current medications: (Selected) Prescriptions Prescribed Voltaren Gel 1% Gel: 1 nacho, Topical, QID for pain, 100 gram, Refill(s) 0, [facility] #[id number], 198, cm, 08/12/22 9:37:00 EDT, Height/Length Dosing, 140, kg, 08/12/22 9:37:00 EDT, Weight Dosing lidocaine Top 5% film Patch: 1 patch(es), Topical, Daily, 7 patch(es), Refill(s) 0, apply 12 hours on and 12 hours off daily, [facility] #[id number], 198, cm, 08/12/22 9:37:00 EDT, Height/Length Dosing, [...] All Problems Cerebral palsy / SNOMED CT [id number] / Confirmed Healed venous ulcer of lower extremity / SNOMED CT 9326914436 / Confirmed Hallux rigidus of right foot / SNOMED CT 458262274 / Confirmed Umbilical hernia / SNOMED CT 2665275622 / Confirmed Venous insufficiency of right leg / SNOMED CT 474004374 / Confirmed Resolved: DVT - Deep vein thrombosis / SNOMED CT 0638932224 Resolved: Gout / SNOMED CT 438293170 Resolved: HTN (hypertension) / SNOMED CT [id number]-DMS 039II4800 Resolved: Hyperlipidemia / SNOMED CT 21055813, Active Problems (5) Cerebral palsy Hallux rigidus [...] pmhx of (more content not included)... Normal [facility] Comment on above: Result Comment: Elec tronically Signed By: Meghan Yang\.mina\Date and Time Signed: 03/26/23 10:24 EDT VC COMP CONSULTATIONon 03-18 VC COMP CONSULTATION Patient: DANUTA CLARK Exam Date: 03/18/2023 : 1970 Gender:M Ordering : DR DEEP DE SOUZA D.P.M. Admission #: [id number] Family : ARAM SALEH WOUND C Order #: [id number] CLICK HERE TO VIEW EXAM RADIOLOGY REPORT [...] incompetent branch saphenous varicosities, and dilated incompetent deicer finisher veins within the distal lower extremity bilaterally [...] arterial disease 5. CEAP: C6, EC, AP, MI PLAN: 1. Continued use of compression stockings [...] M.D. on 03/18/2023 at 12:04 Normal [facility] VC VENOUS REFLUX ABRAN LMTon 0 03-18-2023 VC VENOUS REFLUX ABRAN LMT Patient: TAI CLARK Exam Date: 03/18/2023 : 1970 Gender:M Ordering : DR DEEP IbarraPKaren Admission #: [id number] Family : CHIU THERESE WOUND C Order #: [id number] CLICK HERE TO VIEW EXAM RADIOLOGY REPORT [...] chronic thrombus visualized Compressibility: Normal Flow: Normal [employer]: Dist/med calf 4.6mm with 1.3s reflux. Dist/med [...] right great saphenous vein. 3. Bilateral, incompetent deicer finisher veins within the distal calf. 4. 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 5. Consultation for endovenous ablation is recommended. Dictated by: Saloni Cavanaugh M.D. on 03/18/2023 at 10:55 Approved by: Saloni Cavanaugh M.D. on 03/18/2023 at 11:54 Normal [facility] Coding Summary.on 02-19-2023 Coding Summary. CD:[id number] Ww+PGhl YWQ+XP9ZIONhM65irYEyrI9bK6O MTElOSywgQVBQTElOSyIgbmFtZT 1kaXNjZXJu IC8+XB1uNQVrZdrdmDNbq3N5jJZ 9G48ewn1iNXlrdCE8YBYqAvCaum xwk2czfMr2BNjgBwweVvVs FSNtgX04EBT5gX51Hj88lUIasRZ ec7mpzMm1VzZrSZEgUQZ4nGzaGA xcb3ExMVVpU78dsAKul6F5 CKAwpXfidRVeQvVuwAW9sO5pRMc xkrita9gscvopPll2ju91oEQtf6 G0gJG2W8DbzwH7AYUypOWu XwwdgCNFhQ1qcjyjd3ycumgzYjU wGQHkFBa6HYb7NPVuvMxvTtOhJH 14IFL0NBKamdXzQ3FnQQCb hJemJoV5q6Z3Br3SY7ISTuzzM6T NTUFSWTwvdGQ+DK65zj79K0PxIk asFkg9VRUnWVP3gHV5wA9a BVCoVZvna9R1wTS9J8KfcgPuuf8 sa1yzNGCiJHddX47xvLMju8N4RF FyzBQ6GCKfpMxtWhWlgY55 Oyc+EAViyIeqf6DwLhltf1pbe2q zyPr4WpzlXRObchYtqLgpYIP8n0 HvQq7bHBSdmGV5fQW1oA9z XiRyKhE0JAntJ088FpQnmENcGpb dX05iD2PznCN+HKTiNhv4XRZnuP soGW3cW0CiXXYwfvzzvGLh dDevGD3aXSFnkpgiTKZlwX5pQLE iB2v2HfBkJuL1SJxgU5TpZBBcqm pyGe74bS7hFxEoLfE9LNsf Y8NcfqC1TPZwyHSnIGylIPV0A12 oh3O9ONJgVLGfUJX6cSZ0vT8qoG lnbjogbGVmdDsgdmVydGlj EXsqJQcrK168NWDuhWlmXzDdQGh uZyBEYXRlOiAgMDQvMTgvMjAyMz wvdGQ+IVXdGIY2qBneCNNh cOUxIGycNq9goCyswHjxPO0nPQX bcklhGGXveI2nFCYcgOZfbOkxVJ 0dTCMufmmdh252WhIdJAS7 PFHqnHSkR1FimE8uGqAgBWCrGGN cO8KulAGyEFofJ526NOnmGcP2WS YkwxMdC4NfMTIehHrsHnF5 a4Z5Yb8Jn1WclqvdO3CayYXkAfH rHmapGHi9M1FiRpeirEG+PC90YW SqPE90VNk4SFQ4jRmpKPty JZOuJ6SokP6vPgBgHPOtGEHfChq +PHRhYmxlIHdpZHRoPScxMDAlJy ZlkGipSR4vLk5dQGJfMVPw rTdzwTEuDdPsq2mlRAZjKSazYR0 xiCvwA8WbySI8UEUww7t2Wz05B6 3sC1DsgTP+NPVboMI2jBD8 gN7yDiUbKhF6VEgaE934LaVpoIH hCcrao2ijz2gqjMj7IuU9KIAjwy KlgPxnGBU4s8BmBj99N05f IHdpZHRoPSIxNSUiIHZhbGlnbj0 myR7uUa9+ZWFkqNC4tML1aL8aZj VmCxV7MRayA040BcGytGWv Wztod7ynk0hclLf3EmOuIREvkhH ciIktPPE3o4ZbKr48K4KkgGmao9 EhHbt0jl25fSQxr0S4qDG6 J7WlCNMtgrmmhMNgsHjzYU2cFXL wspooIIFpsR3zCHGdE5h8DoFiYg A9ODkwO0VsoyB5CCCorREo ZLPmdIPCaJ2ltdyjg0cgfgvnPvD cYHQdDHj1UIi7TLOuhQeoOgVkUU W1WzM8RPM6xENekN4mrYtq ocomlI2pDda+FOX1pVIuiTPXGX7 lOjwvdGQ+YNNaARK3fAhnOEvzUP JxyP0mPXQsT0r1PyOdWrU3 BAggH3QbekK7BCCnpBTlQVBsbZF QaJ8cqfcad8fyxbdtHbJbGHHmMW x1ZNl0LDKpgVhtLlDkZMU3 EhF9SXY8qAOkiZ6wcZrykniadN4 wOyc+WkskjKqhOEC7IEa3X2PuUb d7KBVepEwhNI8qwRWoDPre Dz9yqBfcjXtcGO2hMOGykjqtv16 1GkAds4paXAGzqREiXYnnFVB9S4 0fm2K5KUAoYZPsGJF5bDB9 fZ9ocRijbnnskNXgmRhqtoWudPp uAHlgEQbuK822XTVhaJozKmUpCL s6H1YiLrl6MZGucMdgSW5z yTXgHQtsVp6ycTdhbWdkTP7zOFA zfsnqw873BpKwv4ehUABviKWnCJ beUBM7C26zv9J8KTThVSPm RTY0wYJ3jP9lsByyhrvvsGTgaCs ktwBxgNuhURzrRBheJ543HIJizK wsYcBuzIf2S6HeTxk8OCYx sTaqUK3kgPZiHJrqGs5kwConjPn rEZ0aIMFmvtnmx611MzEyr5rrMO MttMFrGTcwAAG3F18yq8N4 OSXvBIDuVJM1gKC6zL9kjMfxaax gbGVmdDsgdmVydGljYWwtYWxpZ2 46IHRvcDsnPlBhdGllbnQg VMtiCNp9C5RcCtfdgQB+EW18HLE nNJ10uKAcaZDcq1fexDf6MmApZR QvRNG6fNcrLWbtz1NxJABe Q37sgRTok2S9HDTqsIgbgRAdTtZ fzMW4hO8hPDaqixgdj8xpnbsvFf smr2pmun29uX98F64bYDln NHUvSXPjHMCwVPRauVlvlu6kcV9 wIi8+PRPlvAZ5zPR0aI0hOLAmZo B9MWngS280PzQnkIZvScwe c0arz1bdcTk3AbD2WJYarpIwfCz tJXZ1b8FbRa79C97mOYexMCSdVR DeJEQyRLOolKosxf5erV2b Ii8+XSHnlIU9gBS6tI7dDsUwXlM 1ZHngY937TdYzzWEpLrcbU22eX5 JvdXA+FMWkZxw2EKOnuLwf TH1omJCsCBvuTp7gYEW6ShBpRiI eAWtnI2RpQWTaozalpwriyYF7VD GvQNYkyG73Es0huAtgBFSh dIVFgR9ljnimh4onaojoQwNqUEN qQHq3UAy1PBGjdUvlWnKlGEG7Sn I4LNT2yKSchT6pcZynieaj cY3uA5BlCSWwboryUb62jG2eGwN jXjH0HWffUqf+U3SLE1EjPZmVC5 PAOOYROS53CD21hXCja6J7 mSZ3J0XeYMRqpzverkbqsBE1JMO xWNPdjE70hWYjGHehRy4tp4H5n4 39UIGwEDMqqC15Jq6rqMtb WTSodATOjK1vufutx9zbykpiWgG vTINfOOf6CRm1MAHbjJchYnSgWD P2HvR8HNZ6sHPbrM6zxZtk cflmbT7pOgv+FVWeICzmAJj0Zui vdGQ+ZFUlOCQ3iCweHMkoNPTocG 8zHQSjU5i5RxAvZkN3YNgs X6IsETPmtbhsYf18iG2cMhWrPfS 6NPotS6KtwqL1BHDsqCYsBNdhBB J4F42cn0Y8TGApLYWoBJF6 gEW5mL2ltStsuqhupXMwwPesohS xvDfkEFcgGIyuW942ZRGycBxwGn VsQEphYPClLS39JJ43vWLf o4E3bBV7T5MjRANqkgdqfcddkBS 8TNQsJWQhtJ54gFSgZRsvUa8ll0 H5n247QYHfFCYuiJ09Nc4f tWzwGTMnfFASrN5fkwpam4ceylz mNySbPBOvSUn1GAr7OUKotJbjIc MoTJO2ReK4BNW3gLHquE6o uTdqqurmfZ9cOqu+TWFsZTwvdGQ +WQZoUMQ3dNbeHFbjCSXogX5zIK McG5q4VpHjZzF3PAlkU8Ph XGEiflabSd33pL0cYvPpPiF9IRe wE2MrrqP0AZFcmDPdBFczIWP0Z2 6ui9M5DWZzNSVfULY0uCQ3 cS1xnHnpjlbusLJviVonniMfkWn dNJtoGEdwZ896FBSxmVgtHyKrUJ UcTI9mqLtvcGK+FI03ay26 L0FaVitlFrq4DMUoZSS7cVX3tM1 eQPMwWNisj3K4bPD0F5KjndWyep 8kx6ipMUIuGQivJ63rmOPo x2L5QUTkxGI6SZKasIhfWxQpfQ3 3Oyc+DHUbrAvan2YfUskhk4jxu5 itnIv0VoZzPBYvmjEtfWzj UMN9r4RwTl38E14oGPvvWXHsFSD vSKZgSKGqpKfajq1ttC8wAh3+PG DqeDF2xSE5yC1fJgAbGsL2 YSnzU339OwJvlLOaQayfe3yku0d nhZl4DqQpIZAibqSvnNraTUI5z9 TtEe87R7VmvPosp2YaUpo0 ov36jJUgb3V7hXW2E1CyUYOznmu edQKzjGxlTJ6nHZBbcwopYBHpnV 3oCJFhY2l1OcTfZiZ6DHom K8McsyT0UWEjcGAqAURaaRGStV3 sbyzgw0piluttSbTuUPCoEEl7MA a4SZGmpVviZnCyBSU8XoR8 JQY7mOCsgD2klMnrwawarK0zGam +OLk0v4lokNGqVF8plBF1DW45OX 66aQPyk1G7gGP6C9MeWFNx itygwufnmNS7DGZcQQUzjU78Uc3 jaLdtBk2fELDjSIO0TPQzzAEbP0 IbaH6kMaFpKLAlWXRdV3Qt nXLwFIcpR530DOuiNdN0ELDnbkG sJ3DpJROdsImiYkQ2f0Z2Hy5ARB 27UH37YF52sUJki1C3pUF2 O0FdQLZbneskaupxiDW9LFCcFOG ipN19Ta2bpTapCe8yEKZpPRI8HR UunLQkX8AkuG5eOoCkHFRm MCSyH5OimTRyGQenJ251NRptCuJ 6BTPxrdJiW1OzDYWlkNhsXqG8e6 F0Ql7IBu10CK54IS74nAGa d2K9fZO2B8HnQFWzrqnkwxganUR 6UOGhWDQgkL19Bo2xmFfsLj1lWT CkOZJ9LDIjiTAeS5JbxN7s RjDgVZHzPMKiJ2QrxNWjHJkjR56 7USndIvU2SEPdftBmM1UgWETqoZ naXlB6x5N4Na3WILeikua2 X2AtOhbmxMF+VS54OIPbIL91hBD jhBXvv6mvhEh9IwXzZOObYCS8lL vtRGbax0KrPDFjK74nqKIs [id number] (more content not included)... Normal [facility] Consent for Treatmenton 02-02 Consent for Treatment [id number]:127 Normal [facility] Discharge Instructionson Discharge Instructions [id number]:127 Normal [facility] ED Clinical Summaryon 2022 ED Clinical Summary (Inserted Image. [place] ble to display) [place] [id number] ED Clinical Summary Person Information Name: TAI CLARK [facility] Age: 52 Years : 1970 Sex: Male Language: Mauritian PCP: Aura Joseph MD Marital Status: Phone: [phone] Visit Id: Visit Reason: Leg ulcer; ULCERS [...] ADDRESS: [address] [facility] [id number] PHYS DOC NOTES: MEDICAL INFORMATION: Prescriptions Given: New Medications [id number], [address] [place], [place] [id number], [phone] cephalexin (Keflex 500 mg Cap) 1 Capsules [...] With: Address: When: [facility] [phone] In 3 days 02/20/2023 With: Address: When: Aura Joseph [facility] [employer] [place] [id number] [facility] (1) In 3 days DIAGNOSIS: 1:Chronic venous hypertension (idiopathic) with ulcer of bilateral lower extremity Normal [facility] ED Note-Physicianon 02-18-20 ED Note-Physician Basic [...] day(s), # 28 cap(s), Refills(s) 0, Pharmacy: [facility] #[id number], 198, cm, 02/17/23 7:52:00 EDT, Height/Length Dosing, 136, kg, 02/17/23 7:52:00 EDT, Weight Dosing cephalexin, 500 mg = 1 cap(s), Oral, QID, X 7 day(s), # 28 cap(s), Refills(s) 0, Pharmacy: [facility]/pharmacy #[id number], 198, cm, 02/17/23 7:52:00 EDT, Height/Length [...] cap(s), Oral, q6hr Follow-up With When Contact [facility]: Tarun [phone] In 3 days 02/20/2023 EDT Additional Instructions: Arua Joseph In 3 days [address] [id number]- [facility] (1) Additional Instructions: Patient Education Venous Ulcer Attestation Patient was treated and evaluated by the Physician Pedal Assembler. The attending physician was in the Emergency [...] Topical, Daily (more content not included)... Normal [facility] Comment on above: Result Comment: Elec [...] at home: Medicines ? Take or apply qmvl-loj-jymraeg and prescription medicines only as told by [...] and water are not available, use hand student accounts manager. ? Change your dressing as told by [...] or t (more content not included)... Normal [facility] ED Patient Summaryon 023 ED Patient Summary (Inserted Image. Juana ble to display) [place] [id number] Patient Discharge Instructions Person Information Name: TAI CLARK Age: 52 Years Arrival Date: 02/17/2023 07:43:14 Discharge Diagnosis: 1:Chronic venous hypertension (idiopathic) with ulcer of bilateral lower extremity Primary Care Physician: Aura Joseph MD Provider Information Primary Provider: Ernie Daly DO Advanced Creping Machine Operator:Jessica Cronin PA-C The exam and treatment you received in the Emergency Department were for an urgent problem and are not intended as complete care. It is important that you follow up with a doctor, nurse practitioner, or physician?s operational assistant for ongoing care. If your symptoms [...] Address: When: [facility]: Tarun- [phone] In 3 days 02/20/2023 With: Address: When: Aura Zamarripaby [address] [place] [id number] [facility] (1) In 3 days In the event that this physician does not participate in your insurance network, please consult with your insurance company to find a nearby participating provider. Patient Education Materials: Venous Ulcer A MESSAGE TO ALL PATIENTS REGARDING OPIOIDS PRESCRIPTION OPIOIDS: WHAT YOU NEED TO KNOW Prescription opioids can be used to help relieve iknoacgf-uh-thlpqp pain and are often prescribed following a [...] with addict (more content not included)... Normal [facility] Prescriptions/Work Noteson 0 02-17-2023 Prescriptions/Work Notes [id number]#1.00CD:127 Normal [facility] POCT PT/INRon 01-18-2023 POCT INR 2.6 High .7-1.2 [facility] Comment on above: Performed By: #### 2 [id number] ####[facility] [address] [place] [address] POCT PT 28.3 second(s) High 8.0-15.0 [facility] Comment on above: Performed By: #### 2 [id number] ####[facility] [address] [place] [address] Coding Summary.on 01-01-2023 Coding Summary. CD:[id number] Gh0bWw+ PGhlYWQ+QW0KOHMpT45slMPaqG0 VB0aBBX4SAUVMZGNBUV9JQO2pzH P1OHlmX5FifzAt WgidfMFeDG69WPw3IZF2qNupPHx msQ6wxOLdL9g4FgNtDN41lJ37JF jbUVOlLgB9CuQeybqkiHUb U4vvCgCuvSZmXid+PHRhYmxlIHd aWKNzNGfoQQTwDxSzaRhjUY5oHt 9yZGVyLWNvbGxhcHNlOiBj d3kgYPFhKQoxNR1idEaqP6NurJA 9JVXny3a7Am96uSH+HLVxMVS7kS lxMGfpr166QtKss5ksEQL2 gQUpGCvdPLI4O88lb0Y0PGRtIVI lGFQ9dYT3tH5btWicbewzG3AgdJ IrUcV5BFR9lSGvjN0pcAil mpkljZ3qTpi+U99MER9ASZDFWB6 EWpe3L5UnHkgnoHR+PQ11NKWmLQ 47sMClaLTqs5ggbQz0BbJh EPDwTYE7fHnjSGnok7LcNCMcE18 qxXDpu1V9YYEszGytaJPsEwLxrD N7iB9nSXuqkfmor3jmajsr Xkbbz9wzps94lF85I61fJRuiOJP wSRQ2AYUwFMUlwZswlf7msO7bDl 8+VCvcm4olt7aouZb2GySl JSOjkhKnoAjuIDW0c7QxOf07H0R erRjyh4KuRmu5oe37pBWsw0Q4wN M4TVzxCGLnjO6xBXnrHuL2 SZHoVqYdbJ23mEZsBInjHn9siOs tmDmnQW5rTKJuemheEGUtrL2mUB NmsUMvwZkhWZ4iRODnutcy k196IdVcDHA0LJNkwGFzB1IneH6 xGnRjRFWiVSJgK4BtoNHaBZioO8 03YParHaM2TPQtkiGvB2Xi FNNdyQhbHdV4k5H5Is3Oh7Bhfxp iERX7YCxqEETvEzN4NjXfVxT0Q3 ZqGml4DVKfrZvzGI1vZ4Dc FEKiubhkdpxlwUO7UJLaRTHkyX7 1fPJxYZftXt2ca2L2u453LCIpLQ RvbK31Lz6hiQzeAJKeaTCF lR7victnj8hwzdgvGgRuZPUrAJx 4DMd3JPDksYpiKvWhHHY4VoQ4GR H2vXVrjH7ijDiarsexzF4a Oyc+R15itW2aNGE8WCJ9vvtiDBF ytcGeBZ07NQ68X8FmYerdqAPveI U+IFXamyTduFobBF5mFxXf n1gru5HsMRdoN3LuZOEtYMvmTod 1UHNsESC4yBV5sR4wYXLsIFftm9 Z9vQP0D1KmulYswp5wq4sc PQKeDOtpY94wjVKpl3X3IBGybOL 4UNZejYwlEjJgsO88Qiv+PGNvbG hln7DiEhqpb3ngz8odeAr9 ZtNiFTJgjaOwfYlqTKM4v4FgZg2 6S99zWEygPAGnSCHuBEApGSEduI atyp3xeU1uBu2+PGNvbCB3 eSB3yQ4pKAByEcN4KOfeZ924PpA hpKNyXyrjr1ome0xijXl8CqQaSB XgvtVooTnyXTM7z4ZmHc77 E82fNQjeTCWbETHcEJBdJUWewVe rlu9ctM9hGa0+PK5ju4iazh39cK 48dHI+WQIpGVK4uFyaKFbn OIDacX1fXWewCxU5ORLsSiNdwR0 1jLMgVPzjCu7leJiobUnyBU0aTO Ekjlski203WiNrm6xqNPWx mDYuEXtzVGE6N73pn4G6RZAdSMM cUFD6mVF0fH5yjDwvjbteuTYelF gzzaVcjYplVTeoNWkxU891 IHRvcDsnPlBhdGllbnQgTmFtZTo 3S3UdSjp3CQMniDswOS6juVJbSV jvEx3geOwwgLllGV5nOHRx niqbe311WoZwx7beFDTfkJOpXZw kODF1O80eb5A8XORuAMUdFSQ2eN R3sQ4ntXbvedkkbZHpiSdi znHjeVlqWGtiHIyrH800KKYibGz hJcZtdcMxNNTjnBN0CQ85WA52rS Lge8F5bFA4D7KqUGQoewei hjarvUJ0FACjCQMvzF64Br5nwXe wYd4iFOZkZCJ6HTGjpHNvI6VcwH 0rYvXwSQLsDNXjP8WmqYKf OYldM555CXvuCwD9GZHqjjVvI2Q iYFElaZicEkU1a9P2Cy9WR2H6RV 13HF08iKBvk9E7qDY9R9Nx GNBxlwgducgtlYN9CTJxHBEjqF5 0Ll0drVddHu5zQBJbEIT1VNQtsM DrI7KvfZ4pRpFeKAFvDZNy M1AjkMUpBIqpA178VTtiYoC8CQJ bcxHrA3LsCCJrzDijItW9i2T8Uf 0DPYf5KY30KS65tHCsv1U5 oOI4Z1DnLCPamsokfyzwzQV8HBU eETNrmB54Ge5lhDwfXm0lFTHuOK N3FNIqbXBuZ8UhbQ3kVoXw CLDlTEVhZ8PckPMuSZcmP534TMg wKuD5CJXjygVsM1JiMMTbjUjiEk L4y0O4Kr0XFNDmGM18BRZ6 dHZ6UG83WQ68T4WyBqogxJQslTP +PHRhYmxlIHdpZHRoPScxMDAlJy SfdTfiUE1rKx2iWEIgKFUt rQpcjRGgUrEpl5foWLQpTTnhLQ2 odDpxW5UimTR9AKDuh4d3Sm72I8 5rI4CcmZH+KVKqfSA1lBU0 bP2iSzQfDpP1ZScsC971HfLdsBE qWhode4sog4tjyAh6UhW7BSHsrf DvyIjpRLC2t9KoFx69M31j IHdpZHRoPSIxNSUiIHZhbGlnbj0 umK2oPh2+SYPcuIT6aRP7zJ2tNq UeEwD6KJazY858QbVakCKg Lvtkw0woa7yzhPe2ViAmVVEuiyY feHasKNQ8c7ZuPl65L1ZatPeee0 EnXdc1hb50hGNeo6O5kFW1 D9AqUUXpzedoyRZtfKoqUC4fTHT xjaowADMfwH8gZMBuA1j6WsLqVd U5TDxfV3DtfeU5KAYwnNLp MOctIUY5B97jl4I5XXAlGCHrEWG 6tFA0kH7hiDrqgcduzOZesFiijr AdeXkoHMsjCQxgI634PSMn uEoaGMJfuH1uYFEnqZPjrXreST6 gFHEitefzZfnSLOKDVCMZZ8HJOY ggSjwvdGQ+LQPyAJW1aDtb RGomVZMxeV9eWZHdK0c4WcWsTtZ 7JXsxG2IzPMKlmaueWi17jZ4vYp VnKrS3WQufW9JyhrU5STYj rTPkZFneIKN0G92ff1G6LIDlPJJ vXNZ0tWH5mW6mhOliulimsZXsiN bqduQgsPquDYxcXEckX073 VOMcbYotErGsOdJ2SlW1OpE3G0K eAwd2QCVbcPcoRT9esGQzLTurFm 8orZkufXveLM4sVFFwaneq STVvtF6mPNGrxWQfbHzxXV5vMLE gbqhzk368NbAcHWV9NTYtnTSoJ3 ZayI5gJjGjKSMzRZEmS3Xj uPJwCErwN497AAqmCqG0IDAesnK vE8TaZLYrxOioLqO8h2R0Ln44EY BZZWFyczwvdGQ+PHRkIHN0 dDggVXbnZRTctW0zGWXnL9o6DcT aZzM5XLyyZ8MsQUZyprikEe36yS 0yErVjRjC5BIpxX6NrrlW2 AWWaxGYaWBfoUEF0I41ul0T1QYM rIWDqJDI3jXA5nZ6mdWibaphstP VmdDsgdmVydGljYWwtYWxp T449YOIosTkqRk8miFH3O9TuQgr 8UJYgbGwzGC7vyYIlQFojXm8xcA ayfYbzIT7iGXMiwkznZYRd vE7wFMEanQDceOccCQ5yMZKtugw qk258HsCcOER2XRMggRTgG5HzjG 4jRuDoCTTkNZMqY9UodKGm RRlrS006WRuvQeG4EMSkskSqD0C uKFCyuNuvQwI3y9V5Ny7TPJD4cw Bnjmw0A9GiGciysXR+PC90 XUNlRK62vBCerAPqr9skwOp6CdM gZXRbZSB4wUaqWTnjp6BiOOQeL2 9ruBGmd0B1CLNimKtooUBw JkEfsWN5mA2iXDusnokwe9zaurw wKncrv7eolp04oI85I35qPOgaLH LhYNYyUAMvXWBhxIcesu9v bF8hFt7+HNXeyBR1hCW3jT0cRfL pAbZ1RUvpS389AsOlnJMbVlhdv9 yph8lbuKe3GaWcQKFbnjKm qUrgYUD3y5TbHg81Z22aUNjcMVF zHVReAELmUZWmnKqmoa1pwA3zLx 8+HD1yu8ecef82oI15vMB+ NCCwYIV8rSktOGuuZVUeuL9qXFw bHyJ5YTSmCxJutY69qVUrANshBh 2avFclgEbiUQ2qDVOzggbb m319SwCos6qlZKZskEWiLRxzVCN 2Y06hn3L7LNZoRJXpKMY5aSC5pU 1hbGlnbjogbGVmdDsgdmVy iBzrLKcmLNlnR943AKRosLfgUbT jaJGpQ0ewheRGID0oHmqppMG+PH VqMVT6tBeoSUqlWGTpkK1e IOVlA4r4WbBjJrR8CFaaQ9CpvbI 2INCvpCHoOHWebZNWwR6xjxppz2 cxynvtVgEhDVSlSRb3BUe2 INOlvKtaUoEmAQT3UzX1FZV1fDY nkN5ypZniegjyqG9uVtx+RklOOj wvdGQ+RCChRQE3sBnxSWki HIShwC5gFTOiJ2d2BtBhGdE0BEh rB6ZeymO4CSKwoMJvIKZhkEDPpV 2ewfnrw2ilnqhjMpNoZGBp KIg8WZo1QJRdbQsyLeRnPTJ0QlY 7EEE6tTNriQ3hfCvtrnqbgK0oQw c+TVJOOjwvdGQ+PHRkIHN0 uPbcHRweEZYowE7hZVJqT6x5UqC nIjI8JOwxY1LdmkZ4YLZsvTMfEJ VseBGVuY9mzidcw5idytlp JkHjISXnTVb3VZi6YYAeoIcrTcI hIQI9JkF8VDZ0lCMbmV8ylGplme zfoD9sVfv+VUR9CMC9KX47 LE32D7FoQmailLZewIM+PHRhYmx lIHdpZHRoPScxMDAlJyBzdHlsZT 1lLu0lXFKhUYVyiYpueMWu OiBj (more content not included)... Normal [facility] Consent for Treatmenton 12-06 Consent for Treatment [id number]#1.00CD:127 Normal [facility] POCT PT/INRon 12-28-2022 POCT INR 1.9 High .7-1.2 [facility] Comment on above: Performed By: #### 2 [id number] #### [facility] [address] [place] [address] POCT PT 20.7 second(s) High 8.0-15.0 [facility] Comment on above: Performed By: #### 2 [id number] #### [facility] [address] [place] [address] COAGULATIONOrdered By: Patricio Hickey on 07-25-2022 Fibrin D-dimer FEU (PPP) [Mass/Vol] ng/mL FEU Low 215 - 500 ng/mL FEU [facility] Auto Coag Referrals Officeon 2 Referrals Office [id number]#1.00CD:127 Normal [facility] MICRO OTHER TESTSOrdered By: Patricio Hickey on 03-23-2022 Rapid COV Int NEG Ctl Pass (03/23/22 2:50 PM) Normal [facility] Man Sero Rapid COV Int POS Ctl Pass (03/23/22 2:50 PM) Normal [facility] Man Sero SARS-CoV+SARS-CoV-2 (COVID-19) Ag IA.rapid Ql (Resp) Not Detected (03/23/22 2:50 PM) Normal Not Detected [facility] Man Sero COAGULATIONOrdered By: Miri Jin on 03-05-2022 aPTT Coag (PPP) [Time] 61.4 s High 25.1 - 36.5 second(s) [facility] Auto Coag INR Coag (PPP) [Relative time] 3.2 {INR} Invalid Interpretation Code [facility] Auto Coag PT Coag (PPP) [Time] 38.1 s High 10.2 - 12.9 second(s) [facility] Auto Coag Reference Laboratory Testing Ordered By: Speedy DomainUser on 11-18-2021 SARS-CoV-2 (COVID-19) RNA BILL+probe Ql (Resp) Not detected Invalid Interpretation Code Not Detected [facility] [employer]SS Comment on above: Result Comment: This nucleic acid amplification test was developed and its performance characteristics determined by [employer]. Nucleic acid amplification tests include RT-PCR and [...] detected) result in this assay. Performed at: [address] [id number] PhD Anjum Porter 02-10-2018 SOLA Office Visit ([place]) -------TAI CLARK ([id number]) 1970 MDate Time Provider Department02/10/18 3:00 PM FRANK CHAVEZ During your visit today, we recorded the following information about you: Pulse Respiration Blood pressure 89/minute 16/minute 151/96Frank Chavez MD 02/11/2018 10:39 AM Formerly [facility], 1928–1983 and [facility] Department of Cardiovascular MedicineOUTPATIENT VISIT DATE February 10, 2018OUTPATIENT VISIT TYPEESTABLCRITICAL ACCESS HOSPITALPRJ[facility] CARE PHYSICIAN:Aura Joseph MD[address] [place], [place] [address]Zzrjx: [phone]: [phone] PHYSICIANPeMARY JANE [address] [place] [address]OUMCS COMPLAINT:No chief complaint on file.HISTORY OF PRESENT [...] compression stockings in interim.Flavio Wilson Provider: AURA JOSEPH [[id number]]Allergies As of Date: 02/10/2018(No Known Allergies)Date Reviewed: 02/10/2018Reviewed by: Frank Chavez - Fully AssessedPrimary Visit Diagnosis: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 Department of Cardiovascular MedicineOUTPATIENT VISIT DATE February 10, 2018OUTPATIENT VISIT TYPEESTABLISHEDPRIMARY CARE PHYSICIAN:Aura Joseph MD[address] [place] [address]Nexnh: [phone]: [phone] PHYSICIANPeter MARY JANE [address] [place] [address]SNCCX COMPLAINT:No chief complaint on file.HISTORY OF PRESENT ILLNESS:Tai Clark was referred for consultation by Dr. Caraballo. Opinionsand recommendations in this consultation will be transmitted back to thereferring physician by [facility] notes or via mail.Mr. Clark is a [...] like to proceed.Prescribed compression stockings in interim.Frank Chavez MD Normal [facility] US-US LE Venous Duplex Insuf ficiency Bilat IMPORTon 02-05-2018 US-US LE Venous Duplex Insufficiency Bilat IMPORT Images were obtained outside of [facility] [id number] Normal [facility] CNOVon 02-03-2018 CNOV Office Visit (VASSFT) -------TAI CLARK ([id number]) 1970 MDate Time Provider Department02/03/18 2:30 PM FRANK CHAVEZ During your visit today, we recorded the following information about you: Pulse Respiration Blood pressure Weight 85/minute 16/minute 160/106 147.4 kgFrank Chavez MD 02/03/2018 3:12 PM Formerly [facility] Department of Cardiovascular MedicineOUTPATIENT VISIT DATE February 03, 2018OUTPATIENT VISIT TYPENEWPRIMARY CARE PHYSICIAN:Aura Joseph MD[address] [place] [address]Pkxbz: [phone]: [phone] PHYSICIANVilma Caraballo DO ([facility])[address] [place] [id number] COMPLAINT:No chief complaint on file.HISTORY OF PRESENT [...] 147.4 kg (325 lb) SpO2 96% BMI 37.8kg/r9Cbrufhl appearance: well nourished, alert and cooperative individual, [...] with test results.SUSY Wilsoneferring Provider: VILMA CARABALLO [[id number]]Allergies As of Date: 02/03/2018(No Known Allergies)Date Reviewed: 02/03/2018Reviewed by: Frank Chavez - Fully AssessedPrimary Visit Diagnosis: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] Other Visit Diagnoses:Venous ulcer (HCC) [I83.009, L97.909] Edema leg [R60.0]Order(s):US VENOUS INCOMPETENCY [facility] [[id number]] Order #: [id number] FUTUREPrescriptions as of 02/03/2018 Sig: WARFARIN 5 [...] (around 02/17/2018).Follow-up and Disposition History RecordedEncounter Number: [id number] Status:Closed by FRANK CHAVEZ MD on 02/03/18 Normal [facility] PROGRESSon 02-03-2018 PROGRESS HNO ID: [id number] thor: Frank Yepez: (none)Author Type: PhysicianType: Progress NotesFiled: 02/03/2018 3:12 PMNote Text:Heart and [facility]ascular [facility] Department of Cardiovascular MedicineOUTPATIENT VISIT DATE February 03, 2018OUTPATIENT VISIT TYPENEWPRJOHN PAUL JONES HOSPITAL CARE PHYSICIAN:Aura Joseph MD[address] [place] [address]Zqjae: [phone]: [phone] PHYSICIANVilma Caraballo DO ([facility])[address] [place] [id number] COMPLAINT:No chief complaint on file.HISTORY OF PRESENT ILLNESS:Tai Clark was referred for consultation by Dr. Caraballo. Opinionsand recommendations in this consultation will be transmitted back to thereferring physician by [facility] notes or via mail.Mr. Clark is a [...] 147.4 kg (325 lb) SpO2 96% BMI37.8 kg/q6Cxtmlad appearance: well nourished, alert and cooperative individual, [...] whenat rest. Coumadin.Follow up with test results.Frank Chavez MD Normal [facility] Antithrombin Assayon 017 Antithrombin Assay 114 % Normal 84-138 [facility] Comment on above: Performed By: #### P RCFUN, AT3ASY, HOMCYS, B2GPGM, CARDIO ####[address] [phone] B2 GPI IgG and IgMon 017 Beta2 Glycoprot IgG <9 Normal <20 [facility] Comment on above: Result Comment: < 20 SGU Axgwupir93-82 SGU Low Positive> 80 SGU High PositiveThese results were obtained with the [employer] QUANTA Lite B2 GPI IgG JOVITA. B2 GPI IgG values obtained with different manufacturers' assay methods may not be used interchangeably. The magnitude of the reported IgG levels cannot be correlated to an endpoint titer. Performed By: #### P RCFUN, AT3ASY, HOMCYS, B2GPGM, CARDIO ####[place] [id number] [place], [place] [phone] Performed By: #### L UPUSP ####[facility] [place], [place] [phone] Beta2 Glycoprot IgM <9 Normal <20 [facility] Comment on above: Result Comment: < 20 SMU Tlardbve45-53 SMU Low Positive> 80 SMU High PositiveThese results were obtained with the [employer] QUANTA Lite B2 GPI IgM JOVITA. B2 GPI IgM values obtained with different manufacturers' assay methods may not be used interchangeably. The magnitude of the reported IgM levels cannot be correlated to an endpoint titer. Performed By: #### P RCFUN, AT3ASY, HOMCYS, B2GPGM, CARDIO ####[facility] [place], [place] [phone] Performed By: #### L UPUSP ####[place] [id number] [place], [place] [phone] CNCOon 07-25-2017 CNCO Letter TextToll Free : [phone] [facility] - [address] [address]Lfaen: [phone]: [facility] [place] [address]Yycot: [phone]: [address] [address]Tgjtj: [phone]: Fidencio Bhandari M.D., Bridger Marley M.D.Troy Mcfadden M.D.Vilma Caraballo D.O..Felix Burrows M.D.Gregory Orozco M.D. Tuan Bentley M.D.Date: July 25, 2017Re: Tai Daniels WHOM IT MAY CONCERN:He was seen in our office today.Sincerely,Shoaib Garcia(signed electronically to expedite mailing) Normal [facility] CNOVSPon 07-25-2017 CNOVSP Visit (SP) Office ([place]) -------TAI CLARK ([id number]) 1970 MDate Time Provider Department07/25/17 3:15 PM VILMA CARABALLO During your visit today, we recorded the following information about you: Temperature Pulse Respiration Blood pressure 97.9 degrees 102/minute 18/minute 141/91 Weight Height 137.5 kg 1.975 David Caraballo DO 07/26/2017 11:34 PM SignedPATIENT NAME: Tai LeyvaCaro: [id number] PHYSICIAN: KEREN Jarquin [place] [address]ZBWQHWP CARE PHYSICIAN: VIRI Jarquin PHYSICIANS:CHIEF COMPLAINT: Embolism and thrombosis (hcc) (primary encounter diagnosis)Essential (primary) hypertensionRecurrent deep vein thrombosis (dvt) (hcc)ASSESSMENT/PLAN:(I74.9 ) Embolism and thrombosis (HCC) (primary encounter diagnosis)(I10) Essential (primary) hypertension(I82.409) Recurrent deep vein thrombosis (DVT) (HCC)Multiple recurrent DVT. Will require lifelong anticoagulation. There is moredata to support coumadin and patient has problems financially with xarelto.Change to coumadin and [place] cou[facility] clinic will follow.For chronic lower extremity pain, he will be referred to Dr. Sylvia Marroquin to see if any procedural approach to venous insufficiency is potential.Will also send hypercoag workup as below.Visit (SP) Office on 07/25/17-FACTOR V LEIDEN/PCR-LUPUS ANTICOAG PL-PROTEIN C FUNCT-PROTEIN C FUNCT-ANTITHROMBIN III-B 2 GPI IGG ANDamp; IGM-PROTHROMBIN GENE EIA-JMLG-WGDGJFEDGFF AB-HOMOCYSTEINE SERUM-CONSULT TO VASCULAR SURGERY-ANTICOAG/COUMADIN CLINIC PHARM-warfarin (COUMADIN) 5 mg tablet Return in about 6 months (around 01/22/2018), or change from xarelto tocoumadin. f/u in 6 months. labs today., for coumadin clinic referral.vascular surgery [facility] [place] referral. page Dr. Stark. . HISTORY OF PRESENT ILLNESS: This is [...] the best ofhis knowledge.July 25, 2017He works [employer] at [place] on [address]?. He stands all day. He wearsbilateral compression [...] plan.I answered all questions satisfactorily..Angelo Caraballo D.O.Medical OncologistRockford, [place]Referring Provider: DAMON STARK [[id number]]Allergies As of Date: 07/25/2017(No Known Allergies)Date Reviewed: 07/25/2017Reviewed by: Mayda Monzon - Fully AssessedReason for Visit: Consult [173] Cmt: ref for DVTPrimary Visit Diagnosis:Embolism and thrombosis (HCC) [I74.9] Other Visit Diagnoses:Essential (primary) hypertension [I10] Recurrent deep vein thrombosis (DVT) (HCC) [I82.409]Order(s):CONSULT TO VASCULAR SURGERY [9025] Order #: [id number]: 1 FACTOR V LEIDEN/PCR [SQFVLEID] Order #: [id number] FUTURE LUPUS ANTICOAG PL [SQLUPUSP] Order #: [id number] FUTURE PROTEIN C FUNCT [SQPRCFUN] Order #: [id number] FUTURE PROTEIN C FUNCT [SQPRCFUN] Order #: [id number] FUTURE ANTITHROMBIN III [YETW9NLO] Order #: [id number] FUTURE B 2 GPI IGG AND IGM [OQU2MMPI] Order #: [id number] FUTURE PROTHROMBIN GENE PCR [SQPTGENE] Order #: [id number] FUTURE ANTI-CARDIOLIPIN AB [SQCARDIO] Order #: [id number] FUTURE HOMOCYSTEINE SERUM [SQHOMCYS] Order #: [id number] FUTURE warfarin (COUMADIN) 5 mg tabletTake 1 tablet by mouth once daily.Disp: 30 tabletRfl: 0 ANTICOAG/COUMADIN CLINIC PHARM [[id number]] Order #: [id number]: 1Disposition: Return in about 6 months (around 01/22/2018), or change from xarelto to coumadin. f/u in 6 months. labs today., for coumadin clinic referral. vascular surgery [facility] [place] referral. page Dr. Stark. .Follow-up and Disposition History RecordedPrescriptions as of [...] Status:Closed by VILMA CARABALLO DO on 07/26/17 [facility] 07-25-2017 CNPN Tele[facility] -------TAI CLARK ([id number]) 1970 MDate Time Provider Department07/25/17 HEATHER (PHARMACIST)LEE During your visit today, we recorded the following information about you:SHERYL KRUGER 07/25/2017 3:31 PM SignedReferral for anticoagulation services does not seem to be filled out on usualform. Will route to LPNs to get correct referralSakina Santiago LPN, KENAN 07/25/2017 3:[address] Caraballo,Please complete order # [id number] under outpatient orders. All 8 steps must becompleted with the F2 treviño.Once the order is completed in its entirety, when the encounter is closed- itwill route to our office for processing.Please call our office at [phone] with any questions.Thank you,Sakina Santiago LPN, Pharmacy Anticoagulation ClinicCharlogan Santiago LPN, KENAN 07/25/2017 4:02 PM SignedPatient Update ? Vilma Caraballo ?You 7 minutes ago (3:54 PM)??? Please cancel. ?This was supposed to be referral for Coumadin clinic [facility]. ?My apologies. ?The orders and Epic are [...] HYPERTN [R03.0] INVALID FOR* Status:Closed by HEATHER (PHARMACIST) LEE on 07/25/17 Normal [facility] Cardiolipin Antibodyon 07-25 IgG Cardiolipin Ab. <9 Normal 0-9 [facility] Comment on above: Result Comment: <10 GPL [id number] GPL Equivocal>40 GPL PositiveThe following results were obtained with the [employer] QUANTA Lite MARIO IgG III JOVITA. Cardiolipin IgG values obtained with the different manufacturers' assay methods may not be used interchangeably. The magnitude of the reported IgG levels cannot be correlated to an endpoint titer. Performed By: #### P RCFUN, AT3ASY, HOMCYS, B2GPGM, CARDIO ####[facility] [place] [phone] Performed By: #### L UPUSP ####[place] [phone] IgM Cardiolipin Ab. <9 Normal 0-11 [facility] Comment on above: Result Comment: <12 MPL Tcoioqrs92-50 MPL Equivocal>40 MPL PositiveThe following results were obtained with the [employer] QUANTA Lite MARIO IgM III JOVITA. Cardiolipin IgM values obtained with different manufacturers' assay methods may not be used interchangeably. The magnitude of the reported IgM levels cannot be correlated to an endpoint titer. Performed By: #### P RCFUN, AT3ASY, HOMCYS, B2GPGM, CARDIO ####[facility] [address] AveCTracy [place] [phone] Performed By: #### L UPUSP ####[place] [id number]CT[address] [place]ille [phone] Factor V Leiden PCRon 2016 FV Leiden Report (NOTE) Normal [facility] Comment on above: Result Comment: Perf orming Pathologist: Hong Maldonado M.D.Interpretation:Factor V Leiden Mutation [...] hybridization probes. Performed By: #### F VLEI ####[address] [phone] Homocysteine, Serumon 2016 Homocysteine, Serum 16.2 umol/L High 7.4-15.7 [facility] Comment on above: Performed By: #### P RCFUN, AT3ASY, HOMCYS, B2GPGM, CARDIO ####[place] [id number] [place], [place] [phone] Lupus Anticoag Panelon 07-25 aPTT 32.7 s High 23.0-32.4 [facility] Comment on above: Result Comment: Unfr [...] laboratory APTT reagent in use throughout the [facility]. Performed By: #### L UPUSP ####[place] [id number] [place], [place] [phone] aPTT 43.6 s High 24.4-33.4 [facility] Comment on above: Performed By: #### L UPUSP ####[address] [phone] aPTT This test is credite d due to interference with anti Xa inhibitor drug. Normal <37.3 [facility] Comment on above: Performed By: #### L UPUSP ####[facility] [address] [place] [phone] DRVVT 1:1 Mix This test is credite d due to interference with anti Xa inhibitor drug. Normal 32.7-46.7 [facility] Comment on above: Performed By: #### L UPUSP ####[place] [address] [address] [phone] DRVVT Confirm Ratio This test is credite d due to interference with anti Xa inhibitor drug. Normal <1.21 [facility] Comment on above: Performed By: #### L UPUSP ####[address] [phone] DRVVT Screen This test is credite d due to interference with anti Xa inhibitor drug. Normal 32.7-46.7 [facility] Comment on above: Performed By: #### L UPUSP ####[place] [address] [address] [place] [phone] Hex Phase Confirm This test is credite d due to interference with anti Xa inhibitor drug. Normal 45.1-64.1 [facility] Comment on above: Performed By: #### L UPUSP ####[address] [phone] Hex Phase Delta This test is credite d due to interference with anti Xa inhibitor drug. Normal <9.0 [facility] Comment on above: Performed By: #### L UPUSP ####[facility] [phone] Hex Phase Screen This test is credite d due to interference with anti Xa inhibitor drug. Normal 48.9-70.2 [facility] Comment on above: Performed By: #### L UPUSP ####[place] [id number] [place] [phone] IgA Cardiolipin Ab. <9 Normal 0-11 [facility] Comment on above: Result Comment: <12 APL [id number] APL Equivocal>40 APL PositiveThe following results were obtained with an Make Meaningva QUANTA Lite MARIO IgA III JOVITA. Cardiolipin IgA values obtained with different manufacturers' assay methods may not be used interchangeably. The magnitude of the reported IgA levels cannot be correclated to an endpoint titer. Performed By: #### L UPUSP ####[place] [id number] [place], [place] [phone] Performed By: #### P RCFUN, AT3ASY, HOMCYS, B2GPGM, CARDIO ####[place] [id number] [place], [place] [phone] INR Coag RelTime (Bld) 1.2 {INR} Normal 0.9-1.3 [facility] Comment on above: Result Comment: Ashley min K Antagonist (VKA) Therapeutic Range: INR 2 to 3 (Target INR of 2.5)Note: For patients treated with VKA drugs, such as warfarin, the [employer] 2012 Guideline recommends [...] 2.5 to 3.5 (target INR of 3).Dirk LERNER, et al. Chest 2012, 141:7S-47SNishluigi RA, et al. [facility] 2017, 70: 252-289 Performed By: #### L UPUSP ####[place] [id number] [place], [place] [phone] Interpretation (NOTE) Normal [facility] Comment on above: Result Comment: Perf [...] 74:1185 (1994). Performed By: #### L UPUSP ####[facility] [address] [place], [place] [phone] PNP This test is credite d due to interference with anti Xa inhibitor drug. Critically abnormal Negative [facility] Comment on above: Performed By: #### L UPUSP ####[facility] [address] [place], [place] [phone] PT Sec 12.4 sec Normal 9.7-13.0 [facility] Comment on above: Performed By: #### L UPUSP ####[facility] [address] [place], [place] [phone] Thrombin Time 16.8 sec Normal <18.6 [facility] Comment on above: Performed By: #### L UPUSP ####[facility] [address] [place], [place] [phone] PROGRESSon 07-25-2017 PROGRESS HNO ID: [id number] thor: Vilma Escobar Maci: (none)Author Type: PhysicianType: Progress NotesFiled: 07/26/2017 11:34 PMNote Text:PATIENT NAME: Tai Hubbard: [id number] PHYSICIAN: Damon Stark DO[address] [facility] [address]LXOJCYT CARE PHYSICIAN: VIRI Jarquin PHYSICIANS:CHIEF COMPLAINT: Embolism and thrombosis (hcc) (primary encounterdiagnosis)Essentia l (primary) hypertensionRecurrent deep vein thrombosis (dvt) (hcc)ASSESSMENT/PLAN:(I74.9 ) Embolism and thrombosis (HCC) (primary encounter diagnosis)(I10) Essential (primary) hypertension(I82.409) Recurrent deep vein thrombosis (DVT) (HCC)Multiple recurrent DVT. Will require lifelong anticoagulation. There ismore data to support coumadin and patient has problems financially withxarelto. Change to coumadin and [place] cou[facility] clinic will follow.For chronic lower extremity pain, he will be referred to Dr. Sylvia Marroquin to see if any procedural approach to venous insufficiency ispotential.Will also send hypercoag workup as below.Visit (SP) Office on 07/25/17-FACTOR V LEIDEN/PCR-LUPUS ANTICOAG PL-PROTEIN C FUNCT-PROTEIN C FUNCT-ANTITHROMBIN III-B 2 GPI IGG AND IGM-PROTHROMBIN GENE TDH-GFUS-GFGNFLSHXZW AB-HOMOCYSTEINE SERUM-CONSULT TO VASCULAR SURGERY-ANTICOAG/COUMADIN CLINIC PHARM-warfarin (COUMADIN) 5 mg tablet Return in about 6 months (around 01/22/2018), or change from xarelto tocoumadin. f/u in 6 months. labs today., for coumadin clinic referral.vascular surgery [place]via in [place] referral. page Dr. Stark. . HISTORY OF PRESENT ILLNESS: This is [...] best of his knowledge.July 25, 2017He works [employer] at [employer] on [address]?. He stands all day. He wearsbilateral compression [...] I answered all questions satisfactorily..Angelo Caraballo D.O.Medical OncologistRock[place], [place] Normal [facility] Protein C Functionalon 07-25 Protein C Functional 146 % Normal 76-147 [facility] Comment on above: Performed By: #### P RCFUN, AT3ASY, HOMCYS, B2GPGM, CARDIO ####[facility] [place], [place] [phone] Prothrombin Gene PCRon 07-25 PT Gene Report (NOTE) Normal [facility] Comment on above: Result Comment: [facility] Pathologist: Heather HarrisaInterpretation:PT Gene Mutation Result: NORMALPT Gene Mutation Interpretation: The DNA sample is negative for [id number] point mutation in the 3' untranslated region of theprothrombin gene.This is not associated with an increased risk ofvenous thrombosis.Venous thrombosis is a multifactorial disorder, andother causes of venous thrombosis are not excluded.PT Gene Mutation Method: This assay was performed by polymerase chainreaction and fluorescence monitoring using hybridization probes. Performed By: #### P TGEN ####[facility] [address] [place], [place] [phone] Vital Signs Date Time Vital Sign Value Performing Clinician Faci litcasey 06-03-2023 13:29-0400 Body temperature 98.06 [degF] [facility] 06-03-2023 13:29-0400 Diastolic blood pressure 87 mm[Hg] [facility] 06-03-2023 13:29-0400 Heart rate 74 /min [facility] 06-03-2023 13:29-0400 Respiratory rate 20 /min [facility] 06-03-2023 13:29-0400 SaO2% (BldA) [Mass fraction] 96 % [facility] 06-03-2023 13:29-0400 Systolic blood pressure 152 mm[Hg] [facility] 02-17-2023 07:47-0400 Body temperature 97.88 [degF] Ernie Daly [facility] 02-17-2023 07:47-0400 Diastolic blood pressure 103 mm[Hg] Ernie Daly [facility] 02-17-2023 07:47-0400 Heart rate 84 /min Ernie Daly [facility] 02-17-2023 07:47-0400 Respiratory rate 16 /min Ernie Daly [facility] 02-17-2023 07:47-0400 SaO2% (BldA) [Mass fraction] 95 % Ernie Daly [facility] 02-17-2023 07:47-0400 Systolic blood pressure 153 mm[Hg] Ernie Daly [facility] 08-12-2022 09:27-0400 Body temperature 98.78 [degF] Ernie Daly [facility] 08-12-2022 09:27-0400 Diastolic blood pressure 101 mm[Hg] Ernie Daly [facility] 08-12-2022 09:27-0400 Heart rate 81 /min Ernie Daly [facility] 08-12-2022 09:27-0400 Respiratory rate 18 /min Ernie Daly [facility] 08-12-2022 09:27-0400 SaO2% (BldA) [Mass fraction] 95 % Ernie Daly [facility] 08-12-2022 09:27-0400 Systolic blood pressure 179 mm[Hg] Ernie Daly [facility] 03-19-2022 09:03-0400 Blood Pressure Location Teena Cervantes [facility] 03-19-2022 09:03-0400 Diastolic blood pressure 79 mm[Hg] Teena Billy [facility] 03-19-2022 09:03-0400 Heart rate 73 /min Teena Billy [facility] 03-19-2022 09:03-0400 Respiratory rate 16 /min Teena Billy [facility] 03-19-2022 09:03-0400 SaO2% (BldA) [Mass fraction] 95 % Teena Billy [facility] 03-19-2022 09:03-0400 Systolic blood pressure 122 mm[Hg] Mohvadim Billy [facility] 03-05-2022 08:52-0400 Body temperature 98.06 [degF] Aashish Moe [facility] 03-05-2022 08:52-0400 Diastolic blood pressure 96 mm[Hg] Aashish Moe [facility] 03-05-2022 08:52-0400 Heart rate 81 /min Aashish Moe [facility] 03-05-2022 08:52-0400 Respiratory rate 18 /min Aashish Moe [facility] 03-05-2022 08:52-0400 SaO2% (BldA) [Mass fraction] 96 % Aashish Moe [facility] 03-05-2022 08:52-0400 Systolic blood pressure 182 mm[Hg] Aashish Moe [facility] Encounters Encounter Date Encounter Type Care Provider Facility Start: 11-22-2023 End: 11-22-2023 ambulatory AURA JOSEPH Not Available Start: 11-08-2023 ambulatory Meghan Hernández Facility: [facility] Start: 06-10-2023 End: 06-11-2023 ambulatory Aura Joseph Facility:[facility] Start: 06-10-2023 End: 06-10-2023 Patient encounter procedure Aura Joseph [facility] Start: 06-03-2023 End: 06-03-2023 Emergency department patient visit Wilber Sinclair Facility:[facility] Start: 06-03-2023 End: 06-03-2023 Emergency department patient visit [facility] Sudarshan Iniguezsahra [facility] Start: 03-29-2023 End: 03-30-[address] MONIKA HOUSER Facility: Start: 03-18-2023 End: 03-19-2023 ambulatory DEEP DE SOUZA Facility: Start: 02-17-2023 End: 02-17-2023 Emergency department patient visit Ernie Daly Facility:[facility] Start: 02-17-2023 End: 02-17-2023 Emergency department patient visit Ernie Daly [facility] Start: 11-16-2022 ambulatory Meghan Hernández Facility: [facility] Start: 10-23-2022 End: 10-23-2022 Patient encounter procedure Aura Joseph [facility] Start: 08-22-2022 End: 08-22-2022 Patient encounter procedure Deep De Souza [facility] Start: 08-22-2022 ambulatory Facility:1 9637 Start: 08-12-2022 End: 08-12-2022 Emergency department patient visit Ernie Daly [facility] Start: 07-25-2022 End: 07-25-2022 Patient encounter procedure Aura Joseph [facility] Start: 06-25-2022 End: 06-25-2022 Lab Drop off Deep De Souza [facility] Start: 03-30-2022 End: 05-15-2022 Pre-admission assessment Teena Cervantes [facility] Start: 03-23-2022 End: 06-21-[address] [facility] Start: 03-19-2022 End: 03-19-2022 Patient encounter procedure Teena Cervantes [facility] Start: 03-05-2022 End: 03-05-2022 Emergency department patient visit Aashish Moe [facility] Start: 11-17-2021 End: 02-16-2022 Patient encounter procedure Aura Joseph [facility] Start: 02-10-2018 End: 02-12-2018 Ambulatory FRANK KASSAVIN [facility] Start: 02-03-2018 End: 02-06-2018 Ambulatory FRANK CHAVEZ [facility] Start: 07-25-2017 End: 07-29-2017 Ambulatory VILMA Escobar CECY [facility] Procedures Date Procedure Procedure Detail Performing Clinician Start: 09-26-2020 Endovenous laser abl ation of varicose vein of lower limb Aura Joseph Comment on above: Right Lower leg with sclerotherapy Right Lower leg with sclerotherapy Start: 11-26-2019 Cheilectomy Aura bustamante Comment on above: Cheilectomy, right g reat toe Removal of gouty tophaceous deposits, right great toe Cheilectomy, right g reat toe Removal of gouty tophaceous deposits, right great toe Start: 01-26-2019 Anesthesia consultation Start: 01-13-2019 Repair of umbilical hernia Aura Joseph Endovenous laser abl ation of varicose vein Aura Joseph Payers Date Payer Category Payer Unknown [id number] [id number]. [id number] 1972 Unknown [id number] 2.16.84 [id number] 1972 Unknown [id number] 2.16.84 [id number] 1972 Unknown [id number] 2.16.8 [id number] 1972 Unknown [id number] 2.16.8 [id number] 1972 Unknown [id number] 2.16.8 [id number] 1972 Unknown [id number] 2.16.8 [id number] 1972 Unknown [id number] 2.16.8 [id number] 1972 Unknown [id number] 2.16.84 [id number] 1957 Medicaid [id number] 1957 Medicare [id number] Medicaid Social History Date Type Detail Facility Start: 10-31-2020 Tobacco smoking status Never s moked tobacco (finding) [facility] Sex Assigned At Male [facility] Functional Status Date Assessment Result Facility 06-03-2023 Functional Status N/A [facility] 02-17-2023 Functional Status N/A [facility] 08-12-2022 Functional Status N/A [facility] Clinical Notes 11-18-2021 to 06-03-2023 Note [...] Follow these instructions at home: Medicines Take zixi-okd-dnokojr and prescription medicines only as told by [...] pain is severe. ?Do not take other yrcd-ben-fniadql pain medicines in addition to prescription pain [...] grains, and fresh fruits and vegetables. ?Take rycj-avv-rnuwinz or prescription medicines. ?Limit foods that are [...] or you are no longer ill. Take teuy-usm-bmxrbqv and prescription medicines only as told by [...] provider. Document Revised: 03/07/2020 Document Reviewed: 03/07/2020 [employer] Patient Education 2022 [employer]. 06/03/2023 13:52:39 Back Exercises, Xrth-de-Dtpg Back Exercises These exercises help to make [...] provider. Document Revised: 01/03/2022 Document Reviewed: 01/03/2022 [employer] Patient Education 2022 [employer] 06/03/2023 13:52:39 Sciatica Rehab-SportsMed Sciatica Rehab Ask [...] by your health care provider. 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 Document Revised: 02/12/2020 Document Reviewed: 11/12/2019 [employer] Patient Education 2022 [employer] Follow Up Care 06/03/2023 13:24:29 With:Aura Joseph Address: [address] [place], [place] [phone] Business (1) When:06/06/2023 13:45:03 Comments:Follow-up with your primary care provider in 3 to 5 days. If symptoms worsen, do not improve, or new symptoms arise please report back to emergency department for further evaluation. [facility] 06-03-2023 Evaluation + Plan note Extrac cleopatra from: Title:ED Note Author:Omar Infante PA-C te:06/03/23 Low back pain with right-marcelo ed sciatica (M54.41: Lumbago with sciatica, right side) Orders: methocarbamol, 1,000 mg = 2 tab(s), Oral, QID, X 10 day(s), # 80 tab(s), Refills(s) 0, Pharmacy: [facility]/pharmacy #[id number], 198, cm, 02/17/23 7:52:00 EDT, Height/Length Dosing, 136.5, kg, 06/03/23 13:31:00 EDT, Weight Dosing tramadol, 50 mg = 1 tab(s), Oral, q6hr, PRN for pain, X 3 day(s), # 18 tab(s), Refills(s) 0, Pharmacy: [facility]/pharmacy #[id number], 198, cm, 02/17/23 7:52:00 EDT, Height/Length Dosing, 136.5, kg, 06/03/23 13:31:00 EDT, Weight Dosing Future Appointments Appointment Date:06/28/2023 09:30:00 AM Scheduled Provider: Location:FT.CARDIO Appointment Type:Anticoagulation Follow Up 15 (FT) [facility]04-16-2023 Evaluation + Plan noteExtracted from: Title:ED Note Author:Jessica Cronin PA-C e:02/17/23 1. 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04-16-2023 Hospital Discharge instructions Patient Education 02/17/2023 08:36:24 [...] instructions at home: Medicines Take or apply ztzu-oec-qewmysu and prescription medicines only as told by [...] and water are not available, use hand student accounts manager. ?Change your dressing as told by your [...] every day for signs of infection. Take uhyn-ivk-mybjbyu and prescription medicines only as told by your health care provider. Keep all follow-up visits as told by your health care provider. This is important. This information is not intended to replace advice given to you by your health care provider. Make sure you discuss any questions you have with your health care provider. Document Released: 07/16/2002 Document Revised: 06/18/2019 Document Reviewed: 06/18/2019 [employer] Patient Education 2020 [employer]. Follow Up Care 02/17/2023 07:44:15 With:[facility]: [facility]- [phone] Address:Unknown When:02/20/2023 08:19:13 With:Aura Joseph Address: [address] [place] [address] Business (1) When:Within 3 Day(s) [facility]10-09-2022 Evaluation + Plan noteExtracted from: Title:ED Note Author:Omar Infante PA-C te:08/12/22 Right-sided low back pain wi thout sciatica (M54.50: Low back pain, unspecified) Orders: diclofenac topical, 1 nacho, Topical, QID for pain, 100 gram, Refill(s) 0, [facility] #[id number], 198, cm, 08/12/22 9:37:00 EDT, Height/Length Dosing, 140, kg, 08/12/22 9:37:00 EDT, Weight Dosing lidocaine topical, 1 patch(es), Topical, Daily, 7 patch(es), Refill(s) 0, apply 12 hours on and 12 hours off daily, [facility] #[id number], 198, cm, 08/12/22 9:37:00 EDT, Height/Length Dosing, 140, kg, 08/12/22 9:37:00 EDT, Weight Dosing Future Scheduled Tests Laboratory* COVID-19 ([facility]) 11/18/21 [facility]10-09-2022 Hospital Discharge instructions Patient Education 08/12/2022 10:15:52 [...] Follow these instructions at home: Medicines Take dywd-opd-duuzyry and prescription medicines only as told by your health care provider. Ask your health care provider if the medicine prescribed to you: ?Requires you to avoid driving or using heavy machinery. ?Can cause constipation. You may need to take these actions to prevent or treat constipation: ?Drink enough fluid to keep your urine pale yellow. ?Take gkqn-fws-lmnqkdp or prescription medicines. ?Eat foods that are [...] 10/15/2002 Document Revised: 11/09/2019 Document Reviewed: 11/09/2019 [employer]isc Patient Education 2020 [employer]. 08/12/2022 10:15:52 Back Exercises Back Exercises The [...] back becomes more flexible: 1.Get into a rkphe-era-nbtvp position on a firm surface. Keep your [...] 11/28/2005 Document Revised: 02/25/2020 Document Reviewed: 07/23/2019 [employer]isc Patient Education 2019 [employer]. Follow Up Care 08/12/2022 09:24:19 With:Aura Joseph Address: [address] [place] [address] [facility] [place] [address]- [facility] (1) When:08/15/2022 09:59:56 Comments:Follow-up with your primary care provider in 3 to 5 days. If symptoms worsen, do not improve, or new symptoms arise please report back to emergency department for further evaluation. [facility]05-16-2022 Hospital Discharge instructions Follow Up Care 03/19/2022 08:03:09 With:Brock Mercer Custodial: [phone] Address:Unknown When: Unknown [facility]05-02-2022 Hospital Discharge instructions Patient Education 03/05/2022 10:08:57 [...] what medicines you take. General instructions Take jgdq-ocs-afslhcc and prescription medicines only as told by [...] 10/21/2006 Document Revised: 10/03/2018 Document Reviewed: 03/21/2018 [employer]isc Patient Education 2020 [employer]. Follow Up Care 03/05/2022 08:50:19 With:Teena Cervantes Address: [address] [place] [address]- Business (1) When:03/08/2022 10:03:09 With:Deep De Souza Address: [facility] [place] [address] [place] [address] 0 Business (1) When:03/08/2022 10:03:06 [facility]01-15-2022 Evaluation + Plan note Future Scheduled Tests Laboratory* COVID-19 ([facility]) 11/18[facility] Future Appointments Appointment Date:03/09/2022 09:00:00 AM Scheduled Provider: Location:.CARDIO Appointment Type:Anticoagulation Follow Up 15 (FT) Future Scheduled Tests Laboratory* COVID-19 ([facility]) 11/18/[facility] Future Appointments Appointment Date:03/30/2022 08:00:00 AM Scheduled Provider: Location:FT.CARDIO Appointment Type:Anticoagulation Follow Up 15 (FT) Future Scheduled Tests Laboratory* COVID-19 ([facility]) 11/18/21 Radiology* US LE Venous Duplex Insufficiency Right 03/19/22 * US PVR Lower EXT Complete Bilat 03/19/22 [facility] Future Appointments Appointment Date:05/18/2022 08:00:00 AM Scheduled Provider: Location:FT.CARDIO Appointment Type:Anticoagulation Follow Up 15 (FT) Future Scheduled Tests Laboratory* COVID-19 ([facility]) 11/18/[facility] Future Appointments Appointment Date:07/10/2022 08:45:00 AM Scheduled Provider: Location:FT.CARDIO Appointment Type:Anticoagulation Follow Up 15 (FT) Future Scheduled Tests Laboratory* COVID-19 ([facility]) 11/18/[facility] Future Appointments Appointment Date:08/03/2022 07:45:00 AM Scheduled Provider: Location:FT.CARDIO Appointment Type:Anticoagulation Follow Up 15 (FT) Future Scheduled Tests Laboratory* COVID-19 ([facility]) 11/18/[facility] Future Appointments Appointment Date:11/16/2022 03:30:00 PM Scheduled Provider: Location:FT.CARDIO Appointment Type:Anticoagulation Follow Up 15 (FT) Future Scheduled Tests Laboratory* COVID-19 ([facility]) 11/18/[facility] Future Appointments Appointment Date:06/28/2023 09:30:00 AM Scheduled Provider: Location:FT.CARDIO Appointment Type:Anticoagulation Follow Up 15 (FT) [facility] Narrative No data available for this section [facility] Discharge instructions No data available for this section [facility] No data available for this section [facility] Summary Purpose Family History No Family History [...] section and content) DATE CREATED AUTHOR 04/24/2018 [facility] DATE CREATED AUTHOR AUTHOR'S ORGANIZ ATION 01/27/2019 [facility] DATE CREATED AUTHOR AUTHOR'S ORGANIZ ATION 05/03/2022 [facility] DATE CREATED AUTHOR AUTHOR'S ORGANIZ ATION 11/13/2022 [facility] DATE CREATED AUTHOR AUTHOR'S ORGANIZ ATION 04/12/2023 [facility] DATE CREATED AUTHOR AUTHOR'S ORGANIZ ATION 11/09/2023 [facility] DATE CREATED AUTHOR AUTHOR'S ORGANIZ ATION 11/23/2023 [facility] EPIC Care Team (unrecognized sect ion and content) Personnel Name: Aura Joseph MD Address: [address] [place] [address] Name: Meghan Alarcon MA Name: Serenity Lakhani Personnel Name: Aura Joseph MD Address: [address] [place] [address] Name: Meghan Alarcon MA Name: Serenity Lakhani Personnel Name: Aura Joseph MD Address: [address] [place] [address] Name: Meghan Alarcon MA Name: Serenity Lakhani Personnel Name: Aura Joseph MD Address: [address] [place] [address] Name: Meghan Alarcon MA Name: Serenity Lakhani Personnel Name: Aura Joseph MD Address: Address: [address] [place] [address] Name: Meghan Alarcon MA Name: Serenity Lakhani Personnel Name: Aura Joseph MD Address: Address: [address] [place] [address] Name: Meghan Alarcon MA Name: Serenity Lakhani Personnel Name: Aura Joseph MD Address: Address: [address] [place] [address] Name: Derek Alarcon MAfany Chela Name: LakhaniSerenity Personnel Name: Aura Joseph MD Address: Address: [address] [place] [address] Name: Haileterrance RODRIGUEZ Meghan Chela Name: Serenity Lakhani Personnel Name: Aura Joseph MD Address: Address: [address] [place] [address] Name: Agnes JENNIFER Meghan S Name: Serenity Lakhani Personnel Name: Aura Joseph MD Address: Address: [address] [place] [address] Name: Meghan Alarcon MA Name: Kar Serenity M FOR RECORDS PERTAINING TO PATIENTS WHO ARE [...] BE BASED ON THE PRIMARY CLINICAL RECORDS. [facility]. provides no warranty or guarantee of the accuracy or completeness of information in this document.
--- NOTE | 2023-11-27 07:47 | VEIN_ITS ---
[address] [address] Patient Name: SAVANNAH HOWE MRN: [id number] date: 1970 Sex: M Assigned Patient Location: Current Patient Location: Accession/Order Number: [id number] Exam Date: 11/27/2023 07:48 Report Date: 11/27/2023 08:36 At the request of: MONIKA HOUSER Procedure: VC INJ Foam Sclerosant WUS SWITCHBOARD RECEPTIONIST PROCEDURE: VC INJ Foam Sclerosant WUS SWITCHBOARD RECEPTIONIST, right leg COMPARISON: None. HISTORY: Pain due to varicose veins of bilateral legs I83.813 Pre-operative Diagnosis: CEAP class C6 venous insufficiency with pain, tenderness, edema and incompetent right saphenous and varicose vein(s), chronic venous insufficiency right leg secondary to venous incompetence Post-operative Diagnosis: CEAP class C6 venous insufficiency with pain, tenderness, edema and incompetent right saphenous and varicose vein(s), chronic venous insufficiency right leg secondary to venous incompetence Procedure Performed: 1. Ultrasound-guided microfoam chemical ablation with Varithenaregistered 2. Intraoperative ultrasound guidance Anesthesia: None Indications for Procedure: 53-year-old male who presents with a long history of lower extremity pain and swelling and varicose veins culminating in extensive venous stasis ulcerations. The patient failed conservative medical therapy including medical compression stockings, exercise and analgesics. Prior procedures include endovenous laser ablation and Microfoam chemical ablation. Multiple incompetent varicosities of the right leg. Duplex scan showed reflux and enlarged diameters up to 5 mm. The patient underwent informed consent including management options where the complications of infection, bleeding, pain, and skin injury were discussed. Particular attention was spent discussing thrombus extension and deep vein thrombosis as well as the possibility of pulmonary embolus and treatment with oral or injectable blood thinners. Procedure: The patient walked to the procedure room. All applicable staff donned appropriate apparel. A procedure timeout was performed to confirm correct patient, correct extremity, correct procedure, and correct room set-up including presence of all applicable supplies, devices, and drugs. A duplex ultrasound, performed by myself confirmed the location and incompetence of branch saphenous varicosities and their course was marked on the skin together with the dilated tributaries. The extent of treatment of the vein and the associated varicosities was determined through ultrasound mapping. The skin was prepped and then punctured with a butterfly needle and advanced under ultrasound guidance. The Varithenaregistered canister was activated and the canister was primed and purged as required in the instructions for use. Varithenaregistered was drawn into a sterile syringe. The following injections were made: 6 cc injected into a 5 mm varicose vein right posterior medial ankle 6 cc injected into a 5 mm varicose vein right medial mid lower leg 3 cc injected into a 4 mm varicose vein right lateral lower leg Varithenaregistered was slowly administered at 0.5-1.0 cc/second with close observation by ultrasound of its course in the vessels. Total volume utilized was: 15cc. Following administration of Varithenaregistered the leg was elevated and the patient was asked to repeatedly dorsiflex the ankle to limit flow of Varithenaregistered into perforating veins. Once appropriate spasm had been confirmed in the treated veins, the vascular catheter was removed from the leg and light pressure was applied over the puncture site for hemostasis. The common femoral and deep superficial veins were then evaluated for flow and compressibility prior to dressing placement. The lower extremity was kept elevated at 45 degrees above the horizontal and cording material was applied over the saphenous segments and tributaries to allow for eccentric compression over the target vessels including the targeted saphenous vein(s). A multilayer dressing was applied consisting of foam pads, coban and thigh-high 20-30 mm Hg compression elastic support hose were placed on the patient. The leg was lowered only after compression had been applied and the patient was immediately ambulatory. The patient ambulated 10 minutes under supervision and was without apparent concerns at time of release. Post-care instructions include advising patient to keep post-treatment bandages in place and dry for 48 hours, avoid extended periods of inactivity, avoid heavy exercise for one week, wear compression stockings on the treated leg continuously for two weeks, to walk daily for 10 minutes over the next month. The patient was instructed to take an anti-inflammatory medicine as needed and to follow up for color duplex scan of the Saphenous veins, the treated branch saphenous varicosities, the adjacent deep veins, and additional treatment within 7 days. PERSONNEL: Sukh Adams RN Electronically authenticated by: MONIKA HOUSER Date: 11/27/2023 08:36
== END 2023-11-27 07:44 | disposition home or self-care (01) ==
LOC: VC 07:43
PROVIDERS: PCP Radiology Diagnostic Radiology; Visit Provider Radiology Diagnostic Radiology
DX: I83.813 Varicose veins of bilateral lower extremities with pain (principal)
CPT/HCPCS: 36466

== ENCOUNTER 2023-12-06 07:43 | Outpatient (OUT) | payer MEDICARE, MEDICAID, SELFPAY ==
--- NOTE | 2023-12-06 07:58 | VEIN_ITS ---
Patient Name: SAVANNAH HOWE MR#: [id number] : 1970 Exam Date: 12/06/2023 Ordering Doctor: DR MONIKA HOUSER M.D. RADIOLOGY REPORT PROCEDURE: VC EXT VENOUS RT LMTD COMPARISON: VC EXT VENOUS RT LMTD, 11/15/2023. INDICATIONS: I80.01 Phlebitis of superficial veins of right lower extremity TECHNIQUE: Lower extremity cantu scale and Duplex Doppler evaluation of the deep venous system from the inguinal ligament through the calf veins. FINDINGS: REGION: Right lower extremity. THROMBI: Negative for DVT. Chronic partial thrombus previously seen in femoral vein. No acute DVT. Chemically induced thrombus in multiple varicose veins. COMPRESSIBILITY: Non-compressible segment of superficial vein consistent with thrombus which corresponds to patient's area of tenderness and erythema within proximal left thigh. FLOW: Areas of no flow corresponding to thrombus OTHER: No significant varicosities remain. CONCLUSION: 1. Successful post ablation occlusion of right leg treated branch saphenous varicosities. 2. Segment of superficial thrombophlebitis within proximal left thigh. Dictated by: Geo Cavanaugh M.D. on 12/06/2023 at 08:34 Approved by: Geo Cavanaugh M.D. on 12/06/2023 at 08:56
--- NOTE | 2023-12-06 07:58 | VEIN_ITS ---
Patient Name: SAVANNAH HOWE MR#: [id number] : 1970 Exam Date: 12/06/2023 Ordering Doctor: DR MONIKA HOUSER M.D. RADIOLOGY REPORT PROCEDURE: FACILITY EST [facility] - OFFICE VISIT FOLLOW UP COMPARISON: [facility] EST [facility], 11/15/2023. PROGRESS NOTES: The patient reports improvement in leg symptoms. There has been interval reduction in varicosities. The patient has followed our recommendations to walk 20-30 minutes once or twice per day since the procedure. Physical exam demonstrates decrease in varicosities of the leg. No significant varicosities remain. Area of erythema and newly thrombosed superficial vein within anterior proximal left thigh. Review of the ultrasound performed the same day demonstrates occlusive thrombus extending throughout the treated vein(s), see separate report, consistent with a successful ablation. No thrombus extending into or beyond the saphenofemoral junction. VEIN/ Facility EST LMTD IMPRESSION: 1. Successful ablation of the right leg treated branch saphenous vein(s). 2. No significant varicosities remain. 3. Area of tenderness within proximal anterior right thigh corresponds to a segment of superficial thrombophlebitis and was discussed with patient. PLAN: Follow-up ultrasound evaluation in 1 year or as needed. Nurse notes, history and physical were reviewed and confirmed, see attached forms. The nurse was present throughout the physical exam and consultation Dictated by: Geo Cavanaugh M.D. on 12/06/2023 at 11:49 Approved by: Geo Cavanaugh M.D. on 12/06/2023 at 12:31
--- OUTSIDE RECORDS SUMMARY | 2023-12-06 07:58 | XMS_ITS | CCD ---
Author Name Unknown Address [address] [place] [address] Organization [facility] Care Team Providers Care Molder Fitting Name Role Phone VILMA CARABALLO Unavailable Unavailable DAMON STARK Unavailable Unavailable VILMA CARABALLO Unavailable Unavailable FRANK CHAVEZ Unavailable Unavailable VILMA CARABALLO Unavailable Unavailable FRANK CHAVEZ Unavailable Unavailable AURA JOSEPH Unavailable Unavailivan e Aura Joseph Primary Care Physician [phone] Meghan Alarcon Unavailable Unavailable Serenity Lakhani Unavailable [...] for 3 day(s), 12 tab(s), Refill(s) 0, [facility][id number], 198, cm, 03/05/22 8:56:00 EDT, Height/Length Dosing, [...] day(s), # 28 cap(s), Refills(s) 0, Pharmacy: [facility]/pharmacy #[id number], 198, cm, 02/17/23 7:52:00 EDT, Height/Length Dosing, 136, kg, 02/17/23 7:52:00 EDT, Weight Dosing Start Date: 02/17/23 Stop Date: 02/24/23 Status: Ordered Start: 02-17-2023 End: 02-24-2023 take 1 capsule by mouth every six hours Keflex 500 mg Cap 500 mg = 1 cap(s), Oral, q6hr, X 7 day(s), # 28 cap(s), Refills(s) 0, Pharmacy: [facility] #[id number], 198, cm, 02/17/23 7:52:00 EDT, Height/Length Dosing, [...] QID for pain, 100 gram, Refill(s) 0, [facility] #[id number], 198, cm, 08/12/22 9:37:00 EDT, Height/Length Dosing, [...] hours on and 12 hours off daily, [facility] #[id number], 198, cm, 08/12/22 9:37:00 EDT, Height/Length Dosing, 140, kg, 08/12/22 9:37:00 EDT, Weight Dosing Start Date: 08/12/22 Status: Ordered methocarbamol 500 mg oral tablet (2 sources) Muscle Relaxant Start: 06-03-2023 End: 06-13-2023 take 2 tablets by mouth four times daily Robaxin 500 mg Tab 1,000 mg = 2 tab(s), Oral, QID, X 10 day(s), # 80 tab(s), Refills(s) 0, Pharmacy: [facility]/pharmacy #[id number], 198, , 02/17/23 7:52:00 EDT, Height/Length [...] day(s), # 18 tab(s), Refills(s) 0, Pharmacy: [facility]/pharmacy #[id number], 198, , 02/17/23 7:52:00 EDT, Height/Length [...] Start: 11-17-2019 take 1 capsule by mo [facility] once daily potassium chloride 10 mEq Cap-ER [...] and due to atherosclerosis; Translations: [Atherosclerosis of [place] arteries of extremities with rest pain, right [...] Facility Consent for Treatmenton Consent for Treatment [id number] Normal [facility] POCT PT/INRon 11-08-2023 POCT INR 1.4 High .7-1.2 [facility] Comment on above: Performed By: #### 2 [id number] #### [facility] [address] [place] [address] POCT PT 15.7 second(s) High 8.0-15.0 [facility] Comment on above: Performed By: #### 2 [id number] #### [facility] [address] [place] [address] POCT PT/INRon 09-27-2023 POCT INR 4.0 High .7-1.2 [facility] Comment on above: Performed By: #### 2 [id number] #### [facility] [address] [place] [address] POCT PT 38.9 second(s) High 8.0-15.0 [facility] Comment on above: Performed By: #### 2 [id number] #### [facility] [address] [place] [address] POCT PT/INRon 09-17-2023 POCT INR 4.0 High .7-1.2 [facility] Comment on above: Performed By: #### 2 [id number] #### [facility] [address] [place] [address] POCT PT 41.8 second(s) High 8.0-15.0 [facility] Comment on above: Performed By: #### 2 [id number] #### [facility] [address] [place] [address] POCT PT/INRon 09-06-2023 POCT INR 1.5 High .7-1.2 [facility] Comment on above: Performed By: #### 2 [id number] #### [facility] [address] [place] [address] POCT PT 17.1 second(s) High 8.0-15.0 [facility] Comment on above: Performed By: #### 2 [id number] #### [facility] [address] [facility] [place] [address] POCT PT/INRon 08-16-2023 POCT INR 4.1 High .7-1.2 [facility] Comment on above: Performed By: #### 2 [id number] #### [facility] [address] [facility] [place] [address] POCT PT 42.9 second(s) High 8.0-15.0 [facility] Comment on above: Performed By: #### 2 [id number] #### [facility] [address] [facility] [place] [address] POCT PT/INRon 06-28-2023 POCT INR 2.5 High .7-1.2 [facility] Comment on above: Performed By: #### 2 [id number] ####[facility] [address] [facility] [place] [facility] [place] [address] POCT PT 27.5 second(s) High 8.0-15.0 [facility] Comment on above: Performed By: #### 2 [id number] ####[facility] [address] [facility] [place] [facility] [place] [address] POCT INR Error Invalid Interpretation Code .7-1.2 [facility] Comment on above: Performed By: #### 2 [id number] #### [facility] [address] [facility] [place] [address] POCT PT Strip Error Invalid Interpretation Code 8.0-15.0 [facility] Comment on above: Performed By: #### 2 [id number] #### [facility] [address] [facility] [place] [address] XR Pelvis 1 or 2 Viewson XR [...] mGy = na DAP = na Normal [facility] XR Spine Lumbosacral Minimum 4 Viewson [...] in mGy = na DAP = na [facility] Consent for Treatmenton -0 Consent for Treatment [id number]#[id number]:127 Normal [facility] Physician Orderon 06-10-2023 Physician Order [id number]#1.00CD:127 Normal [facility] Consent for Treatmenton 05-06 Consent for Treatment [id number]#1.00CD:127 [facility] Discharge Instructionson Discharge Instructions [id number]#1.00CD:127 [facility] ED Clinical Summaryon 2022 ED Clinical Summary (Inserted Image. Ju[place] ble to display) [place] [id number] ED Clinical Summary Person Information Name: TAI CLARK [facility] Age: 52 Years : 1970 Sex: Male Language: Vietnamese PCP: Aura Joseph MD Marital Status: Phone: [phone] MRN: Visit Id: Visit Reason: Back pain; [...] ADDRESS: [address] [facility] [id number] PHYS DOC NOTES: MEDICAL INFORMATION: Prescriptions Given: New Medications [facility]/pharmacy #[id number], [address] [facility] [place], [place] [id number], [phone] methocarbamol (Robaxin 500 mg Tab) 2 Tablets [...] INFORMATION: Instructions: Acute Pain, Adult; Back Exercises, Eedh-on-Ysiz; Sciatica Rehab-SportsMed Follow up: With: Address: When: [place] [address] Shots (1Oh My Glasses In 3 days 06/06/2023 Comments: Follow-up with your primary care provider in 3 to 5 days. If symptoms worsen, do not improve, or new symptoms arise please report back to emergency department for further evaluation. DIAGNOSIS: Low back pain with right-sided sciatica Normal [facility] ED Note-Physicianon 06-03-20 ED Note-Physician Basic [...] and Complexity of Problems Differential Diagnosis: [] [facility] Data External documents reviewed: [] My EKG [...] # 80 tab(s), Refills(s) 0, Pharmacy: [id number], 198, cm, 02/17/23 7:52:00 EDT, Height/Length Dosing, 136.5, kg, 06/03/23 13:31:00 EDT, Weight Dosing tramadol, 50 mg = 1 tab(s), Oral, q6hr, PRN for pain, X 3 day(s), # 18 tab(s), Refills(s) 0, Pharmacy: [facility]/pharmacy #[id number], 198, cm, 02/17/23 7:52:00 EDT, Height/Length Dosing, 136.5, kg, 06/03/23 13:31:00 EDT, Weight Dosing Disposition Plan Patient Discharge Condition Stable Discharge Disposition To home Discharge Prescription List Prescriptions Robaxin 500 mg Tab, 1000 mg= 2 tab(s), Oral, QID traMADOL 50 mg Tab, 50 mg= 1 tab(s), Oral, q6hr, PRN Follow-up With When Contact Information Aura Joseph In 3 days 06/06/2023 EDT [address] [place] [address] [facility] (1) Additional Instructions: Follow-up with your primary care provider in 3 to 5 days. If symptoms worsen, do not improve, or new symptoms arise please report back to emergency department for further evaluation. Patient Education Acute Pain, Adult Back Exercises, Cqzh-nv-Tvvb Sciatica Rehab-SportsMed Attestation Patient seen and evaluated by the physician medicine assistant. Attending physician was present in the emergency department and supervised care. This visit was performed by both the physician and an APC. I performed all aspects of the MDM as documented. This report was transcribed using voice recognition software. Every effort was made to ensure accuracy, however, inadvertently computerized biomedical field service engineer mistakes may be present. Appropriate healthcare PPE was used in evaluating this patient. The patient was placed in a mask. The heal (more content not included)... Normal [facility] Comment on above: Result Comment: Elec [...] these instructions at home: Medicines ? Take prid-how-sllmyor and prescription medicines only as told by [...] is severe. ? Do not take other dxyo-qkn-ezzwvmi pain medicines in addition to prescription pain [...] and fresh fruits and vegetables. ? Take siwv-xlj-ciepeof or prescription medicines. ? Limit foods that [...] you are no longer ill. ? Take vmzo-tsr-dliyzdz and prescription medicines only as told by [...] provider. Document Revised: 03/07/2020 Document Reviewed: 03/07/2020 [employer] Patient Education ? 2022 [employer] Back Exercises These exercises help to [...] exercises more (more content not included)... Normal [facility] ED Patient Summaryon 023 ED Patient Summary (Inserted Image. Ju[place] ble to display) [address] [address] Patient Discharge Instructions Person Information Name: TAI CLARK Age: 52 Years Arrival Date: 06/03/2023 13:21:59 Discharge Diagnosis: Low back pain with right-sided sciatica Primary Care Physician: Aura Joseph MD Provider Information Primary Provider: Wilber Sinclair M.D. Advanced Courtroom Clerk:None The exam and treatment you received in the Emergency Department were for an urgent problem and are not intended as complete care. It is important that you follow up with a doctor, nurse practitioner, or physician?s medicine assistant for ongoing care. If your symptoms [...] Instructions: With: Address: When: [place] [address] [facility] (1) In 3 days 06/06/2023 Comments: Follow-up [...] Education Materials: Acute Pain, Adult; Back Exercises, Crgx-fc-Acnr; Sciatica Rehab-SportsMed A MESSAGE TO ALL PATIENTS REGARDING OPIOIDS PRESCRIPTION OPIOIDS: WHAT YOU NEED TO KNOW Prescription opioids can be used to help relieve wdqarrnl-mj-hwpzqu pain and are often prescribed following a [...] Visit www.cdc.gov/drugover (more content not included)... Normal [facility] POCT PT/INRon 05-17-2023 POCT INR 2.9 High .7-1.2 [facility] Comment on above: Performed By: #### 2 [id number] ####[facility] [address] [place] [address] POCT PT 31.4 second(s) High 8.0-15.0 [facility] Comment on above: Performed By: #### 2 [id number] ####[facility] [address] [place] [address] POCT PT/INRon 04-19-2023 POCT INR 2.7 High .7-1.2 [facility] Comment on above: Performed By: #### 2 [id number] #### [facility] [address] [place] [address] POCT PT 29.2 second(s) High 8.0-15.0 [facility] Comment on above: Performed By: #### 2 [id number] #### [facility] [address] [place] [address] VC ENDOVENOUS ABL 1ST V LTon 03-29-2023 VC ENDOVENOUS ABL 1ST V LT Patient: TAI CLARK Exam Date: 03/29/2023 : 1970 Gender:M Ordering : DR MONIKA HOUSER M.D. Admission #: [id number] Family : Order #: [id number] CLICK HERE TO VIEW EXAM RADIOLOGY REPORT [...] com (more content not included)... Normal [facility] POCT PT/INRon 03-26-2023 POCT INR 1.8 High .7-1.2 [facility] Comment on above: Performed By: #### 2 [id number] #### [facility] [address] [place] [address] POCT PT 20.1 second(s) High 8.0-15.0 [facility] Comment on above: Performed By: #### 2 [id number] #### [facility] [address] [place] [address] Progress Note-Physicianon Progress Note-Physician Patient: TAI CLARK [...] stroke: no 4. Serious co-morbid conditions (recent MO, anemia with Hct <30%, CRI with SCr > 1.5, DM): no Score = 0 /4 Risk (low = 0, mod = 1-2, high = 3-4): Health Status Allergies: Allergic Reactions (Selected) No Known Allergies, Allergies (1) Active Reaction No Known Allergies None Documented Current medications: (Selected) Prescriptions Prescribed Voltaren Gel 1% Gel: 1 nacho, Topical, QID for pain, 100 gram, Refill(s) 0, [facility] #[id number], 198, cm, 08/12/22 9:37:00 EDT, Height/Length Dosing, 140, kg, 08/12/22 9:37:00 EDT, Weight Dosing lidocaine Top 5% film Patch: 1 patch(es), Topical, Daily, 7 patch(es), Refill(s) 0, apply 12 hours on and 12 hours off daily, [facility] #[id number], 198, cm, 08/12/22 9:37:00 EDT, Height/Length Dosing, [...] All Problems Cerebral palsy / SNOMED CT [id number]-[id number] / Confirmed Healed venous ulcer of lower extremity / SNOMED CT 6357054999 / Confirmed Hallux rigidus of right foot / SNOMED CT 810083137 / Confirmed Umbilical hernia / SNOMED CT 9741603189 / Confirmed Venous insufficiency of right leg / SNOMED CT 872451800 / Confirmed Resolved: DVT - Deep vein thrombosis / SNOMED CT 3788449179 Resolved: Gout / SNOMED CT 312153481 Resolved: HTN (hypertension) / SNOMED CT [id number]-[id number] Resolved: Hyperlipidemia / SNOMED CT 99591813, Active Problems (5) Cerebral palsy Hallux rigidus [...] pmhx of (more content not included)... Normal [facility] Comment on above: Result Comment: Elec tronically Signed By: Meghan Yang\.mina\Date and Time Signed: 03/26/23 10:24 EDT VC COMP CONSULTATIONon 03-18 VC COMP CONSULTATION Patient: DANUTA CLARK Exam Date: 03/18/2023 : 1970 Gender:M Ordering : DR DEEP DE SOUZA D.P.M. Admission #: [id number] Family : ARAM SALEH WOUND C Order #: [id number] CLICK HERE TO VIEW EXAM RADIOLOGY REPORT [...] incompetent branch saphenous varicosities, and dilated incompetent customs manager veins within the distal lower extremity bilaterally [...] arterial disease 5. CEAP: C6, EC, AP, ME PLAN: 1. Continued use of compression stockings [...] Cavanaugh M.D. on 03/18/2023 at 12:04 Normal [facility] VC VENOUS REFLUX ABRAN LMTon 0 03-18-2023 VC VENOUS REFLUX ABRAN LMT Patient: TAI CLARK Exam Date: 03/18/2023 : 1970 Gender:M Ordering : DR DEEP IbarraPKaren Admission #: [id number] Family : CHIU THERESE WOUND C Order #: [id number] CLICK HERE TO VIEW EXAM RADIOLOGY REPORT [...] chronic thrombus visualized Compressibility: Normal Flow: Normal Mechatronics Engineer: Dist/med calf 4.6mm with 1.3s reflux. Dist/med [...] right great saphenous vein. 3. Bilateral, incompetent customs manager veins within the distal calf. 4. 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 5. Consultation for endovenous ablation is recommended. Dictated by: Saloni Cavanaugh M.D. on 03/18/2023 at 10:55 Approved by: Saloni Cavanaugh M.D. on 03/18/2023 at 11:54 Normal [facility] Coding Summary.on 02-19-2023 Coding Summary. CD:[id number] Ww+PGhl YWQ+IQ7MEWQeC72fcUXhfK4xI8V MTElOSywgQVBQTElOSyIgbmFtZT 1kaXNjZXJu IC8+OR4fNICrJfidyAFxt4F8qHR 0I86hij4fJLqsjUK6TRCmCkNelw ipn9tdiYn4WHlfSrchZyGt LYHdgQ24BAG0nM92Vu43qLGfaFT mw8rfoRo9BkMnTOLbLFT5iRggAW nta7AsDVRbW14ugLSgv6L2 BTTlgIsjlRIyQrNswHG4gS6xHSa ptfvok7yercfxGta3xc71uBKnk8 W2kPS9E8RtpdE8ZEIbkJNn HztxoHSChG2rayqkn0sephldThQ hMLVdNUr1CXt4VAMzjFzrBpAtNK 94SXC6AOCmguOvL0CzYIAi lUagJlD4b1W4Ld7XE9UHJpnqU8P NTUFSWTwvdGQ+UD22zk49D1OdPv rlHfo3RUJnUWL3bAD5vM1i SGKlLIjuo4D9lEX7L7BfmtPzpw1 lr9clCMRmLZjaQ56jjLZcu0F1LI EhtWN3ANQidFkgVvRbcO21 Oyc+SMKtrZivp3LfXvbko1evx6m bdJc8MrpsDJSzltBugEwoUCK4p4 AlYp9xJDYoyAK6zDR1fY9k BwUiLdJ1JNbbT187WgWpgDBbDoq oY93iI1UueQN+RYRhYkz2UARnqR gyZN9dG1McUPKmvgvfzOBn yRpkOI6rHOLfbicfBZInsU2nPGJ rL5d1JuGuKcC2LHqzN7CjBSKazp ifIc33qV4cMaYtEwD0YAfu I6IfawC4XJVxrYUrTFbmHLS7T47 vh3C6TTSeLBRzAKP0wIH2vN4keX lnbjogbGVmdDsgdmVydGlj AYpxQEynO970FTByqXnvGaVtIJb uZyBEYXRlOiAgMDQvMTgvMjAyMz wvdGQ+JXVfVGU7xYfxLPIq bMQnQVumHo7usCeenUfqGC0zFZP odlvmCBBsrA2jGVBygTEofCkhQV 9qNTVhghjdx328CyZdSLK0 OMLzhKNvN4PjjB5aYyXoTTUtRWY iX3VgsQFoKVdeT023DMvlOnW1DC XibsOaT4LlBYGmjCimJzA2 j8X7Uv2Pl2EofsgiF9ZvkUJoXrK tXanzXBb8R1PmSemsxHG+PC90YW UaIL68NDb3OED5kQxwNGzr KSVmZ4OioV3zShXbSCJuHOBiEbs +PHRhYmxlIHdpZHRoPScxMDAlJy KkfIuoUG5tGx0lLZJmWAHl wSgnfUEdXtVwb2wnCKTgRCcoZL2 ycGpvX9FwhBP0ZXSru9w2Gh66X5 2zY0DecTR+JCIxoKO7rQT8 kM6cPrSwCzH1MHhwZ052DdOyjOV nZolyu4qdj7oqvGs1PmN3AFVgad GyjGobHCQ9p4XrMg87L03d IHdpZHRoPSIxNSUiIHZhbGlnbj0 hjP7rUi0+GDCcvNH3xAH8sX2pDm GdJmC7WGbzD535GyBvqKZh Mizqg6wej5dkdJo5ZtWkXWSmryO grJvrUVL7u9TcAj82Z6OllUmcv1 XdXgy3nc71mUVbn7S8iWL1 S8MgZMYhnoaxuBSjfWdfRZ3aPUY twralSVCdtM0nFADkX7u6XrSfOx L0BUolZ3MuppZ4MGAaiOFd ZRSdjTKWtH8etgqld5grqkjpOqW eWXWdHRa8TOl8HHCqnKmlZbQuOG W8RjK1GCT1qUPplA9fkBgc wqgefK8rXqo+OWH6dSZaxGDIYT2 lOjwvdGQ+RXWvSJW1vAncNPfbFS DltE2dSIMaD1o1UmSaOjS8 ESysO0XkarP1PPDyeGBiSGJhnTA KlG5ngidro6nvemmeMoEtIOUuBW w0LVz7PPSlgUbaEcBiGDD1 LzA9RCI1pQWygQ9fiVtepcxadN1 wOyc+PpqrxOehJKK1MTn1A7EhXv i2SHHmcWmlUU7gkFDyWZsb Yz1lfEtvhWnzOE9tDZVxrwusk80 6TxMlx3tpUMTeuMUbZUkbRRS9S5 5rv7S4VLRvREZnCTQ1sZX5 yC1orOnfyjbejAPpfPbegbBwyIi hKOyxCOdnC703OANnjJxmPmYwNT t0W8OmDbj6EHAzbFubFF9p aXEdTClzMl1zsHzujKnzYK8fYQB wncmsl797UdCne5reMJDniRCgDV wpJPP8U10jt0Q7YIDkXNIl FYD5gHZ2dY6snMyfnukecQSuvBp honWweDgiORnaRCcfL658VVMpfP sdJkHjpUs3B0MbXvi6BBUz pXlxQT3yrQSoHAehLs0woSkzmKk lKU1cZUQifotja735SzBue7dbKU MclSIoDAjhMYD9E37cn9K7 MBVvBBNaZVZ2zAT4kT3yeBroqvl gbGVmdDsgdmVydGljYWwtYWxpZ2 46IHRvcDsnPlBhdGllbnQg KZuyLVf2Z9PiZpkuxSW+RQ72IYX lKS66kBIblACpx5tqpTk9LiWwCY LiJBZ0qVfnZRuyc0RaJDPo F84chOOge8A4CMPsdCcbsSWqIiJ fyTK8oB1yOTzztxtqh9ifpwjiRi imh5uhpj11aQ45A20nXTky GZYyYMGfJWYqVDYcuGeuwq4fcG9 wIi8+EVOjfBG6kUG6mS5cMITpSs C6SFvnC233HqQwuGAvQdaj k8dvc7xkwHp8UpG1WZTdtpOpuYg dQKM5c3FaRb90E19dRKbeYAVmKO LhPUNhULTmbXvljm9baH0x Ii8+WXAcpHR1iMR0dD8cQrJxVqK 0XCfuC695YwAxpIZyQjzjN06dO4 JvdXA+BJKrAbz0EUUakVys IC7ngGAkKFoiTj4zRNF4HjKdLgR jVEidE8DfMRPkyjrwjaltuDR2ZC BeXBOayP12Pm9coWqfDVVq bJSClJ7fbgczd3kzczssOjOjGTN pBUl5SOj2WDUpuMamEcReRKF8Ik I4FYU2jWNtdK7ebXvcbgyq tO0zF4SpBUZndilgSl91cA0iEiS pJvS8RHyvFiy+X1GZJ3SdTIcTT7 NDNMBMRD86MD18vXUox4B1 gTX4B1UhWURzupevqccyeSE6JYK gUZRaaH38vSJbWRryEk8jt0Y1x7 69WVEpHFSpgU37Jl6bkRct IFIqlUMErA2onjslz4jgrfnsPkD nXQQzKZm3LKx0RCVnxBxbSjXgBU P1PmT6DIF9nFKmuN7bgFvb zmfnpQ2cCtl+ZQAqRKofOOr9Tvj vdGQ+JGKbTHA4rEedQRhpAYHagT 3xJWMxU9x0IsEeNzP0GZyb P6XzUYPmtsjkZu43tP6wAmIxWzS 7LAifS1ZpbhA8BVHywMGkSMjyVR D0D47hc6E6JVKqPJQaKPF7 pUF0rA9cpOgaqesknSSzaAidqrQ amCeeDOpbHYtdX799PGUbjKclFc KeLPixPCSfZS42JN33nDYm h0Q1lFS8Y4IaPZEslaoyemfglRO 4WHQkZDUonA71dONsEAceUc0yn3 M2t058IBCaAESzkC92Nh3x sXyxLXRnmAYJhD9nynnnv3uavdk eByZgOWEfSJl9LVf3VILjxZynAv DoOBP8GjU1SXM0aTXuqZ1b mUzmpinzqW8yTlb+TWFsZTwvdGQ +BSNuOVS5uXzkRGafMNFvsR8lTI MdJ6j8TvQdOcR1GKuxU7Ww RDXjecgdUl98aC2eSfTvVvS1VZi bH1GeuwX1WFXhfSOzCPgqTAM3M4 0ap2V6XAEhUAFmEQE4aGN4 nV9ojYkmcqzfyRHmuNwuoaGjnZc aQEpyDNllE868FUAlfLolTeMfRT LsYW3imZjzvVN+BD60wm57 Q3VaUtslTma0SABgVGC1gNU3dN9 yTKImZQfhx3H5lZS6K5XibvJvrm 1xx1ylQYThISnlC74jhZEd w9M8SXMaiXH4UOApiEwqOgIomX8 3Oyc+MDEolKbgu6XsMfdxr2dsv7 amyVc7EpXjMMIsofXthLkq BJS8t1TuHu24E72hZSvwGGXnOLE jGECpDIYwgWyjmb5ewM0zTf2+PG UccPY9xAP8jA7vInYkRgO2 LCgoH903VsGcwFEiKcvkc2vdr4a dgNw8GmAmJABcfqElzVrgAAX7d1 RmMh41N1FbyJkuo3AsGiu5 bq67jNOiz4U5vHA1V9KdKBQerrw gtIPniSxyOF1rJXTvexjdIXYydF 9jQLWhK5g5KoPgGeU5EKjr L2PmigJ2CCXzuMAyCTGtcTGQaU2 tyklxb6jsiuazVpDjXKUvUCh2AB p2FDFdcJlgDzUpIAN9IsF2 WUY4zBUicN2rxXgaminztW2rUtv +LXm9x7hreGShBP6knQK9MH30OU 00eSSfb9U3aYL6T8TkZLLw ewigbytwcMC0DBDjGYWtxS77Ch9 dcCeqAw1cNVPlZGT3ABPicGJuO5 EhgR1hVlFfFYVkEQHfC1Hp nEDqWAlxW758EItmAgY0ABTtolA hO8QrGWSovHghDyK5l7R0Ed5DMC 09SH35UO01iXZma6Z2wCO2 X7WyFBDfdegltqjdlWR0ZBEjTME pnX56Oy0fsDluHj2nQCRwYQG4YB BxpOJpS5GeoJ3qPuTwVNOj XMAlM2QbgZVkLFplW505AQeoXiK 5QNQnjhZfG3YfMGEciMgqYiP6h8 B7Sa7UDh12VX91AZ01cHIh f0F9rOO5L9QqWBExbbomdudfmEZ 1JNCsSYDczK94Wk2elGruUd1iCQ CcJYU1PUStpVZlC9TqeH2v HfLvMXDdQRWrQ6NzvOUlJUbuG14 2LNofOgK3VKJpycOpR1ZtQVBdkH gzTbI4z9E6Ed1GJYhrjnz8 R0SwYlibgHW+CO92IHRcSY57kGM lnKFkc6codMu2IaOdCZAoSZJ2uE tzVHena3DcFMZhI12krDDn y8I2MMHl (more content not included)... Normal [facility] Consent for Treatmenton 02-02 Consent for Treatment [id number]:127 Normal [facility] Discharge Instructionson Discharge Instructions [id number]:127 Normal [facility] ED Clinical Summaryon 2022 ED Clinical Summary (Inserted Image. [place] ble to display) [place] [id number] ED Clinical Summary Person Information Name: TAI CLARK [facility] Age: 52 Years : 1970 Sex: Male Language: Vietnamese PCP: Aura Joseph MD Marital Status: Phone: [phone] Visit Id: Visit Reason: Leg ulcer; ULCERS [...] ADDRESS: [address] [facility] [id number] PHYS DOC NOTES: MEDICAL INFORMATION: Prescriptions Given: New Medications [id number], [address], [place] [id number], [phone] cephalexin (Keflex 500 mg Cap) 1 Capsules [...] With: Address: When: [facility] [phone] In 3 days 02/20/2023 With: Address: When: Aura Joseph [employer] [place] [id number] [facility] (1) In 3 days DIAGNOSIS: 1:Chronic venous hypertension (idiopathic) with ulcer of bilateral lower extremity Normal [facility] ED Note-Physicianon 02-18-20 ED Note-Physician Basic [...] day(s), # 28 cap(s), Refills(s) 0, Pharmacy: [facility] #[id number], 198, cm, 02/17/23 7:52:00 EDT, Height/Length Dosing, 136, kg, 02/17/23 7:52:00 EDT, Weight Dosing cephalexin, 500 mg = 1 cap(s), Oral, QID, X 7 day(s), # 28 cap(s), Refills(s) 0, Pharmacy: [facility]/pharmacy #[id number], 198, cm, 02/17/23 7:52:00 EDT, Height/Length [...] Oral, q6hr Follow-up With When Contact [facility]: [place] [phone] In 3 days 02/20/2023 EDT Additional Instructions: Aura Joseph In 3 days [address] [place] [id number]- [facility] (1) Additional Instructions: Patient Education Venous Ulcer Attestation Patient was treated and evaluated by the Physician Blueprint Cutter. The attending physician was in the Emergency [...] Topical, Daily (more content not included)... Normal [facility] Comment on above: Result Comment: Elec [...] at home: Medicines ? Take or apply lbrm-zqr-zcufffx and prescription medicines only as told by [...] and water are not available, use hand credit adjuster. ? Change your dressing as told by [...] or t (more content not included)... Normal [facility] ED Patient Summaryon 023 ED Patient Summary (Inserted Image. [place] ble to display) [place] [id number] Patient Discharge Instructions Person Information Name: TAI CLARK Age: 52 Years Arrival Date: 02/17/2023 07:43:14 Discharge Diagnosis: 1:Chronic venous hypertension (idiopathic) with ulcer of bilateral lower extremity Primary Care Physician: Aura Joseph MD Provider Information Primary Provider: Ernie Daly DO Advanced Courtroom Clerk:Jessica Cronin PA-C The exam and treatment you received in the Emergency Department were for an urgent problem and are not intended as complete care. It is important that you follow up with a doctor, nurse practitioner, or physician?s medicine assistant for ongoing care. If your symptoms [...] Address: When: [facility]: Tarun- [phone] In 3 days 02/20/2023 With: Address: When: Aura Zamarripaby [address] [place] [id number] [facility] (1) In 3 days In the event that this physician does not participate in your insurance network, please consult with your insurance company to find a nearby participating provider. Patient Education Materials: Venous Ulcer A MESSAGE TO ALL PATIENTS REGARDING OPIOIDS PRESCRIPTION OPIOIDS: WHAT YOU NEED TO KNOW Prescription opioids can be used to help relieve vykhjoxl-qy-hoykrc pain and are often prescribed following a [...] with addict (more content not included)... Normal [facility] Prescriptions/Work Noteson 0 02-17-2023 Prescriptions/Work Notes [id number]#1.00CD:127 Normal [facility] POCT PT/INRon 01-18-2023 POCT INR 2.6 High .7-1.2 [facility] Comment on above: Performed By: #### 2 [id number] ####[facility] [address] [place] [address] POCT PT 28.3 second(s) High 8.0-15.0 [facility] Comment on above: Performed By: #### 2 [id number] ####[facility] [address] [place] [address] Coding Summary.on 01-01-2023 Coding Summary. CD:[id number]:[id number] Gh0bWw+ PGhlYWQ+PO8ASUSjK94jbSQqyS0 RC5pNBC9LTFAMZZVQZP6OQG3sjP E6BUjlA2XfkdId DnkzoNWnRW38FDq2BXC5vFdvSAh nuQ3mrQZxS1c6EhRjDX36wI29TR xnSHIoZmQ7RvNyoruozQIh Y8teCsBclXXyBpt+PHRhYmxlIHd dSFCnCNkiDGIeHbJhwWrwMR4tAp 9yZGVyLWNvbGxhcHNlOiBj t5zwRCHxMKwjAR8ceXxqY4UeoMH 0TJJwp0z7Zt99oFL+EFTlIXX5yG rdWQqcw938YrJqn8igCPM0 mLGbEUebIEQ8H33kg4S2KIJvHFW xDWO5xXC8bO4ubFvgarafK0DxlJ KrPnC4IYQ4dYLglD7cvJab indxjK1uRpg+S51ADY7CRUXMRZ8 MBkq4R3OjJoilrFL+XZ74DYSvIA 52cKLmjBIup6tpaLp1MiGb DHRbISL0zAjjUVciy9AsCMHkW80 xaQFky3V8KNBijTsapSGlKyWljP T7zA1wIMjendwad3lzjrwk Czqyu2xqcy84oQ41H58pBAbaULH cZXA7FIXpLOQezKdfjk3igK2tDv 8+MVbru1pwp6ylfUq6UiSc FDInyyQixFkyHJZ4c0RgIn28G2D lpYovr9HuRjq7yn82hVSlr6U1oV Z4QHclXPHawB7zHNmbAwC4 SITaQtMsgK78zBRmYJlzLs7sgWu ubZqpEW0mNGYtpjwzWQYscW8oMP TklJIncYqvYI7mRYEzehfz y175RkSlXKO9WYXwsYAdE7DxtS4 pAhGpJFJdRUCbD0FebIXkOEgiQ6 47MImaVhS0NHDvolUrG0Xb DFWhkKwtWiZ7g8T8Vj9Xs8Ngjob bGQJ0OZzhIHWjXuQ0YnZfIfG0S9 VlRpz5NDDebQhiHS4lH1Cb FPHbyhfypzoejKV1QOKgIGNvmF1 1yMGhKGrvZx2vu9L8d750WBKpYN PuuO94Ve3nmIznFFPkbOAL eT8furzle9uffqdlNzBvDYFlSNj 3QJl4WPJhmDvuUyHtCGQ3UxP4NC R0hAXfyK1pmKcrcmabnD5x Oyc+W39abG2mVGL9MPR5rbsvZEC kzbGvTQ40UA74C2LkOggwhAHxdZ U+LZVyzpUfsRvgRE1aQgYr b6lsq1FcDKbcP8UjSLLaVQpnYru 4VKLmTWA7hFZ1eL9gKTMcVCjae0 U9mYF3L8GxubKhrt3ts5rf UYAoZDzrR29sgHGyo3L1OAFyyFM 2GZBwjSnxVdFlpK31Stc+PGNvbG vpo5LpHdvnc4rrq6ajiFo2 AxPcCGXnnvEbzLnnUBC3c1UtWq7 8I20aJOtmVUMdBGRtRLEpKJDkjL kjph0erR4kZw2+PGNvbCB3 uGT0wT3nZRMjSdB0UAfuR860OiF noXJfPwhwt4mix5rpbZb5OdGqYZ SctvIewAtlQRQ3u9ZqRn61 W42xBXhjJADgTXMwQPQlGMGciMv xtp2jjC2qNg7+CI0mk1udxq51jM 48dHI+TZBjXLE3fPdiGWvj JNWuhG1dCKzuOkS5FBSoMlQypH8 1vKUqGTpmNy2ziBbhsVlxMT0tUN Avkoseb914LdLly1wmBLQc dFCsYVeiITB6I78jp2I2XJBrIMI rMBY6lHK1iO5muNtmbclboVNxwI hgquCnxEtdRZbxWWueY586 IHRvcDsnPlBhdGllbnQgTmFtZTo 9H4YrZtq2JCRjxXvyQI0vxRWpEP dcJm8ukMwlyJbbET6rVPEd jsdos789WkWmq0nbFCHtdFBnSFn iHDJ8M86ow5H3CZJmUJHzKHL7pE U4uR1cyFssyvhajNUvxVss rbJjcRtkPWkoXAmdT191KGYunDb aZxAawoXjSHUhxZV6OX43YG45lW Tzk1B5vXT3W8QyLQUtixdw lmoxvYK0RTRaZPJulM58Ab4tqWo eIj2hWNIbNMR8VPFxxXQpM0PvvM 3yRgCyKYBtWQYhW0BtpHLz TWjoO851PBzmKbN8OKWwegHnZ8A nDIEwpOgsYcT4j4T4Jq8HY9W6OL 94EC76gJFrk7N4jZZ9N8Yd TKIcwrmrftgwiEC9VUBnOJSenP0 8Ml6jqUiyUj5mEAWbTMX0NDMvuW YbO3YhjN1jLvVeMFVnSHTr D0PnrSBcGGgcE563PHncBvP6TKR myhWpI1QpRKByfRibKeK4m8B4Yl 5KVLo3LM00QZ24lGKeq6N9 pQB2P6DyOUUranwyjuyktJO8MDG hTAFysF53Yz3tiIhdIy9tZZXjVI R9SKVaaYUlZ3EzjW4sRpRl QIQtVFAoT6QetRAmUQjoW717KEd jHiO1QOLoeoOvG9EwZTSgrVwvKs Y7p5J5Sn4USDJiQQ02OEM8 cLE4PH65OG34L5NqCekybJZqvUH +PHRhYmxlIHdpZHRoPScxMDAlJy VxtJxpSJ4jPj2wOIWvEDSa yFqopVVsAgFxn9kqCJKnKStjKF5 ziEnrV8NraFX7OLKoh6i9Jr78A9 2aL4VjoBF+VCPzgIK1bYK9 yG8sXsJvQgV5AZfqS772MyNmfTQ jNeuno6kkd6zbeEw2AtV2TEVdto KceZkpWMF6x0VyLa55J76j IHdpZHRoPSIxNSUiIHZhbGlnbj0 obL5wHk4+VGQgeZZ5wCF1yM2kWt NlGiX3FQfxN064CvXksWLf Btbuh7fbc8qfxBb6NhJgEREgviE vvOcvWPB9u9QcSz53L0XnqPnov8 TiYul3bx41wFCfp1Y0jND4 Q4ToGFLzgqgfeZUwfZqmBP6gBRQ ydftdOAYjbS3pEXItB9z6SqHgXi Q5TZbpM8FoajE8JWJnePVk JSyvFWQ1X27vd6M7FYOpODMvMGJ 3nZS0oT2fqOcgyipjjYYsjSdrvd RoxTkxWUtnZIxvY919XCFa bHhmEGOrjC2aEYLmqWPwtFnbRS1 uVOHzcsejUhsOJZUQMONHH9VJRK ggSjwvdGQ+KJTdLFM3nZrj WWiyHTUfgS1sJZAjA2z6TrGpPhA 8GLlmU5QfPUHtxvidRe94bE9qKn GjSbM3NWlvS3RvdyW7GNDa gLJhULviIQU3E21mx4M0RAEjEEN gNBH9eXH6sJ1syUszgtothEEifQ ybwwNgxSphUWvnHQnhB453 RHWngYjiLrVhDhO2GaE7DqM4F1P tHta7FHGsrBvbMU8rdLAbSMlaKz 2jmGiabMfkBT8nHWXxshlw QVHiiL7bSYAujEKzsRmpFL1rJDH olxkme546KfZaQPS3GHLoxNAoG8 UfeO1sSpHsOLTwCKBcQ4Bb wNUmELmwF477RJknAhU2PROuwfN nQ1YcIWAahLstEdL4n3F9Qx60ZB BZZWFyczwvdGQ+PHRkIHN0 pSecVPsjSBNvhB3xEMBfM0e2OfF hXnT4OJzoI5MiDLLeezotAx43aX 5gTeTuIdP9IPkyC6CqcxX5 ZLStyWZhZEczDHN9R73nd0X9GRO vESHbPGT8cVQ7jT9kaRvfwfrkkR VmdDsgdmVydGljYWwtYWxp D705PZTjbHjnAq1haER9L9OiMxi 3KLNucQunFE9nlBJqAJnlKk7xtZ qzfWdePD0tLKUaqewgMKHi yY2uZJMjvEKlwRvnCP1fYWNgyiq ol067RxHwOXT3XTKjnIMfH7VffU 2jQzRoZTFlUTOjI8EzmZLt SBcgD286SQfjUjO0LHXbtgRrX6G sEVNdzFxeBcZ3u4B5Xu6MCQG4ie Fkajw8X4TgQfqbxTZ+PC90 CBIaSI29fCTcnVPjs6qdlNq5KeA tCHVzVCJ4oFkpVNqbn0SaGQRyU8 7pgFLlz7X0HOOezOzimTDp SyUqmFA2tJ1xVIxyhxajr4ibeem hAqbbb1xviw79nX52G44lPMkeEH BbRKSbYUGdNQZzbIdyee3h xS9bEu5+KRRkbNX9eQP8tG2rGrU cTwA4VItaG592BsWfxTOcFckjr9 rdv0xaqJa4ZhZdJUBuvpZi uXdgYQW9e5NpKe66M18aCCdyBVZ wTAApQRZeFXZplLszzs6uyJ4mLo 8+LT2mu8bogz34aH80cXF+ OKUhBUS7eOpvJLqwXYJrdU7yIMy kNpL7RLUnXiFxrH28nPEnKVjoKv 5aiUdutWlaEU4yVLXdsasc u662KdSaa5kaEGFhvBZkHMfiXNN 9E27bx1W7XBGxDUUiDYW7uVC4kO 1hbGlnbjogbGVmdDsgdmVy uHqmKNcdLAgrO706IBSteOejXiN tbYOrL3iheeWIPT4oZxeeoZB+PH GnDNO4sXucIPcrBEFiyG7t EUBhL3s4WgNxXoD2JAfhP5BiptX 7CWEchZYsSPGduYFOhE5jkmyui6 zdgrixVcSjLJBqEJa2LSw9 GSIarTigOpTzPBO3WkS1NTY6aDX jmY0riRsuutblrF8mJfs+RklOOj wvdGQ+ZQVrSCB6lVrmKEjv LHRclT2iHSTyI3p1HmWtQfF4JNi uU3IjmvL9SYRpjUZbUKApzULTyT 6wesdtv8egiwcpSjSiDXHh OOk7UUr2QRTajRrnVcGbMFN0FyH 4IMG7qRYmpI0lqQxoludunT5xFs c+TVJOOjwvdGQ+PHRkIHN0 cSasWHxsYPJdgB9kIPQfO8s2MsS yIpV6HWdcC1WcvsI2YJQjbTTeTO ScjJRVqZ2tsczxv1phizvx ShQmEEXrJHi6PQi3OMYdrJfjOqB aAGU6NcA3PUE7qVRocS0uaLyoyy ovdX4sSbs+BQL6GLK5QI42 AB57L8FyMfraeLFnmAX+PHRhYmx lIHdpZHRoPScxMDAlJyBzdHlsZT 8tLw3sBUPnSUInnKeyoYDm OiBj (more content not included)... Normal [facility] Consent for Treatmenton 12-06 Consent for Treatment [id number]#1.00CD:127 Normal [facility] POCT PT/INRon 12-28-2022 POCT INR 1.9 High .7-1.2 [facility] Comment on above: Performed By: #### 2 [id number] #### [facility] [address] [place] [address] POCT PT 20.7 second(s) High 8.0-15.0 [facility] Comment on above: Performed By: #### 2 [id number] #### [facility] [address] [place] [address] COAGULATIONOrdered By: Patricio Hickey on 07-25-2022 Fibrin D-dimer FEU (PPP) [Mass/Vol] ng/mL FEU Low 215 - 500 ng/mL FEU [facility] Auto Coag Referrals Officeon 2 Referrals Office [id number]#1.00CD:127 Normal [facility] MICRO OTHER TESTSOrdered By: Patricio Hickey on 03-23-2022 Rapid COV Int NEG Ctl Pass (03/23/22 2:50 PM) Normal [facility] Man Sero Rapid COV Int POS Ctl Pass (03/23/22 2:50 PM) Normal [facility] Man Sero SARS-CoV+SARS-CoV-2 (COVID-19) Ag IA.rapid Ql (Resp) Not Detected (03/23/22 2:50 PM) Normal Not Detected [facility] Man Sero COAGULATIONOrdered By: Miri Jin on 03-05-2022 aPTT Coag (PPP) [Time] 61.4 s High 25.1 - 36.5 second(s) [facility] Auto Coag INR Coag (PPP) [Relative time] 3.2 {INR} Invalid Interpretation Code [facility] Auto Coag PT Coag (PPP) [Time] 38.1 s High 10.2 - 12.9 second(s) [facility] Auto Coag Reference Laboratory Testing Ordered By: Speedy DomainUser on 11-18-2021 SARS-CoV-2 (COVID-19) RNA BILL+probe Ql (Resp) Not detected Invalid Interpretation Code Not Detected [facility] [employer]SS Comment on above: Result Comment: This nucleic acid amplification test was developed and its performance characteristics determined by [employer]. Nucleic acid amplification tests include RT-PCR and [...] detected) result in this assay. Performed at: [address] [id number] PhD Anjum Porter 02-10-2018 SOLA Office Visit ([place]) -------TAI CLARK ([id number]) 1970 MDate Time Provider Department02/10/18 3:00 PM FRANK CHAVEZ During your visit today, we recorded the following information about you: Pulse Respiration Blood pressure 89/minute 16/minute 151/96Frank Chavez MD 02/11/2018 10:39 AM [facility] Department of Cardiovascular MedicineOUTPATIENT VISIT DATE February 10, 2018OUTPATIENT VISIT TYPEESTABLFIRSTHEALTHPRENCOMPASS [facility] PHYSICIAN:Aura Joseph MD[address] [place], [place] [address]Jaooz: [phone]: [phone] PHYSICIANPeMARY JANE [address] [place] [address]YPGIC COMPLAINT:No chief complaint on file.HISTORY OF PRESENT [...] stockings in interim.Flavio Wilson Provider: AURA JOSEPH [[id number]]Allergies As of Date: 02/10/2018(No Known Allergies)Date Reviewed: [...] to improve.Follow-up and Disposition History RecordedEncounter Number: [id number] Status:Closed by FRANK CHAVEZ MD on 02/11/18 Normal [facility] PROGRESSon 02-10-2018 PROGRESS HNO ID: [id number] thor: Frank ChavezSersatishe: (none)Author Type: PhysicianType: Progress NotesFiled: 02/11/2018 10:39 AMNote Text:[facility] Department of Cardiovascular MedicineOUTPATIENT VISIT DATE February 10, 2018OUTPATIENT VISIT TYPEESTABLISHEDPRIMARY CARE PHYSICIAN:Aura Joseph MD[address] [place] [address]Pfliu: [phone]: [phone] PHYSICIANPeter MARY JANE [address] [place] [address]XXHPG COMPLAINT:No chief complaint on file.HISTORY OF PRESENT ILLNESS:Tai Clark was referred for consultation by Dr. Caraballo. Opinionsand recommendations in this consultation will be transmitted back to thereferring physician by [facility] notes or via mail.Mr. Clark is [...] compression stockings in interim.Frank Chavez MD Normal [facility] US-US LE Venous Duplex Insuf ficiency Bilat IMPORTon 02-05-2018 US-US LE Venous Duplex Insufficiency Bilat IMPORT Images were obtained outside of [facility] [id number] Normal [facility] CNOVon 02-03-2018 CNOV Office Visit (VASSFT) -------TAI CLARK ([id number]) 1970 MDate Time Provider Department02/03/18 2:30 PM FRANK CHAVEZ During your visit today, we recorded the following information about you: Pulse Respiration Blood pressure Weight 85/minute 16/minute 160/106 147.4 kgFrank Chavez MD 02/03/2018 3:12 PM [facility] Department of Cardiovascular MedicineOUTPATIENT VISIT DATE February 03, 2018OUTPATIENT VISIT TYPENEWPRIMARY CARE PHYSICIAN:Aura Joseph MD[address] [place] [address]Sfigy: [phone]: [phone] PHYSICIANVilma Caraballo DO ([facility])[address] [place] [id number] COMPLAINT:No chief complaint on file.HISTORY OF PRESENT [...] 147.4 kg (325 lb) SpO2 96% BMI 37.8kg/i7Yucfpug appearance: well nourished, alert and cooperative individual, [...] with test results.SUSY Wilsoneferring Provider: VILMA CARABALLO [[id number]]Allergies As of Date: 02/03/2018(No Known Allergies)Date Reviewed: 02/03/2018Reviewed by: Frank Chavez - Fully AssessedPrimary Visit Diagnosis: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] Other Visit Diagnoses:Venous ulcer (HCC) [I83.009, L97.909] Edema leg [R60.0]Order(s):US VENOUS INCOMPETENCY [facility] [[id number]] Order #: [id number] FUTUREPrescriptions as of 02/03/2018 Sig: WARFARIN 5 [...] (around 02/17/2018).Follow-up and Disposition History RecordedEncounter Number: [id number] Status:Closed by FRANK CHAVEZ MD on 02/03/18 Normal [facility] PROGRESSon 02-03-2018 PROGRESS HNO ID: [id number] thor: Frank Yepez: (none)Author Type: PhysicianType: Progress NotesFiled: 02/03/2018 3:12 PMNote Text:[facility] and [facility] Department of Cardiovascular MedicineOUTPATIENT VISIT DATE February 03, 2018OUTPATIENT VISIT TYPENEWPRENCOMPASS [facility]ALTH [facility] PHYSICIAN:Aura Joseph MD[address] [place] [address]Dukto: [phone]: [phone] PHYSICIANVilma Caraballo DO ([facility])[address] [place] [address]CAHOB COMPLAINT:No chief complaint on file.HISTORY OF PRESENT ILLNESS:Tai Clark was referred for consultation by Dr. Caraballo. Opinionsand recommendations in this consultation will be transmitted back to thereferring physician by [facility] notes or via mail.Mr. Clark is [...] 147.4 kg (325 lb) SpO2 96% BMI37.8 kg/n9Dshcerz appearance: well nourished, alert and cooperative individual, [...] up with test results.Frank Chavez MD Normal [facility] Antithrombin Assayon 017 Antithrombin Assay 114 % Normal 84-138 [facility] Comment on above: Performed By: #### P RCFUN, AT3ASY, HOMCYS, B2GPGM, CARDIO ####[address] [phone] B2 GPI IgG and IgMon 017 Beta2 Glycoprot IgG <9 Normal <20 [facility] Comment on above: Result Comment: < 20 SGU Vxgpbniw53-89 SGU Low Positive> 80 SGU High PositiveThese results were obtained with the [employer] QUANTA Lite B2 GPI IgG JOVITA. B2 GPI IgG values obtained with different manufacturers' assay methods may not be used interchangeably. The magnitude of the reported IgG levels cannot be correlated to an endpoint titer. Performed By: #### P RCFUN, AT3ASY, HOMCYS, B2GPGM, CARDIO ####[place] [address] [place], [place] [phone] Performed By: #### L UPUSP ####[facility] [place], [place] [phone] Beta2 Glycoprot IgM <9 Normal <20 [facility] Comment on above: Result Comment: < 20 SMU Rndpgfso72-90 SMU Low Positive> 80 SMU High PositiveThese results were obtained with the [employer] QUANTA Lite B2 GPI IgM JOVITA. B2 GPI IgM values obtained with different manufacturers' assay methods may not be used interchangeably. The magnitude of the reported IgM levels cannot be correlated to an endpoint titer. Performed By: #### P RCFUN, AT3ASY, HOMCYS, B2GPGM, CARDIO ####[facility] [place], [place] [phone] Performed By: #### L UPUSP ####[address] [place], [place] [phone] CNCOon 07-25-2017 CNCO Letter TextToll Free : [phone] [facility] - [address] [address]Wohgw: [phone]: [facility] [place] [address]Jbqqy: [phone]: [address] [address]Trbzc: [phone]: Fidencio Bhandari M.D., Bridger Marley M.D.Troy Mcfadden M.D.Vilma Caraballo D.O..Felix Burrows M.D.Gregory Orozco M.D. Tuan Bentley M.D.Date: July 25, 2017Re: Tai Daniels WHOM IT MAY CONCERN:He was seen in our office today.Sincerely,Shoaib Garcia(signed electronically to expedite mailing) Normal [facility] CNOVSPon 07-25-2017 CNOVSP Visit (SP) Office ([place]) -------TAI CLARK ([id number]) 1970 MDate Time Provider Department07/25/17 3:15 PM VILMA CARABALLO During your visit today, we recorded the following information about you: Temperature Pulse Respiration Blood pressure 97.9 degrees 102/minute 18/minute 141/91 Weight Height 137.5 kg 1.975 David Caraballo DO 07/26/2017 11:34 PM SignedPATIENT NAME: Tai LeyvaCaro: [id number] PHYSICIAN: [place] [address]PMHYJUO CARE PHYSICIAN: VIRI [place] PHYSICIANS:CHIEF COMPLAINT: Embolism and thrombosis (hcc) (primary encounter diagnosis)Essential (primary) hypertensionRecurrent deep vein thrombosis (dvt) (hcc)ASSESSMENT/PLAN:(I74.9 ) Embolism and thrombosis (HCC) (primary encounter diagnosis)(I10) Essential (primary) hypertension(I82.409) Recurrent deep vein thrombosis (DVT) (HCC)Multiple recurrent DVT. Will require lifelong anticoagulation. There is moredata to support coumadin and patient has problems financially with xarelto.Change to coumadin and [place] cou[facility]in clinic will follow.For chronic lower extremity pain, he will be referred to Dr. Sylvia Marroquin to see if any procedural approach to venous insufficiency is potential.Will also send hypercoag workup as below.Visit (SP) Office on 07/25/17-FACTOR V LEIDEN/PCR-LUPUS ANTICOAG PL-PROTEIN C FUNCT-PROTEIN C FUNCT-ANTITHROMBIN III-B 2 GPI IGG ANDamp; IGM-PROTHROMBIN GENE UEW-GFDR-NJEEQLAHQFI AB-HOMOCYSTEINE SERUM-CONSULT TO VASCULAR SURGERY-ANTICOAG/COUMADIN CLINIC PHARM-warfarin (COUMADIN) 5 mg tablet Return in about 6 months (around 01/22/2018), or change from xarelto tocoumadin. f/u in 6 months. labs today., for coumadin clinic referral.vascular surgery [facility] [place] referral. page Dr. Stark. . HISTORY OF [...] the best ofhis knowledge.July 25, 2017He works [employer] at [employer] on [address]. He stands all day. He wearsbilateral compression [...] plan.I answered all questions satisfactorily..Angelo Caraballo D.O.Medical OncologistToledo, OhioReferring Provider: DAMON STARK [[id number]]Allergies As of Date: 07/25/2017(No Known Allergies)Date Reviewed: 07/25/2017Reviewed by: Mayda Monzon - Fully AssessedReason for Visit: Consult [173] Cmt: ref for DVTPrimary Visit Diagnosis:Embolism and thrombosis (HCC) [I74.9] Other Visit Diagnoses:Essential (primary) hypertension [I10] Recurrent deep vein thrombosis (DVT) (HCC) [I82.409]Order(s):CONSULT TO VASCULAR SURGERY [9068] Order #: [id number]: 1 FACTOR V LEIDEN/PCR [SQFVLEID] Order #: [id number] FUTURE LUPUS ANTICOAG PL [SQLUPUSP] Order #: [id number] FUTURE PROTEIN C FUNCT [SQPRCFUN] Order #: [id number] FUTURE PROTEIN C FUNCT [SQPRCFUN] Order #: [id number] FUTURE ANTITHROMBIN III [PSQU4FQQ] Order #: [id number] FUTURE B 2 GPI IGG AND IGM [FKS9QELK] Order #: [id number] FUTURE PROTHROMBIN GENE PCR [SQPTGENE] Order #: [id number] FUTURE ANTI-CARDIOLIPIN AB [SQCARDIO] Order #: [id number] FUTURE HOMOCYSTEINE SERUM [SQHOMCYS] Order #: [id number] FUTURE warfarin (COUMADIN) 5 mg tabletTake 1 tablet by mouth once daily.Disp: 30 tabletRfl: 0 ANTICOAG/COUMADIN CLINIC PHARM [8204192] Order #: [id number]: 1Disposition: Return in about 6 months (around 01/22/2018), or change from xarelto to coumadin. f/u in 6 months. labs today., for coumadin clinic referral. vascular surgery [facility] [place] referral. page Dr. Stark. .Follow-up and Disposition [...] Status:Closed by VILMA CARABALLO DO on 07/26/17 [facility] 07-25-2017 CNPN Telephone ([facility] -------TAI CLARK ([id number]) 1970 MDate Time Provider Department07/25/17 HEATHER (PHARMACIST)LEE During your visit today, we recorded the following information about you:SHERYL KRUGER 07/25/2017 3:31 PM SignedReferral for anticoagulation services does not seem to be filled out on usualform. Will route to LPNs to get correct referralSakina Santiago LPN, KENAN 07/25/2017 3:48 [address]Dr[address] Caraballo,Please complete order # [id number] under outpatient orders. All 8 steps must becompleted with the F2 treviño.Once the order is completed in its entirety, when the encounter is closed- itwill route to our office for processing.Please call our office at [phone] with any questions.Thank you,Sakina Santiago LPN, Pharmacy Anticoagulation ClinicCharlogan Santiago LPN, KENAN 07/25/2017 4:02 PM SignedPatient Update ? Vilma Caraballo ?You 7 minutes ago (3:54 PM)??? Please cancel. ?This was supposed to be referral for Coumadin clinic [facility]. ?My apologies. ?The orders and Epic are [...] by HEATHER (PHARMACIST) LEE on 07/25/17 Normal [facility] Cardiolipin Antibodyon 07-25 IgG Cardiolipin Ab. <9 Normal 0-9 [facility] Comment on above: Result Comment: <10 GPL [id number] GPL Equivocal>40 GPL PositiveThe following results were obtained with the [employer] QUANTA Lite MARIO IgG III JOVITA. Cardiolipin IgG values obtained with the different manufacturers' assay methods may not be used interchangeably. The magnitude of the reported IgG levels cannot be correlated to an endpoint titer. Performed By: #### P RCFUN, AT3ASY, HOMCYS, B2GPGM, CARDIO ####[facility] [place] [phone] Performed By: #### L UPUSP ####[place] [phone] IgM Cardiolipin Ab. <9 Normal 0-11 [facility] Comment on above: Result Comment: <12 MPL [id number] MPL Equivocal>40 MPL PositiveThe following results were obtained with the [employer]ova QUANTA Lite MARIO IgM III JOVITA. Cardiolipin IgM values obtained with different manufacturers' assay methods may not be used interchangeably. The magnitude of the reported IgM levels cannot be correlated to an endpoint titer. Performed By: #### P RCFUN, AT3ASY, HOMCYS, B2GPGM, CARDIO ####[facility] [address]CStephanie [place] [phone] Performed By: #### L UPUSP ####[place] [address]CS[address]phan[address] [place] [phone] Factor V Leiden PCRon 2016 FV Leiden Report (NOTE) Normal [facility] Comment on above: Result Comment: Perf [...] hybridization probes. Performed By: #### F VLEI ####[address] [phone] Homocysteine, Serumon 2016 Homocysteine, Serum 16.2 umol/L High 7.4-15.7 [facility] Comment on above: Performed By: #### P RCFUN, AT3ASY, HOMCYS, B2GPGM, CARDIO ####[place] [address] [place], [place] [phone] Lupus Anticoag Panelon 07-25 aPTT 32.7 s High 23.0-32.4 [facility] Comment on above: Result Comment: [...] laboratory APTT reagent in use throughout the [facility]. Performed By: #### L UPUSP ####[place] [address] [place], [place] [phone] aPTT 43.6 s High 24.4-33.4 [facility] Comment on above: Performed By: #### L UPUSP ####[address] [phone] aPTT This test is credite d due to interference with anti Xa inhibitor drug. Normal <37.3 [facility] Comment on above: Performed By: #### L UPUSP ####[facility] [address]CStephan[address] [phone] DRVVT 1:1 Mix This test is credite d due to interference with anti Xa inhibitor drug. Normal 32.7-46.7 [facility] Comment on above: Performed By: #### L UPUSP ####[place] [address] [phone] DRVVT Confirm Ratio This test is credite d due to interference with anti Xa inhibitor drug. Normal <1.21 [facility] Comment on above: Performed By: #### L UPUSP ####[address] [phone] DRVVT Screen This test is credite d due to interference with anti Xa inhibitor drug. Normal 32.7-46.7 [facility] Comment on above: Performed By: #### L UPUSP ####[place] [address] [place] [phone] Hex Phase Confirm This test is credite d due to interference with anti Xa inhibitor drug. Normal 45.1-64.1 [facility] Comment on above: Performed By: #### L UPUSP ####[address] [place] [phone] Hex Phase Delta This test is credite d due to interference with anti Xa inhibitor drug. Normal <9.0 [facility] Comment on above: Performed By: #### L UPUSP ####[facility] [phone] Hex Phase Screen This test is credite d due to interference with anti Xa inhibitor drug. Normal 48.9-70.2 [facility] Comment on above: Performed By: #### L UPUSP ####[place] [address]CStephanie [place]ille [phone] IgA Cardiolipin Ab. <9 Normal 0-11 [facility] Comment on above: Result Comment: <12 APL Pkukgqrl16-07 APL Equivocal>40 APL PositiveThe following results were obtained with an GenArtsva QUANTA Lite MARIO IgA III JOVITA. Cardiolipin IgA values obtained with different manufacturers' assay methods may not be used interchangeably. The magnitude of the reported IgA levels cannot be correclated to an endpoint titer. Performed By: #### L UPUSP ####[place] [address] [place], [place] [phone] Performed By: #### P RCFUN, AT3ASY, HOMCYS, B2GPGM, CARDIO ####[place] [address] [place], [place] [phone] INR Coag RelTime (Bld) 1.2 {INR} Normal 0.9-1.3 [facility] Comment on above: Result Comment: Ashley min K Antagonist (VKA) Therapeutic Range: INR 2 to 3 (Target INR of 2.5)Note: For patients treated with VKA drugs, such as warfarin, the [employer] 2012 Guideline recommends [...] al. Chest 2012, 141:7S-47SNishluigi RA, et al. [facility] 2017, 70: 252-289 Performed By: #### L UPUSP ####[place] [address] [place], [place] [phone] Interpretation (NOTE) Normal [facility] Comment on above: Result Comment: [...] 74:1185 (1994). Performed By: #### L UPUSP ####[facility] [address] [place], [place] [phone] PNP This test is credite d due to interference with anti Xa inhibitor drug. Critically abnormal Negative [facility] Comment on above: Performed By: #### L UPUSP ####[facility] [address] [place], [place] [phone] PT Sec 12.4 sec Normal 9.7-13.0 [facility] Comment on above: Performed By: #### L UPUSP ####[facility] [address] [place], [place] [phone] Thrombin Time 16.8 sec Normal <18.6 [facility] Comment on above: Performed By: #### L UPUSP ####[facility] [address] [place], [place] [phone] PROGRESSon 07-25-2017 PROGRESS HNO ID: [id number] thor: Vilma Escobar Maci: (none)Author Type: PhysicianType: Progress NotesFiled: 07/26/2017 11:34 PMNote Text:PATIENT NAME: Tai Hubbard: [id number] PHYSICIAN: Damon Stark DO[address] [facility] [address]CVSYCGS CARE PHYSICIAN: VIRI Jarquin PHYSICIANS:CHIEF COMPLAINT: Embolism and thrombosis (hcc) (primary encounterdiagnosis)Essentia l (primary) hypertensionRecurrent deep vein thrombosis (dvt) (hcc)ASSESSMENT/PLAN:(I74.9 ) Embolism and thrombosis (HCC) (primary encounter diagnosis)(I10) Essential (primary) hypertension(I82.409) Recurrent deep vein thrombosis (DVT) (HCC)Multiple recurrent DVT. Will require lifelong anticoagulation. There ismore data to support coumadin and patient has problems financially withxarelto. Change to coumadin and [place] [facility] will follow.For chronic lower extremity pain, he will be referred to Dr. Sylvia Marroquin to see if any procedural approach to venous insufficiency ispotential.Will also send hypercoag workup as below.Visit (SP) Office on 07/25/17-FACTOR V LEIDEN/PCR-LUPUS ANTICOAG PL-PROTEIN C FUNCT-PROTEIN C FUNCT-ANTITHROMBIN III-B 2 GPI IGG AND IGM-PROTHROMBIN GENE UDF-[id number] AB-HOMOCYSTEINE SERUM-CONSULT TO VASCULAR SURGERY-ANTICOAG/COUMADIN CLINIC PHARM-warfarin (COUMADIN) 5 mg tablet Return in about 6 months (around 01/22/2018), or change from xarelto tocoumadin. f/u in 6 months. labs today., for coumadin clinic referral.vascular surgery [place] in [place] referral. page Dr. Stark. . HISTORY OF [...] best of his knowledge.July 25, 2017He works [employer] at [employer] on [employer]. He stands all day. He wearsbilateral compression [...] I answered all questions satisfactorily..Angelo Caraballo D.O.Medical OncologistToledo, [place] Normal [facility] Protein C Functionalon 07-25 Protein C Functional 146 % Normal 76-147 [facility] Comment on above: Performed By: #### P RCFUN, AT3ASY, HOMCYS, B2GPGM, CARDIO ####[facility] [place], [place] [phone] Prothrombin Gene PCRon 07-25 PT Gene Report (NOTE) Normal [facility] Comment on above: Result Comment: Perf [facility] Pathologist: Heather HarrisaInterpretation:PT Gene Mutation Result: NORMALPT Gene Mutation Interpretation: The DNA sample is negative for [id number] point mutation in the 3' untranslated region of theprothrombin gene.This is not associated with an increased risk ofvenous thrombosis.Venous thrombosis is a multifactorial disorder, andother causes of venous thrombosis are not excluded.PT Gene Mutation Method: This assay was performed by polymerase chainreaction and fluorescence monitoring using hybridization probes. Performed By: #### P TGEN ####[facility] [address] [place], [place] [phone] Vital Signs Date Time Vital Sign Value Performing Clinician Faci litcasey 06-03-2023 13:29-0400 Body temperature 98.06 [degF] [facility] 06-03-2023 13:29-0400 Diastolic blood pressure 87 mm[Hg] [facility] 06-03-2023 13:29-0400 Heart rate 74 /min [facility] 06-03-2023 13:29-0400 Respiratory rate 20 /min [facility] 06-03-2023 13:29-0400 SaO2% (BldA) [Mass fraction] 96 % [facility] 06-03-2023 13:29-0400 Systolic blood pressure 152 mm[Hg] [facility] 02-17-2023 07:47-0400 Body temperature 97.88 [degF] Ernie Daly [facility] 02-17-2023 07:47-0400 Diastolic blood pressure 103 mm[Hg] Ernie Daly [facility] 02-17-2023 07:47-0400 Heart rate 84 /min Ernie Daly [facility] 02-17-2023 07:47-0400 Respiratory rate 16 /min Ernie Daly [facility] 02-17-2023 07:47-0400 SaO2% (BldA) [Mass fraction] 95 % Ernie Daly [facility] 02-17-2023 07:47-0400 Systolic blood pressure 153 mm[Hg] Ernie Daly [facility] 08-12-2022 09:27-0400 Body temperature 98.78 [degF] Ernie Daly [facility] 08-12-2022 09:27-0400 Diastolic blood pressure 101 mm[Hg] Ernie Daly [facility] 08-12-2022 09:27-0400 Heart rate 81 /min Ernie Daly [facility] 08-12-2022 09:27-0400 Respiratory rate 18 /min Ernie Daly [facility] 08-12-2022 09:27-0400 SaO2% (BldA) [Mass fraction] 95 % Ernie Daly [facility] 08-12-2022 09:27-0400 Systolic blood pressure 179 mm[Hg] Ernie Daly [facility] 03-19-2022 09:03-0400 Blood Pressure Location Teena Cervantes [facility] 03-19-2022 09:03-0400 Diastolic blood pressure 79 mm[Hg] Teena Billy [facility] 03-19-2022 09:03-0400 Heart rate 73 /min Teena Billy [facility] 03-19-2022 09:03-0400 Respiratory rate 16 /min Teena Billy [facility] 03-19-2022 09:03-0400 SaO2% (BldA) [Mass fraction] 95 % Teena Billy [facility] 03-19-2022 09:03-0400 Systolic blood pressure 122 mm[Hg] Mohvadim Billy [facility] 03-05-2022 08:52-0400 Body temperature 98.06 [degF] Aashish Moe [facility] 03-05-2022 08:52-0400 Diastolic blood pressure 96 mm[Hg] Aashish Moe [facility] 03-05-2022 08:52-0400 Heart rate 81 /min Aashish Moe [facility] 03-05-2022 08:52-0400 Respiratory rate 18 /min Aashish Moe [facility] 03-05-2022 08:52-0400 SaO2% (BldA) [Mass fraction] 96 % Aashish Moe [facility] 03-05-2022 08:52-0400 Systolic blood pressure 182 mm[Hg] Aashish Moe [facility] Encounters Encounter Date Encounter Type Care Provider Facility Start: 11-22-2023 End: 11-22-2023 ambulatory AURA JOSEPH Not Available Start: 11-08-2023 ambulatory Meghan Hernández Facility: [facility] Start: 06-10-2023 End: 06-11-2023 ambulatory Aura Joseph Facility:[facility] Start: 06-10-2023 End: 06-10-2023 Patient encounter procedure Aura Joseph [facility] Start: 06-03-2023 End: 06-03-2023 Emergency department patient visit Wilber Sinclair Facility:[facility] Start: 06-03-2023 End: 06-03-2023 Emergency department patient visit [facility] Sudarshan Iniguezsahra [facility] Start: 03-29-2023 End: 03-30-[address] MONIKA HOUSER Facility: Start: 03-18-2023 End: 03-19-2023 ambulatory DEEP DE SOUZA Facility: Start: 02-17-2023 End: 02-17-2023 Emergency department patient visit Ernie Daly Facility:[facility] Start: 02-17-2023 End: 02-17-2023 Emergency department patient visit Ernie Daly [facility] Start: 11-16-2022 ambulatory Meghan Hernández Facility: [facility] Start: 10-23-2022 End: 10-23-2022 Patient encounter procedure Aura Joseph [facility] Start: 08-22-2022 End: 08-22-2022 Patient encounter procedure Deep De Souza [facility] Start: 08-22-2022 ambulatory Facility:1 [id number] Start: 08-12-2022 End: 08-12-2022 Emergency department patient visit Ernie Daly [facility] Start: 07-25-2022 End: 07-25-2022 Patient encounter procedure Aura Joseph [facility] Start: 06-25-2022 End: 06-25-2022 Lab Drop off Deep De Souza [facility] Start: 03-30-2022 End: 05-15-2022 Pre-admission assessment Teena Cervantes [facility] Start: 03-23-2022 End: 06-21-2022 Recurring RICHARD DAMIAN [facility] Start: 03-19-2022 End: 03-19-2022 Patient encounter procedure Teena Cervantes [facility] Start: 03-05-2022 End: 03-05-2022 Emergency department patient visit Aashish Moe [facility] Start: 11-17-2021 End: 02-16-2022 Patient encounter procedure Aura Joseph [facility] Start: 02-10-2018 End: 02-12-2018 Ambulatory FRANK KASSAVIN [facility] Start: 02-03-2018 End: 02-06-2018 Ambulatory FRANK CHAVEZ [facility] Start: 07-25-2017 End: 07-29-2017 Ambulatory VILMA Escobar CECY [facility] Procedures Date Procedure Procedure Detail [...] Joseph Payers Date Payer Category Payer Unknown [id number] [id number] 1970 Unknown [id number] 2.16.84 [id number] 1972 Unknown [id number] 2.16.84 [id number] 1972 Unknown [id number] 2.16.8 [id number] 1972 Unknown [id number] 2.16.8 [id number] 1972 Unknown [id number] 2.16.8 [id number] 1972 Unknown [id number] 2.16.8 [id number] 1972 Unknown [id number] 2.16.8 [id number] 1972 Unknown [id number] 2.16.84 [id number] 1957 Medicaid [id number] 1957 Medicare [id number] Medicaid Social History Date Type Detail Facility Start: 10-31-2020 Tobacco smoking status Never s moked tobacco (finding) [facility] Sex Assigned At Male [facility] Functional Status Date Assessment Result Facility 06-03-2023 Functional Status N/A [facility] 02-17-2023 Functional Status N/A [facility] 08-12-2022 Functional Status N/A [facility] Clinical Notes 11-18-2021 to 06-03-2023 Note Date [...] Follow these instructions at home: Medicines Take ehtv-aky-qiuitvp and prescription medicines only as told by [...] pain is severe. ?Do not take other noxt-hny-bxblrwz pain medicines in addition to prescription pain [...] grains, and fresh fruits and vegetables. ?Take aklo-xfu-fwhhuym or prescription medicines. ?Limit foods that are [...] or you are no longer ill. Take gsxf-yew-ozavrhv and prescription medicines only as told by [...] provider. Document Revised: 03/07/2020 Document Reviewed: 03/07/2020 [employer] Patient Education 2022 [employer]. 06/03/2023 13:52:39 Back Exercises, Htyb-rt-Ejjl Back Exercises These exercises help to make [...] provider. Document Revised: 01/03/2022 Document Reviewed: 01/03/2022 [employer] Patient Education 2022 [employer] 06/03/2023 13:52:39 [facility] Sci[facility] Re[facility] [...] by your health care provider. 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 Document Revised: 02/12/2020 Document Reviewed: 11/12/2019 [employer] Patient Education 2022 [employer] Follow Up Care 06/03/2023 13:24:29 With:Aura Joseph Address: [address] [place], [place] [id number] Business (1) When:06/06/2023 13:45:03 Comments:Follow-up with your primary care provider in 3 to 5 days. If symptoms worsen, do not improve, or new symptoms arise please report back to emergency department for further evaluation. [facility] 06-03-2023 Evaluation + Plan note Extrac cleopatra from: Title:ED Note Author:Omar Infante PA-C te:06/03/23 Low back pain with right-marcelo ed sciatica (M54.41: Lumbago with sciatica, right side) Orders: methocarbamol, 1,000 mg = 2 tab(s), Oral, QID, X 10 day(s), # 80 tab(s), Refills(s) 0, Pharmacy: [facility]/pharmacy #[id number], 198, cm, 02/17/23 7:52:00 EDT, Height/Length Dosing, 136.5, kg, 06/03/23 13:31:00 EDT, Weight Dosing tramadol, 50 mg = 1 tab(s), Oral, q6hr, PRN for pain, X 3 day(s), # 18 tab(s), Refills(s) 0, Pharmacy: [facility]/pharmacy #[id number], 198, cm, 02/17/23 7:52:00 EDT, Height/Length Dosing, 136.5, kg, 06/03/23 13:31:00 EDT, Weight Dosing Future Appointments Appointment Date:06/28/2023 09:30:00 AM Scheduled Provider: Location:FT.CARDIO Appointment Type:Anticoagulation Follow Up 15 (FT) [facility]04-16-2023 Evaluation + Plan noteExtracted from: Title:ED [...] day(s), # 28 cap(s), Refills(s) 0, Pharmacy: [facility] #[id number], 198, cm, 02/17/23 7:52:00 EDT, Height/Length Dosing, 136, kg, 02/17/23 7:52:00 EDT, Weight Dosing cephalexin, 500 mg = 1 cap(s), Oral, QID, X 7 day(s), # 28 cap(s), Refills(s) 0, Pharmacy: [facility]/pharmacy #[id number], 198, cm, 02/17/23 7:52:00 EDT, Height/Length [...] Location:FT.CARDIO Appointment Type:Anticoagulation Follow Up 15 (FT) [facility]04-16-2023 Hospital Discharge instructions Patient Education 02/17/2023 [...] instructions at home: Medicines Take or apply fpve-gry-ivcjsoj and prescription medicines only as told by [...] and water are not available, use hand credit adjuster. ?Change your dressing as told by your [...] every day for signs of infection. Take nnut-gbz-cistlkn and prescription medicines only as told by your health care provider. Keep all follow-up visits as told by your health care provider. This is important. This information is not intended to replace advice given to you by your health care provider. Make sure you discuss any questions you have with your health care provider. Document Released: 07/16/2002 Document Revised: 06/18/2019 Document Reviewed: 06/18/2019 [employer] Patient Education 2020 [employer]. Follow Up Care 02/17/2023 07:44:15 With:[facility]- [phone] Address:Unknown When:02/20/2023 08:19:13 With:Aura Joseph Address: [address] [place] [address] Business (1) When:Within 3 Day(s) [facility]10-09-2022 Evaluation + Plan noteExtracted from: Title:ED Note Author:Omar Infante PA-C te:08/12/22 Right-sided low back pain wi thout sciatica (M54.50: Low back pain, unspecified) Orders: diclofenac topical, 1 nacho, Topical, QID for pain, 100 gram, Refill(s) 0, [facility] #[id number], 198, cm, 08/12/22 9:37:00 EDT, Height/Length Dosing, 140, kg, 08/12/22 9:37:00 EDT, Weight Dosing lidocaine topical, 1 patch(es), Topical, Daily, 7 patch(es), Refill(s) 0, apply 12 hours on and 12 hours off daily, [facility] #[id number], 198, cm, 08/12/22 9:37:00 EDT, Height/Length Dosing, 140, kg, 08/12/22 9:37:00 EDT, Weight Dosing Future Scheduled Tests Laboratory* COVID-19 ([facility]) 11/18/21 [facility]10-09-2022 Hospital Discharge instructions Patient Education 08/12/2022 [...] Follow these instructions at home: Medicines Take cmhw-zib-uiqnowm and prescription medicines only as told by your health care provider. Ask your health care provider if the medicine prescribed to you: ?Requires you to avoid driving or using heavy machinery. ?Can cause constipation. You may need to take these actions to prevent or treat constipation: ?Drink enough fluid to keep your urine pale yellow. ?Take cjmg-mwv-uoixkmq or prescription medicines. ?Eat foods that are [...] 10/15/2002 Document Revised: 11/09/2019 Document Reviewed: 11/09/2019 [employer] Patient Education 2020 [employer]. 08/12/2022 10:15:52 Back Exercises Back Exercises The [...] back becomes more flexible: 1.Get into a ahibd-bdo-nceze position on a firm surface. Keep your [...] 11/28/2005 Document Revised: 02/25/2020 Document Reviewed: 07/23/2019 [employer] Patient Education 2019 [employer]. Follow Up Care 08/12/2022 09:24:19 With:Aura Joseph Address: [address] [place] [address] [facility] [place] [address]- [facility] (1) When:08/15/2022 09:59:56 Comments:Follow-up with your primary care provider in 3 to 5 days. If symptoms worsen, do not improve, or new symptoms arise please report back to emergency department for further evaluation. [facility]05-16-2022 Hospital Discharge instructions Follow Up Care 03/19/2022 08:03:09 With:Brock Mercer Assisted: [phone] Address:Unknown When: Unknown [facility]05-02-2022 Hospital Discharge instructions Patient Education 03/05/2022 [...] what medicines you take. General instructions Take rbbo-uet-xdfehmk and prescription medicines only as told by [...] 10/21/2006 Document Revised: 10/03/2018 Document Reviewed: 03/21/2018 [employer] Patient Education 2020 [employer]. Follow Up Care 03/05/2022 08:50:19 With:Teena Cervantes Address: [address] [place] [address]- Business (1) When:03/08/2022 10:03:09 With:Deep De Souza Address: [facility] [place] [address] [place] [address] 0 Business (1) When:03/08/2022 10:03:06 [facility]01-15-2022 Evaluation + Plan note Future Scheduled Tests Laboratory* COVID-19 ([facility]) 11/18/21 [facility] Future Appointments Appointment Date:03/09/2022 09:00:00 AM Scheduled Provider: Location:.CARDIO Appointment Type:Anticoagulation Follow Up 15 (FT) Future Scheduled Tests Laboratory* COVID-19 ([facility]) 11/18/21 [facility] Future Appointments Appointment Date:03/30/2022 08:00:00 AM Scheduled Provider: Location:FT.CARDIO Appointment Type:Anticoagulation Follow Up 15 (FT) Future Scheduled Tests Laboratory* COVID-19 ([facility]) 11/18/21 Radiology* US LE Venous Duplex Insufficiency Right 03/19/22 * US PVR Lower EXT Complete Bilat 03/19/22 [facility] Future Appointments Appointment Date:05/18/2022 08:00:00 AM Scheduled Provider: Location:FT.CARDIO Appointment Type:Anticoagulation Follow Up 15 (FT) Future Scheduled Tests Laboratory* COVID-19 ([facility]) 11/18/21 [facility] Future Appointments Appointment Date:07/10/2022 08:45:00 AM Scheduled Provider: Location:FT.CARDIO Appointment Type:Anticoagulation Follow Up 15 (FT) Future Scheduled Tests Laboratory* COVID-19 ([facility]) 11/18/21 [facility] Future Appointments Appointment Date:08/03/2022 07:45:00 AM Scheduled Provider: Location:FT.CARDIO Appointment Type:Anticoagulation Follow Up 15 (FT) Future Scheduled Tests Laboratory* COVID-19 ([facility]) 11/18/21 [facility] note Future Appointments Appointment Date:11/16/2022 03:30:00 PM Scheduled Provider: Location:FT.CARDIO Appointment Type:Anticoagulation Follow Up 15 (FT) Future Scheduled Tests Laboratory* COVID-19 ([facility]) 11/18/21 [facility] note Future Appointments Appointment Date:06/28/2023 09:30:00 AM Scheduled Provider: Location:FT.CARDIO Appointment Type:Anticoagulation Follow Up 15 (FT) [facility] Narrative No data available for this section [facility] Discharge instructions No data available for this section [facility] HospitalProgress note No data available for this section [facility] Summary Purpose Family History No Family [...] section and content) DATE CREATED AUTHOR 04/24/2018 [facility] DATE CREATED AUTHOR AUTHOR'S ORGANIZ ATION 01/27/2019 [facility] DATE CREATED AUTHOR AUTHOR'S ORGANIZ ATION 05/03/2022 [facility] DATE CREATED AUTHOR AUTHOR'S ORGANIZ ATION 11/13/2022 [facility] DATE CREATED AUTHOR AUTHOR'S ORGANIZ ATION 04/12/2023 [facility] DATE CREATED AUTHOR AUTHOR'S ORGANIZ ATION 11/09/2023 [facility] DATE CREATED AUTHOR AUTHOR'S ORGANIZ ATION 11/23/2023 [facility] d[facility] Specialists EPIC Care Team (unrecognized sect ion and content) Personnel Name: Aura Joseph MD Address: [address] [place] [address] Name: Meghan Alarcon MA Name: Serenity Lakhani Personnel Name: Aura Joseph MD Address: [address] [place] [address] Name: Meghan Alarcon MA Name: Serenity Lakhani Personnel Name: Aura Joseph MD Address: [address] [place] [address] Name: Meghan Alarcon MA Name: Serenity Lakhani Personnel Name: Aura Joseph MD Address: [address] [place] [address] Name: Meghan Alarcon MA Name: Serenity Lakhani Personnel Name: Aura Joseph MD Address: Address: [address] [place] [address] Name: Meghan Alarcon MA Name: Serenity Lakhani Personnel Name: Aura Joseph MD Address: Address: [address] [place] [address] Name: Meghan Alarcon MA Name: Serenity Lakhani Personnel Name: Aura Joseph MD Address: Address: [address] [place] [address] Name: Derek Alarcon MAfany Chela Name: LakhaniSerenity Personnel Name: Aura Joseph MD Address: Address: [address] [place] [address] Name: Haileterrance RODRIGUEZ Meghan Chela Name: Serenity Lakhani Personnel Name: Aura Joseph MD Address: Address: [address] [place] [address] Name: Agnes JENNIFER Meghan S Name: Serenity Lakhani Personnel Name: Aura Joseph MD Address: Address: [address] [place] [address] Name: Meghan Alarcon MA Name: Kar Serenity [...] BE BASED ON THE PRIMARY CLINICAL RECORDS. [employer] [facility]. provides no warranty or guarantee of the accuracy or completeness of information in this document.
== END 2023-12-06 07:44 | disposition home or self-care (01) ==
LOC: VC 07:55
PROVIDERS: PCP Radiology Diagnostic Radiology; Visit Provider Radiology Diagnostic Radiology
DX: I80.01 Phlebitis and thrombophlebitis of superficial vessels of right lower extremity (principal)
CPT/HCPCS: 93971; G0463